=== PATIENT | male | born 1940 | race Caucasian/White ===

== ENCOUNTER → 2017-06-05 09:12 | Outpatient (CLI) | payer MEDICARE, OTHER, SELFPAY ==
[2017-06-05 10:51] LABS: AST(SGOT) 22 U/L (15-37); Alanine Aminotransfer ALT/SGPT 26 U/L (16-61); Albumin, Serum 3.5 g/dL (3.2-5.0); Alkaline Phosphatase 57 U/L (45-117); Bilirubin, Direct 0.15 mg/dL (0.00-0.30); Cholesterol 138 mg/dL (200); Globulin 3.3 g/dL (2.2-4.2); High Density Lipoprotein 45 mg/dL; Protein, Total 6.8 g/dL (6.4-8.2); Triglycerides 118 mg/dL; Very Low Density Lipoprotein 24 mg/dL (5-40)
== END ==
PROVIDERS: Family Provider Family Medicine; PCP Family Medicine; Visit Provider Internal Medicine Cardiovascular Disease
DX: E78.5 Hyperlipidemia, unspecified (principal); Z79.899 Other long term (current) drug therapy
CPT/HCPCS: 36415; 80061; 80076

== ENCOUNTER 2017-06-22 06:23 | Inpatient (IN) | payer MEDICARE, OTHER, SELFPAY ==
[2017-06-08 15:03] VITALS: BP 130/69; PULSE 57; RESP 16; TEMP 36.6; O2SAT 95; BMI 35.9
--- NOTE | 2017-06-08 15:12 | SDCEKG_ITS ---
Test Reason : Blood Pressure : / mmHG Vent. Rate : 052 BPM Atrial Rate : 052 BPM P-R Int : 160 ms QRS Dur : 098 ms QT Int : 428 ms P-R-T Axes : 057 -30 069 degrees QTc Int : 398 ms Sinus bradycardia Left axis deviation Abnormal ECG Confirmed by LUCIANA MATA, JOYCE ([id number]), image editor ELISHA TRAVIS ([id number] on 06/11/2017 12:55:37 PM Referred By: Adarsh Tijerina Confirmed By:JOYCE CHOWDHURY MD
[2017-06-08 15:40] LABS: Hematocrit 46.7 % (40-54); Mean Corp Hgb Conc 32.1 g/gl (32-36); Mean Corpuscular Hgb 29.3 pg (27.0-32.0); Mean Corpuscular Volume 91.2 fL (80-94); Mean Platelet Vol. 9.7 fl (6.2-12.0); Platelet Count 192 K/mm3 (150-450); RBC Distribution Width CV 16.7 % (11.6-14.6); Red Blood Count 5.12 M/mm3 (4.6-6.2); White Blood Count 7.9 K/mm3 (4.4-11.0)
[2017-06-08 15:41] LABS: Scan Indicated on CBC? Y/N NO
[2017-06-08 15:53] LABS: Partial Thromboplast Time 26.4 Seconds (24.1-36.2); Prothrombin Time (Protime)PT. 13.1 SECONDS (11.7-14.9)
[2017-06-08 16:22] LABS: AST(SGOT) 19 U/L (15-37); Alanine Aminotransfer ALT/SGPT 26 U/L (16-61); Albumin, Serum 3.4 g/dL (3.2-5.0); Alkaline Phosphatase 52 U/L (45-117); Anion Gap 7 (5-15); BUN 24 mg/dL (7-18); BUN/Creat Ratio 17.8 RATIO (10-20); Calcium,Total 9.5 mg/dL (8.5-10.1); Chloride 106 mmol/L (98-107); Creatinine, Serum 1.35 mg/dL (0.70-1.30); EST Glomerular Filtration Rate 55 mL/min (>60); Est Glom Filt Rate - Afr Amer 66 mL/min (>60); Estimated Creatinine Clearance 48.82 ml/min; Globulin 3.2 g/dL (2.2-4.2); Glucose 100 mg/dL (74-106); Potassium 3.8 mmol/L (3.5-5.1); Protein, Total 6.6 g/dL (6.4-8.2); Sodium Level 143 mmol/L (136-145)
[2017-06-22] VITALS (11 sets, daily range): BP systolic 109–136; BP diastolic 49–68; PULSE 52–66; RESP 16–18; TEMP 36.2–37.3; O2SAT 93–100; BMI 35.9
[2017-06-22] MEDS: Celecoxib 200 MG Capsule 400 MG PO (07:24)
[2017-06-22] MEDS: Acetaminophen 500 MG Tablet 1000 MG PO ×3 (07:25→21:58)
[2017-06-22] MEDS: oxyCODONE HCl Cr 10 MG Tablet PO (07:25)
[2017-06-22] MEDS: Cefazolin 2 GM in 0.9% Normal Saline 100 ML IV (08:24)
[2017-06-22] MEDS: Scopolamine 1mg/72hr Patch 1 PATCH TD (11:23)
[2017-06-22] MEDS: Lactated Ringers 1,000 ML 125 ML IV ×2 (11:24→18:46)
[2017-06-22] MEDS: Doxazosin 4 MG Tablet PO (12:33)
[2017-06-22] MEDS: Furosemide 40 MG Tablet PO (12:35)
[2017-06-22] MEDS: Senna/Docusate Sodium 1 Tablet 2 TABLET PO ×2 (12:35→21:58)
[2017-06-22] MEDS: Finasteride 5 MG Tablet PO (12:35)
[2017-06-22] MEDS: Ketorolac 15 MG/ML Vial IV (13:40)
--- NOTE | 2017-06-22 13:41 | OP.PCM_ITS ---
Report of Operation Date of Procedure: 06/22/17 Pre-Operative Diagnosis: Severe end-stage osteoarthritis right knee Post-Operative Diagnosis: Severe end-stage osteoarthritis right knee Surgery/Procedure Performed:: Total knee arthroplasty right knee Description of Surgical Findings:: Eburnation of bone, periarticular osteophytes consistent with tricompartmental osteoarthritis public information coordinator: Ailin Harden Type of Anesthesia:: Spinal Anesthesiologist: Vishnu Ortiz Special Medications: txa Specimen's removed: Bone and soft tissue Estimated Blood Loss (mL): 100 Fluids Replaced: See anesthesia report Description of Procedure: Implants: [employer] triathlon cruciate retaining size 5 femur 5 tibia 35 patella all cemented with Simplex 9 mm CS articulating surface Indications: Patient has severe end-stage osteoarthritis diagnosed via x-rays in the knee. They have failed all forms of conservative measures including activity modification, injections, anti-inflammatories, use of assistive device. The patient has pain that affects on a daily basis and prevents him from doing things that they enjoyed. They have elected to undergo the above procedure. The risks of the procedure were discussed at length and their questions were answered. Procedure description: The patient was greeted in the preoperative area. The right knee was then marked with a surgical marker. Patient was then taken to or [address]. They were administered a dose of antibiotics as well as tranexamic acid. Once adequate anesthesia was obtained and airway was secured to placed in supine position on the operating room table. A well-padded tourniquet was placed on the affected extremity. Leg was then prepped and draped in the usual sterile fashion from the knee down. Ioban was used on the skin. Surgical timeout was then performed and confirmed with all present. Six-inch Esmarch was used to examine the limb and tourniquet was then inflated to 250 mmHg. A longitudinal incision was then planned and carried out in the anterior aspect of the knee. The dissection was then carried the length of the incision the extensor mechanism was identified. Standard medial parapatellar arthrotomy was then performed revealing severe eburnation of bone and periarticular osteophytes. There is complete loss of cartilage especially in the medial compartment with varus alignment. Anterior fat pad was removed for visualization purposes and the anterior medial aspect of the tibia was skeletonized for exposure to the knee. The knee was then flexed the patella was inverted. Opening reamer was then used in the femur approximately 1 cm anterior to the attachment of the PCL. The intramedullary valgus wand was then placed in the femur set at 5? of valgus. The distal femoral cutting jig was then applied to the femur with anticipated resection of approximately 8 mm. This was then made with a oscillating saw. The sizing guide was then placed referencing off the posterior condyles and also reference off the epicondylar axis. This was measured and the appropriate size 4-in-1 cutting jig was then applied to the distal femur. Anterior posterior cuts were made followed by the anterior and posterior chamfer cuts. These bony pieces and fragments were removed and placed on the back table. Posterior retractor was then utilized and the tibia was subluxed anteriorly. Extramedullary tibial alignment jig was then applied to the tibia referencing off the medial one third of the tibial tubercle the anterior tibial spine the middle aspect of the tibiotalar joint. Also reference off patient's [place] slope. The tibial cutting jig was then pinned with anticipated resection of 2 mm off of the deficient medial tibial condyle. This cut was made with the oscillating saw. Once this was complete a laminar wharf builder was utilized in both medial lateral meniscus were removed and a posterior capsular osteophytes were also removed. Posterior capsule release was performed in the posterior capsule as well as the geniculate arteries are treated with the aqua Jose G. The tibia was incised and the appropriate sized tibial tray was then pinned. The femoral trial was then placed and the knee was trialed. Full flexion-extension were easily achieved. The knee seemed to balance quite nicely. Any remaining osteophytes were removed at this time. Once this was complete the patella was everted and the [place] patella reaming device was then utilized the patella was then placed in the appropriate jig and reamer was then used to remove approximately 9 mm of the undersurface of the patella. A soft tissue remaining was in the way was removed and patella trial was then placed listed maintain excellent tracking using the no thumbs technique. The tibial tray at this point was punched to accommodate the fins of the final implant. At this point cement was mixed on the back table. The trial components were removed and the knee was copiously irrigated. Did use a cocktail of injection for postoperative pain control. The final components were then cemented in the standard fashion and excess cement was removed with cement removal tools and patellar clamp is placed in the patella. As the cement had cured in full extension tourniquet was deflated and hemostasis was perfect with Bovie cautery as well as the aqua Manus. Needle is once again trialed with different size polyethylenes to ensure the full range of motion was achieved as well as excellent balancing ligamentously was achieved. At this point the knee was copiously irrigated. Final implant was then inserted locking mechanism was engaged and confirmed to be locked. The arthrotomy was then closed with #1 Vicryl aggravate type fashion interrupted. Subcutaneous tissue was closed with 0 Vicryl and surgical jasmina were placed in the skin. A occlusive silver impregnated dressing was then applied followed by well-padded sterile dressing secured with an Bacilio wrap. The patient was taken to the PACU in stable condition. No complications known at this time. Postoperatively we will maintain standard total knee postoperative protocol. - Complications none - Admit VTE Documentation VTE Present on Admission: Yes VTE Mechan Device Prophylaxis: SCD's, Thigh High RAUL Hose VTE Pharm Prophylaxis ordered?: Yes
[2017-06-22] MEDS: Ipratropium/Albuterol Sulfate 3 ML AMPUL.NEB INHALATION (14:01)
[2017-06-22] MEDS: Cefazolin 1 GM/50 ML BAG IV (16:09)
[2017-06-22] MEDS: Aspirin 325 MG Tablet PO (16:10)
--- NOTE | 2017-06-22 16:34 | PCM.CONS.B ---
Problem List (1) Osteoarthritis Status: Chronic (2) S/P total knee arthroplasty Status: Acute Qualifiers: Laterality: right Qualified Code(s): Z96.651 - Presence of right artificial knee joint Comment: 06/22/17 (3) Chronic renal failure, stage 3 (moderate) Status: Chronic (4) Allergic rhinitis Status: Chronic (5) Benign essential HTN Status: Chronic (6) CAD (coronary artery disease) Status: Chronic Qualifiers: Coronary Disease-Associated Artery/Lesion type: [place] artery [place] vs. transplanted heart: [place] heart Associated angina: without angina Qualified Code(s): I25.10 - Atherosclerotic heart disease of [place] coronary artery without angina pectoris (7) Esophageal reflux Status: Chronic (8) Gingivitis Status: Chronic (9) HLD (hyperlipidemia) Status: Chronic Qualifiers: Hyperlipidemia type: pure hypercholesterolemia Qualified Code(s): E78.00 - Pure hypercholesterolemia, unspecified; E78.0 - Pure hypercholesterolemia (10) History of percutaneous transluminal coronary angioplasty Status: Chronic Comment: PTCA & MARITZA of proximal & Mid LAD & Proximal & mid RCA in June 2000, PTCA & MARITZA of mid LAD November 2010 (11) Hypertension Status: Chronic Qualifiers: Hypertension type: essential hypertension Qualified Code(s): I10 - Essential (primary) hypertension (12) Hypothyroidism Status: Chronic (13) Prostate cancer Status: Chronic - Consult Date of Consult: 06/22/[address] Jimenez for medical management. He had a R TKA 06/22 and PMH is significant for CAD, hyperlipidemia, hypothyroidism, chronic renal failure stage III, obesity, osteoarthritis, hypertension, obstructive sleep apnea on CPAP, BPH and PTCA of the LAD and RCA with stents. Last cardiac catheterization was in 2013 and demonstrated patent pre-existing stent of his LAD and mid LAD, patent pre-existing stent of his RCA and an ejection fraction of 65%. He saw Dr. Tijerina in the office on 06/10/2017 in preparation for total knee replacement. Preoperative lab showed a BUN of 24 with a creatinine of 1.35. TSH was elevated at 8.9. Preoperative EKG showed normal sinus rhythm with left axis deviation but was otherwise unremarkable. - Reason for Consult Denies chest pain, shortness of breath, palpitations. He was eating supper and appeared in no acute distress at the time of my visit. States his pain is adequately controlled and he was able to ambulate to the nurses desk this afternoon. Also denies nausea, vomiting. Tells me that his levothyroid dose was recently increased to 0.15 mg daily from 0.137 mg daily due to the elevated TSH. He does take the medication on an empty stomach. Alert and oriented ?3, no apparent distress Lungs-good air exchange and clear to auscultation Heart-regular rate and rhythm without murmur, no gallop, no rub, normal S1, normal S2, no ectopy Carotids-brisk upstroke with good pulse volume and no carotid bruits No jugular vein distention Abdomen-obese, soft, nontender, nondistended, no guarding with palpation, normal bowel sounds heard Intact sensation to both feet No calf pain him a no peripheral edema him a peripheral pulses are intact and normal Mucous membranes are moist Affect is normal he is appropriate Impressions 1. S/P R TKA by Dr. Jimenez 2. CAD with hx of stents to the LAD and RCA 3. HTN 4. Osteoarthritis 5. Chronic renal failure stage III 6. Hypertension 7. BPH 8. Hyperlipidemia/GERD/gingivitis/hypothyroidism/history of prostate cancer-complicate care, management, prognosis and recovery. 9. Restless leg syndrome Plans on going home Thursday with outpatient physical therapy Will change the diet to a cardiac diet. Will continue to follow along with you while he is in the hospital He was instructed to notify the nurse immediately if he has chest pain or SOB. Would limit nonsteroidal use in light of chronic renal failure stage III Discontinue IV fluids. The patient is on Lasix, hydrochlorothiazide and Aldactone as an outpatient and he is taking his diet well so no need for IV hydration. Code Visit Inpatient E&M: 62926 Subs Hosp L2
--- NOTE | 2017-06-22 16:46 | CON.PCM_ITS ---
Problem List (1) Osteoarthritis Status: Chronic (2) S/P total knee arthroplasty Status: Acute Qualifiers: Laterality: right Qualified Code(s): Z96.651 - Presence of right artificial knee joint Comment: 06/22/17 (3) Chronic renal failure, stage 3 (moderate) Status: Chronic (4) Allergic rhinitis Status: Chronic (5) Benign essential HTN Status: Chronic (6) CAD (coronary artery disease) Status: Chronic Qualifiers: Coronary Disease-Associated Artery/Lesion type: [place] artery [place] vs. transplanted heart: [place] heart Associated angina: without angina Qualified Code(s): I25.10 - Atherosclerotic heart disease of [place] coronary artery without angina pectoris (7) Esophageal reflux Status: Chronic (8) Gingivitis Status: Chronic (9) HLD (hyperlipidemia) Status: Chronic Qualifiers: Hyperlipidemia type: pure hypercholesterolemia Qualified Code(s): E78.00 - Pure hypercholesterolemia, unspecified; E78.0 - Pure hypercholesterolemia (10) History of percutaneous transluminal coronary angioplasty Status: Chronic Comment: PTCA & MARITZA of proximal & Mid LAD & Proximal & mid RCA in June 2000, PTCA & MARITZA of mid LAD November 2010 (11) Hypertension Status: Chronic Qualifiers: Hypertension type: essential hypertension Qualified Code(s): I10 - Essential (primary) hypertension (12) Hypothyroidism Status: Chronic (13) Prostate cancer Status: Chronic - Consult Date of Consult: 06/22/[address] Jimenez for medical management. He had a R TKA 06/22 and PMH is significant for CAD, hyperlipidemia, hypothyroidism , chronic renal failure stage III, obesity, osteoarthritis, hypertension, obstructive sleep apnea on CPAP, BPH and PTCA of the LAD and RCA with stents. Last cardiac catheterization was in 2013 and demonstrated patent pre-existing stent of his LAD and mid LAD, patent pre-existing stent of his RCA and an ejection fraction of 65%. He saw Dr. Tijerina in the office on 06/10/2017 in preparation for total knee replacement. Preoperative lab showed a BUN of 24 with a creatinine of 1.35. TSH was elevated at 8.9. Preoperative EKG showed normal sinus rhythm with left axis deviation but was otherwise unremarkable. - Reason for Consult Denies chest pain, shortness of breath, palpitations. He was eating supper and appeared in no acute distress at the time of my visit. States his pain is adequately controlled and he was able to ambulate to the nurses desk this afternoon. Also denies nausea, vomiting. Tells me that his levothyroid dose was recently increased to 0.15 mg daily from 0.137 mg daily due to the elevated TSH. He does take the medication on an empty stomach. Alert and oriented ?3, no apparent distress Lungs-good air exchange and clear to auscultation Heart-regular rate and rhythm without murmur, no gallop, no rub, normal S1, normal S2, no ectopy Carotids-brisk upstroke with good pulse volume and no carotid bruits No jugular vein distention Abdomen-obese, soft, nontender, nondistended, no guarding with palpation, normal bowel sounds heard Intact sensation to both feet No calf pain him a no peripheral edema him a peripheral pulses are intact and normal Mucous membranes are moist Affect is normal he is appropriate Impressions 1. S/P R TKA by Dr. Jimenez 2. CAD with hx of stents to the LAD and RCA 3. HTN 4. Osteoarthritis 5. Chronic renal failure stage III 6. Hypertension 7. BPH 8. Hyperlipidemia/GERD/gingivitis/hypothyroidism/history of prostate cancer- complicate care, management, prognosis and recovery. 9. Restless leg syndrome Plans on going home Thursday with outpatient physical therapy Will change the diet to a cardiac diet. Will continue to follow along with you while he is in the hospital He was instructed to notify the nurse immediately if he has chest pain or SOB. Would limit nonsteroidal use in light of chronic renal failure stage III Discontinue IV fluids. The patient is on Lasix, hydrochlorothiazide and Aldactone as an outpatient and he is taking his diet well so no need for IV hydration. Code Visit Inpatient E&M: 42384 Subs Hosp L2
[2017-06-22] MEDS: oxyCODONE 5 MG Tablet PO (18:43)
[2017-06-22] MEDS: DULoxetine Hcl 30 MG Capsule PO (21:57)
[2017-06-22] MEDS: Pramipexole Di-HCl 0.5 MG Tablet PO (21:58)
[2017-06-22] MEDS: Atorvastatin Calcium 80 MG Tablet PO (21:58)
[2017-06-22] MEDS: Azelastine HCl NASAL.SRY 1 SPRAY NASAL (21:58)
[2017-06-23] VITALS (8 sets, daily range): BP systolic 115–138; BP diastolic 48–73; PULSE 45–80; RESP 16–20; TEMP 36.6–37; O2SAT 94–96
[2017-06-23] MEDS: Cefazolin 1 GM/50 ML BAG IV (00:39)
[2017-06-23] MEDS: Levothyroxine 150 MCG Tablet PO (05:13)
[2017-06-23] MEDS: Acetaminophen 500 MG Tablet 1000 MG PO ×3 (05:14→21:41)
[2017-06-23] MEDS: oxyCODONE 5 MG Tablet PO (05:14)
--- NOTE | 2017-06-23 07:07 | PCM.PN.ORT ---
Patient Problems: Active and Suspected Problems (Last Reviewed 06/10/17 @ 11:38 by Renzo Pond) S/P total knee arthroplasty (Acute) 06/22/17 Subjective: Dann is doing very well. He denies any pain in his knee whatsoever. He has been ambulatory yesterday as well as this morning and is currently sitting at bedside chair. He denies any chest pain or shortness of breath Objective: Neurovascularly intact. No calf pain. Dorsalis pedis pulses 2+ and he is able wiggle off his toes. Dressing is in place - Physical Exam Vital Signs Temp Pulse Resp BP Pulse Ox 97.8 F 52 L 16 116/57 L 96 06/23/17 02:15 06/23/17 02:15 06/23/17 02:15 06/23/17 02:15 06/23/17 02:15 Oxygen Delivery Method CPAP Weight: 250 lb 7.122 oz Body Mass Index (BMI) 35.9 Intake and Output for Last 24 Hours 06/21/17 06/22/17 06/23/17 23:59 23:59 23:59 Intake Total 4256 / 4256 240 / 240 Output Total 1000 / 1000 400 / 400 Balance 3256 / 3256 -160 / -160 Assessment/Plan Active and Suspected Problems (Last Reviewed 06/10/17 @ 11:38 by Renzo Pond) S/P total knee arthroplasty (Acute) 06/22/17 Postop day #1 right total knee arthroplasty Plan: Anticoagulate, pain control and mobilize with physical therapy. Anticipate discharge home tomorrow if the patient is doing well medically
[2017-06-23] MEDS: Budesonide Respules 0.5 MG/2 ML AMPUL.NEB. INHALATION ×2 (07:09→19:32)
[2017-06-23] MEDS: Ipratropium/Albuterol Sulfate 3 ML AMPUL.NEB INHALATION ×2 (07:09→19:32)
[2017-06-23] MEDS: Aspirin 325 MG Tablet PO ×2 (07:42→16:54)
[2017-06-23] MEDS: hydroCHLOROthiazide 25 MG Tablet PO (07:44)
[2017-06-23] MEDS: Furosemide 40 MG Tablet PO (07:44)
[2017-06-23] MEDS: Famotidine 20 MG Tablet PO (07:44)
[2017-06-23] MEDS: Senna/Docusate Sodium 1 Tablet 2 TABLET PO ×2 (07:44→21:40)
[2017-06-23] MEDS: Spironolactone 25 MG Tablet PO (07:45)
[2017-06-23] MEDS: Azelastine HCl NASAL.SRY 1 SPRAY NASAL ×2 (07:46→21:39)
--- NOTE | 2017-06-23 10:39 | CASEMGMT ---
SHAKIRA GREENFIELD Face to Face with patient for initial transition planning/care coordination assessment. RN GIN introduced self and role at [facility]. Patient sitting in chair, alert and oriented. Patient willing to participate in assessment and is able to answer all questions appropriately. Care providers, pharmacy, and demographics verified. See link attached. Patient wishes to discharge home with outpatient therapy setup at [facility] in [place]. Patient states that will be providing transportation. Patient states he has no further needs or concerns at this time. CM to follow for discharge planning needs that may arise. Disposition Plan: Patient to discharge home with outpatient therapy, family support, and follow-up plans in place.
--- NOTE | 2017-06-23 13:06 | PCA ---
pt in therapy
--- NOTE | 2017-06-23 20:43 | PCM.PROGNOTE ---
Patient Problems: Active and Suspected Problems (Last Reviewed 06/10/17 @ 11:38 by Renzo Pond) S/P total knee arthroplasty (Acute) 06/22/17 Subjective: He is doing very well. He has been ambulating and pain is adequately controlled. He is currently sitting in a chair and has 0/10 pain. Pain with ambulation is a 45. He denies chest pain and also denies palpitations, shortness of breath, nausea/vomiting. He is afebrile with stable vital signs. Pulse ox on room air is 95%. - Physical Exam General: Alert, Oriented x3, Cooperative, No apparent distress Neck: Supple, No JVD Lungs: Clear to auscultation Cardiovascular: Regular rate, Regular Rhythm, Normal S1, Normal S2, No murmurs, No Ectopic Activity, No rub noted, No Gallop Abdomen: Bowel Sounds Present, Soft, Non Tender, Non-Distended Extremities: No clubbing, No cyanosis, Peripheral Pulses Normal Skin: No rashes, No breakdown Neurological: Cranial nerves II-XII grossly intact, Neuro grossly intact Vital Signs Temp Pulse Resp BP Pulse Ox 97.9 F 53 L 18 115/53 L 95 06/23/17 14:10 06/23/17 14:10 06/23/17 14:10 06/23/17 14:10 06/23/17 14:10 Oxygen Delivery Method Room Air Weight: 250 lb 7.122 oz Body Mass Index (BMI) 35.9 Intake and Output for Last 24 Hours 06/21/17 06/22/17 06/23/17 23:59 23:59 23:59 Intake Total 4256 / 4256 240 / 240 Output Total 1000 / 1000 400 / 400 Balance 3256 / 3256 -160 / -160 Assessment/Plan Active and Suspected Problems (Last Reviewed 06/10/17 @ 11:38 by Renzo Pond) S/P total knee arthroplasty (Acute) 06/22/17 Impressions 1. S/P R TKA by Dr. Jimenez -postop day #1 2. CAD with hx of stents to the LAD and RCA 3. HTN 4. Osteoarthritis 5. Chronic renal failure stage III 6. Hypertension 7. BPH 8. Hyperlipidemia/GERD/gingivitis/hypothyroidism/history of prostate cancer-complicate care, management, prognosis and recovery. 9. Restless leg syndrome doing very well Will recheck a BMP and a CBC in the AM probable Dc tomorrow Code Visit Inpatient E&M: 90494 Subs Hosp L1
--- NOTE | 2017-06-23 20:47 | PN_ITS ---
Patient Problems: Active and Suspected Problems (Last Reviewed 06/10/17 @ 11:38 by Renzo Pond) S/P total knee arthroplasty (Acute) 06/22/17 Subjective: He is doing very well. He has been ambulating and pain is adequately controlled. He is currently sitting in a chair and has 0/10 pain. Pain with ambulation is a 45. He denies chest pain and also denies palpitations, shortness of breath, nausea/vomiting. He is afebrile with stable vital signs. Pulse ox on room air is 95%. - Physical Exam General: Alert, Oriented x3, Cooperative, No apparent distress Neck: Supple, No JVD Lungs: Clear to auscultation Cardiovascular: Regular rate, Regular Rhythm, Normal S1, Normal S2, No murmurs, No Ectopic Activity, No rub noted, No Gallop Abdomen: Bowel Sounds Present, Soft, Non Tender, Non-Distended Extremities: No clubbing, No cyanosis, Peripheral Pulses Normal Skin: No rashes, No breakdown Neurological: Cranial nerves II-XII grossly intact, Neuro grossly intact Vital Signs Temp Pulse Resp BP Pulse Ox 97.9 F 53 L 18 115/53 L 95 06/23/17 14:10 06/23/17 14:10 06/23/17 14:10 06/23/17 14:10 06/23/17 14:10 Oxygen Delivery Method Room Air Weight: 250 lb 7.122 oz Body Mass Index (BMI) 35.9 Intake and Output for Last 24 Hours 06/21/17 06/22/17 06/23/17 23:59 23:59 23:59 Intake Total 4256 / 4256 240 / 240 Output Total 1000 / 1000 400 / 400 Balance 3256 / 3256 -160 / -160 Assessment/Plan Active and Suspected Problems (Last Reviewed 06/10/17 @ 11:38 by Renzo Pond) S/P total knee arthroplasty (Acute) 06/22/17 Impressions 1. S/P R TKA by Dr. Jimenez -postop day #1 2. CAD with hx of stents to the LAD and RCA 3. HTN 4. Osteoarthritis 5. Chronic renal failure stage III 6. Hypertension 7. BPH 8. Hyperlipidemia/GERD/gingivitis/hypothyroidism/history of prostate cancer- complicate care, management, prognosis and recovery. 9. Restless leg syndrome doing very well Will recheck a BMP and a CBC in the AM probable Dc tomorrow Code Visit Inpatient E&M: 04862 Subs Hosp L1
[2017-06-23] MEDS: Doxazosin 4 MG Tablet PO (21:40)
[2017-06-23] MEDS: DULoxetine Hcl 30 MG Capsule PO (21:40)
[2017-06-23] MEDS: Atorvastatin Calcium 80 MG Tablet PO (21:40)
[2017-06-23] MEDS: LINACLOTIDE 145 MCG CAPSULE PO (21:40)
[2017-06-23] MEDS: Pramipexole Di-HCl 0.5 MG Tablet PO (21:40)
[2017-06-23] MEDS: Finasteride 5 MG Tablet PO (21:42)
[2017-06-23] MEDS: Zolpidem Tartrate 5 MG Tablet PO (21:50)
[2017-06-24] VITALS (7 sets, daily range): BP systolic 112–164; BP diastolic 60–83; PULSE 49–77; RESP 16–21; TEMP 36.7–36.9; O2SAT 94–96
[2017-06-24] MEDS: Levothyroxine 150 MCG Tablet PO (05:34)
[2017-06-24] MEDS: Acetaminophen 500 MG Tablet 1000 MG PO ×2 (05:35→13:44)
[2017-06-24 06:48] LABS: Hematocrit 41.8 % (40-54); Hemoglobin 13.5 g/dl (13.0-16.5); Mean Corp Hgb Conc 32.3 g/gl (32-36); Mean Corpuscular Hgb 29.6 pg (27.0-32.0); Mean Corpuscular Volume 91.7 fL (80-94); Mean Platelet Vol. 9.9 fl (6.2-12.0); Platelet Count 184 K/mm3 (150-450); RBC Distribution Width CV 16.2 % (11.6-14.6); RBC Distribution Width SD 52.5 fl (35.1-43.9); Red Blood Count 4.56 M/mm3 (4.6-6.2); White Blood Count 9.4 K/mm3 (4.4-11.0)
[2017-06-24 06:56] LABS: Scan Indicated on CBC? Y/N NO
[2017-06-24] MEDS: Ipratropium/Albuterol Sulfate 3 ML AMPUL.NEB INHALATION ×2 (07:10→13:04)
[2017-06-24] MEDS: Budesonide Respules 0.5 MG/2 ML AMPUL.NEB. INHALATION (07:10)
[2017-06-24 07:12] LABS: Anion Gap 7 (5-15); BUN 22 mg/dL (7-18); BUN/Creat Ratio 13.7 RATIO (10-20); Calcium,Total 9.1 mg/dL (8.5-10.1); Chloride 107 mmol/L (98-107); Creatinine, Serum 1.61 mg/dL (0.70-1.30); EST Glomerular Filtration Rate 45 mL/min (>60); Est Glom Filt Rate - Afr Amer 54 mL/min (>60); Estimated Creatinine Clearance 40.93 ml/min; Glucose 136 mg/dL (74-106); Potassium 3.9 mmol/L (3.5-5.1); Sodium Level 144 mmol/L (136-145)
[2017-06-24] MEDS: Famotidine 20 MG Tablet PO (07:34)
[2017-06-24] MEDS: Aspirin 325 MG Tablet PO (07:34)
[2017-06-24] MEDS: Senna/Docusate Sodium 1 Tablet 2 TABLET PO (07:35)
[2017-06-24] MEDS: Furosemide 40 MG Tablet PO (07:35)
[2017-06-24] MEDS: hydroCHLOROthiazide 25 MG Tablet PO (07:35)
[2017-06-24] MEDS: Spironolactone 25 MG Tablet PO (07:36)
--- NOTE | 2017-06-24 08:51 | PCM.DC.ORTHO ---
Discharge Diet: No Restrictions Discharge Activity: May Not Drive, May Shower - if occlusive dressing sealed Ice area for (Minutes): 20 Weight Bearing Status: Weight bearing as tolerated Keep extremity elevated above heart level: Right Leg Call your doctor if your incision/area has: Continuous Slow Oozing, Sudden Increased Bleeding, Increased Pain/ Swelling, Increased Redness, Foul Smelling Discharge Call your doctor if you observe: Fever of 101 or Higher, Coldness, Increased Pain, Numbness or Tingling, Change in Color Change Dressing in (Days):: 7 Remove Dressing in (days):: 7 Cleanse incision/area with: Soap & Water - after dressing removed if no drainage Allergies/Adverse Reactions: Allergies modafinil [From Provigil] Allergy (Verified 06/10/17 11:35) Other moxifloxacin HCl [From Avelox] Allergy (Verified 06/10/17 11:35) Upset Stomach Medications to take at Discharge Albuterol IH (ProAir) [Proair Hfa] 2 puff INHALATION Q4H PRN PRN 08/29/13 Doxazosin Mesylate [Cardura] 4 mg PO DAILY 08/29/13 Finasteride [Proscar] 5 mg PO DAILY 08/29/13 Levothyroxine [Synthroid] 150 mcg PO DAILY 08/29/13 Meclizine HCl [Antivert] 25 mg PO 4X/DAY PRN PRN 08/29/13 Multivitamins,Therapeutic [Multivitamin] 1 tab PO DAILY 08/29/13 Nitroglycerin [Nitrostat] 0.4 mg SUBLINGUAL Q5M PRN 08/29/13 Rosuvastatin Calcium [Crestor] 40 mg PO DAILY 08/29/13 Spironolact/Hydrochlorothiazid [Aldactazide 25-25 Tablet] 25 mg PO DAILY 08/29/13 Fluticasone/Salmeterol [Advair 500/50 Mcg Diskus] 1 puff INHALATION BID 01/16/16 Linacolotide [Linzess] 145 mcg PO DAILY 01/16/16 Pramipexole Di-HCl [Mirapex] 0.5 mg PO QHS 01/16/16 Tiotropium [place] [Spiriva 18 MCG] 1 puff INHALATION DAILY 01/16/16 furosemide 40 mg tablet 40 mg PO QDAY 05/06/17 famotidine 40 mg tablet 40 mg PO QDAY tab 05/21/17 Azelastine HCl [Astelin] 1 spray NASAL BID 06/08/17 Duloxetine HCl 30 mg PO DAILY 06/08/17 Ropinirole HCl [Requip] 0.5 mg PO QHS 06/08/17 Temazepam [Restoril] 7.5 mg PO QHS 06/08/17 Wheat Dextrin [Benefiber] 1 ea PO QHS 06/08/17 potassium chloride ER 20 mEq tablet,extended release(part/cryst) 40 meq PO QDAY tab 06/10/17 Acetaminophen [Tylenol] 1,000 mg PO Q8 tablet 06/24/17 Aspirin 325 mg PO BIDCM #60 tab 06/24/17 MorphINE [Ms Contin] 15 mg PO BID 7 Days #14 tablet 06/24/17 Ondansetron [Zofran] 4 mg IV Q8H PRN PRN #10 vial 06/24/17 Oxycodone [Oxyir] 5 - 10 mg PO Q4H PRN PRN 7 Days #56 tablet 06/24/17 Senna/Docusate Sodium [Senokot-S] 2 tablet PO BID tablet 06/24/17 The following prescriptions were given: Oxycodone [Oxyir] 5 - 10 mg PO Q4H PRN PRN 7 Days #56 tablet PRN Reason: Mod-Severe Pain (4-10/10) Ondansetron [Zofran] 4 mg IV Q8H PRN PRN #10 vial PRN Reason: NAUSEA Aspirin 325 mg PO BIDCM #60 tab MorphINE [Ms Contin] 15 mg PO BID 7 Days #14 tablet Please Follow Up With: Mike Jimenez DO When: 2 weeks
--- NOTE | 2017-06-24 08:59 | DCINST_ITS ---
Discharge Diet: No Restrictions Discharge Activity: May Not Drive, May Shower - if occlusive dressing sealed Ice area for (Minutes): 20 Weight Bearing Status: Weight bearing as tolerated Keep extremity elevated above heart level: Right Leg Call your doctor if your incision/area has: Continuous Slow Oozing, Sudden Increased Bleeding, Increased Pain/ Swelling, Increased Redness, Foul Smelling Discharge Call your doctor if you observe: Fever of 101 or Higher, Coldness, Increased Pain, Numbness or Tingling, Change in Color Change Dressing in (Days):: 7 Remove Dressing in (days):: 7 Cleanse incision/area with: Soap & Water - after dressing removed if no drainage Allergies/Adverse Reactions: Allergies modafinil [From Provigil] Allergy (Verified 06/10/17 11:35) Other moxifloxacin HCl [From Avelox] Allergy (Verified 06/10/17 11:35) Upset Stomach Medications to take at Discharge Albuterol IH (ProAir) [Proair Hfa] 2 puff INHALATION Q4H PRN PRN 08/29/13 Doxazosin Mesylate [Cardura] 4 mg PO DAILY 08/29/13 Finasteride [Proscar] 5 mg PO DAILY 08/29/13 Levothyroxine [Synthroid] 150 mcg PO DAILY 08/29/13 Meclizine HCl [Antivert] 25 mg PO 4X/DAY PRN PRN 08/29/13 Multivitamins,Therapeutic [Multivitamin] 1 tab PO DAILY 08/29/13 Nitroglycerin [Nitrostat] 0.4 mg SUBLINGUAL Q5M PRN 08/29/13 Rosuvastatin Calcium [Crestor] 40 mg PO DAILY 08/29/13 Spironolact/Hydrochlorothiazid [Aldactazide 25-25 Tablet] 25 mg PO DAILY Fluticasone/Salmeterol [Advair 500/50 Mcg Diskus] 1 puff INHALATION BID Linacolotide [Linzess] 145 mcg PO DAILY 01/16/16 Pramipexole Di-HCl [Mirapex] 0.5 mg PO QHS 01/16/16 Tiotropium [place] [Spiriva 18 MCG] 1 puff INHALATION DAILY 01/16/16 furosemide 40 mg tablet 40 mg PO QDAY 05/06/17 famotidine 40 mg tablet 40 mg PO QDAY tab 05/21/17 Azelastine HCl [Astelin] 1 spray NASAL BID 06/08/17 Duloxetine HCl 30 mg PO DAILY 06/08/17 Ropinirole HCl [Requip] 0.5 mg PO QHS 06/08/17 Temazepam [Restoril] 7.5 mg PO QHS 06/08/17 Wheat Dextrin [Benefiber] 1 ea PO QHS 06/08/17 potassium chloride ER 20 mEq tablet,extended release(part/cryst) 40 meq PO QDAY tab 06/10/17 Acetaminophen [Tylenol] 1,000 mg PO Q8 tablet 06/24/17 Aspirin 325 mg PO BIDCM #60 tab 06/24/17 MorphINE [Ms Contin] 15 mg PO BID 7 Days #14 tablet 06/24/17 Ondansetron [Zofran] 4 mg IV Q8H PRN PRN #10 vial 06/24/17 Oxycodone [Oxyir] 5 - 10 mg PO Q4H PRN PRN 7 Days #56 tablet 06/24/17 Senna/Docusate Sodium [Senokot-S] 2 tablet PO BID tablet 06/24/17 The following prescriptions were given: Oxycodone [Oxyir] 5 - 10 mg PO Q4H PRN PRN 7 Days #56 tablet PRN Reason: Mod-Severe Pain (4-10/10) Ondansetron [Zofran] 4 mg IV Q8H PRN PRN #10 vial PRN Reason: NAUSEA Aspirin 325 mg PO BIDCM #60 tab MorphINE [Ms Contin] 15 mg PO BID 7 Days #14 tablet Please Follow Up With: Mike Jimenez DO When: 2 weeks
== END 2017-06-24 13:50 | disposition home or self-care (01) | DRG 470 ==
LOC: MS3 06:24
PROVIDERS: Anesthesiology; Internal Medicine; Admitting Provider Orthopaedic Surgery; Family Provider Family Medicine; PCP Family Medicine; Visit Provider Orthopaedic Surgery
PROC: 0SRC0J9 Replacement of Right Knee Joint with Synthetic Substitute, Cemented, Open Approach (ICD-10-PCS; CPT 27447; principal; 2017-06-22 08:20)
DX: M17.11 Unilateral primary osteoarthritis, right knee (principal); N18.3 Chronic kidney disease, stage 3 (moderate); E03.9 Hypothyroidism, unspecified; E78.5 Hyperlipidemia, unspecified; G47.33 Obstructive sleep apnea (adult) (pediatric); Z95.5 Presence of coronary angioplasty implant and graft; I25.10 Atherosclerotic heart disease of native coronary artery without angina pectoris; N40.0 Benign prostatic hyperplasia without lower urinary tract symptoms; I12.9 Hypertensive chronic kidney disease with stage 1 through stage 4 chronic kidney disease, or unspecified chronic kidney disease; E66.9 Obesity, unspecified; G25.81 Restless legs syndrome; Z85.46 Personal history of malignant neoplasm of prostate; Z68.35 Body mass index [BMI] 35.0-35.9, adult; K21.9 Gastro-esophageal reflux disease without esophagitis; Z87.891 Personal history of nicotine dependence
CPT/HCPCS: 36415; 80048; 80076; 84443; 85027; 85610; 85730; 87081; 94640; 97110; 97116; 97162; 97165; 97530; 97535; J7120; J2405

== ENCOUNTER 2017-06-26 23:06 | Inpatient (IN) | payer MEDICARE, OTHER, SELFPAY ==
[2017-06-26 23:07] VITALS: BP 128/68; PULSE 72; RESP 16; TEMP 36.8; O2SAT 90; BMI 33.0
[2017-06-26 23:09] VITALS: O2SAT 93
--- NOTE | 2017-06-26 23:24 | EKG12_ITS ---
Test Reason : Blood Pressure : / mmHG Vent. Rate : 066 BPM Atrial Rate : 066 BPM P-R Int : 176 ms QRS Dur : 094 ms QT Int : 404 ms P-R-T Axes : 042 -44 078 degrees QTc Int : 423 ms Normal sinus rhythm Left axis deviation Abnormal ECG Confirmed by LUCIANA MATA, JOYCE ([id number]), senior editor ELISHA TRAVIS ([id number] on 06/30/2017 4:29:15 PM Referred By: ARCADIO Confirmed By:JOYCE CHOWDHURY MD
--- NOTE | 2017-06-26 23:27 | ED.VISSUMM ---
- ER Visit Summary Date of Service: 06/26/17 Chief Complaint: [] Weakness History of Present Illness: The patient is a 77 M's been feeling weak since his surgery. He had a right knee total replacement on June 22. He was discharged from the hospital 2 days ago. Had no postoperative complications. He was on morphine but has not been taken it today. He was on oxycodone as well and his last dose was at noon. He is using Tylenol. He could not stand on his own tonight after getting help to the bathroom. He slept most of the afternoon. He does not smoke cigarettes. He did go to therapy today and did okay per family. The patient stated he felt a little bit dizzy without vertigo. He thinks the narcotics were making him feel spacey so is cut back on them. Physical Examination: Vital signs reviewed afebrile, pulse ox 90 General: Well-nourished well-developed Head: Normocephalic atraumatic Eyes: Pupils equal round and reactive to light extraocular movements intact ENT: TMs clear no hemotympanum no trauma Neck: Nontender full range of motion Cardiovascular: Regular rate rhythm no murmurs normal S1-S2 Respiratory: No distress clear to auscultation bilaterally chest nontender Abdomen: Soft nontender nondistended normal bowel sounds no masses Back: Nontender no CVA tenderness Extremities: Right knee with mild swelling diffusely postoperative. Mild warmth and redness on the anterior portion of the knee. No calf pain. Negative Homans. Skin: see knee exam Neuro alert oriented cranial nerves II through XII intact normal sensation reflexes Test Results: [] Emergency Department Course and Treatment: [] EKG shows sinus at 66. T-wave inversion aVL and V2 unchanged from prior. CBC normal. Chemistries normal except sodium 134 potassium 2.8 chloride 94 creatinine 1.9. Urinalysis normal. Troponin negative. Blood cultures pending. Chest x-ray shows nothing acute. Atelectasis left lower lobe. Patient given IV fluid bolus as well as potassium replacement. I feel his weakness is likely secondary to post operative dehydration and electrolyte abnormalities. Initially his pulse ox is red at 90% on room air. I have a low suspicion for PE but it is possible. Pulse ox currently is 92% on room air. At this time I feel before a CTA would need to be done to rule out PE his creatinine has been normalized back to his baseline with IV fluid therapy. I will discuss this with the hospitalist. Have a low suspicion of this however. His right knee was discussed with the family. They stated that his knee has been a little bit inflamed since surgery. The redness and inflammation and warmth is not new. I have a low suspicion for infection given the fact that he has no fever and this is been there since surgery and his CBC is normal. I feel Dr. Jimenez should look at this should not place him on antibiotics currently. I discussed with the hospitalist who will be admitted Treatment Plan: [] Disposition: [] Impression: [] Weakness, dehydration, hypokalemia, acute on chronic renal insufficiency, postoperative right knee inflammation This note was generated with Flexenclosure dictation software. It may contain incorrect words, spelling, and punctuation that were not noted in review of the chart prior to signing ED Disposition - Plan for ED Patient: Chief Complaint: Weakness Referrals: Mateus Hernandez DO [Primary Care Provider] -
--- NOTE | 2017-06-26 23:30 | RAD_ITS ---
STUDY: X-RAY CHEST REASON FOR EXAM: Male, 77 years old. Weakness confusion TECHNIQUE: Single AP portable view of the chest. COMPARISON: August 29, 2013, May 18, 2013 FINDINGS: The lungs are underexpanded there is blunting of the left costophrenic angle and/or scarring similar to the prior study Normal size heart. Normal mediastinum and amy. Normal visualized pulmonary arteries. Normal visualized aortic arch and descending thoracic aorta. There are diffuse degenerative changes of the visualized thoracic spine. Normal visualized ribs, clavicles, and shoulders. There is no demonstrated abnormality of the visualized soft tissue structures of the upper abdomen. RAD/Chest 1 View (Portable) IMPRESSION: Chronic left lower lobe atelectasis and/or prominent cardiac fat pad. Stable chest. Electronically Signed: Debbie Verdin MD at 0:56 EST Tel , Service support ,
[2017-06-26 23:44] LABS: Absolute Lymphocyte Count 2.48 X10^3/ul (0.83-4.51); Absolute Neutrophil Count 5.2 X10^3/uL (2.0-7.7); Basophil# 0.04 X10^3/uL; Basophil% 0.4 % (0-1); Eosinophils% 2.2 % (0-5); Hematocrit 42.4 % (40-54); Hemoglobin 14.6 g/dl (13.0-16.5); Lymphocyte # 2.48 X10^3/ul (4.0); Lymphocyte % 27.9 % (19-41); Mean Corp Hgb Conc 34.4 g/gl (32-36); Mean Corpuscular Hgb 30.4 pg (27.0-32.0); Mean Corpuscular Volume 88.1 fL (80-94); Mean Platelet Vol. 9.8 fl (6.2-12.0); Monocyte# 0.92 X10^3/uL; Monocyte% 10.3 % (0-10); Neutrophil # 5.22 X10^3/uL (2.7-7.7); Neutrophil % 58.8 % (47-70); POSITIVE COUNT NO; POSITIVE DIFFERENTIAL NO; POSITIVE MORPHOLOGY NO; Platelet Count 218 K/mm3 (150-450); RBC Distribution Width CV 15.9 % (11.6-14.6); RBC Distribution Width SD 50.9 fl (35.1-43.9); Red Blood Count 4.81 M/mm3 (4.6-6.2); White Blood Count 8.9 K/mm3 (4.4-11.0)
[2017-06-26 23:57] LABS: Anion Gap 8 (5-15); BUN 29 mg/dL (7-18); Calcium,Total 9.4 mg/dL (8.5-10.1); Chloride 94 mmol/L (98-107); Creatinine, Serum 1.93 mg/dL (0.70-1.30); EST Glomerular Filtration Rate 36 mL/min (>60); Est Glom Filt Rate - Afr Amer 44 mL/min (>60); Estimated Creatinine Clearance 37.37 ml/min; Glucose 164 mg/dL (74-106); Potassium 2.8 mmol/L (3.5-5.1); Sodium Level 134 mmol/L (136-145)
[2017-06-27] VITALS (20 sets, daily range): BP systolic 117–131; BP diastolic 48–64; PULSE 56–75; RESP 14–18; TEMP 36.5–37.3; O2SAT 93–98; BMI 33.0
[2017-06-27 01:14] LABS: Bacteria 0 SEEN /hpf (None Seen); Mucous, Urine 0 SEEN /hpf (<or=2+); White Blood Cells 0 SEEN /hpf (0-5)
[2017-06-27 01:23] LABS: Color, Urine Yellow (Yellow); Glucose, Dipstick Normal (Normal); Ketone-Dipstick Negative (Negative); Leukocyte Esterase-Dipstick Negative /ul (Negative); Nitrite-Dipstick Negative (Negative); Occult Blood-Urine 10 /ul (Negative); Protein-Dipstick 30 mg/dl (Negative); Specific Gravity, Urine 1.015 (1.002-1.030); Urine Bilirubin Dipstick Negative (Negative); Urine Clarity Sl. Cloudy (Clear); Urine Urobilinogen Normal (Normal)
[2017-06-27 01:29] LABS: Red Blood Cells-Urine 0-5 SEEN /hpf (0-5); Squamous Epithelial Cells - UA 0-5 SEEN /hpf (0-5)
--- NOTE | 2017-06-27 03:54 | PCM.HP.STD ---
Problem List (1) DEBORAH (acute kidney injury) Status: Acute (2) Hyponatremia Status: Acute (3) Hypokalemia Status: Acute (4) S/P total knee arthroplasty Status: Acute Qualifiers: Comment: 06/22/17 (5) Allergic rhinitis Status: Chronic (6) Benign essential HTN Status: Chronic (7) CAD (coronary artery disease) Status: Chronic Qualifiers: (8) Chronic renal failure, stage 3 (moderate) Status: Chronic (9) Gingivitis Status: Chronic (10) HLD (hyperlipidemia) Status: Chronic Qualifiers: History of Present Illness Date of Admission: 06/27/17 Chief Complaint: DEBORAH The patient is a 77 year old male w/ h/o CAD, hyperlipidemia, hypothyroidism, chronic renal failure stage III, obesity, osteoarthritis, hypertension, obstructive sleep apnea on CPAP, BPH and PTCA of the LAD and RCA with stents was recently admitted for on 06/22/17 for R TKA. He is readmitted 2 days later for DEBORAH. He was discharged on Thursday and on , at home he has been taking oxycodone around the clock. He also took morphine, temazepam, and oxycodone He took a total of 6 oxycodone tabs on . He was sleeping for most part of the day. He did not drink or eat much. On Thursday he took two addition dose of oxycodone. He became lethargic and nothing made it better or worse. He had minimal participation with PT/OT. He was falling asleep so family took him into the ED for further workup. He also took ASA BID. Past Medical History Past Medical History (Chronic Problems): Chronic Problems (Last Updated 06/10/17 @ 13:32 by TARUN Díaz) Osteoarthritis (Chronic) Chronic renal failure, stage 3 (moderate) (Chronic) Hypertension (Chronic) History of percutaneous transluminal coronary angioplasty (Chronic) PTCA & MARITZA of proximal & Mid LAD & Proximal & mid RCA in June 2000, PTCA & MARITZA of mid LAD November 2010 CAD (coronary artery disease) (Chronic) Hypothyroidism (Chronic) HLD (hyperlipidemia) (Chronic) Gingivitis (Chronic) Esophageal reflux (Chronic) Benign essential HTN (Chronic) Prostate cancer (Chronic) Allergic rhinitis (Chronic) Allergies modafinil [From Provigil] Allergy (Verified 06/26/17 23:09) Other moxifloxacin HCl [From Avelox] Allergy (Verified 06/26/17 23:09) Upset Stomach Home Medications: Ambulatory Orders Medication Instructions Recorded Acetaminophen [Tylenol Extra 500 mg PO Q8H PRN 06/26/17 Strength] Aspirin 325 mg PO BID 06/26/17 Bisacodyl [Dulcolax] 10 mg PO QHS 06/26/17 Doxazosin Mesylate [Cardura] 4 mg PO QHS 06/26/17 Doxycycline Hyclate 20 mg PO DAILY 06/26/17 Duloxetine HCl 60 mg PO QHS 06/26/17 Famotidine [Pepcid] 40 mg PO BID 06/26/17 Fluticasone/Salmeterol [Advair 1 puff INHALATION BID 06/26/17 500/50 Mcg Diskus] Furosemide [Lasix] 40 mg PO DAILY 06/26/17 Levothyroxine [Synthroid] 150 mcg PO DAILY 06/26/17 Linacolotide [Linzess] 145 mcg PO QHS 06/26/17 Morphine Sulfate [Morphine Sulfate 15 mg PO BID PRN 06/26/17 ER] Ondansetron HCl [Zofran] 8 mg PO Q8H PRN 06/26/17 Oxycodone [Oxyir] 1 - 2 tab PO Q4H PRN PRN 06/26/17 Potassium Chloride PO DAILY 06/26/17 Ropinirole HCl [Requip] 1 - 2 tab PO QHS 06/26/17 Rosuvastatin Calcium [Crestor] 40 mg PO QHS 06/26/17 Spironolact/Hydrochlorothiazid 1 each PO DAILY 06/26/17 [Aldactazide 25-25 Tablet] Temazepam [Restoril] 30 mg PO QHS 06/26/17 Tiotropium [place] [Spiriva 18 MCG] 1 puff INHALATION DAILY 06/26/17 Surgical History: appendectomy Psychiatric History: No pertinent psych hx Lives: Spouse/ Significant Other Smoking Status: Former smoker Alcohol: None Drugs: None - *Family History Maternal History Items: No pertinent history Review of Systems Constitutional: Denies: Chills, Fever, Weight Change HEENT: Denies: Head Aches, Sinus Congestion, Sinus Drainage Cardiovascular: Denies: Chest Pain, Palpitations Respiratory: Denies: Cough, Shortness of breath at rest, Sputum production Gastrointestinal: Denies: Abdominal Pain, Nausea, Vomiting Genitourinary: Denies: Dysuria Musculoskeletal: Denies: Joint Pain, Joint Tenderness Skin: Denies: Rash, Wounds Neurological: Denies: Numbness, Tingling, Focal weakness Psychiatric: Denies: Anxiety, Depression, Homicidal Ideations, Suicidal Ideations Hematologic/ Lymphatic: Denies: Easy Bruising, Easy Bleeding VTE Information - Inpt Only VTE Present on Admission: No VTE Mechan Device Prophylaxis: SCD's VTE Pharm Prophylaxis ordered?: Yes Patient Problems: Active and Suspected Problems (Last Updated 06/10/17 @ 13:32 by TARUN Díaz) DEBORAH (acute kidney injury) (Acute) Hyponatremia (Acute) Hypokalemia (Acute) - Physical Exam General: Alert, Oriented x3, Cooperative HEENT: Atraumatic, PERRLA, EOMI, Normocephalic Neck: Supple, No JVD, Negative Carotid Bruits Lungs: Clear to auscultation, Normal air movement Cardiovascular: Regular rate, No murmurs Abdomen: Bowel Sounds Present, Soft, Non Tender Extremities: No edema, Capillary Refill Less than 3 Seconds, - - Right knee dressing d/c/i. Mild redness and warmth at the surgical site. Skin: No rashes, No breakdown Musculoskeletal: No Tenderness to Palpation of Joints or Extremities Neurological: Cranial nerves II-XII grossly intact Psych/Mental Status: Normal Affect, Appropriate Vital Signs Temp Pulse Resp BP Pulse Ox 98.2 F 64 16 131/64 H 93 06/26/17 23:07 06/27/17 02:04 06/27/17 03:32 06/27/17 02:04 06/27/17 02:04 Oxygen Delivery Method Room Air Weight: 113.398 kg Body Mass Index (BMI) 33.0 Assessment/Plan Active and Suspected Problems (Last Updated 06/10/17 @ 13:32 by TARUN Díaz) DEBORAH (acute kidney injury) (Acute) Hyponatremia (Acute) Hypokalemia (Acute) 77 year old male w/ h/o CAD, hyperlipidemia, hypothyroidism, chronic renal failure stage III, obesity, osteoarthritis, hypertension, obstructive sleep apnea on CPAP, BPH and PTCA of the LAD and RCA with stents was recently admitted for on 06/22/17 for R TKA. He is readmitted 2 days later for DEBORAH. 1) DEBORAH: Baseline Cr 1.3 Cr 1.9 Most likely secondary to azotemia with superimposed NSAID use. U/A bland Hydration. Serial surveillance labs. 2) Hypokalemia: Replaced. Repeat labs in AM. May need further replacement. 3) Hyponatremia: Hydration. 4) S/p right TKA: Will reconsult ortho given right leg warmth and redness, although mild. At this time, minimal suspicion of cellulitis. Will defer to ortho. 5) Prophylaxis: SCD / heparin.
[2017-06-27] MEDS: Acetaminophen 500 MG Tablet PO (04:25)
[2017-06-27] MEDS: Levothyroxine 150 MCG Tablet PO (06:35)
[2017-06-27 07:04] LABS: Absolute Neutrophil Count 4.4 X10^3/uL (2.0-7.7); Basophil# 0.02 X10^3/uL; Basophil% 0.3 % (0-1); Eosinophil# 0.27 X10^3/uL; Eosinophils% 3.6 % (0-5); Hematocrit 37.2 % (40-54); Hemoglobin 12.3 g/dl (13.0-16.5); Lymphocyte % 27.6 % (19-41); Mean Corp Hgb Conc 33.1 g/gl (32-36); Mean Corpuscular Hgb 29.6 pg (27.0-32.0); Mean Corpuscular Volume 89.4 fL (80-94); Mean Platelet Vol. 10.1 fl (6.2-12.0); Monocyte% 10.5 % (0-10); Neutrophil # 4.37 X10^3/uL (2.7-7.7); Neutrophil % 57.5 % (47-70); Platelet Count 179 K/mm3 (150-450); RBC Distribution Width CV 15.6 % (11.6-14.6); RBC Distribution Width SD 50.8 fl (35.1-43.9); Red Blood Count 4.16 M/mm3 (4.6-6.2); White Blood Count 7.6 K/mm3 (4.4-11.0)
[2017-06-27 07:08] LABS: POSITIVE COUNT NO; POSITIVE DIFFERENTIAL NO; POSITIVE MORPHOLOGY NO
[2017-06-27 07:24] LABS: Anion Gap 6 (5-15); BUN 23 mg/dL (7-18); Calcium,Total 8.4 mg/dL (8.5-10.1); Chloride 98 mmol/L (98-107); Creatinine, Serum 1.53 mg/dL (0.70-1.30); EST Glomerular Filtration Rate 47 mL/min (>60); Est Glom Filt Rate - Afr Amer 57 mL/min (>60); Estimated Creatinine Clearance 47.15 ml/min; Glucose 150 mg/dL (74-106); Potassium 2.9 mmol/L (3.5-5.1); Sodium Level 135 mmol/L (136-145)
[2017-06-27] MEDS: Budesonide Respules 0.5 MG/2 ML AMPUL.NEB. INHALATION ×2 (07:28→18:53)
[2017-06-27] MEDS: Ipratropium/Albuterol Sulfate 3 ML AMPUL.NEB INHALATION ×3 (07:28→18:53)
[2017-06-27 07:29] LABS: Erythrocyte Sedimentation Rate 62 mm/hr (0-20)
[2017-06-27] MEDS: Famotidine 20 MG Tablet 40 MG PO ×2 (07:52→20:12)
--- NOTE | 2017-06-27 07:57 | PCM.PN.HOSP ---
Patient Problems: Active and Suspected Problems (Last Updated 06/10/17 @ 13:32 by TARUN Díaz) DEBORAH (acute kidney injury) (Acute) Hyponatremia (Acute) Hypokalemia (Acute) Subjective: Patient is a 77-year-old gentleman recently discharged from the hospital on 06/22/2017 following admission for right total knee arthroplasty who presented with progressive generalized weakness. Patient has a baseline creatinine of 1.3 creatinine on admission was 1.9 this was attributed to azotemia from dehydration as well as superimposed NSAID use admitted to a regular nursing floor for subsequent management Objective: GENERAL: cooperative HEENT: Clear conjunctiva, NECK; supple, normal thyroid, CHEST: Diminished to auscultation bilaterally, HEART: Regular S1 S2, no audible murmurs ABDOMEN: soft, non-tender, normoactive bowel sounds, RECTAL: deferred EXTREMITIES: Incision involving the right knee clean dry and intact [employer]BER: Awake,no lateralizing signs. Vitals/I&O's: Vital Signs Temp Pulse Resp BP Pulse Ox 97.7 F L 60 18 117/48 L 98 06/27/17 07:46 06/27/17 07:46 06/27/17 07:46 06/27/17 07:46 06/27/17 07:46 Oxygen Delivery Method Room Air Weight: 113.398 kg Body Mass Index (BMI) 33.0 Intake and Output for Last 24 Hours 06/25/17 06/26/17 06/27/17 23:59 23:59 23:59 Intake Total 675 / 675 Output Total 1050 / 1050 Balance -375 / -375 Laboratory Results 06/27/17 06:26: WBC 7.6, RBC 4.16 L, Hgb 12.3 L, Hct 37.2 L, MCV 89.4, MCH 29.6, MCHC 33.1, RDW 15.6 H, RDW Differential 50.8 H, Plt Count 179, MPV 10.1, Immature Gran % (Auto) 0.500, Neut % (Auto) 57.5, Lymph % (Auto) 27.6, Rains % (Auto) 10.5 H, Eos % (Auto) 3.6, Baso % (Auto) 0.3, Absolute Neuts (auto) 4.4, Absolute Lymphs (auto) 2.10, Total Counted Not Reportable 06/27/17 06:26: Sodium 135 L, Potassium 2.9 L, Chloride 98, Carbon Dioxide 31.0, Anion Gap 6, BUN 23 H, Creatinine 1.53 H, Estim Creat Clear Calc 47.15, Est GFR (MDRD) Af Amer 57 L, Est GFR (MDRD) Non-Af 47 L, BUN/Creatinine Ratio 15.0, Glucose 150 H, Calcium 8.4 L 06/27/17 06:26: ESR 62 H 06/27/17 06:26: C-React Prot Ext Range 186.00 H Current Medications Acetaminophen (Tylenol) 500 mg PO Q8H PRN PRN Reason: PAIN Last Admin: 06/27/17 04:25 Dose: 500 mg Albuterol/Ipratropium (Duoneb) 3 ml INHALATION Q6HWA.RT [facility] Last Admin: 06/27/17 07:28 Dose: 3 ml Atorvastatin Calcium (Lipitor) 40 mg PO QHS AYLEEN Bisacodyl (Dulcolax) 10 mg PO QHS AYLEEN Budesonide (Pulmicort Aerosol) 0.5 mg INHALATION Q12H.RT [facility] Last Admin: 06/27/17 07:28 Dose: 0.5 mg Doxazosin Mesylate (Cardura) 4 mg PO QHS AYLEEN Duloxetine HCl (Cymbalta) 60 mg PO QHS [facility] Famotidine (Pepcid) 40 mg PO BID [facility] Last Admin: 06/27/17 07:52 Dose: 40 mg Heparin Sodium (Porcine) (Heparin Na) 5,000 unit SC Q8 [facility] Last Admin: 06/27/17 06:44 Dose: 5,000 units Sodium Chloride () 1,000 mls @ 125 mls/hr IV .Q8H [facility] Levothyroxine Sodium (Synthroid) 150 mcg PO DAILY@0600 [facility] Last Admin: 06/27/17 06:35 Dose: 150 mcg Magnesium Hydroxide (Milk Of Magnesia) 30 ml PO DAILY PRN PRN PRN Reason: Constipation Morphine Sulfate (Morphine) 2 mg IV Q4H PRN PRN PRN Reason: SEVERE PAIN (6-10/10) Non-Formulary Medication (Linacolotide) 145 mcg PO QHS [facility] Ondansetron HCl (Zofran) 8 mg PO Q8H PRN PRN Reason: NAUSEA Sodium Chloride () 5 - 30 ml IV UD PRN PRN Reason: SALINE FLUSH Assessment/Plan Active and Suspected Problems (Last Updated 06/10/17 @ 13:32 by TARUN Díaz) DEBORAH (acute kidney injury) (Acute) Hyponatremia (Acute) Hypokalemia (Acute) Patient is a 77-year-old gentleman recently discharged from the hospital on 06/22/2017 following admission for right total knee arthroplasty who presented with progressive generalized weakness. Patient has a baseline creatinine of 1.3 creatinine on admission was 1.9 this was attributed to azotemia from dehydration as well as superimposed NSAID use admitted to a regular nursing floor for subsequent management 1. Acute kidney injury secondary to dehydration with superimposed NSAID use patient is on the regular nursing floor with IV fluids with monitoring of electrolyte 2. Hypokalemia corrected per protocol 3. Hyponatremia secondary to hypovolemic hyponatremia due to patient being on diuretics, on IV fluids with monitoring of electrolyte 4. Recent right TKA on 06/20/2017 5. Dyslipidemia-patient is on statin therapy, continued at home dose 6. CAD with previous PTCA and stents involving LAD and RCA 7. Osteoarthritis 8. Chronic kidney disease stage III 9. Obesity with BMI of 33.0 10. Obstructive sleep apnea patient is on CPAP 11. Hypothyroidism-patient is on levothyroxine home dose continued 14. DVT prophylaxis; SC Heparin Code Visit Inpatient E&M: [id number] [facility] L3
--- NOTE | 2017-06-27 08:02 | PN_ITS ---
Patient Problems: Active and Suspected Problems (Last Updated 06/10/17 @ 13:32 by TARUN Díaz) DEBORAH (acute kidney injury) (Acute) Hyponatremia (Acute) Hypokalemia (Acute) Subjective: Patient is a 77-year-old gentleman recently discharged from the hospital on 06/22 following admission for right total knee arthroplasty who presented with progressive generalized weakness. 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 Vitals/I&O's: Vital Signs Temp Pulse Resp BP Pulse Ox 97.7 F L 60 18 117/48 L 98 06/27/17 07:46 06/27/17 07:46 06/27/17 07:46 06/27/17 07:46 06/27/17 07:46 Oxygen Delivery Method Room Air Weight: 113.398 kg Body Mass Index (BMI) 33.0 Intake and Output for Last 24 Hours 06/25/17 06/26/17 06/27/17 23:59 23:59 23:59 Intake Total 675 / 675 Output Total 1050 / 1050 Balance -375 / -375 Laboratory Results 06/27/17 06:26: WBC 7.6, RBC 4.16 L, Hgb 12.3 L, Hct 37.2 L, MCV 89.4, MCH 29.6 , MCHC 33.1, RDW 15.6 H, RDW Differential 50.8 H, Plt Count 179, MPV 10.1, Immature Gran % (Auto) 0.500, Neut % (Auto) 57.5, Lymph % (Auto) 27.6, [place] % ( Auto) 10.5 H, Eos % (Auto) 3.6, Baso % (Auto) 0.3, Absolute Neuts (auto) 4.4, Absolute Lymphs (auto) 2.10, Total Counted Not Reportable 06/27/17 06:26: Sodium 135 L, Potassium 2.9 L, Chloride 98, Carbon Dioxide 31.0 , Anion Gap 6, BUN 23 H, Creatinine 1.53 H, Estim Creat Clear Calc 47.15, Est GFR (MDRD) Af Amer 57 L, Est GFR (MDRD) Non-Af 47 L, BUN/Creatinine Ratio 15.0, Glucose 150 H, Calcium 8.4 L 06/27/17 06:26: ESR 62 H 06/27/17 06:26: C-React Prot Ext Range 186.00 H Current Medications Acetaminophen (Tylenol) 500 mg PO Q8H PRN PRN Reason: PAIN Last Admin: 06/27/17 04:25 Dose: 500 mg Albuterol/Ipratropium (Duoneb) 3 ml INHALATION Q6HWA.RT [facility] Last Admin: 06/27/17 07:28 Dose: 3 ml Atorvastatin Calcium (Lipitor) 40 mg PO QHS AYLEEN Bisacodyl (Dulcolax) 10 mg PO QHS [facility]YLE[facility] Budesonide (Pulmicort Aerosol) 0.5 mg INHALATION Q12H.RT [facility] Last Admin: 06/27/17 07:28 Dose: 0.5 mg Doxazosin Mesylate (Cardura) 4 mg PO QHS [facility] Duloxetine HCl (Cymbalta) 60 mg PO QHS [facility] Famotidine (Pepcid) 40 mg PO BID [facility] Last Admin: 06/27/17 07:52 Dose: 40 mg Heparin Sodium (Porcine) (Heparin Na) 5,000 unit SC Q8 [facility] Last Admin: 06/27/17 06:44 Dose: 5,000 units Sodium Chloride () 1,000 mls @ 125 mls/hr IV .Q8H [facility] Levothyroxine Sodium (Synthroid) 150 mcg PO DAILY@0600 [facility] Last Admin: 06/27/17 06:35 Dose: 150 mcg Magnesium Hydroxide (Milk Of Magnesia) 30 ml PO DAILY PRN PRN PRN Reason: Constipation Morphine Sulfate (Morphine) 2 mg IV Q4H PRN PRN PRN Reason: SEVERE PAIN (6-10/10) Non-Formulary Medication (Linacolotide) 145 mcg PO QHS [facility] Ondansetron HCl (Zofran) 8 mg PO Q8H PRN PRN Reason: NAUSEA Sodium Chloride () 5 - 30 ml IV UD PRN PRN Reason: SALINE FLUSH Assessment/Plan Active and Suspected Problems (Last Updated 06/10/17 @ 13:32 by TARUN Díaz) DEBORAH (acute kidney injury) (Acute) Hyponatremia (Acute) Hypokalemia (Acute) Patient is a 77-year-old gentleman recently discharged from the hospital on 06/22 following admission for right total knee arthroplasty who presented with progressive generalized weakness. Patient has a baseline creatinine of 1.3 creatinine on admission was 1.9 this was attributed to azotemia from dehydration as well as superimposed NSAID use admitted to a regular nursing floor for subsequent management 1. Acute kidney injury secondary to dehydration with superimposed NSAID use patient is on the regular nursing floor with IV fluids with monitoring of electrolyte 2. Hypokalemia corrected per protocol 3. Hyponatremia secondary to hypovolemic hyponatremia due to patient being on diuretics, on IV fluids with monitoring of electrolyte 4. Recent right TKA on 06/20/2017 5. Dyslipidemia-patient is on statin therapy, continued at home dose 6. CAD with previous PTCA and stents involving LAD and RCA 7. Osteoarthritis 8. Chronic kidney disease stage III 9. Obesity with BMI of 33.0 10. Obstructive sleep apnea patient is on CPAP 11. Hypothyroidism-patient is on levothyroxine home dose continued 14. DVT prophylaxis; SC Heparin Code Visit Inpatient E&M: [id number] [facility] L3
--- NOTE | 2017-06-27 08:33 | PCM.PN.ORT ---
Patient Problems: Active and Suspected Problems (Last Updated 06/10/17 @ 13:32 by TARUN Díaz) DEBORAH (acute kidney injury) (Acute) Hyponatremia (Acute) Hypokalemia (Acute) Subjective: 77-year-old male admitted last night 5 days status post right total knee replacement. Patient states that he went home and was having increased sensitivity to the pain medications felt very high. Associated with this he was still having knee pain. Having difficulty with range of motion been consistent since surgery. Some erythema of the knee was noticed in the emergency department. He was admitted for weakness overnight. Denies fevers. No fevers have been measured here at the hospital. Potassium was low and he received some IV potassium and states that this morning he feels significantly better after receiving the potassium. - Physical Exam General: Alert, Oriented x3, Cooperative Extremities: - - Right lower extremity: Incision clean dry and intact. Patient has some mild reactive erythema around the leg but also has ecchymosis proximally and distally. There is ecchymosis around the area of the tourniquet placement. Patient tolerated range of motion actively 15-40?. Motor is intact dorsiflexion, EHL and plantar flexion. Sensation is intact to light touch saphenous, yao,l superficial peroneal, deep peroneal and tibial distributions. Calves are soft and supple. Vital Signs Temp Pulse Resp BP Pulse Ox 97.7 F L 60 18 117/48 L 98 06/27/17 07:46 06/27/17 07:46 06/27/17 07:46 06/27/17 07:46 06/27/17 07:46 Oxygen Delivery Method Room Air Weight: 250 lb Body Mass Index (BMI) 33.0 Intake and Output for Last 24 Hours 06/25/17 06/26/17 06/27/17 23:59 23:59 23:59 Intake Total 675 / 675 Output Total 1050 / 1050 Balance -375 / -375 Laboratory Tests Past 24 Hrs 06/27/17 06/27/17 06/27/17 06:26 06:26 06:26 WBC 7.6 RBC 4.16 L Hgb 12.3 L Hct 37.2 L MCV 89.4 MCH 29.6 MCHC 33.1 RDW 15.6 H RDW Differential 50.8 H Plt Count 179 MPV 10.1 Immature Gran % (Auto) 0.500 Neut % (Auto) 57.5 Lymph % (Auto) 27.6 [place] % (Auto) 10.5 H Eos % (Auto) 3.6 Baso % (Auto) 0.3 Absolute Neuts (auto) 4.4 Absolute Lymphs (auto) 2.10 Total Counted Not Reportable ESR 62 H Sodium 135 L Potassium 2.9 L Chloride 98 Carbon Dioxide 31.0 Anion Gap 6 BUN 23 H Creatinine 1.53 H Estim Creat Clear Calc 47.15 Est GFR (MDRD) Af Amer 57 L Est GFR (MDRD) Non-Af 47 L BUN/Creatinine Ratio 15.0 Glucose 150 H Calcium 8.4 L C-React Prot Ext Range 06/27/17 06:26 WBC RBC Hgb Hct MCV MCH MCHC RDW RDW Differential Plt Count MPV Immature Gran % (Auto) Neut % (Auto) Lymph % (Auto) [place] % (Auto) Eos % (Auto) Baso % (Auto) Absolute Neuts (auto) Absolute Lymphs (auto) Total Counted ESR Sodium Potassium Chloride Carbon Dioxide Anion Gap BUN Creatinine Estim Creat Clear Calc Est GFR (MDRD) Af Amer Est GFR (MDRD) Non-Af BUN/Creatinine Ratio Glucose Calcium C-React Prot Ext Range 186.00 H Assessment/Plan Active and Suspected Problems (Last Updated 06/10/17 @ 13:32 by TARUN Díaz) DEBORAH (acute kidney injury) (Acute) Hyponatremia (Acute) Hypokalemia (Acute) Postop day 5 right total knee replacement. Patient's erythema is consistent with normal postoperative erythema reactive likely swelling is due to intra-articular hemarthrosis. ESR and CRP are noted at this time however based on clinical examination and my clinical suspicion do not recommend a aspiration of the knee. It is likely patient has hemarthrosis related to the surgery. My plan at this time is to monitor serial clinical examinations we will recheck him tomorrow. Seems to be significantly better with correction of his hypokalemia. Patient appears to be sensitive to medications he was discharged on presumably OxyIR. We will switch him to Tylenol and tramadol here in the hospital. Could also be a candidate for Toradol on this admission. On discharge recommend aspirin 325 twice daily for DVT prophylaxis currently on heparin as an inpatient. Continue with physical therapy and Occupational Therapy range of motion as tolerated weightbearing as tolerated. Follow-up in office as scheduled upon discharge. [facility] Office:
[2017-06-27] MEDS: 0.9% Normal Saline 1,000 ML 125 ML IV (09:49)
--- NOTE | 2017-06-27 10:12 | CASEMGMT ---
Social Work Note Face to face with pt to discuss discharge plan. Introduced self and role at [facility]. The pt reports to live with his in a one-story home with two steps for entry that have two handrails. DME consists of a walker and the pt denies any additional DME needs. He has outpatient therapy setup at [facility] and has made it to one appointment. His is able to transport. He came to the hospital for a report of confusion and states that he had low potassium. Intends on returning home and continuing with his outpatient therapy. PCP is Dr. Mateus Hernandez and he utilizes [facility]. Denies any additional needs at this time and is made aware that [facility] laboratory aide CM is available if needs arise. Plan: Outpatient therapy at [facility]. Diane Cardoza, DOLL WIG MAKER, IT SALES EXECUTIVE
[2017-06-27] MEDS: Acetaminophen 500 MG Tablet 1000 MG PO ×2 (14:00→20:10)
[2017-06-27] MEDS: Glucerna Shake 120 ML LIQUID PO (17:07)
[2017-06-27] MEDS: DULoxetine Hcl 60 MG Capsule PO (20:12)
[2017-06-27] MEDS: Atorvastatin Calcium 40 MG Tablet PO (20:12)
[2017-06-27] MEDS: Doxazosin 4 MG Tablet PO (20:13)
[2017-06-27] MEDS: Bisacodyl 5 MG Tablet 10 MG PO (20:14)
[2017-06-27 20:32] LABS: Anion Gap 9 (5-15); BUN 20 mg/dL (7-18); BUN/Creat Ratio 13.3 RATIO (10-20); Calcium,Total 8.4 mg/dL (8.5-10.1); Chloride 101 mmol/L (98-107); EST Glomerular Filtration Rate 49 mL/min (>60); Est Glom Filt Rate - Afr Amer 59 mL/min (>60); Estimated Creatinine Clearance 48.09 ml/min; Glucose 155 mg/dL (74-106); Potassium 3.5 mmol/L (3.5-5.1); Sodium Level 139 mmol/L (136-145)
[2017-06-28] VITALS (15 sets, daily range): BP systolic 113–125; BP diastolic 52–62; PULSE 59–76; RESP 16–18; TEMP 36.7–37.1; O2SAT 94–98
[2017-06-28] MEDS: Acetaminophen 500 MG Tablet 1000 MG PO ×3 (06:06→20:54)
[2017-06-28] MEDS: Levothyroxine 150 MCG Tablet PO (06:06)
[2017-06-28] MEDS: Ipratropium/Albuterol Sulfate 3 ML AMPUL.NEB INHALATION ×2 (07:10→13:05)
[2017-06-28] MEDS: Budesonide Respules 0.5 MG/2 ML AMPUL.NEB. INHALATION (07:10)
[2017-06-28 08:10] LABS: Hematocrit 37.9 % (40-54); Hemoglobin 12.4 g/dl (13.0-16.5); Mean Corp Hgb Conc 32.7 g/gl (32-36); Mean Corpuscular Hgb 29.7 pg (27.0-32.0); Mean Corpuscular Volume 90.9 fL (80-94); Platelet Count 211 K/mm3 (150-450); RBC Distribution Width CV 15.7 % (11.6-14.6); RBC Distribution Width SD 50.7 fl (35.1-43.9); Red Blood Count 4.17 M/mm3 (4.6-6.2); White Blood Count 6.6 K/mm3 (4.4-11.0)
[2017-06-28 08:13] LABS: Scan Indicated on CBC? Y/N NO
[2017-06-28 08:22] LABS: AST(SGOT) 27 U/L (15-37); Alanine Aminotransfer ALT/SGPT 25 U/L (16-61); Albumin, Serum 2.1 g/dL (3.2-5.0); Alkaline Phosphatase 49 U/L (45-117); Bilirubin, Direct 0.09 mg/dL (0.00-0.30); Globulin 3.5 g/dL (2.2-4.2); Magnesium 2.3 mg/dL (1.6-2.6); Protein, Total 5.6 g/dL (6.4-8.2)
[2017-06-28] MEDS: Famotidine 20 MG Tablet 40 MG PO ×2 (08:25→20:56)
--- NOTE | 2017-06-28 10:06 | PN_ITS ---
Patient Problems: Active and Suspected Problems (Last Updated 06/10/17 @ 13:32 by TARUN Díaz) DEBORAH (acute kidney injury) (Acute) Hyponatremia (Acute) Hypokalemia (Acute) Subjective: Patient seen complains of some discomfort in the right knee. 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 Vitals/I&O's: Vital Signs Temp Pulse Resp BP Pulse Ox 98.1 F 75 18 125/58 H 96 06/28/17 08:00 06/28/17 08:05 06/28/17 08:00 06/28/17 08:00 06/28/17 08:00 Oxygen Flow Rate 2 Oxygen Delivery Method Room Air Weight: 113.398 kg Body Mass Index (BMI) 33.0 Intake and Output for Last 24 Hours 06/26/17 06/27/17 06/28/17 23:59 23:59 23:59 Intake Total 2924 / 2924 2154 / 2154 Output Total 1850 / 1850 825 / 825 Balance 1074 / 1074 1329 / 1329 Laboratory Results 06/27/17 19:55: Sodium 139, Potassium 3.5, Chloride 101, Carbon Dioxide 29.0, Anion Gap 9, BUN 20 H, Creatinine 1.50 H, Estim Creat Clear Calc 48.09, Est GFR (MDRD) Af Amer 59 L, Est GFR (MDRD) Non-Af 49 L, BUN/Creatinine Ratio 13.3, Glucose 155 H, Calcium 8.4 L 06/28/17 07:38: Magnesium 2.3, Total Bilirubin 0.40, Direct Bilirubin 0.09, AST 27, ALT 25, Alkaline Phosphatase 49, Total Protein 5.6 L, Albumin 2.1 L, Globulin 3.5 06/28/17 07:38: WBC 6.6, RBC 4.17 L, Hgb 12.4 L, Hct 37.9 L, MCV 90.9, MCH 29.7 , MCHC 32.7, RDW 15.7 H, RDW Differential 50.7 H, Plt Count 211, MPV 10.0 Current Medications Acetaminophen (Tylenol) 1,000 mg PO Q8 [facility] Last Admin: 06/28/17 06:06 Dose: 1,000 mg Albuterol/Ipratropium (Duoneb) 3 ml INHALATION Q6HWA.RT [facility] Last Admin: 06/28/17 07:10 Dose: 3 ml Atorvastatin Calcium (Lipitor) 40 mg PO QHS [facility] Last Admin: 06/27/17 20:12 Dose: 40 mg Bisacodyl (Dulcolax) 10 mg PO QHS [facility] Last Admin: 06/27/17 20:14 Dose: 10 mg Budesonide (Pulmicort Aerosol) 0.5 mg INHALATION Q12H.RT [facility] Last Admin: 06/28/17 07:10 Dose: 0.5 mg Doxazosin Mesylate (Cardura) 4 mg PO QHS [facility] Last Admin: 06/27/17 20:13 Dose: 4 mg Duloxetine HCl (Cymbalta) 60 mg PO QHS [facility] Last Admin: 06/27/17 20:12 Dose: 60 mg Famotidine (Pepcid) 40 mg PO BID [facility] Last Admin: 06/28/17 08:25 Dose: 40 mg Heparin Sodium (Porcine) (Heparin Na) 5,000 unit SC Q8 [facility] Last Admin: 06/28/17 06:07 Dose: 5,000 units Potassium Chloride/Sodium Chloride () 1,000 mls @ 100 mls/hr IV .Q10H [facility] Stop: 06/29/17 03:59 Last Admin: 06/28/17 07:00 Dose: 100 mls/hr Levothyroxine Sodium (Synthroid) 150 mcg PO DAILY@0600 [facility] Last Admin: 06/28/17 06:06 Dose: 150 mcg Magnesium Hydroxide (Milk Of Magnesia) 30 ml PO DAILY PRN PRN PRN Reason: Constipation Morphine Sulfate (Morphine) 2 mg IV Q4H PRN PRN PRN Reason: SEVERE PAIN (6-10/10) Last Admin: 06/27/17 15:24 Dose: 2 mg Nutritional Formula (Lactose Free) (Glucerna Shake) 120 ml PO BIDCM [facility] Last Admin: 06/28/17 08:23 Dose: Not Given Ondansetron HCl (Zofran) 8 mg PO Q8H PRN PRN Reason: NAUSEA Sodium Chloride () 5 - 30 ml IV UD PRN PRN Reason: SALINE FLUSH Tramadol HCl (Ultram (G)) 50 - 100 mg PO Q6H PRN PRN PRN Reason: PAIN Last Admin: 06/28/17 06:59 Dose: 50 mg Assessment/Plan Active and Suspected Problems (Last Updated 06/10/17 @ 13:32 by TARUN Díaz) DEBORAH (acute kidney injury) (Acute) Hyponatremia (Acute) Hypokalemia (Acute) Patient is a 77-year-old gentleman recently discharged from the hospital on 06/22 following admission for right total knee arthroplasty who presented with progressive generalized weakness. Patient has a baseline creatinine of 1.3 creatinine on admission was 1.9 this was attributed to azotemia from dehydration as well as superimposed NSAID use admitted to a regular nursing floor for subsequent management 1. Acute kidney injury secondary to dehydration with superimposed NSAID use. Patient's was admitted to the regular nursing floor with IV fluids with monitoring of electrolyte kidney function continues to improve 2. Hypokalemia corrected per protocol 3. Hyponatremia secondary to hypovolemic hyponatremia due to patient being on diuretics, on IV fluids with monitoring of electrolyte 4. Recent right TKA on 06/20/2017 5. Dyslipidemia-patient is on statin therapy, continued at home dose 6. CAD with previous PTCA and stents involving LAD and RCA 7. Osteoarthritis 8. Chronic kidney disease stage III 9. Obesity with BMI of 33.0 10. Obstructive sleep apnea patient is on CPAP 11. Hypothyroidism-patient is on levothyroxine home dose continued 14. DVT prophylaxis; SC Heparin Code Visit Inpatient E&M: 07228 Subs Hosp L2
[2017-06-28 11:06] LABS: Anion Gap 8 (5-15); BUN 17 mg/dL (7-18); BUN/Creat Ratio 12.3 RATIO (10-20); Calcium,Total 8.5 mg/dL (8.5-10.1); Chloride 109 mmol/L (98-107); Creatinine, Serum 1.38 mg/dL (0.70-1.30); EST Glomerular Filtration Rate 53 mL/min (>60); Est Glom Filt Rate - Afr Amer 65 mL/min (>60); Estimated Creatinine Clearance 52.27 ml/min; Glucose 147 mg/dL (74-106); Potassium 3.6 mmol/L (3.5-5.1); Sodium Level 142 mmol/L (136-145)
--- NOTE | 2017-06-28 12:51 | PCM.PN.BLA ---
Progress Note Patient's pain is improved today. Potassium is slowly being corrected. BUN and creatinine have been improving. Overall patient has minimal complaints of his knee sitting in a chair with knee flexed at 80? today. Incision by enlarge is clean dry and intact there is one small area of serous spotting around 1 of the distal jasmina. No increased erythema from yesterday. Swelling is minimally improved. Patient should follow-up in the office at scheduled visit recommend follow-up with PA or physician at that time incision check, this was discussed with the patient. For discharge from orthopedic standpoint [facility] Office:
[2017-06-28] MEDS: Magnesium Hydroxide 30 ML UDC PO (13:49)
[2017-06-28] MEDS: Glucerna Shake 120 ML LIQUID PO (18:55)
[2017-06-28] MEDS: Linacolotide 145 MCG CAPSULE PO ×2 (19:00→20:56)
[2017-06-28] MEDS: Bisacodyl 5 MG Tablet 10 MG PO (20:55)
[2017-06-28] MEDS: DULoxetine Hcl 60 MG Capsule PO (20:56)
[2017-06-28] MEDS: Atorvastatin Calcium 40 MG Tablet PO (20:57)
[2017-06-28] MEDS: Doxazosin 4 MG Tablet PO (20:57)
[2017-06-28] MEDS: Pramipexole Di-HCl 0.25 MG Tablet PO (21:02)
[2017-06-29] VITALS (8 sets, daily range): BP systolic 110–135; BP diastolic 62–64; PULSE 61–67; RESP 16–18; TEMP 36.9–37.5; O2SAT 94–98
[2017-06-29] MEDS: 0.9% NaCl Peripheral Flush Adult/Peds IV (02:50)
[2017-06-29] MEDS: Acetaminophen 500 MG Tablet 1000 MG PO (06:17)
[2017-06-29] MEDS: Levothyroxine 150 MCG Tablet PO (06:17)
[2017-06-29 06:30] LABS: Anion Gap 7 (5-15); BUN 15 mg/dL (7-18); BUN/Creat Ratio 12.8 RATIO (10-20); Calcium,Total 8.4 mg/dL (8.5-10.1); Chloride 108 mmol/L (98-107); Creatinine, Serum 1.17 mg/dL (0.70-1.30); EST Glomerular Filtration Rate 65 mL/min (>60); Est Glom Filt Rate - Afr Amer 78 mL/min (>60); Estimated Creatinine Clearance 61.65 ml/min; Glucose 116 mg/dL (74-106); Potassium 3.9 mmol/L (3.5-5.1); Sodium Level 141 mmol/L (136-145)
[2017-06-29] MEDS: Budesonide Respules 0.5 MG/2 ML AMPUL.NEB. INHALATION (06:38)
[2017-06-29] MEDS: Ipratropium/Albuterol Sulfate 3 ML AMPUL.NEB INHALATION (06:39)
[2017-06-29] MEDS: Glucerna Shake 120 ML LIQUID PO (07:50)
--- NOTE | 2017-06-29 10:21 | PCM.PN.HOSP ---
Patient Problems: Active and Suspected Problems (Last Updated 06/10/17 @ 13:32 by TARUN Díaz) DEBORAH (acute kidney injury) (Acute) Hyponatremia (Acute) Hypokalemia (Acute) Subjective: Feels good. No complaints. Vitals/I&O's: Vital Signs Temp Pulse Resp BP Pulse Ox 37.3 C 67 16 135/64 H 94 06/29/17 07:37 06/29/17 07:37 06/29/17 07:37 06/29/17 07:37 06/29/17 07:37 Oxygen Flow Rate 2 Oxygen Delivery Method Room Air Weight: 113.398 kg Body Mass Index (BMI) 33.0 Intake and Output for Last 24 Hours 06/27/17 06/28/17 06/29/17 23:59 23:59 23:59 Intake Total 2924 / 2924 3793 / 3793 1241 / 1241 Output Total 1850 / 1850 825 / 825 100 / 100 Balance 1074 / 1074 2968 / 2968 1141 / 1141 General: Alert, Cooperative, No apparent distress HEENT: Atraumatic, Normocephalic Lungs: Clear to auscultation, Normal air movement, No rhonchi, No wheeze Cardiovascular: Regular rate, Regular Rhythm, Normal S1, Normal S2 Laboratory Results 06/28/17 07:38: Sodium 142, Potassium 3.6, Chloride 109 H, Carbon Dioxide 25.0, Anion Gap 8, BUN 17, Creatinine 1.38 H, Estim Creat Clear Calc 52.27, Est GFR (MDRD) Af Amer 65, Est GFR (MDRD) Non-Af 53 L, BUN/Creatinine Ratio 12.3, Glucose 147 H, Calcium 8.5 06/29/17 05:20: Sodium 141, Potassium 3.9, Chloride 108 H, Carbon Dioxide 26.0, Anion Gap 7, BUN 15, Creatinine 1.17, Estim Creat Clear Calc 61.65, Est GFR (MDRD) Af Amer 78, Est GFR (MDRD) Non-Af 65, BUN/Creatinine Ratio 12.8, Glucose 116 H, Calcium 8.4 L Current Medications Acetaminophen (Tylenol) 1,000 mg PO Q8 [facility] Last Admin: 06/29/17 06:17 Dose: 1,000 mg Albuterol/Ipratropium (Duoneb) 3 ml INHALATION Q6HWA.RT [facility] Last Admin: 06/29/17 06:39 Dose: 3 ml Atorvastatin Calcium (Lipitor) 40 mg PO QHS [facility] Last Admin: 06/28/17 20:57 Dose: 40 mg Bisacodyl (Dulcolax) 10 mg PO QHS [facility] Last Admin: 06/28/17 20:55 Dose: 10 mg Budesonide (Pulmicort Aerosol) 0.5 mg INHALATION Q12H.RT [facility] Last Admin: 06/29/17 06:38 Dose: 0.5 mg Doxazosin Mesylate (Cardura) 4 mg PO QHS [facility] Last Admin: 06/28/17 20:57 Dose: 4 mg Duloxetine HCl (Cymbalta) 60 mg PO QHS [facility] Last Admin: 06/28/17 20:56 Dose: 60 mg Famotidine (Pepcid) 40 mg PO BID [facility] Last Admin: 06/28/17 20:56 Dose: 40 mg Heparin Sodium (Porcine) (Heparin Na) 5,000 unit SC Q8 [facility] Last Admin: 06/29/17 06:18 Dose: 5,000 units Levothyroxine Sodium (Synthroid) 150 mcg PO DAILY@0600 [facility] Last Admin: 06/29/17 06:17 Dose: 150 mcg Linaclotide (Linzess) 145 mcg PO QHS [facility] Last Admin: 06/28/17 20:56 Dose: 145 mcg Magnesium Hydroxide (Milk Of Magnesia) 30 ml PO DAILY PRN PRN PRN Reason: Constipation Last Admin: 06/28/17 13:49 Dose: 30 ml Morphine Sulfate (Morphine) 2 mg IV Q4H PRN PRN PRN Reason: SEVERE PAIN (6-10/10) Last Admin: 06/28/17 19:57 Dose: 2 mg Nutritional Formula (Lactose Free) ([facility]) [facility] Last Admin: 06/29/17 07:50 Dose: 120 ml Ondansetron HCl (Zofran) 8 mg PO Q8H PRN PRN Reason: NAUSEA Pramipexole Dihydrochloride (Mirapex) 0.25 mg PO QHS [facility] Last Admin: 06/28/17 21:02 Dose: 0.25 mg Sodium Chloride () 5 - 30 ml IV UD PRN PRN Reason: SALINE FLUSH Last Admin: 06/29/17 02:50 Dose: 10 ml Tramadol HCl (Ultram (G)) 50 - 100 mg PO Q6H PRN PRN PRN Reason: PAIN Last Admin: 06/28/17 18:59 Dose: 100 mg Assessment/Plan Active and Suspected Problems (Last Updated 06/10/17 @ 13:32 by TARUN Díaz) DEBORAH (acute kidney injury) (Acute) Hyponatremia (Acute) Hypokalemia (Acute) 1. DEBORAH Resolved Likely due to prerenal plus minus acute tubular necrosis May been a component of NSAID toxicity given the aspirin 325 mg twice daily he was taken for DVT prophylaxis. Follow-up BMP in 1 week And Lasix, but hold off on spironolactone and hydrochlorothiazide for now. 2. Status post right knee total arthroplasty Performed on June 22. With utilize Xarelto in lieu of the orthopedic recommended aspirin for DVT prophylaxis given the acute kidney injury. Would treat through July 20 unless felt to be continued longer by orthopedics. She did physical therapy for rehab. Already been established. 3. Toxic encephalopathy Secondary to utilizing too much narcotics With oxycodone Patient on Ultram and will continue as needed. Patient advised to use only as needed. 4. Hypokalemia Resolved Likely related with the patient's diuretics which have been adjusted. 5. hyponatremia Minimal and resolved.
--- NOTE | 2017-06-29 10:30 | PN_ITS ---
Patient Problems: Active and Suspected Problems (Last Updated 06/10/17 @ 13:32 by TARUN Díaz) DEBORAH (acute kidney injury) (Acute) Hyponatremia (Acute) Hypokalemia (Acute) Subjective: Feels good. No complaints. Vitals/I&O's: Vital Signs Temp Pulse Resp BP Pulse Ox 37.3 C 67 16 135/64 H 94 06/29/17 07:37 06/29/17 07:37 06/29/17 07:37 06/29/17 07:37 06/29/17 07:37 Oxygen Flow Rate 2 Oxygen Delivery Method Room Air Weight: 113.398 kg Body Mass Index (BMI) 33.0 Intake and Output for Last 24 Hours 06/27/17 06/28/17 06/29/17 23:59 23:59 23:59 Intake Total 2924 / 2924 3793 / 3793 1241 / 1241 Output Total 1850 / 1850 825 / 825 100 / 100 Balance 1074 / 1074 2968 / 2968 1141 / 1141 General: Alert, Cooperative, No apparent distress HEENT: Atraumatic, Normocephalic Lungs: Clear to auscultation, Normal air movement, No rhonchi, No wheeze Cardiovascular: Regular rate, Regular Rhythm, Normal S1, Normal S2 Laboratory Results 06/28/17 07:38: Sodium 142, Potassium 3.6, Chloride 109 H, Carbon Dioxide 25.0, Anion Gap 8, BUN 17, Creatinine 1.38 H, Estim Creat Clear Calc 52.27, Est GFR ( MDRD) Af Amer 65, Est GFR (MDRD) Non-Af 53 L, BUN/Creatinine Ratio 12.3, Glucose 147 H, Calcium 8.5 06/29/17 05:20: Sodium 141, Potassium 3.9, Chloride 108 H, Carbon Dioxide 26.0, Anion Gap 7, BUN 15, Creatinine 1.17, Estim Creat Clear Calc 61.65, Est GFR ( MDRD) Af Amer 78, Est GFR (MDRD) Non-Af 65, BUN/Creatinine Ratio 12.8, Glucose 116 H, Calcium 8.4 L Current Medications Acetaminophen (Tylenol) 1,000 mg PO Q8 [facility] Last Admin: 06/29/17 06:17 Dose: 1,000 mg Albuterol/Ipratropium (Duoneb) 3 ml INHALATION Q6HWA.RT [facility] Last Admin: 06/29/17 06:39 Dose: 3 ml Atorvastatin Calcium (Lipitor) 40 mg PO QHS [facility] Last Admin: 06/28/17 20:57 Dose: 40 mg Bisacodyl (Dulcolax) 10 mg PO QHS [facility] Last Admin: 06/28/17 20:55 Dose: 10 mg Budesonide (Pulmicort Aerosol) 0.5 mg INHALATION Q12H.RT [facility] Last Admin: 06/29/17 06:38 Dose: 0.5 mg Doxazosin Mesylate (Cardura) 4 mg PO QHS [facility] Last Admin: 06/28/17 20:57 Dose: 4 mg Duloxetine HCl (Cymbalta) 60 mg PO QHS [facility] Last Admin: 06/28/17 20:56 Dose: 60 mg Famotidine (Pepcid) 40 mg PO BID [facility] Last Admin: 06/28/17 20:56 Dose: 40 mg Heparin Sodium (Porcine) (Heparin Na) 5,000 unit SC Q8 [facility] Last Admin: 06/29/17 06:18 Dose: 5,000 units Levothyroxine Sodium (Synthroid) 150 mcg PO DAILY@0600 [facility] Last Admin: 06/29/17 06:17 Dose: 150 mcg Linaclotide (Linzess) 145 mcg PO QHS [facility] Last Admin: 06/28/17 20:56 Dose: 145 mcg Magnesium Hydroxide (Milk Of Magnesia) 30 ml PO DAILY PRN PRN PRN Reason: Constipation Last Admin: 06/28/17 13:49 Dose: 30 ml Morphine Sulfate (Morphine) 2 mg IV Q4H PRN PRN PRN Reason: SEVERE PAIN (6-10/10) Last Admin: 06/28/17 19:57 Dose: 2 mg Nutritional Formula (Lactose Free) ([facility]) [facility] Last Admin: 06/29/17 07:50 Dose: 120 ml Ondansetron HCl (Zofran) 8 mg PO Q8H PRN PRN Reason: NAUSEA Pramipexole Dihydrochloride (Mirapex) 0.25 mg PO QHS [facility] Last Admin: 06/28/17 21:02 Dose: 0.25 mg Sodium Chloride () 5 - 30 ml IV UD PRN PRN Reason: SALINE FLUSH Last Admin: 06/29/17 02:50 Dose: 10 ml Tramadol HCl (Ultram (G)) 50 - 100 mg PO Q6H PRN PRN PRN Reason: PAIN Last Admin: 06/28/17 18:59 Dose: 100 mg Assessment/Plan Active and Suspected Problems (Last Updated 06/10/17 @ 13:32 by TARUN Díaz) DEBORAH (acute kidney injury) (Acute) Hyponatremia (Acute) Hypokalemia (Acute) 1. DEBORAH * Resolved * Likely due to prerenal plus minus acute tubular necrosis * May been a component of NSAID toxicity given the aspirin 325 mg twice daily he was taken for DVT prophylaxis. * Follow-up BMP in 1 week * And Lasix, but hold off on spironolactone and hydrochlorothiazide for now. 2. Status post right knee total arthroplasty * Performed on June 22. * With utilize Xarelto in lieu of the orthopedic recommended aspirin for DVT prophylaxis given the acute kidney injury. * Would treat through July 20 unless felt to be continued longer by orthopedics. * She did physical therapy for rehab. Already been established. 3. Toxic encephalopathy * Secondary to utilizing too much narcotics With oxycodone * Patient on Ultram and will continue as needed. Patient advised to use only as needed. 4. Hypokalemia * Resolved * Likely related with the patient's diuretics which have been adjusted. 5. hyponatremia * Minimal and resolved.
--- NOTE | 2017-06-29 10:38 | PCM.DC ---
- Discharge Diagnoses Current Active Problems: Current Active and Chronic Problems (Last Updated 06/10/17 @ 13:32 by TARUN Díaz) DEBORAH (acute kidney injury) (Acute) Hyponatremia (Acute) Hypokalemia (Acute) You will use the following diet at home:: Cardiac Your food should be the consistency of: Regular Your liquids should be the consistency of: Regular/Thin Call your doctor if you observe: Fever of 101 or Higher, Shortness of breath Allergies/Adverse Reactions: Allergies modafinil [From Provigil] Allergy (Verified 06/26/17 23:09) Other moxifloxacin HCl [From Avelox] Allergy (Verified 06/26/17 23:09) Upset Stomach Medications to take at Discharge Bisacodyl [Dulcolax] 10 mg PO QHS 06/26/17 Doxazosin Mesylate [Cardura] 4 mg PO QHS 06/26/17 Duloxetine HCl 60 mg PO QHS 06/26/17 Famotidine [Pepcid] 40 mg PO DAILY 06/26/17 Fluticasone/Salmeterol [Advair 500/50 Mcg Diskus] 1 puff INHALATION BID 06/26/17 Furosemide [Lasix] 40 mg PO DAILY 06/26/17 Levothyroxine [Synthroid] 150 mcg PO DAILY 06/26/17 Linacolotide [Linzess] 145 mcg PO QHS 06/26/17 Ondansetron HCl [Zofran] 8 mg PO Q8H PRN 06/26/17 Ropinirole HCl [Requip] 2 tab PO QHS 06/26/17 Rosuvastatin Calcium [Crestor] 40 mg PO QHS 06/26/17 Temazepam [Restoril] 30 mg PO QHS 06/26/17 Tiotropium Godfrey [Spiriva 18 MCG] 1 puff INHALATION DAILY 06/26/17 Acetaminophen [Tylenol] 1,000 mg PO Q8 PRN tablet 06/29/17 Rivaroxaban [Xarelto] 10 mg PO DAILY #21 tab 06/29/17 TraMADol [Ultram] 50 mg PO Q6H PRN PRN #18 tablet 06/29/17 The following prescriptions were given: TraMADol [Ultram] 50 mg PO Q6H PRN PRN #18 tablet PRN Reason: Pain Rivaroxaban [Xarelto] 10 mg PO DAILY #21 tab Primary Care Physician: Mateus Hernandez DO [Primary Care Provider] - Within 2 Weeks Please Follow Up With: [facility] When: next scheduled appointment or in 2 weeks Please Follow Up With: Physical Therapy When: this week Proposed Discharge Date: 06/29/17
[2017-06-29] MEDS: Famotidine 20 MG Tablet 40 MG PO (10:40)
--- NOTE | 2017-06-29 10:41 | DS.PCM_ITS ---
Discharge Date and Diagnosis - Problem List Patient Problems: Active and Suspected Problems (Last Updated 06/10/17 @ 13:32 by TARUN Díaz) DEBORAH (acute kidney injury) (Acute) Hyponatremia (Acute) Hypokalemia (Acute) Date of Admission: 06/27/17 Date of Discharge: 06/29/17 - Primary Discharge Diagnosis Active and Suspected Problems (Last Updated 06/10/17 @ 13:32 by TARUN Díaz) DEBORAH (acute kidney injury) (Acute) Hyponatremia (Acute) Hypokalemia (Acute) - Secondary Discharge Diagnosis Chronic Problems (Last Updated 06/10/17 @ 13:32 by TARUN Díaz) Osteoarthritis (Chronic) Chronic renal failure, stage 3 (moderate) (Chronic) Hypertension (Chronic) History of percutaneous transluminal coronary angioplasty (Chronic) PTCA & MARITZA of proximal & Mid LAD & Proximal & mid RCA in June 2000, PTCA & MARITZA of mid LAD November 2010 CAD (coronary artery disease) (Chronic) Hypothyroidism (Chronic) HLD (hyperlipidemia) (Chronic) Gingivitis (Chronic) Esophageal reflux (Chronic) Benign essential HTN (Chronic) Prostate cancer (Chronic) Allergic rhinitis (Chronic) Hospital Course and Treatment Imaging Results: Clinical Impression(s) from Imaging Studies Chest X-Ray 06/26/17 23:30 IMPRESSION: Chronic left lower lobe atelectasis and/or prominent cardiac fat pad. Stable chest. Electronically Signed: Debbie Verdin MD at 0:56 EST Tel , Service support , [facility] Operations: None Procedures: None Summary of Care Provided: The patient is a 77 year old M presents confused and with acute kidney injury. 1. DEBORAH * Resolved * Likely due to prerenal plus minus acute tubular necrosis * May been a component of NSAID toxicity given the aspirin 325 mg twice daily he was taken for DVT prophylaxis. * Follow-up BMP in 1 week * Resume Lasix, but hold off on spironolactone and hydrochlorothiazide for now. 2. Status post right knee total arthroplasty * Performed on June 22. * With utilize Xarelto in lieu of the orthopedic recommended aspirin for DVT prophylaxis given the acute kidney injury. * Would treat through July 20 unless felt to be continued longer by orthopedics. * She did physical therapy for rehab. Already been established. 3. Toxic encephalopathy * Secondary to utilizing too much narcotics With oxycodone * Patient on Ultram and will continue as needed. Patient advised to use only as needed. 4. Hypokalemia * Resolved * Likely related with the patient's diuretics which have been adjusted. 5. hyponatremia * Minimal and resolved. [] Discharge Diet: Low fat/ Low Cholesterol Discharge Activity: Return to Normal Activity Call your doctor if you observe: Fever of 101 or Higher, Shortness of breath Home Medications: Medications to take at Discharge Bisacodyl [Dulcolax] 10 mg PO QHS 06/26/17 Doxazosin Mesylate [Cardura] 4 mg PO QHS 06/26/17 Duloxetine HCl 60 mg PO QHS 06/26/17 Famotidine [Pepcid] 40 mg PO DAILY 06/26/17 Fluticasone/Salmeterol [Advair 500/50 Mcg Diskus] 1 puff INHALATION BID Furosemide [Lasix] 40 mg PO DAILY 06/26/17 Levothyroxine [Synthroid] 150 mcg PO DAILY 06/26/17 Linacolotide [Linzess] 145 mcg PO QHS 06/26/17 Ondansetron HCl [Zofran] 8 mg PO Q8H PRN 06/26/17 Ropinirole HCl [Requip] 2 tab PO QHS 06/26/17 Rosuvastatin Calcium [Crestor] 40 mg PO QHS 06/26/17 Temazepam [Restoril] 30 mg PO QHS 06/26/17 Tiotropium [place] [Spiriva 18 MCG] 1 puff INHALATION DAILY 06/26/17 Acetaminophen [Tylenol] 1,000 mg PO Q8 PRN tablet 06/29/17 Rivaroxaban [Xarelto] 10 mg PO DAILY #21 tab 06/29/17 TraMADol [Ultram] 50 mg PO Q6H PRN PRN #18 tablet 06/29/17 Following Prescrptions Were Given to Patient: TraMADol [Ultram] 50 mg PO Q6H PRN PRN #18 tablet PRN Reason: Pain Rivaroxaban [Xarelto] 10 mg PO DAILY #21 tab Primary Care Physician: Mateus Hernandez DO [Primary Care Provider] - Within 2 Weeks Please Follow Up With: [facility] When: next scheduled appointment or in 2 weeks Please Follow Up With: Physical Therapy When: this week Disposition: Home Minutes spent on discharge:: 32 Patient Condition:: Good Meaningful Use Info Meaningful Use Diagnoses (Choose all that apply): None applicable Code Visit Inpatient E&M: 16418 Disch Hosp
== END 2017-06-29 11:57 | disposition home or self-care (01) | DRG 682 ==
LOC: ED 06-27 00:05 → MS3 06-27 02:38
PROVIDERS: Internal Medicine; Specialist; Admitting Provider Internal Medicine; Emergency Provider Emergency Medicine; Family Provider Family Medicine; PCP Family Medicine
DX: N17.9 Acute kidney failure, unspecified (principal); G92 Toxic encephalopathy; E86.0 Dehydration; E87.1 Hypo-osmolality and hyponatremia; N14.1 Nephropathy induced by other drugs, medicaments and biological substances; T39.395A Adverse effect of other nonsteroidal anti-inflammatory drugs [NSAID], initial encounter; Y92.009 Unspecified place in unspecified non-institutional (private) residence as the place of occurrence of the external cause; E87.6 Hypokalemia; Z96.651 Presence of right artificial knee joint; I12.9 Hypertensive chronic kidney disease with stage 1 through stage 4 chronic kidney disease, or unspecified chronic kidney disease; N18.3 Chronic kidney disease, stage 3 (moderate); I25.10 Atherosclerotic heart disease of native coronary artery without angina pectoris; K21.9 Gastro-esophageal reflux disease without esophagitis; E03.9 Hypothyroidism, unspecified; Z85.46 Personal history of malignant neoplasm of prostate; K05.10 Chronic gingivitis, plaque induced; E78.5 Hyperlipidemia, unspecified; E66.9 Obesity, unspecified; Z68.33 Body mass index [BMI] 33.0-33.9, adult; M19.90 Unspecified osteoarthritis, unspecified site; G47.33 Obstructive sleep apnea (adult) (pediatric); N40.0 Benign prostatic hyperplasia without lower urinary tract symptoms; Z95.9 Presence of cardiac and vascular implant and graft, unspecified; Z79.82 Long term (current) use of aspirin; Z79.899 Other long term (current) drug therapy; Z87.891 Personal history of nicotine dependence; T40.2X5A Adverse effect of other opioids, initial encounter
CPT/HCPCS: 36415; 71045; 80048; 80076; 81001; 83735; 84484; 85025; 85027; 85652; 86140; 87040; 93005; 94640; 97110; 97116; 97162; 97166; 97530; 97802; 99285; J7030; J7040; A4216

== ENCOUNTER → 2017-07-03 15:12 | Outpatient (CLI) | payer MEDICARE, OTHER, SELFPAY ==
--- NOTE | 2017-07-03 15:14 | VDLE_ITS ---
Reason For Study: LEG PAIN AND SWELLING RIGHT LEFT GSV is normal. CFV is compressible, spontaneous, phasic, CFV is compressible, spontaneous, phasic, competent, and demonstrates normal competent and demonstrates normal augmentation. augmentation. FV is compressible, spontaneous, phasic, competent and demonstrates normal augmentation. POP V is compressible, spontaneous, phasic, competent and demonstrates normal augmentation. T/P Trunk is compressible. PTV is compressible. RT PerV is compressible. Procedure Exam performed in department. A preliminary report was called and/or faxed to Dr. Jimenez. Interpretation Summary Deep veins of the right lower extremity are patent and compressible segmentally. There is no evidence of right lower extremity deep vein thrombosis. Valvular competence appears intact within the proximal deep venous system on the right . The right greater saphenous vein appears patent and compressible segmentally. Ordering Physician: Mike Jimenez Referring Physician: Adarsh Tijerina Performed By: Kassy Diop RVT
== END ==
PROVIDERS: Family Provider Family Medicine; PCP Family Medicine; Visit Provider Orthopaedic Surgery
DX: M79.661 Pain in right lower leg (principal)
CPT/HCPCS: 93971

== ENCOUNTER → 2017-07-07 10:05 | Outpatient (CLI) | payer MEDICARE, OTHER, SELFPAY ==
[2017-07-07 11:37] LABS: Absolute Lymphocyte Count 2.29 X10^3/ul (0.83-4.51); Absolute Neutrophil Count 5.2 X10^3/uL (2.0-7.7); Basophil# 0.02 X10^3/uL; Basophil% 0.2 % (0-1); Eosinophil# 1.08 X10^3/uL; Hematocrit 38.9 % (40-54); Hemoglobin 12.2 g/dl (13.0-16.5); Lymphocyte # 2.29 X10^3/ul (4.0); Lymphocyte % 25.4 % (19-41); Mean Corp Hgb Conc 31.4 g/gl (32-36); Mean Corpuscular Hgb 28.5 pg (27.0-32.0); Mean Corpuscular Volume 90.9 fL (80-94); Mean Platelet Vol. 9.2 fl (6.2-12.0); Monocyte% 4.4 % (0-10); Neutrophil # 5.15 X10^3/uL (2.7-7.7); Neutrophil % 57.1 % (47-70); Platelet Count 362 K/mm3 (150-450); RBC Distribution Width SD 52.9 fl (35.1-43.9); Red Blood Count 4.28 M/mm3 (4.6-6.2)
[2017-07-07 11:38] LABS: Erythrocyte Sedimentation Rate 20 mm/hr (0-20)
[2017-07-07 11:39] LABS: POSITIVE COUNT NO; POSITIVE DIFFERENTIAL NO; POSITIVE MORPHOLOGY NO
[2017-07-07 11:58] LABS: Anion Gap 7 (5-15); BUN 21 mg/dL (7-18); BUN/Creat Ratio 16.8 RATIO (10-20); Calcium,Total 8.9 mg/dL (8.5-10.1); Chloride 102 mmol/L (98-107); Creatinine, Serum 1.25 mg/dL (0.70-1.30); EST Glomerular Filtration Rate 60 mL/min (>60); Est Glom Filt Rate - Afr Amer 72 mL/min (>60); Glucose 95 mg/dL (74-106); Potassium 3.4 mmol/L (3.5-5.1); Sodium Level 140 mmol/L (136-145)
== END ==
PROVIDERS: Family Provider Family Medicine; PCP Family Medicine; Visit Provider Orthopaedic Surgery
DX: N17.9 Acute kidney failure, unspecified (principal); Z96.651 Presence of right artificial knee joint
CPT/HCPCS: 36415; 80048; 85025; 85652; 86140

== ENCOUNTER → 2017-07-23 12:43 | Outpatient (CLI) | payer MEDICARE, OTHER, SELFPAY ==
--- NOTE | 2017-07-23 13:45 | MRI_ITS ---
STUDY: MRI BRAIN WITHOUT CONTRAST REASON FOR EXAM: Male, 77 years old. Memory loss and prostate cancer TECHNIQUE: Standardized multiplanar fat and water weighted pulse sequences were obtained. COMPARISON: 07/05/2010 FINDINGS: Normal size of the ventricles and extra-axial spaces for the patient's age. 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 Normal bilateral basal ganglia. Normal thalami. There is no extra-axial fluid accumulation. Incidental prominent perivascular space on the left. Normal flow voids within the major intracranial circulation suggesting patency by spin echo criteria. Normal sella turcica, pituitary gland, infundibular stalk, optic chiasm and hypothalamus. Normal tectal plate and pineal gland. Normal midbrain, tiffanie and medulla. Normal cerebellum. Normal basal cisterns. Normal bilateral temporal bones. Normal bilateral internal auditory canals. Right lens replacement. Normal visualized paranasal sinuses. Mild bilateral mastoid sinus disease. Normal visualized soft tissue structures. There are degenerative changes of the anterior atlantoaxial articulation. 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 No evidence of acute infarct or hemorrhage. Electronically Signed: Levi Khan MD at 14:47 EDT Tel , Service support ,
== END ==
PROVIDERS: Family Provider Family Medicine; PCP Family Medicine; Visit Provider Psychiatry & Neurology Neurology
DX: R41.3 Other amnesia (principal)
CPT/HCPCS: 70551

== ENCOUNTER → 2017-09-23 10:38 | Outpatient (CLI) | payer MEDICARE, OTHER, SELFPAY ==
[2017-09-23 11:36] LABS: Absolute Lymphocyte Count 3.29 X10^3/ul (0.83-4.51); Absolute Neutrophil Count 3.3 X10^3/uL (2.0-7.7); Basophil# 0.03 X10^3/uL; Basophil% 0.4 % (0-1); Eosinophils% 2.8 % (0-5); Hematocrit 43.3 % (40-54); Hemoglobin 13.8 g/dl (13.0-16.5); Lymphocyte # 3.29 X10^3/ul (4.0); Lymphocyte % 45.6 % (19-41); Mean Corp Hgb Conc 31.9 g/gl (32-36); Mean Platelet Vol. 9.8 fl (6.2-12.0); Monocyte# 0.37 X10^3/uL; Monocyte% 5.1 % (0-10); Neutrophil # 3.31 X10^3/uL (2.7-7.7); Neutrophil % 45.8 % (47-70); Platelet Count 242 K/mm3 (150-450); RBC Distribution Width CV 16.7 % (11.6-14.6); Red Blood Count 4.92 M/mm3 (4.6-6.2); White Blood Count 7.2 K/mm3 (4.4-11.0)
[2017-09-23 11:39] LABS: POSITIVE COUNT NO; POSITIVE DIFFERENTIAL NO; POSITIVE MORPHOLOGY NO
[2017-09-23 11:55] LABS: CRP 3.43 mg/L (0.0-3.0)
[2017-09-23 11:57] LABS: Erythrocyte Sedimentation Rate 16 mm/hr (0-20)
== END ==
PROVIDERS: Family Provider Family Medicine; PCP Family Medicine; Visit Provider Orthopaedic Surgery
DX: M25.561 Pain in right knee (principal)
CPT/HCPCS: 36415; 85025; 85652; 86140

== ENCOUNTER → 2017-12-03 09:07 | Outpatient (CLI) | payer MEDICARE, OTHER, SELFPAY ==
[2017-12-03 10:06] LABS: AST(SGOT) 17 U/L (15-37); Alanine Aminotransfer ALT/SGPT 23 U/L (16-61); Albumin, Serum 3.2 g/dL (3.2-5.0); Alkaline Phosphatase 43 U/L (45-117); Bilirubin, Direct 0.14 mg/dL (0.00-0.30); Cholesterol 110 mg/dL (200); Globulin 2.9 g/dL (2.2-4.2); High Density Lipoprotein 41 mg/dL; Protein, Total 6.1 g/dL (6.4-8.2); Triglycerides 82 mg/dL; Very Low Density Lipoprotein 16 mg/dL (5-40)
== END ==
PROVIDERS: Family Provider Family Medicine; PCP Family Medicine; Visit Provider Internal Medicine Cardiovascular Disease
DX: E78.5 Hyperlipidemia, unspecified (principal); Z79.899 Other long term (current) drug therapy
CPT/HCPCS: 36415; 80061; 80076

== ENCOUNTER → 2018-01-12 08:55 | Outpatient (CLI) | payer MEDICARE, OTHER, SELFPAY ==
--- NOTE | 2018-01-13 08:30 | PFTCOMP ---
COMPLETE PULMONARY FUNCTION TEST INTERPRETATION Brief HPI: Patient is a 77 year old male, currently under the care of myself, who presents to [facility] for complete pulmonary function tests secondary to diagnosis of reported COPD. Respiratory therapist reports good effort and reproducible results. Interpretation: Forced expiration spirometry shows no large airways obstructive ventilatory defect with an FEV1 of 83% predicted. There is no significant bronchodilator response by ATS criteria. Spirograms are of good quality and plateau normally. The respiratory flow volume loop shows a normal pattern. Lung volumes by body plethysmography show a normal total lung capacity at 7.03 L, 109% predicted. All other lung volumes are within normal limits. Diffusion capacity by carbon monoxide is normal at 123% predicted. The airway resistance is normal elevated. No previous pulmonary function tests were available for review. Impression: These pulmonary function tests are within normal limits and not consistent with reported COPD.
== END ==
PROVIDERS: Family Provider Family Medicine; PCP Family Medicine; Visit Provider Internal Medicine Critical Care Medicine
DX: J44.9 Chronic obstructive pulmonary disease, unspecified (principal)
CPT/HCPCS: 94060; 94726; 94729

== ENCOUNTER → 2018-04-06 15:21 | Outpatient (CLI) | payer MEDICARE, OTHER, SELFPAY ==
[2018-04-06 14:33] VITALS: BMI 31.6
[2018-04-06 16:47] LABS: ALB/GLOB Ratio 1.1 RATIO (0.9-2.4); AST(SGOT) 21 U/L (15-37); Alanine Aminotransfer ALT/SGPT 28 U/L (16-61); Albumin, Serum 3.5 g/dL (3.2-5.0); Alkaline Phosphatase 54 U/L (45-117); Anion Gap 9 (5-15); BUN 19 mg/dL (7-18); BUN/Creat Ratio 13.3 RATIO (10-20); Calcium,Total 9.4 mg/dL (8.5-10.1); Chloride 103 mmol/L (98-107); Creatinine, Serum 1.43 mg/dL (0.70-1.30); EST Glomerular Filtration Rate 51 mL/min (>60); Est Glom Filt Rate - Afr Amer 62 mL/min (>60); Globulin 3.3 g/dL (2.2-4.2); Glucose 88 mg/dL (74-106); Potassium 3.8 mmol/L (3.5-5.1); Protein, Total 6.8 g/dL (6.4-8.2); Sodium Level 143 mmol/L (136-145); T4 Free Direct 0.93 ng/dL (0.76-1.46); Thyroid Stim Hormone (TSH) 2.52 uIU/mL (0.358-3.74)
--- OUTSIDE RECORDS SUMMARY | 2018-05-23 22:52 | XMS RPT_ITS ---
:1940 Author Organization [place] Support Name Relationship Address Phone NADER ROMAN Unavailable [address] + [place] [address] GARCIA, SYD Unavailable [address] + [place] [address] R Unavailable Unavailable Unavailable ABEL NADER Unavailable [address] + [place] [address] GARCIA, SYD Unavailable [address] + [place] [address] R Unavailable Unavailable Unavailable GARCIA, SYD Unavailable [address] [facility] [address] + [place] [address] GARCIA, SYD Unavailable [address] [facility] [address] + [place] [address] ABEL NADER Unavailable [address] + [place] [address] GARCIA, SYD Unavailable [address] + [place] [address] R Unavailable Unavailable Unavailable ELDER, NADER Unavailable [address] + [place] [address] GARCIA, SYD Unavailable [address] + [place] [address] R Unavailable Unavailable Unavailable ELDER, NADER Unavailable [address] + [place] [address] GARCIA, SYD Unavailable [address] + [place] [address] R Unavailable Unavailable Unavailable GARCIA, SYD Unavailable [address] + [place] [address] GARCIA, SYD Unavailable [address] [facility] [address] + [place] [address] ELDER, NADER Unavailable Unavailable + [place] [address] GARCIA, SYD Unavailable [address] + [place] [address] R Unavailable Unavailable Unavailable ELDER, NADER Unavailable Unavailable + [place] [address] GARCIA, SYD Unavailable [address] + [place] [address] R Unavailable Unavailable Unavailable ELDER, NADER Unavailable 1 + [place] [address] GARCIA, SYD Unavailable [address] + [place] [address] R Unavailable Unavailable Unavailable ELDER, NADER Unavailable 1 + [place] [address] GARCIA, SYD Unavailable [address] + [place] [address] R Unavailable Unavailable Unavailable GARCIA, SYD Unavailable [address] [facility] [address] + [place] [address] GARCIA, SYD Unavailable [address] [facility] [address] + [place] [address] ELDER, NADER Unavailable 1 + [place] [address] GARCIA, SYD Unavailable [address] + [place] [address] R Unavailable Unavailable Unavailable GARCIA, SYD Unavailable [address] [facility] [address] + [place] [address] GARCIA, SYD Unavailable [address] [facility] [address] + [place] [address] GARCIA, SYD Unavailable [address] [facility] [address] + [place] [address] GARCIA, SYD Unavailable [address] [facility] [address] + [place] [address] ELDER, NADER Unavailable Unavailable + [place] [address] GARCIA, SYD Unavailable [address] + [place] [address] R Unavailable Unavailable Unavailable ELDER, NADER Unavailable Unavailable + [place] [address] GARCIA, SYD Unavailable [address] + [place] [address] R Unavailable Unavailable Unavailable GARCIA, SYD Unavailable [address] [facility] [address] + [place] [address] GARCIA, SYD Unavailable [address] [facility] [address] + [place] [address] ELDER, NADER Unavailable . + [place] [address] GARCIA, SYD Unavailable [address] + [place] [address] R Unavailable Unavailable Unavailable ELDER, NADER Unavailable . + [place], [place] GARCIA, SYD Unavailable [address] [facility] [address] + [place] [address] R Unavailable Unavailable Unavailable ELDER, NADER Unavailable . + [facility] [place] GARCIA, SYD Unavailable [address] [facility] [address] + [place] [address] R Unavailable Unavailable Unavailable ELDER, NADER Unavailable . + [facility] GARCIA, SYD Unavailable [address] [facility] [address] + [place] [address] R Unavailable Unavailable Unavailable ELDER, NADER Unavailable . + [place] [address] GARCIA, SYD Unavailable [address] + [place] [address] R Unavailable Unavailable Unavailable ELDER, NADER Unavailable . + [place], [place] GARCIA, SYD Unavailable [address] [facility] [address] + [place] [address] R Unavailable Unavailable Unavailable ELDER, NADER Unavailable . + [place] GARCIA, SYD Unavailable [address] [facility] [address] + [place] [address] R Unavailable Unavailable Unavailable GARCIA, SYD Unavailable [address] [facility] [address] + [place] [address] GARCIA, SYD Unavailable [address] [facility] [address] + [place] [address] ELDER, NADER Unavailable . + [facility] GARCIA, SYD Unavailable [address] [facility] [address] + [place] [address] R Unavailable Unavailable Unavailable ELDER, NADER Unavailable . + [facility] [place] GARCIA, SYD Unavailable [address] [facility] [address] + [place] [address] R Unavailable Unavailable Unavailable ELDER, NADER Unavailable . + [facility] GARCIA, SYD Unavailable [address] [facility] [address] + [place] [address] R Unavailable Unavailable Unavailable ELDER, NADER Unavailable . + [place] GARCIA, SYD Unavailable [address] [facility] [address] + [place] [address] R Unavailable Unavailable Unavailable ELDER, NADER Unavailable . + [place] GARCIA, SYD Unavailable [address] [facility] [address] + [place] [address] R Unavailable Unavailable Unavailable ELDER, NADER Unavailable . + [facility] FAVIOLA LARARICIA Unavailable [address] + [place] [address] R Unavailable Unavailable Unavailable ELDER, NADER Unavailable . + [facility], [place] FAVIOLA GARCIARICIA Unavailable [address] + [place] [address] R Unavailable Unavailable Unavailable Care Team Providers Name Role Phone Nohemy Munroe [employer] Attending Unavailable David, Mateus Referring Unavailable Nohemy uMnroe [employer]C Attending Unavailable Nohemy Munroe [employer]C Referring Unavailable [facility] Mateus Primary Care Unavailable Nohemy Munroe [employer]-C Attending Unavailable David, Mateus Referring Unavailable Nohemy Munroe [employer]-C Attending Unavailable Nohemy Munroe [employer]-C Referring Unavailable Marion, Mateus Primary Care Unavailable Adarsh Tijerina Attending Unavailable Adarsh Tijerina Referring Unavailable Marion, Mateus Primary Care Unavailable Tony, Mike Admitting Unavailable Tony, Mike Attending Unavailable Marion, Mateus Primary Care Unavailable Sementi, Arleen Consulting Unavailable Renzo Pond Attending Unavailable Gerri Rodriguez Attending Unavailable David, Mateus Referring Unavailable Marion, Mateus Primary Care Unavailable Tony, Mike Admitting Unavailable Sementi, Arleen Attending Unavailable Marion, Mateus Primary Care Unavailable Sementi, Arleen Consulting Unavailable Tony, Mike Consulting Unavailable Tony, Mike Admitting Unavailable Sementi, Arleen Attending Unavailable Marion, Mateus Primary Care Unavailable Sementi, Arleen Consulting Unavailable Tony, Mike Consulting Unavailable Marion, Mateus Primary Care Unavailable Juany, Chris Admitting Unavailable Alvino Brewsteren Consulting Unavailable Vishnu Chase Attending Unavailable Juany, Chris Admitting Unavailable David, Mateus Primary Care Unavailable Juany, Chris Consulting Unavailable Ross Baird Attending Unavailable Juany, Chris Admitting Unavailable Chan Hector Attending Unavailable Marion, Mateus Primary Care Unavailable Kurt Brewster Consulting Unavailable Chan Hector Consulting Unavailable Juany, Chris Admitting Unavailable Vishnu Chase Attending Unavailable Marion, Mateus Primary Care Unavailable Kurt Brewster Consulting Unavailable Vishnu Chase Consulting Unavailable Tony, Mike Attending Unavailable David, Mateus Primary Care Unavailable Tony, Mike Attending Unavailable David, Mateus Primary Care Unavailable Mckay Valdez Attending Unavailable Tony, Mike Referring Unavailable Marquez Preston Attending Unavailable Cristina, Marquez Referring Unavailable David, Mateus Primary Care Unavailable Manuel Triana Attending Unavailable Knjorge, Manuel Referring Unavailable David, Mateus Primary Care Unavailable Adarsh Tijerina Attending Unavailable Adarsh Tijerina Referring Unavailable Marion, Mateus Primary Care Unavailable Gerri Rodriguez Attending Unavailable Marion, Mateus Referring Unavailable Marion, Mateus Primary Care Unavailable Sherman Gil Attending Unavailable David, Mateus Referring Unavailable Jeffery, Sherman Attending Unavailable Jeffery, Sherman Referring Unavailable David, Mateus Primary Care Unavailable Jeffery, Sherman Attending Unavailable Jeffery, Sherman Referring Unavailable Jeffery, Sherman Attending Unavailable David, Mateus Referring Unavailable Maritza Vasquez Attending Unavailable TONY, MIKE Attending Unavailable TONY, MIKE Referring Unavailable DAVID DO, MATEUS D Primary Care Unavailable DAVID DO, MATEUS D Attending Unavailable DAVID DO, MATEUS D Primary Care Unavailable STUART GAMING Attending Unavailable DAVID DO, MATEUS D Primary Care Unavailable KYM COLLINS, DR. CANCHOLA Attending Unavailable DAVID DO, MATEUS D Primary Care Unavailable DAVID DO, MATEUS D Attending Unavailable DAVID DO, MATEUS D Primary Care Unavailable DAVID DO, MATEUS D Attending Unavailable DAVID DO, MATEUS D Primary Care Unavailable MARQUEZ PRESTON MD, JR. Attending Unavailable DAVID DO, MATEUS D Primary Care Unavailable NICHOLAS, GINNA NABI Admitting Unavailable NICHOLAS, GINNA NABI Attending Unavailable NICHOLAS, GINNA N Admitting Unavailable NICHOLAS, GINNA N Attending Unavailable David DO, Mateus Primary Care Unavailable PROBLEMS PROBLEMS DATE TYPE CONDITION / CODE ATTENDING STATUS SOURCE Unknown R53.82 - Chronic Nohemy Munroe Active [facility] 9 fatigue, unspecified / J [facility] R53.82(ICD-10) Hospital Repository Unknown R53.81 - Other malaise Nohemy Munroe Active [facility] / R53.81(ICD-10) [facility] Repository Unknown E07.9 - Disorder of Nohemy Munroe Active [facility] 8 thyroid, unspecified / J [facility] E07.9(ICD-10) Hospital Repository Unknown E03.9 - Nohemy Munroe Active [facility] 8 Hypothyroidism, J [facility] Community unspecified / Hospital E03.9(ICD-10) Repository Admitting Malignant neoplasm of DAVID ALVAREZ, Active [facility] 8 Diagnosis prostate / C61(ICD-10) MATEUS [facility] Repository Unknown J44.9 - Chronic Jeffery, Sherman Active [facility] 8 obstructive pulmonary Community disease, unspecified / Hospital J44.9(ICD-10) Repository Active Encounter for NICHOLASGINNA Active [place] 8 screening for [facility] Other malignant neoplasm of [place] colon / Z12.11(ICD-10) Repository Admitting Unknown / UNK(Unknown) GINNA CARREON N Active [facility] 8 diagnosis Health System Repository Unknown M25.561 - Pain in [place], Active [facility] 8 right knee / [facility] M25.561(ICD-10) Hospital Repository Unknown Z96.651 - Presence of Mike Jimenez Active [facility] 8 right artificial knee [facility] joint / Hospital Z96.651(ICD-10) Repository Unknown M17.11 - Unilateral Mike Jimenez Active [facility] 8 primary [facility] osteoarthritis, right Hospital knee / M17.11(ICD-10) Repository Unknown R94.31 - Abnormal José Miguel, Mckay Active [facility] 8 electrocardiogram [facility] [ECG] [EKG] / Hospital R94.31(ICD-10) Repository Unknown Z79.899 - Other long [place], Active [facility] 8 term (current) drug [facility] therapy / Hospital Z79.899(ICD-10) Repository Unknown E78.5 - [place], Active [facility] 8 Hyperlipidemia, Adarsh [facility] unspecified / Hospital E78.5(ICD-10) Repository PROCEDURES PROCEDURES No Procedure Records FoundRESULTS RESULTS ENDOCRINOLOGY VISIT Observed: 05/10/2018 Status: F Source: [facility] REPORT 8:21 AM [facility] REPOSITORY [facility] [address] [place] [address] OFFICE VISIT Date of Service: 05/06/18 MR#: [id number] Acct: [id number] Name: MARQUEZ GARCIA Rep #: [id number] : 1940 Provider: Nohemy Munroe NP Age/Sex: 78/M Location: [facility] Status: Signed HPI History of present illness MARQUEZ GARCIA, is a 78 M who presents to the office today for consult of hypothyroidism. Has been on synthyroid for a period of time but reports he continues to feel tired. His family physician recently increased his dose to synthroid 200mcg daily but patient states his sense of fatigue continues. Reports taking his medication daily but he does not take on an empty stomach and he is taking with his medication for GERD. Hx of prostate cancer, depression, IBS, vision problems, CAD, back problems. Takes several medications daily Severity, modifying factors, context, and associated signs and symptoms are as follows: Thyroid pain: No Energy: Reduced Sleep: Not awakened refreshed Temp: No intolerance GI: Normal bowel Weight: Flucuates Eyes: No change in vision Memory: Has issues with memory. Has been evaluated and negative for alzheimers, dementia Diaphoresis: Not significant Skin: Dry Hair : Unchanged Neuro: No numbness, tingling or tremors At time of visit: -Pt denies symptoms of hypertensive emergency (CP,SOB,CLARK, or blurred vision) and hypotension(dizziness or lightheadedness) -Pt denies symptoms of hypoglycemia ( sweaty, confusion, anxiety, tremor, hunger, palpitations) and hyperglycemia ( polydipsia, polyuria) -Pt denies potential medication adverse effect. Labs sent from PCP office. Exam Const General: comfortable, no acute distress Nutritional Appearance: well nourished Orientation: oriented x3 HENNH Head: normal to inspection Ears: hearing grossly normal bilaterally Mouth: oral mucosae normal, moist mucous membranes Teeth and gingiva: dentition normal Eyes General: appearance normal, both eyes and all related structures Eyelids: eyelids normal Conjunctivae: conjunctivae normal Sclera: sclerae normal Pupils: PERRL Neck Neck: normal visual inspection Neck mass: No Thyroid: thyroid normal Resp Effort AND Inspection: normal respiratory effort, able to speak in complete sentences, symmetric chest movement Auscultation: Bilateral: Clear to Auscultation Cardio Rate: regular rate Rhythm: regular rhythm Heart Sounds: S1 normal, S2 normal GI Inspection: normal to inspection Palpation: soft, no guarding Musc Musculoskeletal: No muscle weakness Skin General: no rashes or lesions noted Neuro General: oriented x3, moves all extremities Cognition: normal cognition Speech: speech normal Gait: normal gait Extrem General: normal to inspection, normal capillary refill, edema Psych Appearance: grossly normal Mental Status: mental status grossly normal Mood: congruent mood Affect: normal affect Speech and Movement: speech and movement normal Attitude: cooperative Thought Process: normal Thought Content: normal Judgment: judgment good Weight and fatigue symptoms: Denies snoring Cardiopulmonary symptoms: Denies chest pain at rest, dyspnea on exertion, lightheadedness or myalgias GI symptoms: Reports constipation and diarrhea; denies nausea/dyspepsia or vomiting Skin and extremity symptoms: Denies erectile dysfunction Other symptoms: Denies blurry vision or change in vision Intake Vital Signs05/06/18 Height 6 ft 1 in 05/06/18 Weight: 243 lb 4 oz 05/06/18 Body Mass Index (BMI) 32.1 05/06/18 Blood Pressure 151/71 H 05/06/18 Blood Pressure Location Lt popliteal 05/06/18 Blood Pressure Position Sitting Intake Visit 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: No Accompanied by: Self Allergies lorazepam [From Ativan] Allergy (Severe, Verified 05/06/18 13:00) Unknown acetaminophen [From Vicodin] Allergy (Verified 05/06/18 13:00) Unknown hydrocodone [From Vicodin] Allergy (Verified 05/06/18 13:00) Unknown lisinopril Allergy (Verified 05/06/18 13:00) Unknown modafinil [From Provigil] Allergy (Verified 05/06/18 13:00) Other moxifloxacin HCl [From Avelox] Allergy (Verified 05/06/18 13:00) Upset Stomach Medications Doxazosin Mesylate [Cardura] 4 mg PO QHS 06/26/17 [History Confirmed 05/06/18] Linacolotide [Linzess] 145 mcg PO QHS 06/26/17 [History Confirmed 05/06/18] Ropinirole HCl [Requip] 2 tab PO QHS 06/26/17 [History Confirmed 05/06/18] Temazepam [Restoril] 30 mg PO QHS 06/26/17 [History Confirmed 05/06/18] traMADol [Ultram] 50 mg PO Q6H PRN PRN #18 tab 06/29/17 [Rx Confirmed 05/06/18] aspirin 81 mg tablet,delayed release 81 mg PO QDAY 12/09/17 [History Confirmed 05/06/18] famotidine 40 mg tablet 40 mg PO DAILY 12/09/17 [History Confirmed 05/06/18] furosemide 40 mg tablet 40 mg PO DAILY #90 tab 12/09/17 [Rx Confirmed 05/06/18] rosuvastatin 40 mg tablet 40 mg PO QHS #90 tab 12/09/17 [Rx Confirmed 05/06/18] spironolactone 25 mg-hydrochlorothiazide 25 mg tablet 1 tab PO QDAY 12/09/17 [History Confirmed 05/06/18] potassium chloride ER 20 mEq tablet,extended release(part/cryst) 20 meq PO QDAY #90 tab 12/21/17 [Rx Confirmed 05/06/18] azelastine 137 mcg (0.1 %) nasal spray aerosol 2 spray INTRANASAL BID 12/22/17 [History Confirmed 05/06/18] emollient combination no.43 topical cream applic TOPICAL 12/22/17 [History Confirmed 05/06/18] finasteride 5 mg tablet 5 mg PO DAILY 12/22/17 [History Confirmed 05/06/18] meloxicam 15 mg tablet 15 mg PO DAILY 12/22/17 [History Confirmed 05/06/18] nitroglycerin 0.4 mg sublingual tablet 0.4 mg SUBLINGUAL Q5- 15M PRN 12/22/17 [History Confirmed 05/06/18] duloxetine 60 mg capsule,delayed release 60 mg PO DAILY 12/23/17 [History Confirmed 05/06/18] albuterol sulfate HFA 90 mcg/actuation aerosol inhaler 2 puff INHALATION Q4H PRN #18 g 12/24/17 [Rx Confirmed 05/06/18] levothyroxine 150 mcg tablet 200 mcg PO DAILY #90 tab 04/14/18 [Rx Confirmed 05/06/18] Nurse's Note: [facility] Medical History Back pain (Acute) Carpal tunnel syndrome (Chronic) Insomnia (Chronic) Osteoarthritis (Chronic) Chronic renal failure, stage 3 (moderate) (Chronic) DEBORAH (acute kidney injury) (Acute) Hyponatremia (Acute) Hypokalemia (Acute) Hypertension (Chronic) CAD (coronary artery disease) (Chronic) Hypothyroidism (Chronic) HLD (hyperlipidemia) (Chronic) Gingivitis (Chronic) Esophageal reflux (Chronic) Benign essential HTN (Chronic) Prostate cancer (Chronic) Allergic rhinitis (Chronic) Asthma (Acute) IBS (irritable bowel syndrome) (Acute) Parathyroid abnormality (Acute) Vision problem (Acute) Syncope (Resolved) Surgical History H/O total knee replacement (Resolved) History of rotator cuff surgery (Resolved) S/P total knee arthroplasty (Acute) History of percutaneous transluminal coronary angioplasty (Chronic) Family History Father , from aneurysm CAD (coronary artery disease) Mother Multiple sclerosis Brother CAD (coronary artery disease) Cancer Prostate cancer Daughter Diabetes Social History Smoking Status: Former smoker how long ago did patient quit smokin alcohol intake: never substance use type: does not use caffeine: Yes Type: coffee Number of servings: 2 what type of physical activity do you participate in: none seatbelt use: always do you feel safe at home: Yes ROS Const Constitutional: Positive for fatigue; no anorexia, body ache, chills, fever(s), frequent falls, decreased energy, malaise, night sweats, weakness, weight change, sleep problems, abnormal sleep pattern, change in appetite, other, headache(s), snoring or excessive sweating Eyes Eyes: No blurry vision, change in vision, double vision, discharge, dry eyes, bulging eyes, floaters, visual disturbances, eye pain, light sensitivity, spots in vision, tunnel vision or other ENT ENT: No abnormal hearing, ear pain, ear discharge, ear pressure, hearing loss, tinnitus, dizziness/vertigo, balance problems, nosebleed/epistaxis, nasal congestion, nasal obstruction, nose pain, sinus pressure, sinus pain, nasal discharge, post nasal drip, headache(s), facial pain, dental pain, dry mouth, bad breath, hoarseness, lip swelling, mouth lesions, mouth pain, sore throat, tongue swelling, throat swelling, other, difficulty swallowing or neck pain Resp Respiratory: No cough, change in phlegm color, chest congestion, excessive phlegm production, hemoptysis, pain on inspiration, shortness of breath, pain with cough, snoring, stridor, wheezing or other Cardio Cardiology: No chest pain at rest, chest pain with exertion, leg pain with exertion, excessive sweating, shortness of breath, dyspnea on exertion, generalized swelling, irregular heart rhythm, lightheadedness, orthopnea, radiating jaw, neck or arm pain, fast heart rate, slow heart rate, palpitations or other Gastro GI: Positive for constipation and diarrhea; no abdominal pain, belching, bloating, change in bowel habits, change in stool character, coffee ground emesis, cramping, heartburn, difficulty swallowing, feeling full early, excessive flatus, incontinent of stools, Vomiting blood/hematemesis, blood in stool, loose stools, Black,tarry stools, nausea/dyspepsia, pain with swallowing, vomiting or other Genitourinary Male: No difficulty urinating, burning urination, painful urination, urinary incontinence, urinary frequency, urinary urgency, urinary hesitancy, urinary retention, blood in urine, Frequent nighttime urination/ nocturia, post void dribbling, suprapubic fullness, side pain, sexual problems, genital lesions, genital itching, erectile dysfunction, penile discharge, difficulty with ejaculations, blood in semen, scrotal swelling, testicle lump, testicle pain or other Musc Musculoskeletal: No abnormal walking, joint pain, back pain, deformity, joint swelling, limited range of motion, loss of height, muscle cramps, muscle weakness, decreased muscle mass, body aches, neck pain, numbness, radiating pain into limb, stiffness, tingling or other Skin Skin: No acne, hair loss, change in hair, nail changes, boil, change in skin color, dry skin, redness, excessive hair growth, yellowing of the skin, lesions, itching, rash, skin pain, skin ulcer, sores, skin swelling, wounds or other Breast Breast: No other Neuro Neurology: No frequent falls, weakness, visual disturbances, abnormal hearing, headache(s), abnormal walking, numbness or tingling Psych Psychiatric: No abnormal sleep pattern, No change in appetite Endo Endocrine: Positive for fatigue; no other or excessive sweating Aller/Imm Allergy/Immunologic: No lip swelling, tongue swelling, throat swelling, wheezing or itchy eyes Assessment AND Plan Problems 1. Acquired hypothyroidism E03.9 Plan Patient has diagnosis of hypothyroid with normal TSH and free T 4 but continues to complain of fatigue. Does have a hx of prostate cancer as well as depression . Will further checks labs to determine if any cause can be found. Patient Instructions Sleep hygiene Eat healthy diet, exercise. Orders Orders: Plan Detail Additional Comments 1. Please schedule follow up in 3 months. 2. Lab work now 3. Discussed importance of regular exercise and recommend starting or continuing a regular exercise program for good health. Spent approximately 30 minutes with patient with over 50% of time spent in discussion and counseling regarding medication adjustment, symptoms and treatment of hypothyroidism , Coding Level of Care Code Off vis,est,level 3 Diagnoses Acquired hypothyroidism E03.9 Hypothyroidism type: acquired 05/10/18 08 <Electronically signed by Nohemy LYNCH> Date Nohemy LYNCH Cosigner Signature: Date (if applicable) CC: IRON+IRON BINDING Collected: 05/06/2018 Status: F Source: [facility] 2:07 PM [facility] REPOSITORY TYPE CODE TESTS RESULT OUT OF RANGE REFERENCE UNITS LAB L503.6075 250-450 ug/dL TIBC Normal 313 LAB L503.6150 65-175 ug/dL Low IRON 62 LAB L503.6250 15.0-55.0 % IRON Normal SATURATION 19.8 Performed By: #### L503.6030 #### [facility] [address] [place], [address] VITAMIN B12 Collected: 05/06/2018 Status: F Source: [facility] 2:07 PM [facility] REPOSITORY TYPE CODE TESTS RESULT OUT OF RANGE REFERENCE UNITS LAB L503.0105 211-911 pg/mL Normal Vitamin B12 536 Performed By: #### L503.0105 #### [facility] [address] [place], [address] TESTOSTERONE, TOTAL / Collected: 05/06/2018 Status: F Source: CHAD FREE 2:07 PM [facility] REPOSITORY Order Comment: Has Patient had X-rays with Contrast this admission? N TYPE CODE TESTS RESULT OUT OF RANGE REFERENCE UNITS LAB L3100.5320 264-916 ng/dL Normal 343 TESTOSTER,TO KRISTAN Result Comment: Adult male reference interval is based on a population of healthy nonobese males (BMI <30) between 19 and 39 years old. Valente et.al. JCEM 2017,102;6748-6366. PMID: [id number]. LAB L3100.5340 5.00-21.00 ng/dL TESTOSTER,FREE Normal 10.29 LAB L3100.5360 1.50-4.20 % TESTOSTER %FREE Normal 3.00 Result Comment: Performed at: [facility] [address] [id number] Chisel Worker: Zain Isidro PhD, Phone: [phone] Performed at: [facility] [id number] Chisel Worker: Karla Duarte MD, Phone: [phone] Performed By: #### L3100.5310 #### [facility] (refer to report for specific site) refer to report for address and phone number OFFICE VISIT REPORT Observed: 04/07/2018 Status: F Source: CHAD 8:25 AM [facility] REPOSITORY [facility] [place] [address] OFFICE VISIT Date of Service: 04/06/18 MR#: [id number] Acct: [id number] Patient: MARQUEZ GARCIA Rep #: [id number] : 1940 Provider: Nohemy Munroe NP Age/Sex: 78/M Location: [facility] [place] Status: Signed Intake Vital Signs04/06/18 Body Mass Index (BMI) 31.6 04/06/18 Height 6 ft 1 in Intake Visit Reasons: Thyroid dysfunction Chief Complaint: 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 Required: No Accompanied by: Self Is patient in pain?: No Allergies lorazepam [From Ativan] Allergy (Severe, Verified 04/06/18 13:08) Unknown acetaminophen [From Vicodin] Allergy (Verified 04/06/18 13:08) Unknown hydrocodone [From Vicodin] Allergy (Verified 04/06/18 13:08) Unknown lisinopril Allergy (Verified 04/06/18 13:08) Unknown modafinil [From Provigil] Allergy (Verified 04/06/18 13:08) Other moxifloxacin HCl [From Avelox] Allergy (Verified 04/06/18 13:08) Upset Stomach Medications Doxazosin Mesylate [Cardura] 4 mg PO QHS 06/26/17 [History Confirmed 04/06/18] Linacolotide [Linzess] 145 mcg PO QHS 06/26/17 [History Confirmed 04/06/18] Ropinirole HCl [Requip] 2 tab PO QHS 06/26/17 [History Confirmed 04/06/18] Temazepam [Restoril] 30 mg PO QHS 06/26/17 [History Confirmed 04/06/18] traMADol [Ultram] 50 mg PO Q6H PRN PRN #18 tab 06/29/17 [Rx Confirmed 04/06/18] aspirin 81 mg tablet,delayed release 81 mg PO QDAY 12/09/17 [History Confirmed 04/06/18] famotidine 40 mg tablet 40 mg PO DAILY 12/09/17 [History Confirmed 04/06/18] furosemide 40 mg tablet 40 mg PO DAILY #90 tab 12/09/17 [Rx Confirmed 04/06/18] levothyroxine 150 mcg tablet 200 mcg PO DAILY tab 12/09/17 [History Confirmed 04/06/18] rosuvastatin 40 mg tablet 40 mg PO QHS #90 tab 12/09/17 [Rx Confirmed 04/06/18] spironolactone 25 mg-hydrochlorothiazide 25 mg tablet 1 tab PO QDAY 12/09/17 [History Confirmed 04/06/18] potassium chloride ER 20 mEq tablet,extended release(part/cryst) 20 meq PO QDAY #90 tab 12/21/17 [Rx Confirmed 04/06/18] azelastine 137 mcg (0.1 %) nasal spray aerosol 2 spray INTRANASAL BID 12/22/17 [History Confirmed 04/06/18] emollient combination no.43 topical cream applic TOPICAL 12/22/17 [History Confirmed 04/06/18] finasteride 5 mg tablet 5 mg PO DAILY 12/22/17 [History Confirmed 04/06/18] meloxicam 15 mg tablet 15 mg PO DAILY 12/22/17 [History Confirmed 04/06/18] nitroglycerin 0.4 mg sublingual tablet 0.4 mg SUBLINGUAL Q5- 15M PRN 12/22/17 [History Confirmed 04/06/18] duloxetine 60 mg capsule,delayed release 60 mg PO DAILY 12/23/17 [History Confirmed 04/06/18] albuterol sulfate HFA 90 mcg/actuation aerosol inhaler 2 puff INHALATION Q4H PRN #18 g 12/24/17 [Rx Confirmed 04/06/18] PFSH Medical History Back pain (Acute) Carpal tunnel syndrome (Chronic) Insomnia (Chronic) Osteoarthritis (Chronic) Chronic renal failure, stage 3 (moderate) (Chronic) DEBORAH (acute kidney injury) (Acute) Hyponatremia (Acute) Hypokalemia (Acute) Hypertension (Chronic) CAD (coronary artery disease) (Chronic) Hypothyroidism (Chronic) HLD (hyperlipidemia) (Chronic) Gingivitis (Chronic) Esophageal reflux (Chronic) Benign essential HTN (Chronic) Prostate cancer (Chronic) Allergic rhinitis (Chronic) Asthma (Acute) IBS (irritable bowel syndrome) (Acute) Parathyroid abnormality (Acute) Vision problem (Acute) Syncope (Resolved) Surgical History H/O total knee replacement (Resolved) History of rotator cuff surgery (Resolved) S/P total knee arthroplasty (Acute) History of percutaneous transluminal coronary angioplasty (Chronic) Family History Father , from aneurysm CAD (coronary artery disease) Mother Multiple sclerosis Brother CAD (coronary artery disease) Cancer Prostate cancer Daughter Diabetes Social History Smoking Status: Former smoker how long ago did patient quit smokin alcohol intake: never substance use type: does not use caffeine: Yes Type: coffee Number of servings: 2 what type of physical activity do you participate in: none seatbelt use: always do you feel safe at home: Yes Questionnaire Depression Screen PHQ-2/9 PHQ-2 Over the last 2 weeks, how often have you been bothered by any of the following problems? 1. Little interest or pleasure in doing things: nearly every day 2. Feeling down, depressed, or hopeless: nearly every day Total score: 6 If score is 2 or greater, continue 3. Trouble falling or staying asleep, or sleeping too much: not at all 4. Feeling tired or having little energy: nearly every day 5. Poor appetite or overeating: not at all 6. Feeling bad about yourself - or that you are a failure or have let yourself and your family down: not at all 7. Trouble concentrating on things, such as reading the newspaper or watching television: not at all 8. Moving or speaking so slowly that other people could have noticed? - Or the opposite - being so fidgety or restless that you have been moving around a lot more than usual: not at all 9. Thoughts that you would be better off or of hurting yourself in some way: not at all Total score: 9 If you checked off any problems, how difficult have these problems made it for you to do your work, take care of things at home, or get along with other people?: very difficult Source: Developed by Drs. Alli Nixon, Rebecca Capone, Jose Dugan and colleagues, with an educational lonnie from [employer]. Scoring: Total Score Depression Severity Action 1-4 Minimal depression No action needed 5-9 Mild depression Repeat PHQ-9 at follow up 10-14 Moderate depression Make tx plan,consider counseling, fup, prescription HPI HPI Chief Complaint: Establish care Details: MARQUEZ GARCIA, is a 78 M who presents to the office today for consult of hypothyroidism. Has been on synthyroid for a period of time but reports he continues to feel tired. His family physician recently increased his dose to synthroid 200mcg daily but patient states his sense of fatuge continues. Reports taking his medication daily but he does not take on an empty stomach and he is taking with his medication for GERD. Hx of prostate cancer, depression, IBS, vision problems, CAD, back problems. Takes several medications daily Severity, modifying factors, context, and associated signs and symptoms are as follows: Thyroid pain: No Energy: Reduced Sleep: Not awakened refreshed Temp: No intolerance GI: Normal bowel Weight: Flucuates Eyes: No change in vision Memory: Has issues with memory. Has been evaluated and negative for alzheimers, dementia Diaphoresis: Not significant Skin: Dry Hair : Unchanged Neuro: No numbness, tingling or tremors At time of visit: -Pt denies symptoms of hypertensive emergency (CP,SOB,CLARK, or blurred vision) and hypotension(dizziness or lightheadedness) -Pt denies symptoms of hypoglycemia ( sweaty, confusion, anxiety, tremor, hunger, palpitations) and hyperglycemia ( polydipsia, polyuria) -Pt denies potential medication adverse effect. Labs sent from PCP office. ROS Const Constitutional: Positive for fatigue; no anorexia, body ache, chills, fever(s), frequent falls, decreased energy, malaise, night sweats, weakness, weight change, sleep problems, abnormal sleep pattern, change in appetite, other, headache(s), snoring or excessive sweating Eyes Eyes: Positive for change in vision and other (blind L eye); no blurry vision, double vision, discharge, dry eyes, bulging eyes, floaters, visual disturbances, eye pain, light sensitivity, spots in vision or tunnel vision ENT ENT: No abnormal hearing, ear pain, ear discharge, ear pressure, hearing loss, tinnitus, dizziness/vertigo, balance problems, nosebleed/epistaxis, nasal congestion, nasal obstruction, nose pain, sinus pressure, sinus pain, nasal discharge, post nasal drip, headache(s), facial pain, dental pain, dry mouth, bad breath, hoarseness, lip swelling, mouth lesions, mouth pain, sore throat, tongue swelling, throat swelling, other, difficulty swallowing or neck pain Resp Respiratory: No cough, change in phlegm color, chest congestion, excessive phlegm production, hemoptysis, pain on inspiration, shortness of breath, pain with cough, snoring, stridor, wheezing or other Cardio Cardiology: Positive for generalized swelling; no chest pain at rest, chest pain with exertion, leg pain with exertion, excessive sweating, shortness of breath, dyspnea on exertion, irregular heart rhythm, lightheadedness, orthopnea, radiating jaw, neck or arm pain, fast heart rate, slow heart rate, palpitations or other Gastro GI: No abdominal pain, belching, bloating, change in bowel habits, change in stool character, coffee ground emesis, constipation, cramping, diarrhea, heartburn, difficulty swallowing, feeling full early, excessive flatus, incontinent of stools, Vomiting blood/hematemesis, blood in stool, loose stools, Black,tarry stools, nausea/dyspepsia, pain with swallowing, vomiting or other Genitourinary Male: No difficulty urinating, burning urination, painful urination, urinary incontinence, urinary frequency, urinary urgency, urinary hesitancy, urinary retention, blood in urine, Frequent nighttime urination/ nocturia, post void dribbling, suprapubic fullness, side pain, sexual problems, genital lesions, genital itching, erectile dysfunction, penile discharge, difficulty with ejaculations, blood in semen, scrotal swelling, testicle lump, testicle pain or other Musc Musculoskeletal: No abnormal walking, joint pain, back pain, deformity, joint swelling, limited range of motion, loss of height, muscle cramps, muscle weakness, decreased muscle mass, body aches, neck pain, numbness, radiating pain into limb, stiffness, tingling or other Skin Skin: No acne, hair loss, change in hair, nail changes, boil, change in skin color, dry skin, redness, excessive hair growth, yellowing of the skin, lesions, itching, rash, skin pain, skin ulcer, sores, skin swelling, wounds or other Breast Breast: No other Neuro Neurology: No frequent falls, weakness, visual disturbances, abnormal hearing, headache(s), abnormal walking, numbness or tingling Psych Psychiatric: No abnormal sleep pattern, No change in appetite Endo Endocrine: Positive for fatigue; no other or excessive sweating Aller/Imm Allergy/Immunologic: No lip swelling, tongue swelling, throat swelling, wheezing or itchy eyes Exam Const General: comfortable, no acute distress Nutritional Appearance: well nourished Orientation: oriented x3 [facility] Head: normal to inspection Ears: hearing grossly normal bilaterally Mouth: oral mucosae normal, moist mucous membranes Teeth and gingiva: dentition normal Eyes General: appearance normal, both eyes and all related structures Eyelids: eyelids normal Conjunctivae: conjunctivae normal Sclera: sclerae normal Pupils: PERRL Neck Neck: normal visual inspection Neck mass: No Thyroid: thyroid normal Resp Effort AND Inspection: normal respiratory effort, able to speak in complete sentences, symmetric chest movement Auscultation: Bilateral: Clear to Auscultation Cardio Rate: regular rate Rhythm: regular rhythm Heart Sounds: S1 normal, S2 normal GI Inspection: normal to inspection Palpation: soft, no guarding Musc Musculoskeletal: No muscle weakness Skin General: no rashes or lesions noted Neuro General: oriented x3, moves all extremities Cognition: normal cognition Speech: speech normal Gait: normal gait Extrem General: normal to inspection, normal capillary refill, edema Psych Appearance: grossly normal Mental Status: mental status grossly normal Mood: congruent mood Affect: normal affect Speech and Movement: speech and movement normal Attitude: cooperative Thought Process: normal Thought Content: normal Judgment: judgment good Assessment AND Plan 1. Thyroid dysfunction E07.9 Orders Orders: 2. Acquired hypothyroidism E03.9 Plan Discussed need to take thyroid medications on an empty stomach and avoid other medications at same time. Reviewed othe causes of fatigue ie.. medications, anemia, celiac, B12 deficiency, iron issues. testosterone levels. Also patient does have hx of prostate cancer but reports this is negative at present time. Will recheck thyroid labs at this time and determine if thyroid labs normal then may need to check other labs. Discussed exercise and diet. Patient Instructions Labs today Take levo on empty stomach without other medications. Sleep hygiene Diet and exercise important. Orders Orders: Plan Detail Additional Comments Spent approximately 45 minutes with patient with over 50% of time spent in discussion and counseling regarding medication adjustment, symptoms and treatment of hypothyroidism. Coding Level of Care Code Off vis,new,level 4 Diagnoses Thyroid dysfunction E07.9 Acquired hypothyroidism E03.9 Hypothyroidism type: acquired 04/07/18 0825 <Electronically signed by Nohemy LYNCH> Date Nohemy LYNCH Cosigner Signature: Date (if applicable) CC: COMPREHENSIVE METABOLIC Collected: 04/06/2018 Status: F Source: CHAD IVAN 3:38 PM [facility] REPOSITORY TYPE CODE TESTS RESULT OUT OF RANGE REFERENCE UNITS LAB L501.0100 74-106 mg/dL Normal GLU 88 Result Comment: Please note revised GLUCOSE reference range effective 2017. LAB L501.1000 7-18 mg/dL High BUN 19 LAB L501.1100 0.70-1.30 mg/dL High CREAT,SERUM 1.43 Result Comment: The validity of the calculated GFR AND GFRAA in patients over 70 years has not been determined. Clinical correlation is essential. LAB L501.1110 >60 mL/min Low EST GFR 51 Result Comment: Non- GFR Calc LAB L501.1115 >60 mL/min Normal EST GFR - AA 62 Result Comment: GFR Calc LAB L501.1300 10-20 RATIO Normal BUN/CRE 13.3 LAB L501.1500 6.4-8.2 g/dL T Normal PROT 6.8 LAB L501.1800 3.2-5.0 g/dL Normal ALB 3.5 LAB L501.1950 2.2-4.2 g/dL Normal GLOB 3.3 LAB L501.2000 0.9-2.4 RATIO Normal A/G 1.1 LAB L501.2200 8.5-10.1 mg/dL CA Normal 9.4 LAB L501.4100 15-37 U/L Normal AST 21 LAB L501.4305 45-117 U/L Normal ALK P 54 LAB L501.4405 16-61 U/L Normal ALT 28 LAB L501.4600 0.20-1.00 mg/dL T Normal BILI 0.40 LAB L501.5300 136-145 mmol/L NA Normal 143 LAB L501.5600 3.5-5.1 mmol/L K Normal 3.8 LAB L501.5900 98-107 mmol/L CL Normal 103 LAB L501.6100 21.0-32.0 mmol/L Normal CO2 31.0 LAB L501.6200 5-15 Normal GAP 9 Performed By: #### L500.4050, L501.87351, L501.9520, L506.0400 #### [facility] [address] [place], [address] FREE T3 Collected: 04/06/2018 Status: F Source: CHAD 3:38 PM [facility] REPOSITORY TYPE CODE TESTS RESULT OUT OF RANGE REFERENCE UNITS LAB L501.57559 2.18-3.98 pg/mL Low FREE T3 2.0 Performed By: #### L500.4050, L501.30469, L501.9520, L506.0400 #### [facility] [address] [place], [address] THYROID STIM HORMONE Collected: 04/06/2018 Status: F Source: [place] (TSH) 3:38 PM [facility] REPOSITORY TYPE CODE TESTS RESULT OUT OF RANGE REFERENCE UNITS LAB L501.9520 0.358-3.74 uIU/mL Normal TSH 2.52 Performed By: #### L500.4050, L501.76560, L501.9520, L506.0400 #### [facility] [address] [place], [address] T4 FREE DIRECT Collected: 04/06/2018 Status: F Source: [place] 3:38 PM [facility] REPOSITORY TYPE CODE TESTS RESULT OUT OF RANGE REFERENCE UNITS LAB L506.0400 0.76-1.46 ng/dL Normal T4 FREE 0.93 DIRECT Performed By: #### L500.4050, L501.98035, L501.9520, L506.0400 #### [facility] [address] [place], [address] PULMONARY VISIT REPORT Observed: 03/31/2018 Status: F Source: [place] 3:46 PM [facility] REPOSITORY [facility] [address] [place], [place] [address] OFFICE VISIT Date of Service: 03/31/18 MR#: [id number] Acct: [id number] Name: MARQUEZ GARCIA Rep #: [id number] : 1940 Provider: Sherman Gil MD Age/Sex: 78/M Location: [facility] Status: Signed Assessment AND Plan Problems 1. Moderate persistent asthma without complication J45.40 2. Seasonal allergic rhinitis due to pollen J30.1 Plan Patient's pulmonary function tests are within normal limits indicating asthma alone as an etiology. Patient typically has severe allergies likely complicate its management. After review of the risks, benefits and alternatives, patient will be taken off of Spiriva therapy. Patient will call if he has issues over the summer as this is a difficult time for him. However, we will continue to move back therapy as tolerated. Patient is no longer on Xarelto therapy so this has been discontinued also. Discontinue Spiriva. Continue other medications. Medications Discontinued: rivaroxaban (Xarelto) Discontinued Reason: Pt no longer takin10 mg PO DAILY g HPI 3 M FU: Chief Complaint: Review of test results Details: Patient is a 78-year-old male, currently under the care of Dr. Hernandez, who presents for evaluation secondary to recent test results. Since last visit, patient denies any ER visits, hospitalizations or prednisone burst. Patient overall feels subjectively better compared to previous. Patient reportedly has been having issues with this fibroid and is to see NINOSKA Munroe in the near future. Patient reports that he has been compliant with his Advair, Spiriva and Pro Air therapy. Patient states he does not require Pro Air therapy frequently. Patient denies any complications with therapy including thrush, hoarseness or sore throat. Patient believes his exercise tolerance is slightly improved compared to previous. Patient does state that this is typically a good time a year as he typically can have severe problems with allergies in the spring and fall. Patient reports he has been compliant with CPAP therapy. Patient currently sees Dr. Daily for this condition. No download is available for review. Patient feels that this continues to be effective and wakes up feeling rested and does not take naps during the day. Testing personally reviewed with the patient Complete PFT (01/12/2018): PFT within normal limits (FVC 84%, FEV1 83%, TLC 109%, DLCO 123%) HPI Comments Details: Intake Vital Signs03/31/18 Height 6 ft 1 in 03/31/18 Weight: 108.862 kg Intake Visit Reasons: 3 M FU Accompanied by: Allergies lorazepam [From Ativan] Allergy (Severe, Verified 03/31/18 13:13) Unknown acetaminophen [From Vicodin] Allergy (Verified 03/31/18 13:13) Unknown hydrocodone [From Vicodin] Allergy (Verified 03/31/18 13:13) Unknown lisinopril Allergy (Verified 03/31/18 13:13) Unknown modafinil [From Provigil] Allergy (Verified 03/31/18 13:13) Other moxifloxacin HCl [From Avelox] Allergy (Verified 03/31/18 13:13) Upset Stomach Medications Doxazosin Mesylate [Cardura] 4 mg PO QHS 06/26/17 [History Confirmed 03/31/18] Fluticasone/Salmeterol [Advair 500/50 Mcg Diskus] 1 puff INHALATION BID 06/26/17 [History Confirmed 03/31/18] Linacolotide [Linzess] 145 mcg PO QHS 06/26/17 [History Confirmed 03/31/18] Ropinirole HCl [Requip] 2 tab PO QHS 06/26/17 [History Confirmed 03/31/18] Temazepam [Restoril] 30 mg PO QHS 06/26/17 [History Confirmed 03/31/18] traMADol [Ultram] 50 mg PO Q6H PRN PRN #18 tab 06/29/17 [Rx Confirmed 03/31/18] aspirin 81 mg tablet,delayed release 81 mg PO QDAY 12/09/17 [History Confirmed 03/31/18] famotidine 40 mg tablet 40 mg PO DAILY 12/09/17 [History Confirmed 03/31/18] furosemide 40 mg tablet 40 mg PO DAILY #90 tab 12/09/17 [Rx Confirmed 03/31/18] levothyroxine 150 mcg tablet 200 mcg PO DAILY tab 12/09/17 [History Confirmed 03/31/18] rosuvastatin 40 mg tablet 40 mg PO QHS #90 tab 12/09/17 [Rx Confirmed 03/31/18] spironolactone 25 mg-hydrochlorothiazide 25 mg tablet 1 tab PO QDAY 12/09/17 [History Confirmed 03/31/18] potassium chloride ER 20 mEq tablet,extended release(part/cryst) 20 meq PO QDAY #90 tab 12/21/17 [Rx Confirmed 03/31/18] azelastine 137 mcg (0.1 %) nasal spray aerosol 2 spray INTRANASAL BID 12/22/17 [History Confirmed 03/31/18] emollient combination no.43 topical cream applic TOPICAL 12/22/17 [History Confirmed 03/31/18] finasteride 5 mg tablet 5 mg PO DAILY 12/22/17 [History Confirmed 03/31/18] meloxicam 15 mg tablet 15 mg PO DAILY 12/22/17 [History Confirmed 03/31/18] nitroglycerin 0.4 mg sublingual tablet 0.4 mg SUBLINGUAL Q5- 15M PRN 12/22/17 [History Confirmed 03/31/18] oxycodone 5 mg tablet 5 mg PO Q6H PRN tab 12/22/17 [History Confirmed 03/31/18] sildenafil 50 mg tablet 50 mg PO DAILY PRN 12/22/17 [History Confirmed 03/31/18] duloxetine 60 mg capsule,delayed release 60 mg PO DAILY 12/23/17 [History Confirmed 03/31/18] albuterol sulfate HFA 90 mcg/actuation aerosol inhaler 2 puff INHALATION Q4H PRN #18 g 12/24/17 [Rx Confirmed 03/31/18] PFS Medical History Back pain (Acute) Carpal tunnel syndrome (Chronic) Insomnia (Chronic) Osteoarthritis (Chronic) Chronic renal failure, stage 3 (moderate) (Chronic) DEBORAH (acute kidney injury) (Acute) Hyponatremia (Acute) Hypokalemia (Acute) Hypertension (Chronic) CAD (coronary artery disease) (Chronic) Hypothyroidism (Chronic) HLD (hyperlipidemia) (Chronic) Gingivitis (Chronic) Esophageal reflux (Chronic) Benign essential HTN (Chronic) Prostate cancer (Chronic) Allergic rhinitis (Chronic) Syncope (Resolved) Surgical History H/O total knee replacement (Resolved) History of rotator cuff surgery (Resolved) S/P total knee arthroplasty (Acute) History of percutaneous transluminal coronary angioplasty (Chronic) Family History Father , from aneurysm CAD (coronary artery disease) Mother Multiple sclerosis Brother CAD (coronary artery disease) Cancer Prostate cancer Daughter Diabetes Social History Smoking Status: Former smoker how long ago did patient quit smokin alcohol intake: never substance use type: does not use caffeine: Yes Type: coffee Number of servings: 2 what type of physical activity do you participate in: none seatbelt use: always do you feel safe at home: Yes Review of Systems Const CONSTITUTIONAL: Negative anorexia, body ache, chills, daytime sleepiness, fever(s), night sweats, oral thrush, stops breathing during sleep, weight loss, sleeping in chair, fatigue, weight loss, weight gain, frequent colds, seasonal allergies, other, headache(s) or orthopnea EETM Ear Nose Throat Mouth: Positive hearing normal and nasal discharge; negative hard of hearing, hoarseness, dry mouth in morning, change in vision, itchy eyes, eye pain, swallowing Difficulty, ear pain, nose bleed, headache(s), mouth pain, nasal congestion, post nasal drip, sinus pain, sinus pressure, sore throat or other Cardio Cardiovascular: Negative chest pain, chest pain at rest, chest pain with activity, irregular heart rhythm, edema, shortness of breath when lying down, palpitations, murmur or other Resp Respiratory: Positive as per HPI and shortness of breath shortness of breath: Positive with activity; negative pain with cough, wheezing, chest congestion, cough, chest tightness, pain on inspiration, inhalers, increase use of rescue inhalers, snoring, apnea or other Gastro Gastrointestional: Negative bloody stools, change in appetite, difficulty swallowing, reflux, hematemesis, melena stool, loose stool, constipation or other Genitourinary: Negative blood in urine, nocturia, pain with urination or other Musc Musculoskeletal: Negative body pain, back pain, neck pain or other Skin/Breast Skin/Breast: Negative dry skin, itching, rash, unusual bruising, breast lump or other Neuro Neurological: Negative restless legs, confusion, weakness or other Psych Psychocological: Negative abnormal sleep pattern, anxiety, thoughts of hurting self/others, hopelessness or other Lymph Lymphatic: Negative easy bleeding, easy bruising, swollen lymph nodes or other Exam Const Constitutional: Positive conversant, cooperative, in no acute respiratory distress, healthy appearing, well developed, well nourished, good hygiene and obese; negative wearing supplemental oxygen or smells of smoke Head Head: Positive normocephalic and atraumatic; negative cyanosis of lips/distal nose, frontal sinus tenderness or maxillary sinus tenderness Eyes Eye: Positive clear conjunctiva; negative nystagmus, scleral abnormality or cataract present Ears Ear: Positive hearing normal and external ears normal; negative hard of hearing Nose Nose: Positive external nose normal, septum normal and no nasal discharge; negative epistaxis or nasal polyp Mouth Mouth: Positive oral mucosae normal, no lesions and crowded posterior oropharynx; negative post nasal drip, malodorous breath or oral thrush present Mallampati Score: III: Mallampati Score Neck Neck: Positive normal visual inspection, full ROM, trachea midline and male neck greater than 43 cm (17 in); negative lymphadenopathy or JVD Chest Wall Chest: Positive normal inspection of the chest and symmetric chest movement; negative crepitus or tenderness Resp lung sounds: Positive clear to auscultation, good air exchange, normal expiratory time and normal respiratory effort; negative wheezes, rhonchi, rales,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 chronic anticoagulation but denies any bleeding complications. Patient is unaware of the exact ejection fraction of his last echo. Patient does suffer from seasonal allergies and is currently on Astelin and receives weekly allergy shots. Patient feels this is grossly unchanged from his baseline. Patient has been diagnosed with obstructive sleep apnea. Patient is currently seeing Dr. Preston and reports that he uses a full facemask. Patient feels he is well controlled and has not had any significant change in current settings. Documentation reviewed 45 pages of documentation from patient's primary care physician were reviewed. Notable diagnoses include a history of prostate cancer, obstructive sleep apnea, restless legs and obesity. Patient reportedly has never been a smoker, but does have albuterol as needed prescribed, along with Spiriva and Singulair. Spirometry completed in September 2016 showed a mild obstructive ventilatory defect with an FEV1 of 72%. Previous sleep study completed in April 2015 show patient was titrated to CPAP of 18 cm of water. A complete pulmonary function test completed in 2014 showed a moderate obstructive ventilatory defect with no response to bronchodilators and preserved diffusion capacity. 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: [employer] Accompanied by: Allergies lorazepam [From Ativan] Allergy (Severe, Verified 12/22/17 14:27) Unknown acetaminophen [From Vicodin] Allergy (Verified 12/22/17 14:27) Unknown hydrocodone [From Vicodin] Allergy (Verified 12/22/17 14:27) Unknown lisinopril Allergy (Verified 12/22/17 14:27) Unknown modafinil [From Provigil] Allergy (Verified 12/09/17 13:05) Other moxifloxacin HCl [From Avelox] Allergy (Verified 12/09/17 13:05) Upset Stomach Medications Doxazosin Mesylate [Cardura] 4 mg PO QHS 06/26/17 [History Confirmed 12/23/17] Fluticasone/Salmeterol [Advair 500/50 Mcg Diskus] 1 puff INHALATION BID 06/26/17 [History Confirmed 12/23/17] Linacolotide [Linzess] 145 mcg PO QHS 06/26/17 [History Confirmed 12/23/17] Ropinirole HCl [Requip] 2 tab PO QHS 06/26/17 [History Confirmed 12/23/17] Temazepam [Restoril] 30 mg PO QHS 06/26/17 [History Confirmed 12/23/17] Tiotropium [place] [Spiriva 18 MCG] 1 puff INHALATION DAILY 06/26/17 [History Confirmed 12/23/17] traMADol [Ultram] 50 mg PO Q6H PRN PRN #18 tab 06/29/17 [Rx Confirmed 12/23/17] aspirin 81 mg tablet,delayed release 81 mg PO QDAY 12/09/17 [History Confirmed 12/23/17] famotidine 40 mg tablet 40 mg PO DAILY 12/09/17 [History Confirmed 12/23/17] furosemide 40 mg tablet 40 mg PO DAILY #90 tab 12/09/17 [Rx Confirmed 12/23/17] levothyroxine 150 mcg tablet 200 mcg PO DAILY tab 12/09/17 [History Confirmed 12/23/17] rosuvastatin 40 mg tablet 40 mg PO QHS #90 tab 12/09/17 [Rx Confirmed 12/23/17] spironolactone 25 mg-hydrochlorothiazide 25 mg tablet 1 tab PO QDAY 12/09/17 [History Confirmed 12/23/17] potassium chloride ER 20 mEq tablet,extended release(part/cryst) 20 meq PO QDAY #90 tab 12/21/17 [Rx Confirmed 12/23/17] albuterol sulfate HFA 90 mcg/actuation aerosol inhaler 2 puff INHALATION Q4H PRN g 12/22/17 [History Confirmed 12/23/17] azelastine 137 mcg (0.1 %) nasal spray aerosol 2 spray INTRANASAL BID 12/22/17 [History Confirmed 12/23/17] emollient combination no.43 topical cream applic TOPICAL 12/22/17 [History Confirmed 12/23/17] finasteride 5 mg tablet 5 mg PO DAILY 12/22/17 [History Confirmed 12/23/17] meloxicam 15 mg tablet 15 mg PO DAILY 12/22/17 [History Confirmed 12/23/17] nitroglycerin 0.4 mg sublingual tablet 0.4 mg SUBLINGUAL Q5- 15M PRN 12/22/17 [History Confirmed 12/23/17] oxycodone 5 mg tablet 5 mg PO Q6H PRN tab 12/22/17 [History Confirmed 12/23/17] rivaroxaban 10 mg tablet 10 mg PO DAILY 12/22/17 [History Confirmed 12/23/17] sildenafil 50 mg tablet 50 mg PO DAILY PRN 12/22/17 [History Confirmed 12/23/17] duloxetine 60 mg capsule,delayed release 60 mg PO DAILY 12/23/17 [History Confirmed 12/23/17] PFSH Medical History Back pain (Acute) Carpal tunnel syndrome (Chronic) Insomnia (Chronic) Osteoarthritis (Chronic) Chronic renal failure, stage 3 (moderate) (Chronic) DEBORAH (acute kidney injury) (Acute) Hyponatremia (Acute) Hypokalemia (Acute) Hypertension (Chronic) CAD (coronary artery disease) (Chronic) Hypothyroidism (Chronic) HLD (hyperlipidemia) (Chronic) Gingivitis (Chronic) Esophageal reflux (Chronic) Benign essential HTN (Chronic) Prostate cancer (Chronic) Allergic rhinitis (Chronic) Syncope (Resolved) Surgical History H/O total knee replacement (Resolved) History of rotator cuff surgery (Resolved) S/P total knee arthroplasty (Acute) History of percutaneous transluminal coronary angioplasty (Chronic) Family History Father , from aneurysm CAD (coronary artery disease) Mother Multiple sclerosis Brother CAD (coronary artery disease) Cancer Prostate cancer Daughter Diabetes Social History Smoking Status: Former smoker how long ago did patient quit smokin alcohol intake: never substance use type: does not use caffeine: Yes Type: coffee Number of servings: 2 what type of physical activity do you participate in: none seatbelt use: always do you feel safe at home: Yes Review of Systems Const CONSTITUTIONAL: Positive seasonal allergies; negative anorexia, body ache, chills, daytime sleepiness, fever(s), night sweats, oral thrush, stops breathing during sleep, weight loss, sleeping in chair, fatigue, weight loss, weight gain, frequent colds, other, headache(s) or orthopnea EETM Ear Nose Throat Mouth: Positive nasal discharge, hard of hearing and post nasal drip; negative hoarseness, dry mouth in morning, change in vision, itchy eyes, eye pain, swallowing Difficulty, ear pain, headache(s), mouth pain, nasal congestion, sinus pain, sinus pressure, sore throat, other, hearing normal or nose bleed Cardio Cardiovascular: Positive edema Location: lower extremity Right/Left: Left, Right and murmur (Grade 2 out of 6 systolic ejection murmur at the right sternal border); negative chest pain, chest pain at rest, chest pain with activity, irregular heart rhythm, shortness of breath when lying down, palpitations or other Resp Respiratory: Positive as per HPI, shortness of breath shortness of breath: Positive with activity and inhalers; negative pain with cough, wheezing, chest congestion, cough, chest tightness, pain on inspiration, increase use of rescue inhalers, snoring, apnea or other Gastro Gastrointestional: Negative bloody stools, change in appetite, difficulty swallowing, reflux, hematemesis, melena stool, loose stool, constipation or other Genitourinary: Negative blood in urine, nocturia, pain with urination or other Musc Musculoskeletal: Negative body pain, back pain, neck pain or other Skin/Breast Skin/Breast: Negative dry skin, itching, unusual bruising, breast lump, other or rash Neuro Neurological: Negative restless legs, confusion, weakness or other Psych Psychocological: Negative abnormal sleep pattern, anxiety, thoughts of hurting self/others, hopelessness or other Lymph Lymphatic: Negative easy bleeding, easy bruising, other or swollen lymph nodes Exam Const Constitutional: Positive conversant, cooperative, in no acute respiratory distress, healthy appearing, well developed, well nourished, good hygiene and obese; negative wearing supplemental oxygen, ill appearing or smells of smoke Head Head: Positive normocephalic and atraumatic; negative cyanosis of lips/distal nose, frontal sinus tenderness or maxillary sinus tenderness Eyes Eye: Positive clear conjunctiva; negative nystagmus, scleral abnormality or cataract present Ears Ear: Positive hard of hearing and external ears normal; negative hearing normal Nose Nose: Positive external nose normal, septum normal and clear nasal discharge; negative epistaxis or nasal polyp Mouth Mouth: Positive post nasal drip, oral mucosae normal, no lesions and crowded posterior oropharynx; negative malodorous breath Mallampati Score: III: Mallampati Score Neck Neck: Positive normal visual inspection, full ROM, trachea midline and male neck greater than 43 cm (17 in); negative lymphadenopathy or JVD Chest Wall Chest: Positive normal inspection of the chest and symmetric chest movement; negative crepitus or tenderness Resp lung sounds: Positive diminished and prolonged expiratory time; negative wheezes, rhonchi, rales, use of accessory muscles, wheeze present on forced exhalation or dullness to percussion Cardio Cardiac: Positive murmur (Grade 2 out of 6 systolic ejection murmur at the right sternal border), regular rate, S1 normal and S2 normal; negative regular rhythm, rub or gallop GI GI: Positive normal to inspection, normal bowel sounds and obese; negative distended, ascites or epigastric tenderness Genitourinary: Positive deferred Musc Musculoskeletal: Positive steady gait; negative using an assistive device for ambulation, kyphosis or scoliosis Skin Pulmonary Skin Exam: Positive intact and dermal atrophy; negative rash, lesion, ulcers or erythema Pulses Pulse: Yes radial pulses present Extremities Extremities: Yes capillary refill normal, No clubbing, No cyanosis, Yes edema (1+ lower extremity edema) Location: lower extremity Neuro Neurologic: Yes conversant, Yes no focal neuro deficits, Yes normal coordination, Yes normal concentration, Yes cooperative, Yes normal cognition, Yes understands questions Lymph Lymphatic: No lymphadenopathy Psych Appearance: Positive grossly normal Mental Status: Positive mental status grossly normal Mood: Positive congruent mood Affect: Positive normal affect Coding Level of Care Code Off vis,new,level 4 Diagnoses 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 Seasonal allergic rhinitis due to pollen J30.1 Allergic rhinitis trigger: pollen Allergic rhinitis seasonality: seasonal Chronic renal failure, stage 3 (moderate) N18.3 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; J44.9 12/23/17 1535 <Electronically signed by hSerman Gil MD> Date Sherman Gil MD Cosigner Signature: Date (if applicable) CC: Mateus Hernandez DO TSH Collected: 12/21/2017 Status: F Source: [facility] 3:47 PM [facility] REPOSITORY TYPE CODE TESTS RESULT OUT OF RANGE REFERENCE UNITS LAB TSH(LOINC) 0.36-3.74 mcIU/mL Low TSH 0.04 Performed By: #### TSH #### [place] [address] CNCO Observed: 12/21/2017 Status: COMPLETED Source: [place] 12:00 AM [facility] REPOSITORY Letter Text COLONOSCOPY-GOLYTELY NO SOLID FOOD THE DAY BEFORE THIS EXAM Appointment Date: 1:00 PM Facility: [address] [place] [address]- first Floor Arrive At: 11:30 AM Special Instructions: You must have a responsible adult to drive you home and assist you at home while you finish recovering from your sedation. Please bring only one person with you. 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 Arrive 1 1/2 hours before your procedure time. Purchase at the Pharmacy: Fill prescription for Golytely and 4 Dulcolax tablets. THE DAY BEFORE YOUR EXAM: 1. FOLLOW A CLEAR LIQUID DIET ALL DAY. 2. At 1:00PM, take 4 Dulcolax tablets. 3. At 5:00PM, start drinking solution. Drink a total of eight 8 oz glasses, one every 15-20 minutes. Please put the rest of the solution in the refrigerator for tomorrow morning. THE DAY OF YOUR EXAM 1. At 9:00 AM (four hours before your procedure) : drink one 8 oz glass every 15-20 minutes. Drink a total of four 8 oz glasses. Discard the remainder of the solution. 2. DO NOT DRINK ANYTHING ELSE AFTER THIS STEP IS COMPLETED. Nothing by mouth including clear liquids, food, gum and hard candy. 5 DAYS BEFORE EXAM STOP TAKING ASPIRIN OR ASPIRIN CONTAINING PRODUCTS, VITAMIN E AND IRON, BLOOD THINNERS SUCH COUMADIN, PLAVIX, AGGRENOX. DIABETICS ONLY Take only 1/2 of your daily dose of insulin or tablets the day before your exam. Do not take any more of your diabetic medications until the procedure is over and you have resumed eating again. Drink regular liquids, not diabetic and monitor your sugar throughout the day you are on clear liquids. If your sugar gets too low, drink some apple juice. It is very important that you drink all of the solution that we tell you to drink, if you do not complete the prep, your procedure may be cancelled. Any questions, please call our office at [phone] Ext [phone]. [place] Observed: 12/21/2017 Status: COMPLETED Source: [place] 12:00 AM [facility] REPOSITORY Letter Text COLONOSCOPY-GOLYTELY NO SOLID FOOD THE DAY BEFORE THIS EXAM Appointment Date: 12/30/17 at 1:30 PM Facility: [address] [facility]- First Floor Arrive At: 12:00 PM Special Instructions: You must have a responsible adult to drive you home and assist you at home while you finish recovering from your sedation. Please bring only one person with you. 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 Arrive 1 1/2 hours before your procedure time. Purchase at the Pharmacy: Fill prescription for Golytely and 4 Dulcolax tablets. THE DAY BEFORE YOUR EXAM: 1. FOLLOW A CLEAR LIQUID DIET ALL DAY. 2. At 1:00PM, take 4 Dulcolax tablets. 3. At 5:00PM, start drinking solution. Drink a total of eight 8 oz glasses, one every 15-20 minutes. Please put the rest of the solution in the refrigerator for tomorrow morning. THE DAY OF YOUR EXAM 1. At 9:30 AM (four hours before your procedure) : drink one 8 oz glass every 15-20 minutes. Drink a total of four 8 oz glasses. Discard the remainder of the solution. 2. DO NOT DRINK ANYTHING ELSE AFTER THIS STEP IS COMPLETED. Nothing by mouth including clear liquids, food, gum and hard candy. 5 DAYS BEFORE EXAM STOP TAKING ASPIRIN OR ASPIRIN CONTAINING PRODUCTS, VITAMIN E AND IRON, BLOOD THINNERS SUCH COUMADIN, PLAVIX, AGGRENOX. DIABETICS ONLY Take only 1/2 of your daily dose of insulin or tablets the day before your exam. Do not take any more of your diabetic medications until the procedure is over and you have resumed eating again. Drink regular liquids, not diabetic and monitor your sugar throughout the day you are on clear liquids. If your sugar gets too low, drink some apple juice. It is very important that you drink all of the solution that we tell you to drink, if you do not complete the prep, your procedure may be cancelled. Any questions, please call our office at [phone] Ext [phone]. CARDIOLOGY VISIT Observed: 12/09/2017 Status: F Source: [facility] 2:07 PM [facility] REPOSITORY [facility] [address] [place] [address] OFFICE VISIT Date of Service: 12/09/17 MR#: [id number] Acct: [id number] Name: MARQUEZ GARCIA Rep #: [id number] : 1940 Provider: Gerri Rodriguez Age/Sex: 77/M Location: [facility] Status: Signed HPI HPI Details: MARQUEZ GARCIA, is a 77 M who presents to the office today for a cardiovascular follow-up. He has a history of coronary artery disease with stenting to his LAD in 2011, hypertension, hyperlipidemia and near syncope. He underwent right shoulder surgery (01/11) and right knee surgery (06/14). He did not have any difficulty with with these. From a cardiac standpoint, patient is doing well. He does not have any chest discomfort/heaviness/tightness. His exercise tolerance is stable for his age. He does not have any worsening symptoms of shortness of breath. He denies any PND. He does not have any orthopnea. He does not have any symptoms of congestive heart failure. He does not have any palpitations that he is aware of. He does not have any lightheadedness or dizziness. He does not have any near-syncope or syncope. He does not have any lower extremity edema. He does not have any symptoms of claudication. 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 Is patient in pain?: No Allergies modafinil [From Provigil] Allergy (Verified 12/09/17 13:05) Other moxifloxacin HCl [From Avelox] Allergy (Verified 12/09/17 13:05) Upset Stomach Medications Doxazosin Mesylate [Cardura] 4 mg PO QHS 06/26/17 [History Confirmed 12/09/17] Duloxetine HCl 60 mg PO QHS 06/26/17 [History Confirmed 12/09/17] Fluticasone/Salmeterol [Advair 500/50 Mcg Diskus] 1 puff INHALATION BID 06/26/17 [History Confirmed 12/09/17] Linacolotide [Linzess] 145 mcg PO QHS 06/26/17 [History Confirmed 12/09/17] Ropinirole HCl [Requip] 2 tab PO QHS 06/26/17 [History Confirmed 12/09/17] Temazepam [Restoril] 30 mg PO QHS 06/26/17 [History Confirmed 12/09/17] Tiotropium [place] [Spiriva 18 MCG] 1 puff INHALATION DAILY 06/26/17 [History Confirmed 12/09/17] traMADol [Ultram] 50 mg PO Q6H PRN PRN #18 tab 06/29/17 [Rx Confirmed 12/09/17] aspirin 81 mg tablet,delayed release 81 mg PO QDAY 12/09/17 [History Confirmed 12/09/17] famotidine 40 mg tablet 40 mg PO DAILY 12/09/17 [History Confirmed 12/09/17] furosemide 40 mg tablet 40 mg PO DAILY #90 tab 12/09/17 [Rx Confirmed 12/09/17] levothyroxine 150 mcg tablet 200 mcg PO DAILY tab 12/09/17 [History Confirmed 12/09/17] potassium chloride ER 20 mEq tablet,extended release(part/cryst) 20 meq PO QDAY 12/09/17 [History Confirmed 12/09/17] rosuvastatin 40 mg tablet 40 mg PO QHS #90 tab 12/09/17 [Rx Confirmed 12/09/17] spironolactone 25 mg-hydrochlorothiazide 25 mg tablet 1 tab PO QDAY 12/09/17 [History Confirmed 12/09/17] PFSH Medical History Hypertension (Chronic) CAD (coronary artery disease) (Chronic) HLD (hyperlipidemia) (Chronic) Syncope (Resolved) Surgical History H/O total knee replacement (Resolved) History of rotator cuff surgery (Resolved) History of percutaneous transluminal coronary angioplasty (Chronic) Family History Father , from aneurysm CAD (coronary artery disease) Mother Multiple sclerosis Brother CAD (coronary artery disease) Cancer Prostate cancer Daughter Diabetes Social History Smoking Status: Former smoker how long ago did patient quit smokin alcohol intake: never substance use type: does not use caffeine: Yes Type: coffee Number of servings: 2 what type of physical activity do you participate in: none seatbelt use: always do you feel safe at home: Yes ROS Const Const: Negative for weakness, fatigue, fever(s) or headache(s) Eyes Eyes: Negative for blind spots, loss of peripheral vision or transient loss of vision ENT ENT: Negative for headache(s), dizziness, tinnitus or Nosebleed/epistaxis Cardio Chest Pain: No Palpitations: No Edema: None Muscle aches with walking: None Resp Respiratory: Negative for SOB with activity, SOB at rest, SOB orthopnea\SOB lying down or Cough GI GI: Negative nausea, vomiting, heartburn or vomiting blood/hematemesis : Negative for hematuria Musc Musc: Positive for muscle aches/ myalgia and joint pain Neuro Neuro: Negative for weakness, headache(s), dizziness, near syncope, syncope, lightheadedness or orthostatic symptoms Julian Hematologic/Lymphatic: Negative for easy bleeding Endo Endo: Negative for fatigue Cardiology Exam Const Appearance: cooperative, no acute distress and well developed Orientation: alert, awake and oriented x3 Head Head: normocephalic and atraumatic Mouth: moist mucous membranes Eyes General: appearance normal, both eyes and all related structures Conjunctivae: conjunctivae normal Pupils: PERRL EOM: EOM intact bilaterally Neck Neck: normal visual inspection, no lymphadenopathy and no JVD Carotids: Negative bruit Neck Mass: Negative Neck mass Chest Chest inspection: normal inspection of the chest and symmetric chest movement Auscultation: Bilateral: Clear to Auscultation Cardio Palpation: normal PMI Rate: regular rate Rhythm: regular rhythm Heart sounds: S1 normal and S2 normal; negative rub, gallop or murmur GI GI: normal to inspection, soft, no hepatosplenomegaly and bowel sounds present; negative tender Neuro General: alert, awake, oriented x3, CN's II-XI intact bilaterally and moves all extremities Extremities Pulses: Normal: Right Posterior Tibial Pulse, Left Posterior Tibial Pulse, Right Radial Pulse, Left Radial Pulse Lower Extremity Edema: None: Bilateral Psych Psychological: normal affect Supplemental Info Heart catheterization in 2014 demonstrated patent pre-existing stent of his LAD and mid LAD, patent pre-existing stent of his RCA with an ejection fraction of 65%. Assessment AND Plan 1. Atherosclerosis of [place] coronary artery of [place] heart without angina pectoris I25.10 Plan Stable, from a cardiac standpoint patient does not have any symptoms of angina. We recommend that they continue with current aggressive medical management and risk factor modification. 2. Essential hypertension I10 Plan Stable, from a cardiac standpoint patient does not have any symptoms of angina. We recommend that they continue with current aggressive medical management and risk factor modification. 3. Pure hypercholesterolemia E78.00; E78.0 Plan Recent lipid profile demonstrates total cholesterol 110, HDL 41, LDL 53. Will not make any adjustments. They are adequately controlled. Plan Detail Other Medications New: Discontinued: acetaminophen Discontinued Reason: Updating EMR/P1,000 mg (2 x 500 mg) PO Q8 PRN Pain t no longer on Additional Comments Thank you for allowing us to participate in the patients plan of care, if you have any questions please do not hesitate to call. This note was generated using a voice recognition system and there may be incorrect words, spelling or punctuation that were not noted when reviewing the office note prior to saving. Follow Up 1 Year ([facility]) Coding Level of Care Code Off vis,est,level 3 Diagnoses Atherosclerosis of [place] coronary artery of [place] heart without angina pectoris I25.10 Associated angina: without angina Coronary Disease-Associated Artery/Lesion type: [place] artery [place] vs. transplanted heart: [place] heart Essential hypertension I10 Hypertension type: essential hypertension Pure hypercholesterolemia E78.00; E78.0 Hyperlipidemia type: pure hypercholesterolemia Coding Level of Care Code Off vis,est,level 3 Diagnoses Atherosclerosis of [place] coronary artery of [place] heart without angina pectoris I25.10 Associated angina: without angina Coronary Disease-Associated Artery/Lesion type: [place] artery [place] vs. transplanted heart: [place] heart Essential hypertension I10 Hypertension type: essential hypertension Pure hypercholesterolemia E78.00; E78.0 Hyperlipidemia type: pure hypercholesterolemia 12/09/17 1407 <Electronically signed by Gerri MCNEIL> Date Gerri MCNEIL Cosigner Signature: Date (if applicable) CC: Mateus Hernandez DO [facility] Observed: 12/07/2017 Status: COMPLETED Source: [place] 12:00 AM [facility] REPOSITORY Letter Text COLONOSCOPY-GOLYTELY NO SOLID FOOD THE DAY BEFORE THIS EXAM Appointment Date: 12/30/17 at 9:00 AM Facility: [address] [place] [address]- First Floor Arrive At: 7:30 AM Special Instructions: You must have a responsible adult to drive you home and assist you at home while you finish recovering from your sedation. Please bring only one person with you. 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 Arrive 30-45 minutes before your procedure time. Purchase at the Pharmacy: Fill prescription for Golytely and 4 Dulcolax tablets. THE DAY BEFORE YOUR EXAM: 1. FOLLOW A CLEAR LIQUID DIET ALL DAY. 2. At 1:00PM, take 4 Dulcolax tablets. 3. At 5:00PM, start drinking solution. Drink a total of eight 8 oz glasses, one every 15-20 minutes. Please put the rest of the solution in the refrigerator for tomorrow morning. THE DAY OF YOUR EXAM 1. At 5:00AM (four hours before your procedure) : drink one 8 oz glass every 15-20 minutes. Drink a total of four 8 oz glasses. Discard the remainder of the solution. 2. DO NOT DRINK ANYTHING ELSE AFTER THIS STEP IS COMPLETED. Nothing by mouth including clear liquids, food, gum and hard candy. 5 DAYS BEFORE EXAM STOP TAKING ASPIRIN OR ASPIRIN CONTAINING PRODUCTS, VITAMIN E AND IRON, BLOOD THINNERS SUCH COUMADIN, PLAVIX, AGGRENOX. DIABETICS ONLY Take only 1/2 of your daily dose of insulin or tablets the day before your exam. Do not take any more of your diabetic medications until the procedure is over and you have resumed eating again. Drink regular liquids, not diabetic and monitor your sugar throughout the day you are on clear liquids. If your sugar gets too low, drink some apple juice. It is very important that you drink all of the solution that we tell you to drink, if you do not complete the prep, your procedure may be cancelled. Any questions, please call our office at [phone] Ext [phone], [phone] or [phone]. LIVER PROFILE Collected: 12/03/2017 Status: F Source: [place] 9:12 AM [facility] REPOSITORY TYPE CODE TESTS RESULT OUT OF RANGE REFERENCE UNITS LAB L501.1500 6.4-8.2 g/dL Low T PROT 6.1 LAB L501.1800 3.2-5.0 g/dL Normal ALB 3.2 LAB L501.1950 2.2-4.2 g/dL Normal GLOB 2.9 LAB L501.4100 15-37 U/L Normal AST 17 LAB L501.4305 45-117 U/L Low ALK P 43 LAB L501.4405 16-61 U/L Normal ALT 23 LAB L501.4600 0.20-1.00 mg/dL Normal T BILI 0.40 LAB L501.4700 0.00-0.30 mg/dL Normal D BILI 0.14 Performed By: #### L500.3400, L500.4100 #### [facility] [address] [place], [place], [address] LIPID PROFILE Collected: 12/03/2017 Status: F Source: [place] 9:12 AM [facility] REPOSITORY TYPE CODE TESTS RESULT OUT OF RANGE REFERENCE UNITS LAB L501.4900 200 mg/dL Normal CHOL 110 Result Comment: <200 mg/dL Desirable 200-240 mg/dL Borderline >240 mg/dL High Risk LAB L501.5000 mg/dL Normal TRIG 82 Result Comment: The drugs N-Acetylcysteine and Metamizole may falsely depress this assay. Serum Triglycerides Reference Interval Normal <150 mg/dL Borderline high 150 - 199 mg/dL High 200 - 499 mg/dL Very High > or = 500 mg/dL LAB L501.6400 mg/dL Normal HDL 41 Result Comment: The drugs N-Acetylcysteine and Metamizole may falsely depress this assay. Reference Range HDL <40 mg/dL Low HDL Cholesterol HDL >or= 60 mg/dL High HDL Cholesterol LAB L501.6500 0-130 mg/dL Normal LDL 53 LAB L501.6600 5-40 mg/dL Normal VLDL 16 Performed By: #### L500.3400, L500.4100 #### [facility] [address] [place], [place], [address] CNCO Observed: 11/11/2017 Status: COMPLETED Source: [place] 12:00 AM [facility] REPOSITORY Letter Text COLONOSCOPY-GOLYTELY NO SOLID FOOD THE DAY BEFORE THIS EXAM Appointment Date: 12/15/17 At 8:30 AM Facility: [facility] First Floor Arrive At: 7:30 AM Special Instructions: You must have a responsible adult to drive you home and assist you at home while you finish recovering from your sedation. Please bring only one person with you. 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 Arrive 30-45 minutes before your procedure time. Purchase at the Pharmacy: Fill prescription for Golytely and 4 Dulcolax tablets. THE DAY BEFORE YOUR EXAM: 1. FOLLOW A CLEAR LIQUID DIET ALL DAY. 2. At 1:00PM, take 4 Dulcolax tablets. 3. At 5:00PM, start drinking solution. Drink a total of eight 8 oz glasses, one every 15-20 minutes. Please put the rest of the solution in the refrigerator for tomorrow morning. THE DAY OF YOUR EXAM 1. At 4:30 AM (four hours before your procedure) : drink one 8 oz glass every 15-20 minutes. Drink a total of four 8 oz glasses. Discard the remainder of the solution. 2. DO NOT DRINK ANYTHING ELSE AFTER THIS STEP IS COMPLETED. Nothing by mouth including clear liquids, food, gum and hard candy. 5 DAYS BEFORE EXAM STOP TAKING ASPIRIN OR ASPIRIN CONTAINING PRODUCTS, VITAMIN E AND IRON, BLOOD THINNERS SUCH COUMADIN, PLAVIX, AGGRENOX. DIABETICS ONLY Take only 1/2 of your daily dose of insulin or tablets the day before your exam. Do not take any more of your diabetic medications until the procedure is over and you have resumed eating again. Drink regular liquids, not diabetic and monitor your sugar throughout the day you are on clear liquids. If your sugar gets too low, drink some apple juice. It is very important that you drink all of the solution that we tell you to drink, if you do not complete the prep, your procedure may be cancelled. Any questions, please call our office at [phone] Ext [phone], [phone] or 220. CBC W/DIFF, AUTOMATED Collected: 09/23/2017 Status: F Source: [place] 10:43 AM [facility] REPOSITORY TYPE CODE TESTS RESULT OUT OF RANGE REFERENCE UNITS LAB L100.1000 4.4-11.0 K/mm3 Normal WBC 7.2 LAB L100.1200 4.6-6.2 M/mm3 Normal RBC 4.92 LAB L100.1300 13.0-16.5 g/dl Normal HGB 13.8 LAB L100.1400 40-54 % Normal HCT 43.3 LAB L100.1500 80-94 fL Normal MCV 88.0 LAB L100.1600 27.0-32.0 pg Normal MCH 28.0 LAB L100.1700 32-36 g/gl Low MCHC 31.9 LAB L100.1810 11.6-14.6 % High RDW CV 16.7 LAB L100.1820 35.1-43.9 fl High RDW SD 54.0 LAB L100.1900 150-450 K/mm3 Normal PLT 242 LAB L100.2000 6.2-12.0 fl Normal MPV 9.8 LAB L100.2100 47-70 % Low NEUT% 45.8 LAB L100.2200 19-41 % High LY% 45.6 LAB L100.2300 0-10 % Normal MONO% 5.1 LAB L100.2400 0-5 % Normal EO% 2.8 LAB L100.2500 0-1 % Normal BASO% 0.4 LAB L100.2550 0.0-0.9 % Normal IM GRAN % 0.300 Result Comment: IG% - Immature Granulocytes (promyelocytes, myelocytes and metamyelocytes) > 1% indicates that a LEFT SHIFT is Present. LAB L100.2620 2.0-7.7 X10 3/uL Normal Absolute Neut 3.3 LAB L100.2720 0.83-4.51 X10 3/ul Normal Absolute Lymph 3.29 Performed By: #### L100.0100, L101.9900 #### [facility] [address] [place], [address] ERYTHROCYTE SED RATE Collected: 09/23/2017 Status: F Source: [place] 10:43 AM [facility] REPOSITORY TYPE CODE TESTS RESULT OUT OF RANGE REFERENCE UNITS LAB L102.0000 0-20 mm/hr Normal SED RATE 16 Performed By: #### L100.0100, L101.9900 #### [facility] [address] [place], [address] CRP Collected: 09/23/2017 Status: F Source: [place] 10:43 AM [facility] REPOSITORY TYPE CODE TESTS RESULT OUT OF RANGE REFERENCE UNITS LAB L501.6710 0.0-3.0 mg/L High 3.43 C-REACTIVE PROT Result Comment: C-Reactive Protein (CRP) provides useful information for the diagnosis, therapy and monitoring of inflammatory processes and associated diseases. For the evaluation of Relative Risk for Cardiovascular Disease, a High Sensitivity CRP (HSCRP) should be ordered. Performed By: #### L501.6710 #### [facility] [address] [place], [address] CNCO Observed: 09/09/2017 Status: COMPLETED Source: [place] 12:00 AM [facility] REPOSITORY Letter Text COLONOSCOPY-GOLYTELY NO SOLID FOOD THE DAY BEFORE THIS EXAM Appointment Date: 12/08/17 at 8:30 AM Facility: [facility] [address] [place] [id number] Arrive At: 7:30 AM Special Instructions: N/A You must have a responsible adult to drive you home and assist you at home while you finish recovering from your sedation. Please bring only one person with you. 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 Arrive 30-45 minutes before your procedure time. Purchase at the Pharmacy: Fill prescription for Golytely and 4 Dulcolax tablets. THE DAY BEFORE YOUR EXAM: 1. FOLLOW A CLEAR LIQUID DIET ALL DAY. 2. At 1:00PM, take 4 Dulcolax tablets. 3. At 5:00PM, start drinking solution. Drink a total of eight 8 oz glasses, one every 15-20 minutes. Please put the rest of the solution in the refrigerator for tomorrow morning. THE DAY OF YOUR EXAM 1. At 4:30 AM (four hours before your procedure) : drink one 8 oz glass every 15-20 minutes. Drink a total of four 8 oz glasses. Discard the remainder of the solution. 2. DO NOT DRINK ANYTHING ELSE AFTER THIS STEP IS COMPLETED. Nothing by mouth including clear liquids, food, gum and hard candy. 5 DAYS BEFORE EXAM STOP TAKING ASPIRIN OR ASPIRIN CONTAINING PRODUCTS, VITAMIN E AND IRON, BLOOD THINNERS SUCH COUMADIN, PLAVIX, AGGRENOX. DIABETICS ONLY Take only 1/2 of your daily dose of insulin or tablets the day before your exam. Do not take any more of your diabetic medications until the procedure is over and you have resumed eating again. Drink regular liquids, not diabetic and monitor your sugar throughout the day you are on clear liquids. If your sugar gets too low, drink some apple juice. It is very important that you drink all of the solution that we tell you to drink, if you do not complete the prep, your procedure may be cancelled. Any questions, please call our office at [phone] Ext [phone], [phone] or [phone]. HOSP Observed: 09/09/2017 Status: COMPLETED Source: [place] 12:00 AM [facility] REPOSITORY Patient:Marquez Garcia MRN: <[id number]> Height:5' 11(1.803 m) Weight:No patient weight recorded within the last 30 days. Outpatient Medications as of 12/30/17: aspirin, enteric coated (ASPIRIN, ENTERIC COATED) 81 mg EC tablet LINZESS 145 mcg cap linaclotide (LINZESS) 145 mcg cap DULoxetine (CYMBALTA) 60 mg capsule famotidine (PEPCID) 40 mg tablet SYNTHROID 137 mcg tablet potassium chloride 20 mEq TbER rOPINIRole (REQUIP) 0.5 mg tablet linaclotide (LINZESS) 145 mcg cap doxazosin (CARDURA) 4 mg tablet doxazosin (CARDURA) 4 mg tablet finasteride (PROSCAR) 5 mg tablet fluticasone-salmeterol (ADVAIR DISKUS) 500-50 mcg/dose dsdv WHEAT DEXTRIN/B6/FA/B12 (BENEFIBER PLUS HEART HEALTH ORAL) CALCIUM CITRATE/VITAMIN D3 (CALCIUM CITRATE + D ORAL) escitalopram oxalate (LEXAPRO) 20 mg tablet MULTIVIT-MINERALS/FERROUS FUM (MULTI VITAMIN ORAL) tiotropium (SPIRIVA WITH HANDIHALER) 18 mcg inhalation capsule LEVOTHYROXINE SODIUM (SYNTHROID ORAL) spironolactone-hctz 25/25 (ALDACTAZIDE) 25-25 mg ORAL per tablet traMADOL (ULTRAM) 50 mg ORAL tablet Meclizine HCl 25 mg ORAL Cap nitroglycerin sublingual (NITROSTAT) 0.4 mg SUBLINGUAL SL tablet Doxycycline Hyclate (PERIOSTAT) 20 mg ORAL tablet Ropinirole (REQUIP XL) 2 mg ORAL 24 hr tablet Admission/Clinic Administered Medications as of 12/30/17: lactated ringers infusion lactated ringers infusion Problem List: Elevated prostate specific antigen (PSA) [R97.20] Hypertrophy of prostate with urinary obstruction and other lower urinary tract symptoms (LUTS) [N40.1] Malignant neoplasm of prostate (HCC) [C61] 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] Allergies: Provigil [Modafinil] Date Verified: 12/30/17 Lab Values No results within the last 30 days for the following basenames: K,HCT No progress notes entered within the past 30 days RFP Collected: 08/11/2017 Status: F Source: [place] 8:33 AM [facility] REPOSITORY TYPE CODE TESTS RESULT OUT OF REFERENCE UNITS RANGE LAB 1547-9 83-110 mg/dL GLUCOSE High 126 LAB NA(LOINC) 136-146 mEq/L Sodium Level 143 LAB K(LOINC) 3.5-5.1 mEq/L Potassium Level 4.5 LAB CL(LOINC) 98-107 mEq/L Chloride 104 LAB CO2(LOINC) 23-31 mEq/L CO2 High 32 LAB EBAL(LOINC mEq/L ) Electrolyte Balance 7.0 LAB BUN(LOINC) 7.0-18.0 mg/dL BUN High 20.9 LAB CRE(LOINC) 0.6-1.2 mg/dL Creatinine High Lvl (s) 1.3 LAB BC(LOINC) 7-27 ratio BUN/Creatinine 16 Ratio LAB CA(LOINC) 8.4-10.2 mg/dL Calcium Lvl 10.2 LAB PHOS(LOINC 2.3-4.1 mg/dL ) Phosphorus 3.4 LAB ALB(LOINC) 3.4-4.8 G/dL Albumin Level 4.1 Performed By: #### RFP, GFR, TSH #### [place] [address] .GFR Collected: 08/11/2017 Status: F Source: [place] 8:33 AM [facility] REPOSITORY TYPE CODE TESTS RESULT OUT OF REFERENCE UNITS RANGE LAB GFRAA(LOINC ml/min/1.73 ) sqm GFR 66 [place] Result Comment: GFR Population mean for , Non- Americans Ages 20-29 = 116 mL/min/1.73 sq.m. Ages 30-39 = 107 mL/min/1.73 sq.m. Ages 40-49 = 99 mL/min/1.73 sq.m. Ages 50-59 = 93 mL/min/1.73 sq.m. Ages 60-69 = 85 mL/min/1.73 sq.m. Ages 70+ = 75 mL/min/1.73 sq.m. Chronic Kidney Disease: Less than 60 mL/min/1.73 square meters End Stage Renal Disease: Less than 15 mL/min/1.73 square meters LAB GFRNO(LOINC) ml/min/1.73sqm GFR Non- 54 Result Comment: GFR Population mean for , Non- Americans Ages 20-29 = 116 mL/min/1.73 sq.m. Ages 30-39 = 107 mL/min/1.73 sq.m. Ages 40-49 = 99 mL/min/1.73 sq.m. Ages 50-59 = 93 mL/min/1.73 sq.m. Ages 60-69 = 85 mL/min/1.73 sq.m. Ages 70+ = 75 mL/min/1.73 sq.m. Chronic Kidney Disease: Less than 60 mL/min/1.73 square meters End Stage Renal Disease: Less than 15 mL/min/1.73 square meters Performed By: #### RFP, GFR, TSH #### [address] [address] TSH Collected: 08/11/2017 Status: F Source: [place] [employer] 8:33 AM [facility] REPOSITORY TYPE CODE TESTS RESULT OUT OF RANGE REFERENCE UNITS LAB TSH(LOINC) 0.27-4.20 mcIU/mL High TSH 5.27 Result Comment: Above normal(expected)range Performed By: #### RFP, GFR, TSH #### [address] [address] BRAIN WITHOUT Observed: 07/23/2017 Status: F Source: [place] CONTRAST 1:10 PM [facility] REPOSITORY [facility] Imaging Services [address] [place] [address] Brain without Contrast MR#: [id number] Acct: [id number] Name: MARQUEZ GARCIA Rep #: [id number] : 1940 M 77 From: Levi Khan MD PCP: Mateus Hernandez DO Status: REG CLI Study: Brain without Contrast Date of Exam: 07/23/17 Exam# [id number] Ordering Dr: Marquez Preston MD STUDY: MRI BRAIN WITHOUT CONTRAST REASON FOR EXAM: Male, 77 years old. Memory loss and prostate cancer TECHNIQUE: Standardized multiplanar fat and water weighted pulse sequences were obtained. COMPARISON: 07/05/2010 FINDINGS: Normal size of the ventricles and extra-axial spaces for the patient's age. 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 Normal bilateral basal ganglia. Normal thalami. There is no extra-axial fluid accumulation. Incidental prominent perivascular space on the left. Normal flow voids within the major intracranial circulation suggesting patency by spin echo criteria. Normal sella turcica, pituitary gland, infundibular stalk, optic chiasm and hypothalamus. Normal tectal plate and pineal gland. Normal midbrain, tiffanie and medulla. Normal cerebellum. Normal basal cisterns. Normal bilateral temporal bones. Normal bilateral internal auditory canals. Right lens replacement. Normal visualized paranasal sinuses. Mild bilateral mastoid sinus disease. Normal visualized soft tissue structures. There are degenerative changes of the anterior atlantoaxial articulation. 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 No evidence of acute infarct or hemorrhage. Electronically Signed: Levi Khan MD at 14:47 EDT Tel , Service support , CC: Mateus Hernandez DO; Marquez Preston MD [employer] Zone Assembler: Signed ERYTHROCYTE SED RATE Collected: 07/07/2017 Status: F Source: [place] 10:24 AM [facility] REPOSITORY TYPE CODE TESTS RESULT OUT OF RANGE REFERENCE UNITS LAB L102.0000 0-20 mm/hr Normal SED RATE 20 Performed By: #### L101.9900, L100.0100 #### [facility] [address] [place], [address] CBC W/DIFF, AUTOMATED Collected: 07/07/2017 Status: F Source: [place] 10:24 AM [facility] REPOSITORY TYPE CODE TESTS RESULT OUT OF RANGE REFERENCE UNITS LAB L100.1000 4.4-11.0 K/mm3 Normal WBC 9.0 LAB L100.1200 4.6-6.2 M/mm3 Low RBC 4.28 LAB L100.1300 13.0-16.5 g/dl Low HGB 12.2 LAB L100.1400 40-54 % Low HCT 38.9 LAB L100.1500 80-94 fL Normal MCV 90.9 LAB L100.1600 27.0-32.0 pg Normal MCH 28.5 LAB L100.1700 32-36 g/gl Low MCHC 31.4 LAB L100.1810 11.6-14.6 % High RDW CV 16.0 LAB L100.1820 35.1-43.9 fl High RDW SD 52.9 LAB L100.1900 150-450 K/mm3 Normal PLT 362 LAB L100.2000 6.2-12.0 fl Normal MPV 9.2 LAB L100.2100 47-70 % Normal NEUT% 57.1 LAB L100.2200 19-41 % Normal LY% 25.4 LAB L100.2300 0-10 % Normal MONO% 4.4 LAB L100.2400 0-5 % High EO% 12.0 LAB L100.2500 0-1 % Normal BASO% 0.2 LAB L100.2550 0.0-0.9 % Normal IM GRAN % 0.900 Result Comment: IG% - Immature Granulocytes (promyelocytes, myelocytes and metamyelocytes) > 1% indicates that a LEFT SHIFT is Present. LAB L100.2620 2.0-7.7 X10 3/uL Normal Absolute Neut 5.2 LAB L100.2720 0.83-4.51 X10 3/ul Normal Absolute Lymph 2.29 Performed By: #### L101.9900, L100.0100 #### [facility] [address] [place], [place], [address] BASIC METABOLIC Collected: 07/07/2017 Status: F Source: [place] PROFILE (BMP) 10:23 AM [facility] REPOSITORY Order Comment: SED,CRP,CBCD FOR DR JIMENEZ Send Results To: Mateus Hernandez Reason for Laboratory Test DEBORAH follow up TYPE CODE TESTS RESULT OUT OF RANGE REFERENCE UNITS LAB L501.0100 74-106 mg/dL Normal GLU 95 Result Comment: Please note revised GLUCOSE reference range effective 2017. LAB L501.1000 7-18 mg/dL High BUN 21 LAB L501.1100 0.70-1.30 mg/dL Normal CREAT,SERUM 1.25 Result Comment: The validity of the calculated GFR AND GFRAA in patients over 70 years has not been determined. Clinical correlation is essential. LAB L501.1110 >60 mL/min Normal EST GFR 60 Result Comment: Non- GFR Calc LAB L501.1115 >60 mL/min Normal EST GFR - AA 72 Result Comment: GFR Calc LAB L501.1300 10-20 RATIO Normal BUN/CRE 16.8 LAB L501.2200 8.5-10.1 mg/dL CA Normal 8.9 LAB L501.5300 136-145 mmol/L NA Normal 140 LAB L501.5600 3.5-5.1 mmol/L Low K 3.4 LAB L501.5900 98-107 mmol/L CL Normal 102 LAB L501.6100 21.0-32.0 mmol/L Normal CO2 31.0 LAB L501.6200 5-15 Normal GAP 7 Performed By: #### L500.2500, L501.6710 #### [facility] [address] [place], [place], [address] CRP Collected: 07/07/2017 Status: F Source: [place] 10:23 AM [facility] REPOSITORY Order Comment: SED,CRP,CBCD FOR DR JIMENEZ Send Results To: Mateus Hernandez Reason for Laboratory Test DEBORAH follow up TYPE CODE TESTS RESULT OUT OF RANGE REFERENCE UNITS LAB L501.6710 0.0-3.0 mg/L High 50.70 C-REACTIVE PROT Result Comment: C-Reactive Protein (CRP) provides useful information for the diagnosis, therapy and monitoring of inflammatory processes and associated diseases. For the evaluation of Relative Risk for Cardiovascular Disease, a High Sensitivity CRP (HSCRP) should be ordered. Performed By: #### L500.2500, L501.6710 #### [facility] [address] [place], [place], [address] VENOUS DUPLEX LOWER Observed: 07/03/2017 Status: F Source: [place] EXTREMITY 5:31 PM [facility] REPOSITORY [facility] Cardiovascular Services [address] [place] [address] Venous Duplex US, Unilateral 07/03/17 1515 MR#: [id number] Acct: [id number] Name: MARQUEZ GARCIA Rep #: [id number] : 1940 77 From: Yvan Sewell MD Attending Dr: Mike Jimenez DO Status: REG CLI Ordering Dr: Mike Jimenez DO Date: 07/03/17 Location: [facility] Sex: M C Admitted: Reason For Study: LEG PAIN AND SWELLING RIGHT LEFT GSV is normal. CFV is compressible, spontaneous, phasic, CFV is compressible, spontaneous, phasic, competent, and demonstrates normal competent and demonstrates normal augmentation. augmentation. FV is compressible, spontaneous, phasic, competent and demonstrates normal augmentation. POP V is compressible, spontaneous, phasic, competent and demonstrates normal augmentation. T/P Trunk is compressible. PTV is compressible. RT PerV is compressible. Procedure Exam performed in department. A preliminary report was called and/or faxed to Dr. Jimenez. Interpretation Summary Deep veins of the right lower extremity are patent and compressible segmentally. There is no evidence of right lower extremity deep vein thrombosis. Valvular competence appears intact within the proximal deep venous system on the right . The right greater saphenous vein appears patent and compressible segmentally. Ordering Physician: Mike Jimenez Referring Physician: Adarsh Tijerina Performed By: Kassy Diop RVT 07/03/17 1731 Date Yvan Sewell MD CC: Mateus Hernandez DO; Mike Jimenez DO Date Dictated: 07/03/17 1515 Date Transcribed: 07/03/17 1731 [employer] Charge Zone Assembler: Signed 12 LEAD ELECTROCARDIOGRAM Observed: 06/30/2017 Status: F Source: [place] 4:29 PM [facility] REPOSITORY [facility] Cardiovascular Services [address] [place] [address] 12 Lead EKG 06/26/17 2323 MR#: [id number] Acct: [id number] Name: GARCIA,JAMES Glenn Rep #: [id number] : 1940 77 From: Mckay Valdez MD Attending Dr: Vishnu Chase DO Status: DIS IN Ordering Dr: Tam Raymond MD Date: 06/26/17 Location: [facility] [place] Sex: M C Admitted: 06/27/17 Test Reason : Blood Pressure : / mmHG Vent. Rate : 066 BPM Atrial Rate : 066 BPM P-R Int : 176 ms QRS Dur : 094 ms QT Int : 404 ms P-R-T Axes : 042 -44 078 degrees QTc Int : 423 ms Normal sinus rhythm Left axis deviation Abnormal ECG Confirmed by JOSÉ MIGUEL MATA, MCKAY ([id number]), editor sound ELISHA TRAVIS ([id number]) on 06/30/2017 4:29:15 PM Referred By: ARCADIO Confirmed By:MCKAY VALDEZ MD 06/30/17 1629 Date Mckay Valdez MD CC: Mateus Hernandez DO; Tam Raymond MD Signed DISCHARGE SUMMARY Observed: 06/29/2017 Status: F Source: [place] 10:41 AM [facility] REPOSITORY [facility] Medical Records Department [address] [place] [address] Discharge Summary 06/29/17 1039 MR#: [id number] Acct: [id number] Name: MARQUEZ GARCIA Rep #: [id number] : 1940 77 From: Vishnu Chase DO PCP: Mateus Hernandez DO Status: ADM IN Y Location: [facility]3 [id number] Discharge Date and Diagnosis - Problem List Patient Problems: Active and Suspected Problems (Last Updated 06/10/17 @ 13:32 by TARUN Díaz) DEBORAH (acute kidney injury) (Acute) Hyponatremia (Acute) Hypokalemia (Acute) Date of Admission: 06/27/17 Date of Discharge: 06/29/17 - Primary Discharge Diagnosis Active and Suspected Problems (Last Updated 06/10/17 @ 13:32 by TARUN Díaz) DEBORAH (acute kidney injury) (Acute) Hyponatremia (Acute) Hypokalemia (Acute) - Secondary Discharge Diagnosis Chronic Problems (Last Updated 06/10/17 @ 13:32 by TARUN Díaz) Osteoarthritis (Chronic) Chronic renal failure, stage 3 (moderate) (Chronic) Hypertension (Chronic) History of percutaneous transluminal coronary angioplasty (Chronic) PTCA AND MARITZA of proximal AND Mid LAD AND Proximal AND mid RCA in June 2000, PTCA AND MARITZA of mid LAD November 2010 CAD (coronary artery disease) (Chronic) Hypothyroidism (Chronic) HLD (hyperlipidemia) (Chronic) Gingivitis (Chronic) Esophageal reflux (Chronic) Benign essential HTN (Chronic) Prostate cancer (Chronic) Allergic rhinitis (Chronic) Hospital Course and Treatment Imaging Results: Clinical Impression(s) from Imaging Studies Chest X-Ray 06/26/17 23:30 IMPRESSION: Chronic left lower lobe atelectasis and/or prominent cardiac fat pad. Stable chest. Electronically Signed: Debbie Verdin MD at 0:56 EST Tel , Service support , Narcisa Operations: None Procedures: None Summary of Care Provided: The patient is a 77 year old M presents confused and with acute kidney injury. 1. DEBORAH * Resolved * Likely due to prerenal plus minus acute tubular necrosis * May been a component of NSAID toxicity given the aspirin 325 mg twice daily he was taken for DVT prophylaxis. * Follow-up BMP in 1 week * Resume Lasix, but hold off on spironolactone and hydrochlorothiazide for now. 2. Status post right knee total arthroplasty * Performed on June 22. * With utilize Xarelto in lieu of the orthopedic recommended aspirin for DVT prophylaxis given the acute kidney injury. * Would treat through July 20 unless felt to be continued longer by orthopedics. * She did physical therapy for rehab. Already been established. 3. Toxic encephalopathy * Secondary to utilizing too much narcotics With oxycodone * Patient on Ultram and will continue as needed. Patient advised to use only as needed. 4. Hypokalemia * Resolved * Likely related with the patient's diuretics which have been adjusted. 5. hyponatremia * Minimal and resolved. [] Discharge Diet: Low fat/ Low Cholesterol Discharge Activity: Return to Normal Activity Call your doctor if you observe: Fever of 101 or Higher, Shortness of breath Home Medications: Medications to take at Discharge Bisacodyl [Dulcolax] 10 mg PO QHS 06/26/17 Doxazosin Mesylate [Cardura] 4 mg PO QHS 06/26/17 Duloxetine HCl 60 mg PO QHS 06/26/17 Famotidine [Pepcid] 40 mg PO DAILY 06/26/17 Fluticasone/Salmeterol [Advair 500/50 Mcg Diskus] 1 puff INHALATION BID 06/26/17 Furosemide [Lasix] 40 mg PO DAILY 06/26/17 Levothyroxine [Synthroid] 150 mcg PO DAILY 06/26/17 Linacolotide [Linzess] 145 mcg PO QHS 06/26/17 Ondansetron HCl [Zofran] 8 mg PO Q8H PRN 06/26/17 Ropinirole HCl [Requip] 2 tab PO QHS 06/26/17 Rosuvastatin Calcium [Crestor] 40 mg PO QHS 06/26/17 Temazepam [Restoril] 30 mg PO QHS 06/26/17 Tiotropium [place] [Spiriva 18 MCG] 1 puff INHALATION DAILY 06/26/17 Acetaminophen [Tylenol] 1,000 mg PO Q8 PRN tablet 06/29/17 Rivaroxaban [Xarelto] 10 mg PO DAILY #21 tab 06/29/17 TraMADol [Ultram] 50 mg PO Q6H PRN PRN #18 tablet 06/29/17 Following Prescrptions Were Given to Patient: TraMADol [Ultram] 50 mg PO Q6H PRN PRN #18 tablet PRN Reason: Pain Rivaroxaban [Xarelto] 10 mg PO DAILY #21 tab Primary Care Physician: Mateus Hernandez DO [Primary Care Provider] - Within 2 Weeks Please Follow Up With: [facility] When: next scheduled appointment or in 2 weeks Please Follow Up With: Physical Therapy When: this week Disposition: Home Minutes spent on discharge:: 32 Patient Condition:: Good Meaningful Use Info Meaningful Use Diagnoses (Choose all that apply): None applicable Code Visit Inpatient E AND M: 71387 Disch Hosp 06/29/17 1041 <Electronically signed by Vishnu Chase DO> Date Vishnu Chase DO Cosigner Signature (if applicable): Date CC: Mateus Hernandez DO; Mike Jimenez DO; Vishnu Chase DO Signed DISCHARGE INSTRUCTION Observed: 06/29/2017 Status: F Source: [facility]AD 10:39 AM [facility] REPOSITORY [facility] Medical Records Department [address] [facility] [address] Instructions for Home/Discharge Instructions 06/29/17 1038 MR#: [id number] Acct: [id number] Name: MARQUEZ GARCIA Rep #: [id number] : 1940 77 From: Vishnu Chase DO PCP: Mateus Hernandez DO Status: ADM IN - Discharge Diagnoses Current Active Problems: Current Active and Chronic Problems (Last Updated 06/10/17 @ 13:32 by TARUN Díaz) DEBORAH (acute kidney injury) (Acute) Hyponatremia (Acute) Hypokalemia (Acute) You will use the following diet at home:: Cardiac Your food should be the consistency of: Regular Your liquids should be the consistency of: Regular/Thin Call your doctor if you observe: Fever of 101 or Higher, Shortness of breath Allergies/Adverse Reactions: Allergies modafinil [From Provigil] Allergy (Verified 06/26/17 23:09) Other moxifloxacin HCl [From Avelox] Allergy (Verified 06/26/17 23:09) Upset Stomach Medications to take at Discharge Bisacodyl [Dulcolax] 10 mg PO QHS 06/26/17 Doxazosin Mesylate [Cardura] 4 mg PO QHS 06/26/17 Duloxetine HCl 60 mg PO QHS 06/26/17 Famotidine [Pepcid] 40 mg PO DAILY 06/26/17 Fluticasone/Salmeterol [Advair 500/50 Mcg Diskus] 1 puff INHALATION BID 06/26/17 Furosemide [Lasix] 40 mg PO DAILY 06/26/17 Levothyroxine [Synthroid] 150 mcg PO DAILY 06/26/17 Linacolotide [Linzess] 145 mcg PO QHS 06/26/17 Ondansetron HCl [Zofran] 8 mg PO Q8H PRN 06/26/17 Ropinirole HCl [Requip] 2 tab PO QHS 06/26/17 Rosuvastatin Calcium [Crestor] 40 mg PO QHS 06/26/17 Temazepam [Restoril] 30 mg PO QHS 06/26/17 Tiotropium [place] [Spiriva 18 MCG] 1 puff INHALATION DAILY 06/26/17 Acetaminophen [Tylenol] 1,000 mg PO Q8 PRN tablet 06/29/17 Rivaroxaban [Xarelto] 10 mg PO DAILY #21 tab 06/29/17 TraMADol [Ultram] 50 mg PO Q6H PRN PRN #18 tablet 06/29/17 The following prescriptions were given: TraMADol [Ultram] 50 mg PO Q6H PRN PRN #18 tablet PRN Reason: Pain Rivaroxaban [Xarelto] 10 mg PO DAILY #21 tab Primary Care Physician: Mateus Hernandez DO [Primary Care Provider] - Within 2 Weeks Please Follow Up With: [facility] When: next scheduled appointment or in 2 weeks Please Follow Up With: Physical Therapy When: this week Proposed Discharge Date: 06/29/17 06/29/17 1039 <Electronically signed by Vishnu Chase DO> Date Vishnu Chase DO CC: Mateus Hernandez DO; Kurt Brewster MD BASIC METABOLIC Collected: 06/29/2017 Status: F Source: [facility] PROFILE (BMP) 5:20 AM [facility] REPOSITORY TYPE CODE TESTS RESULT OUT OF RANGE REFERENCE UNITS LAB L501.0100 74-106 mg/dL High GLU 116 Result Comment: Fasting Glucose result from 100 to 125 mg/dL suggests IMPAIRED HOMEOSTASIS per A.D.A. criteria. Please note revised GLUCOSE reference range effective 2017. LAB L501.1000 7-18 mg/dL Normal BUN 15 LAB L501.1100 0.70-1.30 mg/dL Normal CREAT,SERUM 1.17 Result Comment: The validity of the calculated GFR AND GFRAA in patients over 70 years has not been determined. Clinical correlation is essential. LAB L501.1110 >60 mL/min Normal EST GFR 65 Result Comment: Non- GFR Calc LAB L501.1115 >60 mL/min Normal EST GFR - AA 78 Result Comment: GFR Calc LAB L501.1255 ml/min Normal Estimated CRCL 61.65 LAB L501.1300 10-20 RATIO Normal BUN/CRE 12.8 LAB L501.2200 8.5-10 mg/dL Low .1 CA 8.4 LAB L501.5300 136-14 mmol/L Normal 5 NA 141 LAB L501.5600 3.5-5. mmol/L Normal 1 K 3.9 LAB L501.5900 98-107 mmol/L High CL 108 LAB L501.6100 21.0-3 mmol/L Normal 2.0 CO2 26.0 LAB L501.6200 5-15 Normal GAP 7 Performed By: #### L500.2500 #### [facility] [address] [place], [address] CBC-COMPLETE BLOOD CNT Collected: 06/28/2017 Status: F Source: CHAD NO DIFF 7:38 AM [facility] REPOSITORY TYPE CODE TESTS RESULT OUT OF RANGE REFERENCE UNITS LAB L100.1000 4.4-11.0 K/mm3 Normal WBC 6.6 LAB L100.1200 4.6-6.2 M/mm3 Low RBC 4.17 LAB L100.1300 13.0-16.5 g/dl Low HGB 12.4 LAB L100.1400 40-54 % Low HCT 37.9 LAB L100.1500 80-94 fL Normal MCV 90.9 LAB L100.1600 27.0-32.0 pg Normal MCH 29.7 LAB L100.1700 32-36 g/gl Normal MCHC 32.7 LAB L100.1810 11.6-14.6 % High RDW CV 15.7 LAB L100.1820 35.1-43.9 fl High RDW SD 50.7 LAB L100.1900 150-450 K/mm3 Normal PLT 211 LAB L100.2000 6.2-12.0 fl Normal MPV 10.0 Performed By: #### L100.0500 #### [facility] [address] [place], [place], [id number] LIVER PROFILE Collected: 06/28/2017 Status: F Source: [place] 7:38 AM [facility] REPOSITORY TYPE CODE TESTS RESULT OUT OF RANGE REFERENCE UNITS LAB L501.1500 6.4-8.2 g/dL Low T PROT 5.6 LAB L501.1800 3.2-5.0 g/dL Low ALB 2.1 LAB L501.1950 2.2-4.2 g/dL Normal GLOB 3.5 LAB L501.4100 15-37 U/L Normal AST 27 LAB L501.4305 45-117 U/L Normal ALK P 49 LAB L501.4405 16-61 U/L Normal ALT 25 Result Comment: Please note revised ALT reference range effective 2017. LAB L501.4600 0.20-1.00 mg/dL Normal T BILI 0.40 LAB L501.4700 0.00-0.30 mg/dL Normal D BILI 0.09 Performed By: #### L500.3400, L501.5200 #### [facility] [address] [facility] [place], [place], [address] MAGNESIUM Collected: 06/28/2017 Status: F Source: [place] 7:38 AM [facility] REPOSITORY TYPE CODE TESTS RESULT OUT OF RANGE REFERENCE UNITS LAB L501.5200 1.6-2.6 mg/dL Normal MG 2.3 Result Comment: Please note revised Magnesium reference range effective 2017. Performed By: #### L500.3400, L501.5200 #### [facility] [address] [place], [address] BASIC METABOLIC Collected: 06/28/2017 Status: F Source: [place] PROFILE (BMP) 7:38 AM [facility] REPOSITORY TYPE CODE TESTS RESULT OUT OF RANGE REFERENCE UNITS LAB L501.0100 74-106 mg/dL High GLU 147 Result Comment: Fasting Glucose result greater than or equal to 126 mg/dL suggests DIABETES MELLITUS per A.D.A. criteria. Please note revised GLUCOSE reference range effective 2017. LAB L501.1000 7-18 mg/dL Normal BUN 17 LAB L501.1100 0.70-1.30 mg/dL High CREAT,SERUM 1.38 Result Comment: The validity of the calculated GFR AND GFRAA in patients over 70 years has not been determined. Clinical correlation is essential. LAB L501.1110 >60 mL/min Low EST GFR 53 Result Comment: Non- GFR Calc LAB L501.1115 >60 mL/min Normal EST GFR - AA 65 Result Comment: GFR Calc LAB L501.1255 ml/min Normal Estimated CRCL 52.27 LAB L501.1300 10-20 RATIO Normal BUN/CRE 12.3 LAB L501.2200 8.5-10 mg/dL Normal .1 CA 8.5 LAB L501.5300 136-14 mmol/L Normal 5 NA 142 LAB L501.5600 3.5-5. mmol/L Normal 1 K 3.6 LAB L501.5900 98-107 mmol/L High CL 109 LAB L501.6100 21.0-3 mmol/L Normal 2.0 CO2 25.0 LAB L501.6200 5-15 Normal GAP 8 Performed By: #### L500.2500 #### [facility] [address] [place], [address] BASIC METABOLIC Collected: 06/27/2017 Status: F Source: [facility] PROFILE (BMP) 7:55 PM [facility] REPOSITORY Order Comment: DONE. MELINA CALLED AT 1845 AND ALVARADO SAID IT WAS STILL @ RUNNING APPROX. 45 MINS MORE OR SO. SHE WILL CALL. TYPE CODE TESTS RESULT OUT OF RANGE REFERENCE UNITS LAB L501.0100 74-106 mg/dL High GLU 155 Result Comment: Fasting Glucose result greater than or equal to 126 mg/dL suggests DIABETES MELLITUS per A.D.A. criteria. Please note revised GLUCOSE reference range effective 2017. LAB L501.1000 7-18 mg/dL High BUN 20 LAB L501.1100 0.70-1.30 mg/dL High CREAT,SERUM 1.50 Result Comment: The validity of the calculated GFR AND GFRAA in patients over 70 years has not been determined. Clinical correlation is essential. LAB L501.1110 >60 mL/min Low EST GFR 49 Result Comment: Non- GFR Calc LAB L501.1115 >60 mL/min Low EST GFR - AA 59 Result Comment: GFR Calc LAB L501.1255 ml/min Normal Estimated CRCL 48.09 LAB L501.1300 10-20 RATIO Normal BUN/CRE 13.3 LAB L501.2200 8.5-10 mg/dL Low .1 CA 8.4 LAB L501.5300 136-14 mmol/L Normal 5 NA 139 LAB L501.5600 3.5-5. mmol/L Normal 1 K 3.5 LAB L501.5900 98-107 mmol/L Normal CL 101 LAB L501.6100 21.0-3 mmol/L Normal 2.0 CO2 29.0 LAB L501.6200 5-15 Normal GAP 9 Performed By: #### L500.2500 #### [facility] [address] [facility] [place], [address] EMERGENCY DEPARTMENT Observed: 06/27/2017 Status: F Source: [place] SUMMARY 6:45 AM [facility] REPOSITORY [facility] Medical Records Department [address] [place] [address] Emergency Department Summary 06/26/17 2327 MR#: [id number] Acct: [id number] Name: MARQUEZ GARCIA Rep #: [id number] : 1940 77 From: Tam Raymond MD PCP: Mateus Hernandez DO Status: ADM IN - ER Visit Summary Date of Service: 06/26/17 Chief Complaint: [] Weakness History of Present Illness: The patient is a 77 M's been feeling weak since his surgery. He had a right knee total replacement on June 22. He was discharged from the hospital 2 days ago. Had no postoperative complications. He was on morphine but has not been taken it today. He was on oxycodone as well and his last dose was at noon. He is using Tylenol. He could not stand on his own tonight after getting help to the bathroom. He slept most of the afternoon. He does not smoke cigarettes. He did go to therapy today and did okay per family. The patient stated he felt a little bit dizzy without vertigo. He thinks the narcotics were making him feel spacey so is cut back on them. Physical Examination: Vital signs reviewed afebrile, pulse ox 90 General: Well-nourished well-developed Head: Normocephalic atraumatic Eyes: Pupils equal round and reactive to light extraocular movements intact ENT: TMs clear no hemotympanum no trauma Neck: Nontender full range of motion Cardiovascular: Regular rate rhythm no murmurs normal S1-S2 Respiratory: No distress clear to auscultation bilaterally chest nontender Abdomen: Soft nontender nondistended normal bowel sounds no masses Back: Nontender no CVA tenderness Extremities: Right knee with mild swelling diffusely postoperative. Mild warmth and redness on the anterior portion of the knee. No calf pain. Negative Homans. Skin: see knee exam Neuro alert oriented cranial nerves II through XII intact normal sensation reflexes Test Results: [] Emergency Department Course and Treatment: [] EKG shows sinus at 66. T-wave inversion aVL and V2 unchanged from prior. CBC normal. Chemistries normal except sodium 134 potassium 2.8 chloride 94 creatinine 1.9. Urinalysis normal. Troponin negative. Blood cultures pending. Chest x-ray shows nothing acute. Atelectasis left lower lobe. Patient given IV fluid bolus as well as potassium replacement. I feel his weakness is likely secondary to post operative dehydration and electrolyte abnormalities. Initially his pulse ox is red at 90% on room air. I have a low suspicion for PE but it is possible. Pulse ox currently is 92% on room air. At this time I feel before a CTA would need to be done to rule out PE his creatinine has been normalized back to his baseline with IV fluid therapy. I will discuss this with the hospitalist. Have a low suspicion of this however. His right knee was discussed with the family. They stated that his knee has been a little bit inflamed since surgery. The redness and inflammation and warmth is not new. I have a low suspicion for infection given the fact that he has no fever and this is been there since surgery and his CBC is normal. I feel Dr. Jimenez should look at this should not place him on antibiotics currently. I discussed with the hospitalist who will be admitted Treatment Plan: [] Disposition: [] Impression: [] Weakness, dehydration, hypokalemia, acute on chronic renal insufficiency, postoperative right knee inflammation This note was generated with [employer] software. It may contain incorrect words, spelling, and punctuation that were not noted in review of the chart prior to signing ED Disposition - Plan for ED Patient: Chief Complaint: Weakness Referrals: Mateus Hernandez, DO [Primary Care Provider] - What to do if you have Problems For any increased pain, shortness of breath, bleeding, nausea or vomiting, chest pain, or any unexpected problems, contact your Primary Care Provider. Call [facility] ([phone]) or report to the closest Emergency Room. Call 911 if necessary. 06/27/17 0645 <Electronically signed by Tam Raymond MD> Date Tam Raymond MD Cosigner Signature (If Indicated): Date CC: Mateus Hernandez DO CBC W/DIFF, AUTOMATED Collected: 06/27/2017 Status: F Source: [facility] 6:26 AM [facility] REPOSITORY TYPE CODE TESTS RESULT OUT OF RANGE REFERENCE UNITS LAB L100.1000 4.4-11.0 K/mm3 Normal WBC 7.6 LAB L100.1200 4.6-6.2 M/mm3 Low RBC 4.16 LAB L100.1300 13.0-16.5 g/dl Low HGB 12.3 LAB L100.1400 40-54 % Low HCT 37.2 LAB L100.1500 80-94 fL Normal MCV 89.4 LAB L100.1600 27.0-32.0 pg Normal MCH 29.6 LAB L100.1700 32-36 g/gl Normal MCHC 33.1 LAB L100.1810 11.6-14.6 % High RDW CV 15.6 LAB L100.1820 35.1-43.9 fl High RDW SD 50.8 LAB L100.1900 150-450 K/mm3 Normal PLT 179 LAB L100.2000 6.2-12.0 fl Normal MPV 10.1 LAB L100.2100 47-70 % Normal NEUT% 57.5 LAB L100.2200 19-41 % Normal LY% 27.6 LAB L100.2300 0-10 % High MONO% 10.5 LAB L100.2400 0-5 % Normal EO% 3.6 LAB L100.2500 0-1 % Normal BASO% 0.3 LAB L100.2550 0.0-0.9 % Normal IM GRAN % 0.500 Result Comment: IG% - Immature Granulocytes (promyelocytes, myelocytes and metamyelocytes) > 1% indicates that a LEFT SHIFT is Present. LAB L100.2620 2.0-7.7 X10 3/uL Normal Absolute Neut 4.4 LAB L100.2720 0.83-4.51 X10 3/ul Normal Absolute Lymph 2.10 Performed By: #### L100.0100 #### [facility] [address] [place], [place], [address] BASIC METABOLIC Collected: 06/27/2017 Status: F Source: [place] PROFILE ([facility]) 6:26 AM [facility] REPOSITORY TYPE CODE TESTS RESULT OUT OF RANGE REFERENCE UNITS LAB L501.0100 74-106 mg/dL High GLU 150 Result Comment: Fasting Glucose result greater than or equal to 126 mg/dL suggests DIABETES MELLITUS per A.D.A. criteria. Please note revised GLUCOSE reference range effective 2017. LAB L501.1000 7-18 mg/dL High BUN 23 LAB L501.1100 0.70-1.30 mg/dL High CREAT,SERUM 1.53 Result Comment: The validity of the calculated GFR AND GFRAA in patients over 70 years has not been determined. Clinical correlation is essential. LAB L501.1110 >60 mL/min Low EST GFR 47 Result Comment: Non- GFR Calc LAB L501.1115 >60 mL/min Low EST GFR - AA 57 Result Comment: GFR Calc LAB L501.1255 ml/min Normal Estimated CRCL 47.15 LAB L501.1300 10-20 RATIO Normal BUN/CRE 15.0 LAB L501.2200 8.5-10 mg/dL Low .1 CA 8.4 LAB L501.5300 136-14 mmol/L Low 5 NA 135 LAB L501.5600 3.5-5. mmol/L Low 1 K 2.9 LAB L501.5900 98-107 mmol/L Normal CL 98 LAB L501.6100 21.0-3 mmol/L Normal 2.0 CO2 31.0 LAB L501.6200 5-15 Normal GAP 6 Performed By: #### L500.2500 #### [facility] [address] [facility] [id number] ERYTHROCYTE SED RATE Collected: 06/27/2017 Status: F Source: [place] 6:26 AM [facility] REPOSITORY TYPE CODE TESTS RESULT OUT OF RANGE REFERENCE UNITS LAB L102.0000 0-20 mm/hr High SED RATE 62 Performed By: #### L101.9900 #### [facility] [address] CRP Collected: 06/27/2017 Status: F Source: [place] 6:26 AM [facility] REPOSITORY TYPE CODE TESTS RESULT OUT OF RANGE REFERENCE UNITS LAB L501.6710 0.0-3.0 mg/L High 186.00 C-REACTIVE PROT Result Comment: C-Reactive Protein (CRP) provides useful information for the diagnosis, therapy and monitoring of inflammatory processes and associated diseases. For the evaluation of Relative Risk for Cardiovascular Disease, a High Sensitivity CRP (HSCRP) should be ordered. Performed By: #### L501.6710 #### [facility] [id number] HISTORY AND PHYSICAL Observed: 06/27/2017 Status: F Source: [place] EXAM 4:05 AM [facility] Medical Records Department [address] [place] [id number] History and Physical 06/27/17 0354 MR#: [id number] Acct: [id number] Name: MARQUEZ GARCIA Rep #: [id number] : 1940 77 From: Chris Harrington MD PCP: Mateus Hernandez DO Status: ADM IN Y Location: [place] [address] Problem List (1) DEBORAH (acute kidney injury) Status: Acute (2) Hyponatremia Status: Acute (3) Hypokalemia Status: Acute (4) S/P total knee arthroplasty Status: Acute Qualifiers: Comment: 06/22/17 (5) Allergic rhinitis Status: Chronic (6) Benign essential HTN Status: Chronic (7) CAD (coronary artery disease) Status: Chronic Qualifiers: (8) Chronic renal failure, stage 3 (moderate) Status: Chronic (9) Gingivitis Status: Chronic (10) HLD (hyperlipidemia) Status: Chronic Qualifiers: History of Present Illness Date of Admission: 06/27/17 Chief Complaint: DEBORAH The patient is a 77 year old male w/ h/o CAD, hyperlipidemia, hypothyroidism, chronic renal failure stage III, obesity, osteoarthritis, hypertension, obstructive sleep apnea on CPAP, BPH and PTCA of the LAD and RCA with stents was recently admitted for on 06/22/17 for R TKA. He is readmitted 2 days later for DEBORAH. He was discharged on Thursday and on , at home he has been taking oxycodone around the clock. He also took morphine, temazepam, and oxycodone He took a total of 6 oxycodone tabs on . He was sleeping for most part of the day. He did not drink or eat much. On Thursday he took two addition dose of oxycodone. He became lethargic and nothing made it better or worse. He had minimal participation with PT/OT. He was falling asleep so family took him into the ED for further workup. He also took ASA BID. Past Medical History Past Medical History (Chronic Problems): Chronic Problems (Last Updated 06/10/17 @ 13:32 by TARUN Díaz) Osteoarthritis (Chronic) Chronic renal failure, stage 3 (moderate) (Chronic) Hypertension (Chronic) History of percutaneous transluminal coronary angioplasty (Chronic) PTCA AND MARITZA of proximal AND Mid LAD AND Proximal AND mid RCA in June 2000, PTCA AND MARITZA of mid LAD November 2010 CAD (coronary artery disease) (Chronic) Hypothyroidism (Chronic) HLD (hyperlipidemia) (Chronic) Gingivitis (Chronic) Esophageal reflux (Chronic) Benign essential HTN (Chronic) Prostate cancer (Chronic) Allergic rhinitis (Chronic) Allergies modafinil [From Provigil] Allergy (Verified 06/26/17 23:09) Other moxifloxacin HCl [From Avelox] Allergy (Verified 06/26/17 23:09) Upset Stomach Home Medications: Ambulatory Orders Medication Instructions Recorded Acetaminophen [Tylenol Extra 500 mg PO Q8H PRN 06/26/17 Strength] Aspirin 325 mg PO BID 06/26/17 Surgical History: appendectomy Psychiatric History: No pertinent psych hx Lives: Spouse/ Significant Other Smoking Status: Former smoker Alcohol: None Drugs: None - *Family History Maternal History Items: No pertinent history Review of Systems Constitutional: Denies: Chills, Fever, Weight Change HEENT: Denies: Head Aches, Sinus Congestion, Sinus Drainage Cardiovascular: Denies: Chest Pain, Palpitations Respiratory: Denies: Cough, Shortness of breath at rest, Sputum production Gastrointestinal: Denies: Abdominal Pain, Nausea, Vomiting Genitourinary: Denies: Dysuria Musculoskeletal: Denies: Joint Pain, Joint Tenderness Skin: Denies: Rash, Wounds Neurological: Denies: Numbness, Tingling, Focal weakness Psychiatric: Denies: Anxiety, Depression, Homicidal Ideations, Suicidal Ideations Hematologic/ Lymphatic: Denies: Easy Bruising, Easy Bleeding VTE Information - Inpt Only VTE Present on Admission: No VTE Mechan Device Prophylaxis: SCD's VTE Pharm Prophylaxis ordered?: Yes Patient Problems: Active and Suspected Problems (Last Updated 06/10/17 @ 13:32 by TARUN Díaz) DEBORAH (acute kidney injury) (Acute) Hyponatremia (Acute) Hypokalemia (Acute) - Physical Exam General: Alert, Oriented x3, Cooperative HEENT: Atraumatic, PERRLA, EOMI, Normocephalic Neck: Supple, No JVD, Negative Carotid Bruits Lungs: Clear to auscultation, Normal air movement Cardiovascular: Regular rate, No murmurs Abdomen: Bowel Sounds Present, Soft, Non Tender Extremities: No edema, Capillary Refill Less than 3 Seconds, - - Right knee dressing d/c/i. Mild redness and warmth at the surgical site. Skin: No rashes, No breakdown Musculoskeletal: No Tenderness to Palpation of Joints or Extremities Neurological: Cranial nerves II-XII grossly intact Psych/Mental Status: Normal Affect, Appropriate Vital Signs Temp Pulse Resp BP Pulse Ox 98.2 F 64 16 131/64 H 93 06/26/17 23:07 06/27/17 02:04 06/27/17 03:32 06/27/17 02:04 06/27/17 02:04 Oxygen Delivery Method Room Air Weight: 113.398 kg Body Mass Index (BMI) 33.0 Assessment/Plan Active and Suspected Problems (Last Updated 06/10/17 @ 13:32 by TARUN Díaz) DEBORAH (acute kidney injury) (Acute) Hyponatremia (Acute) Hypokalemia (Acute) 77 year old male w/ h/o CAD, hyperlipidemia, hypothyroidism, chronic renal failure stage III, obesity, osteoarthritis, hypertension, obstructive sleep apnea on CPAP, BPH and PTCA of the LAD and RCA with stents was recently admitted for on 06/22/17 for R TKA. He is readmitted 2 days later for DEBORAH. 1) DEBORAH: Baseline Cr 1.3 Cr 1.9 Most likely secondary to azotemia with superimposed NSAID use. U/A bland Hydration. Serial surveillance labs. 2) Hypokalemia: Replaced. Repeat labs in AM. May need further replacement. 3) Hyponatremia: Hydration. 4) S/p right TKA: Will reconsult ortho given right leg warmth and redness, although mild. At this time, minimal suspicion of cellulitis. Will defer to ortho. 5) Prophylaxis: SCD / heparin. 06/27/17 0405 <Electronically signed by Chris Harrington MD> Date Chris Harrington MD Cosigner Signature: Date (if applicable) CC: Mateus Hernandez DO; Chris Harrington MD Signed URINALYSIS, COMPLETE Collected: 06/27/2017 Status: F Source: CHAD 1:05 AM [facility] REPOSITORY Order Comment: Order Date: 06/27/17 How was Urine Obtained? TUBE FILLER TO SPECIFY TYPE CODE TESTS RESULT OUT OF RANGE REFERENCE UNITS LAB L400.3000 Yellow COLOR Normal Yellow LAB L400.3050 Clear Normal CLARITY Sl. Cloudy LAB L400.3200 Normal mg/dl Normal GLUCOSE, UR Normal LAB L400.3300 Negative mg/dL Normal BILIRUBIN URINE Negative LAB L400.3400 Negative mg/dl Normal KETONE UR Negative LAB L400.3465 1.002-1.030 Normal SP.GR. DIPSTX 1.015 LAB L400.3550 5.0 - 8.0 pH UR Normal 6.0 LAB L400.3600 Negative mg/dl High PROT 30 DIPSTX LAB L400.3700 Normal mg/dl Normal UROBILI Normal LAB L400.3750 Negative Normal NITRITE UR Negative LAB L400.3780 Negative /ul High 10 OCCULT BLOOD-UR LAB L400.3800 Negative /ul LEUK Normal ESTERASE Negative LAB L400.4050 0-5 /hpf WBC 0 Normal SEEN LAB L400.4100 0-5 /hpf Normal RBC-UA 0-5 SEEN LAB L400.4150 0-5 /hpf SQUAM Normal EPI 0-5 SEEN LAB L400.4300 None Seen /hpf 0 Normal BACTERIA SEEN LAB L400.4350 <or=2+ /hpf 0 Normal MUCUS, URINE SEEN Performed By: #### L400.0001 #### [facility] [place], [place], [address] Observed: 06/26/2017 Status: F Source: CHAD CULTURE, BLOOD (WB) 11:40 PM [facility] REPOSITORY BC No growth in 5 days. Performed By: #### M200.1000 #### [facility] [address] [place], [place], [address] CHEST 1 VIEW Observed: 06/26/2017 Status: F Source: CHAD (PORTABLE) 11:30 PM [facility] REPOSITORY [facility] Imaging Services [address] [place] [id number] Chest 1 View (Portable) MR#: [id number] Acct: [id number] Name: MARQUEZ GARCIA Rep #: [id number] : 1940 M 77 From: Debbie Verdin MD PCP: Mateus Hernandez DO Status: REG ER Study: Chest 1 View (Portable) Date of Exam: 06/26/17 Exam# [id number] Ordering Dr: Tam Raymond MD STUDY: X-RAY CHEST REASON FOR EXAM: Male, 77 years old. Weakness confusion TECHNIQUE: Single AP portable view of the chest. COMPARISON: August 29, 2013, May 18, 2013 FINDINGS: The lungs are underexpanded there is blunting of the left costophrenic angle and/or scarring similar to the prior study Normal size heart. Normal mediastinum and amy. Normal visualized pulmonary arteries. Normal visualized aortic arch and descending thoracic aorta. There are diffuse degenerative changes of the visualized thoracic spine. Normal visualized ribs, clavicles, and shoulders. There is no demonstrated abnormality of the visualized soft tissue structures of the upper abdomen. RAD/Chest 1 View (Portable) IMPRESSION: Chronic left lower lobe atelectasis and/or prominent cardiac fat pad. Stable chest. Electronically Signed: Debbie Verdin MD at 0:56 EST Tel , Service support , CC: Mateus Hernandez DO; Tam Raymond MD Propellant Charge Zone Assembler: Signed CBC W/DIFF, AUTOMATED Collected: 06/26/2017 Status: F Source: CHAD 11:20 PM [facility] REPOSITORY TYPE CODE TESTS RESULT OUT OF RANGE REFERENCE UNITS LAB L100.1000 4.4-11.0 K/mm3 Normal WBC 8.9 LAB L100.1200 4.6-6.2 M/mm3 Normal RBC 4.81 LAB L100.1300 13.0-16.5 g/dl Normal HGB 14.6 LAB L100.1400 40-54 % Normal HCT 42.4 LAB L100.1500 80-94 fL Normal MCV 88.1 LAB L100.1600 27.0-32.0 pg Normal MCH 30.4 LAB L100.1700 32-36 g/gl Normal MCHC 34.4 LAB L100.1810 11.6-14.6 % High RDW CV 15.9 LAB L100.1820 35.1-43.9 fl High RDW SD 50.9 LAB L100.1900 150-450 K/mm3 Normal PLT 218 LAB L100.2000 6.2-12.0 fl Normal MPV 9.8 LAB L100.2100 47-70 % Normal NEUT% 58.8 LAB L100.2200 19-41 % Normal LY% 27.9 LAB L100.2300 0-10 % High MONO% 10.3 LAB L100.2400 0-5 % Normal EO% 2.2 LAB L100.2500 0-1 % Normal BASO% 0.4 LAB L100.2550 0.0-0.9 % Normal IM GRAN % 0.400 Result Comment: IG% - Immature Granulocytes (promyelocytes, myelocytes and metamyelocytes) > 1% indicates that a LEFT SHIFT is Present. LAB L100.2620 2.0-7.7 X10 3/uL Normal Absolute Neut 5.2 LAB L100.2720 0.83-4.51 X10 3/ul Normal Absolute Lymph 2.48 Performed By: #### L100.0100 #### [facility] [address] [place] [address]. [place], [place], [address] BASIC METABOLIC Collected: 06/26/2017 Status: F Source: [place] PROFILE (BMP) 11:20 PM [facility] REPOSITORY Order Comment: 'TROP' Serial specimen #1, #2, #3, or #4: 1 TYPE CODE TESTS RESULT OUT OF RANGE REFERENCE UNITS LAB L501.0100 74-106 mg/dL High GLU 164 Result Comment: Fasting Glucose result greater than or equal to 126 mg/dL suggests DIABETES MELLITUS per A.D.A. criteria. Please note revised GLUCOSE reference range effective 2017. LAB L501.1000 7-18 mg/dL High BUN 29 LAB L501.1100 0.70-1.30 mg/dL High CREAT,SERUM 1.93 Result Comment: The validity of the calculated GFR AND GFRAA in patients over 70 years has not been determined. Clinical correlation is essential. LAB L501.1110 >60 mL/min Low EST GFR 36 Result Comment: Non- GFR Calc LAB L501.1115 >60 mL/min Low EST GFR - AA 44 Result Comment: GFR Calc LAB L501.1255 ml/min Normal Estimated CRCL 37.37 LAB L501.1300 10-20 RATIO Normal BUN/CRE 15.0 LAB L501.2200 8.5-10 mg/dL Normal .1 CA 9.4 LAB L501.5300 136-14 mmol/L Low 5 NA 134 LAB L501.5600 3.5-5. mmol/L Low 1 K 2.8 LAB L501.5900 98-107 mmol/L Low CL 94 LAB L501.6100 21.0-3 mmol/L Normal 2.0 CO2 32.0 LAB L501.6200 5-15 Normal GAP 8 Performed By: #### L500.2500, L501.4010 #### [facility] [address] [place], [address] TROPONIN-I Collected: 06/26/2017 Status: F Source: CHAD 11:20 PM [facility] REPOS[facility] Order Comment: 'TROP' Serial specimen #1, #2, #3, or #4: 1 TYPE CODE TESTS RESULT OUT OF RANGE REFERENCE UNITS LAB L501.4010 <0.06 ng/mL Normal < 0.02 TROPONIN-I Result Comment: TROPONIN-I EXPECTED VALUES <0.05 NEGATIVE 0.06 - 0.[address] > OR = 0.[address] Performed By: #### L500.2500, L501.4010 #### [facility] [address] [place], [address] Observed: 06/26/2017 Status: F Source: CHAD CULTURE, BLOOD (WB) 11:20 PM [facility] REPOSITORY BC No growth in 5 days. Performed By: #### M200.1000 #### [facility] [address] [place], [address] DISCHARGE INSTRUCTION Observed: 06/24/2017 Status: F Source: CHAD 8:59 AM [facility] REPOSITORY [facility] Medical Records Department [address] [place] [address] Instructions for Home/Discharge Instructions 06/24/17 0851 MR#: [id number] Acct: [id number] Name: MARQUEZ GARCIA Rep #: [id number] : 1940 77 From: Mike Jimenez DO PCP: Mateus Hernandez DO Status: ADM IN Discharge Diet: No Restrictions Discharge Activity: May Not Drive, May Shower - if occlusive dressing sealed Ice area for (Minutes): 20 Weight Bearing Status: Weight bearing as tolerated Keep extremity elevated above heart level: Right Leg Call your doctor if your incision/area has: Continuous Slow Oozing, Sudden Increased Bleeding, Increased Pain/ Swelling, Increased Redness, Foul Smelling Discharge Call your doctor if you observe: Fever of 101 or Higher, Coldness, Increased Pain, Numbness or Tingling, Change in Color Change Dressing in (Days):: 7 Remove Dressing in (days):: 7 Cleanse incision/area with: Soap AND Water - after dressing removed if no drainage Allergies/Adverse Reactions: Allergies modafinil [From Provigil] Allergy (Verified 06/10/17 11:35) Other moxifloxacin HCl [From Avelox] Allergy (Verified 06/10/17 11:35) Upset Stomach Medications to take at Discharge Albuterol IH (ProAir) [Proair Hfa] 2 puff INHALATION Q4H PRN PRN 08/29/13 Doxazosin Mesylate [Cardura] 4 mg PO DAILY 08/29/13 Finasteride [Proscar] 5 mg PO DAILY 08/29/13 Levothyroxine [Synthroid] 150 mcg PO DAILY 08/29/13 Meclizine HCl [Antivert] 25 mg PO 4X/DAY PRN PRN 08/29/13 Multivitamins,Therapeutic [Multivitamin] 1 tab PO DAILY 08/29/13 Nitroglycerin [Nitrostat] 0.4 mg SUBLINGUAL Q5M PRN 08/29/13 Rosuvastatin Calcium [Crestor] 40 mg PO DAILY 08/29/13 Spironolact/Hydrochlorothiazid [Aldactazide 25-25 Tablet] 25 mg PO DAILY 08/29/13 Fluticasone/Salmeterol [Advair 500/50 Mcg Diskus] 1 puff INHALATION BID 01/16/16 Linacolotide [Linzess] 145 mcg PO DAILY 01/16/16 Pramipexole Di-HCl [Mirapex] 0.5 mg PO QHS 01/16/16 Tiotropium [place] [Spiriva 18 MCG] 1 puff INHALATION DAILY 01/16/16 furosemide 40 mg tablet 40 mg PO QDAY 05/06/17 famotidine 40 mg tablet 40 mg PO QDAY tab 05/21/17 Azelastine HCl [Astelin] 1 spray NASAL BID 06/08/17 Duloxetine HCl 30 mg PO DAILY 06/08/17 Ropinirole HCl [Requip] 0.5 mg PO QHS 06/08/17 Temazepam [Restoril] 7.5 mg PO QHS 06/08/17 Wheat Dextrin [Benefiber] 1 ea PO QHS 06/08/17 potassium chloride ER 20 mEq tablet,extended release(part/cryst) 40 meq PO QDAY tab 06/10/17 Acetaminophen [Tylenol] 1,000 mg PO Q8 tablet 06/24/17 Aspirin 325 mg PO BIDCM #60 tab 06/24/17 MorphINE [Ms Contin] 15 mg PO BID 7 Days #14 tablet 06/24/17 Ondansetron [Zofran] 4 mg IV Q8H PRN PRN #10 vial 06/24/17 Oxycodone [Oxyir] 5 - 10 mg PO Q4H PRN PRN 7 Days #56 tablet 06/24/17 Senna/Docusate Sodium [Senokot-S] 2 tablet PO BID tablet 06/24/17 The following prescriptions were given: Oxycodone [Oxyir] 5 - 10 mg PO Q4H PRN PRN 7 Days #56 tablet PRN Reason: Mod-Severe Pain (4-10/10) Ondansetron [Zofran] 4 mg IV Q8H PRN PRN #10 vial PRN Reason: NAUSEA Aspirin 325 mg PO BIDCM #60 tab MorphINE [Ms Contin] 15 mg PO BID 7 Days #14 tablet Please Follow Up With: Mike Jimenez DO When: 2 weeks 06/24/17 0859 <Electronically signed by Mike Jimenez DO> Date Mike Jimenez DO CC: Arleen Arboleda; Mateus Hernandez DO CBC-COMPLETE BLOOD CNT Collected: 06/24/2017 Status: F Source: CHAD NO DIFF 6:28 AM [facility] REPOSITORY TYPE CODE TESTS RESULT OUT OF RANGE REFERENCE UNITS LAB L100.1000 4.4-11.0 K/mm3 Normal WBC 9.4 LAB L100.1200 4.6-6.2 M/mm3 Low RBC 4.56 LAB L100.1300 13.0-16.5 g/dl Normal HGB 13.5 LAB L100.1400 40-54 % Normal HCT 41.8 LAB L100.1500 80-94 fL Normal MCV 91.7 LAB L100.1600 27.0-32.0 pg Normal MCH 29.6 LAB L100.1700 32-36 g/gl Normal MCHC 32.3 LAB L100.1810 11.6-14.6 % High RDW CV 16.2 LAB L100.1820 35.1-43.9 fl High RDW SD 52.5 LAB L100.1900 150-450 K/mm3 Normal PLT 184 LAB L100.2000 6.2-12.0 fl Normal MPV 9.9 Performed By: #### L100.0500 #### [facility] [place], [address] BASIC METABOLIC Collected: 06/24/2017 Status: F Source: CHAD PROFILE (BMP) 6:28 AM [facility] REPOS[facility]ORY TYPE CODE TESTS RESULT OUT OF RANGE REFERENCE UNITS LAB L501.0100 74-106 mg/dL High GLU 136 Result Comment: Fasting Glucose result greater than or equal to 126 mg/dL suggests DIABETES MELLITUS per A.D.A. criteria. Please note revised GLUCOSE reference range effective 2017. LAB L501.1000 7-18 mg/dL High BUN 22 LAB L501.1100 0.70-1.30 mg/dL High CREAT,SERUM 1.61 Result Comment: The validity of the calculated GFR AND GFRAA in patients over 70 years has not been determined. Clinical correlation is essential. LAB L501.1110 >60 mL/min Low EST GFR 45 Result Comment: Non- GFR Calc LAB L501.1115 >60 mL/min Low EST GFR - AA 54 Result Comment: GFR Calc LAB L501.1255 ml/min Normal Estimated CRCL 40.93 LAB L501.1300 10-20 RATIO Normal BUN/CRE 13.7 LAB L501.2200 8.5-10 mg/dL Normal .1 CA 9.1 LAB L501.5300 136-14 mmol/L Normal 5 NA 144 LAB L501.5600 3.5-5. mmol/L Normal 1 K 3.9 LAB L501.5900 98-107 mmol/L Normal CL 107 LAB L501.6100 21.0-3 mmol/L Normal 2.0 CO2 30.0 LAB L501.6200 5-15 Normal GAP 7 Performed By: #### L500.2500 #### [facility] [address] [place], [address] CONSULTATION Observed: 06/22/2017 Status: F Source: [place] 8:54 PM [facility] REPOSITORY [facility] Medical Records Department [address] [place] [address] Consultation 06/22/17 1634 MR#: [id number] Acct: [id number] Name: MARQUEZ GARCIA Rep #: [id number] : 1940 77 From: Shekhar Arboleda DO PCP: Mateus Hernandez DO Status: ADM IN Location: [id number] Problem List (1) Osteoarthritis Status: Chronic (2) S/P total knee arthroplasty Status: Acute Qualifiers: Laterality: right Qualified Code(s): Z96.651 - Presence of right artificial knee joint Comment: 06/22/17 (3) Chronic renal failure, stage 3 (moderate) Status: Chronic (4) Allergic rhinitis Status: Chronic (5) Benign essential HTN Status: Chronic (6) CAD (coronary artery disease) Status: Chronic Qualifiers: Coronary Disease-Associated Artery/Lesion type: [place] artery [place] vs. transplanted heart: [place] heart Associated angina: without angina Qualified Code(s): I25.10 - Atherosclerotic heart disease of [place] coronary artery without angina pectoris (7) Esophageal reflux Status: Chronic (8) Gingivitis Status: Chronic (9) HLD (hyperlipidemia) Status: Chronic Qualifiers: Hyperlipidemia type: pure hypercholesterolemia Qualified Code(s): E78.00 - Pure hypercholesterolemia, unspecified; E78.0 - Pure hypercholesterolemia (10) History of percutaneous transluminal coronary angioplasty Status: Chronic Comment: PTCA AND MARITZA of proximal AND Mid LAD AND Proximal AND mid RCA in June 2000, PTCA AND MARITZA of mid LAD November 2010 (11) Hypertension Status: Chronic Qualifiers: Hypertension type: essential hypertension Qualified Code(s): I10 - Essential (primary) hypertension (12) Hypothyroidism Status: Chronic (13) Prostate cancer Status: Chronic - Consult Date of Consult: 06/22/[address] Jimenez for medical management. He had a R TKA 06/22 and PMH is significant for CAD, hyperlipidemia, hypothyroidism, chronic renal failure stage III, obesity, osteoarthritis, hypertension, obstructive sleep apnea on CPAP, BPH and PTCA of the LAD and RCA with stents. Last cardiac catheterization was in 2013 and demonstrated patent pre-existing stent of his LAD and mid LAD, patent pre- existing stent of his RCA and an ejection fraction of 65%. He saw Dr. Tijerina in the office on 06/10/2017 in preparation for total knee replacement. Preoperative lab showed a BUN of 24 with a creatinine of 1.35. TSH was elevated at 8.9. Preoperative EKG showed normal sinus rhythm with left axis deviation but was otherwise unremarkable. - Reason for Consult Denies chest pain, shortness of breath, palpitations. He was eating supper and appeared in no acute distress at the time of my visit. States his pain is adequately controlled and he was able to ambulate to the nurses desk this afternoon. Also denies nausea, vomiting. Tells me that his levothyroid dose was recently increased to 0.15 mg daily from 0.137 mg daily due to the elevated TSH. He does take the medication on an empty stomach. Alert and oriented 3, no apparent distress Lungs-good air exchange and clear to auscultation Heart-regular rate and rhythm without murmur, no gallop, no rub, normal S1, normal S2, no ectopy Carotids-brisk upstroke with good pulse volume and no carotid bruits No jugular vein distention Abdomen-obese, soft, nontender, nondistended, no guarding with palpation, normal bowel sounds heard Intact sensation to both feet No calf pain him a no peripheral edema him a peripheral pulses are intact and normal Mucous membranes are moist Affect is normal he is appropriate Impressions 1. S/P R TKA by Dr. Jimenez 2. CAD with hx of stents to the LAD and RCA 3. HTN 4. Osteoarthritis 5. Chronic renal failure stage III 6. Hypertension 7. BPH 8. Hyperlipidemia/GERD/gingivitis/hypothyroidism/history of prostate cancer-complicate care, management, prognosis and recovery. 9. Restless leg syndrome Plans on going home Thursday with outpatient physical therapy Will change the diet to a cardiac diet. Will continue to follow along with you while he is in the hospital He was instructed to notify the nurse immediately if he has chest pain or SOB. Would limit nonsteroidal use in light of chronic renal failure stage III Discontinue IV fluids. The patient is on Lasix, hydrochlorothiazide and Aldactone as an outpatient and he is taking his diet well so no need for IV hydration. Code Visit Inpatient E AND M: 12581 Subs Hosp L2 06/22/172053 <Electronically signed by Shekhar Arboleda DO> Date Shekhar Arboleda DO Cosigner Signature (if applicable): Date CC: Arleen Arboleda; Mateus Hernandez DO Signed OPERATIVE REPORT Observed: 06/22/2017 Status: F Source: [place] 1:41 PM [facility] RE[facility]ORY [facility] Medical Records Department [address] [place] [address] Operative Report 06/22/17 1338 MR#: [id number] Acct: [id number] Name: MARQUEZ GARCIA Rep #: [id number] : 1940 77 From: Mike Jimenez DO PCP: Mateus Hernandez DO Status: [facility]M IN [id number] Operation Date of Procedure: 06/22/17 Pre-Operative Diagnosis: Severe end-stage osteoarthritis right knee Post-Operative Diagnosis: Severe end-stage osteoarthritis right knee Surgery/Procedure Performed:: Total knee arthroplasty right knee Description of Surgical Findings:: Eburnation of bone, periarticular osteophytes consistent with tricompartmental osteoarthritis psychologist counseling: Ailin Harden Type of Anesthesia:: Spinal Anesthesiologist: Vishnu Ortiz Special Medications: txa Specimen's removed: Bone and soft tissue Estimated Blood Loss (mL): 100 Fluids Replaced: See anesthesia report Description of Procedure: Implants: Buzzoek triathlon cruciate retaining size 5 femur 5 tibia 35 patella all cemented with Simplex 9 mm CS articulating surface Indications: Patient has severe end-stage osteoarthritis diagnosed via x-rays in the knee. They have failed all forms of conservative measures including activity modification, injections, anti-inflammatories, use of assistive device. The patient has pain that affects on a daily basis and prevents him from doing things that they enjoyed. They have elected to undergo the above procedure. The risks of the procedure were discussed at length and their questions were answered. Procedure description: The patient was greeted in the preoperative area. The right knee was then marked with a surgical marker. Patient was then taken to or [address]. They were administered a dose of antibiotics as well as tranexamic acid. Once adequate anesthesia was obtained and airway was secured to placed in supine position on the operating room table. A well-padded tourniquet was placed on the affected extremity. Leg was then prepped and draped in the usual sterile fashion from the knee down. Ioban was used on the skin. Surgical timeout was then performed and confirmed with all present. Six-inch Esmarch was used to examine the limb and tourniquet was then inflated to 250 mmHg. A longitudinal incision was then planned and carried out in the anterior aspect of the knee. The dissection was then carried the length of the incision the extensor mechanism was identified. Standard medial parapatellar arthrotomy was then performed revealing severe eburnation of bone and periarticular osteophytes. There is complete loss of cartilage especially in the medial compartment with varus alignment. Anterior fat pad was removed for visualization purposes and the anterior medial aspect of the tibia was skeletonized for exposure to the knee. The knee was then flexed the patella was inverted. Opening reamer was then used in the femur approximately 1 cm anterior to the attachment of the PCL. The intramedullary valgus wand was then placed in the femur set at 5 of valgus. The distal femoral cutting jig was then applied to the femur with anticipated resection of approximately 8 mm. This was then made with a oscillating saw. The sizing guide was then placed referencing off the posterior condyles and also reference off the epicondylar axis. This was measured and the appropriate size 4-in-1 cutting jig was then applied to the distal femur. Anterior posterior cuts were made followed by the anterior and posterior chamfer cuts. These bony pieces and fragments were removed and placed on the back table. Posterior retractor was then utilized and the tibia was subluxed anteriorly. Extramedullary tibial alignment jig was then applied to the tibia referencing off the medial one third of the tibial tubercle the anterior tibial spine the middle aspect of the tibiotalar joint. Also reference off patient's [place] slope. The tibial cutting jig was then pinned with anticipated resection of 2 mm off of the deficient medial tibial condyle. This cut was made with the oscillating saw. Once this was complete a laminar hot patcher was utilized in both medial lateral meniscus were removed and a posterior capsular osteophytes were also removed. Posterior capsule release was performed in the posterior capsule as well as the geniculate arteries are treated with the aqua Jose G. The tibia was incised and the appropriate sized tibial tray was then pinned. The femoral trial was then placed and the knee was trialed. Full flexion-extension were easily achieved. The knee seemed to balance quite nicely. Any remaining osteophytes were removed at this time. Once this was complete the patella was everted and the Sangita patella reaming device was then utilized the patella was then placed in the appropriate jig and reamer was then used to remove approximately 9 mm of the undersurface of the patella. A soft tissue remaining was in the way was removed and patella trial was then placed listed maintain excellent tracking using the no thumbs technique. The tibial tray at this point was punched to accommodate the fins of the final implant. At this point cement was mixed on the back table. The trial components were removed and the knee was copiously irrigated. Did use a cocktail of injection for postoperative pain control. The final components were then cemented in the standard fashion and excess cement was removed with cement removal tools and patellar clamp is placed in the patella. As the cement had cured in full extension tourniquet was deflated and hemostasis was perfect with Bovie cautery as well as the aqua Manus. Needle is once again trialed with different size polyethylenes to ensure the full range of motion was achieved as well as excellent balancing ligamentously was achieved. At this point the knee was copiously irrigated. Final implant was then inserted locking mechanism was engaged and confirmed to be locked. The arthrotomy was then closed with #1 Vicryl aggravate type fashion interrupted. Subcutaneous tissue was closed with 0 Vicryl and surgical jasmina were placed in the skin. A occlusive silver impregnated dressing was then applied followed by well-padded sterile dressing secured with an Bacilio wrap. The patient was taken to the PACU in stable condition. No complications known at this time. Postoperatively we will maintain standard total knee postoperative protocol. - Complications none - Admit VTE Documentation VTE Present on Admission: Yes VTE Mechan Device Prophylaxis: SCD's, Thigh High RAUL Hose VTE Pharm Prophylaxis ordered?: Yes 06/22/17 1341 <Electronically signed by Mike Jimenez DO> Date Mike Jimenez DO CC: Arleen Arboleda; Mateus Hernandez DO; Mike Jimenez DO Signed 12 LEAD ELECTROCARDIOGRAM Observed: 06/11/2017 Status: F Source: [place] 12:55 PM [facility] REPOSITORY [facility] Cardiovascular Services [address] [place] [address] EKG - [facility] [place] 06/08/17 1515 MR#: [id number] Acct: [id number] Name: MARQUEZ GARCIA Rep #: [id number] : 1940 77 From: Mckay Valdez MD Attending Dr: Mike Jimenez DO Status: PRE IN Ordering Dr: Mike Jimenez DO Date: 06/08/17 Location: [facility] [place] Sex: M C Admitted: Test Reason : Blood Pressure : / mmHG Vent. Rate : 052 BPM Atrial Rate : 052 BPM P-R Int : 160 ms QRS Dur : 098 ms QT Int : 428 ms P-R-T Axes : 057 -30 069 degrees QTc Int : 398 ms Sinus bradycardia Left axis deviation Abnormal ECG Confirmed by MCKAY VALDEZ MD ([id number]), editor sound ELISHA TRAVIS ([id number]) on 06/11/2017 12:55:37 PM Referred By: Adarsh Tijerina Confirmed By:MCKAY VALDEZ MD 06/11/17 1255 Date Mckay Valdez MD CC: Mateus Hernandez DO Date Dictated: 06/08/171514 Date Transcribed: 06/08/171514 Propellant Charge Zone Assembler: Signed CARDIOLOGY VISIT Observed: 06/10/2017 Status: F Source: [place] REPORT 5:51 PM [facility] REPOSITORY [facility] [address] [place] [address] OFFICE VISIT Date of Service: 06/10/17 MR#: [id number] Acct: [id number] Name: MARQUEZ GARCIA Rep #: [id number] : 1940 Provider: Gerri Rodriguez Age/Sex: 77/M Location: [facility] Status: Signed HPI HPI Details: MARQUEZ GARCIA, is a 77 M who presents to the office today for a cardiovascular follow-up. He has a history of coronary artery disease with stenting to his LAD in 2011, hypertension, hyperlipidemia and near syncope. Heart catheterization in 2013 demonstrated patent pre-existing stent of his LAD and mid LAD, patent pre-existing stent of his RCA with an ejection fraction of 65%. He is scheduled to have his right Knee replaced on 06/22. From a cardiac standpoint, patient is doing well. He does not have any chest discomfort/heaviness/tightness. His exercise tolerance is stable for his age. He does not have any worsening symptoms of shortness of breath. He denies any PND. He does not have any orthopnea. He does not have any symptoms of congestive heart failure. He does not have any palpitations that he is aware of. He does not have any lightheadedness or dizziness. He does not have any near-syncope or syncope. He does not have any lower extremity edema. He does not have any symptoms of claudication. Intake Vital Signs06/10/17 Height 5 ft 11 in 06/10/17 Weight: 248 lb 06/10/17 Body Mass Index (BMI) 34.5 06/10/17 Blood Pressure 146/88 06/10/17 Blood Pressure Location Lt brachial Intake Visit Reasons: F/U Logging Superintendent Required: No Accompanied by: Is patient in pain?: Yes (sharp right knee discomfort) Pain scale (1-10): 8 Allergies modafinil [From Provigil] Allergy (Verified 06/10/17 11:35) Other moxifloxacin HCl [From Avelox] Allergy (Verified 06/10/17 11:35) Upset Stomach Medications Albuterol IH (ProAir) [Proair Hfa] 2 puff INHALATION Q4H PRN PRN 08/29/13 [History Confirmed 06/10/17] Aspirin 81 mg PO DAILY@0800 08/29/13 [History Confirmed 06/10/17] Doxazosin Mesylate [Cardura] 4 mg PO DAILY 08/29/13 [History Confirmed 06/10/17] Finasteride [Proscar] 5 mg PO DAILY 08/29/13 [History Confirmed 06/10/17] Levothyroxine [Synthroid] 137 mcg PO DAILY 08/29/13 [History Confirmed 06/10/17] Meclizine HCl [Antivert] 25 mg PO 4X/DAY PRN PRN 08/29/13 [History Confirmed 06/10/17] Multivitamins,Therapeutic [Multivitamin] 1 tab PO DAILY 08/29/13 [History Confirmed 06/10/17] Nitroglycerin [Nitrostat] 0.4 mg SUBLINGUAL Q5M PRN 08/29/13 [History Confirmed 06/10/17] Rosuvastatin Calcium [Crestor] 40 mg PO DAILY 08/29/13 [History Confirmed 06/10/17] Spironolact/Hydrochlorothiazid [Aldactazide 25-25 Tablet] 25 mg PO DAILY 08/29/13 [History Confirmed 06/10/17] TraMADol [Ultram (G)] 25 - 50 mg PO Q4H PRN PRN 08/29/13 [History Confirmed 06/10/17] Fluticasone/Salmeterol [Advair 500/50 Mcg Diskus] 1 puff INHALATION BID 01/16/16 [History Confirmed 06/10/17] Linacolotide [Linzess] 145 mcg PO DAILY 01/16/16 [History Confirmed 06/10/17] Pramipexole Di-HCl [Mirapex] 0.5 mg PO QHS 01/16/16 [History Confirmed 06/10/17] Tiotropium [place] [Spiriva 18 MCG] 1 puff INHALATION DAILY 01/16/16 [History Confirmed 06/10/17] furosemide 40 mg tablet 40 mg PO QDAY 05/06/17 [History Confirmed 06/10/17] famotidine 40 mg tablet 40 mg PO QDAY tab 05/21/17 [History Confirmed 06/10/17] Azelastine HCl [Astelin] 1 spray NASAL BID 06/08/17 [History Confirmed 06/10/17] Duloxetine HCl 30 mg PO DAILY 06/08/17 [History Confirmed 06/10/17] Ropinirole HCl [Requip] 0.5 mg PO QHS 06/08/17 [History Confirmed 06/10/17] Temazepam [Restoril] 7.5 mg PO QHS 06/08/17 [History Confirmed 06/10/17] Wheat Dextrin [Benefiber] 1 ea PO QHS 06/08/17 [History Confirmed 06/10/17] potassium chloride ER 20 mEq tablet,extended release(part/cryst) 40 meq PO QDAY tab 06/10/17 [History Confirmed 06/10/17] Ejection fraction %: 65 to 70 PFSH Medical History Hypertension (Chronic) Syncope and collapse (Chronic) CAD (coronary artery disease) (Chronic) Syncope (Chronic) HLD (hyperlipidemia) (Chronic) Surgical History History of percutaneous transluminal coronary angioplasty (Chronic) Family History Father , from aneurysm CAD (coronary artery disease) Mother Multiple sclerosis Brother CAD (coronary artery disease) Cancer Prostate cancer Daughter Diabetes Social History Smoking Status: Former smoker how long ago did patient quit smokin alcohol intake: never substance use type: does not use caffeine: Yes Type: coffee Number of servings: 2 what type of physical activity do you participate in: none seatbelt use: always do you feel safe at home: Yes ROS Const Const: Negative for weakness, fatigue, fever(s) or headache(s) Eyes Eyes: Negative for blind spots, loss of peripheral vision or transient loss of vision ENT ENT: Negative for headache(s), Negative for dizziness, Negative for tinnitus, Negative for Nosebleed/epistaxis Cardio Chest Pain: No Palpitations: Positive for No Edema: None Muscle aches with walking: None Resp Respiratory: Negative for SOB with activity, SOB at rest or SOB orthopnea\SOB lying down GI GI: Negative nausea, vomiting, heartburn or vomiting blood/hematemesis : Negative for hematuria Musc Musc: Positive for joint pain; negative for muscle aches/ myalgia Neuro Neuro: Negative for weakness, Negative for headache(s), Negative for dizziness, Negative for near syncope, Negative for syncope, Negative for lightheadedness Julian Hematologic/Lymphatic: Negative for easy bleeding Endo Endo: Negative for fatigue Cardiology Exam Const Appearance: cooperative, no acute distress and well developed Orientation: alert, awake and oriented x3 Head Head: normocephalic and atraumatic Mouth: moist mucous membranes Eyes General: appearance normal, both eyes and all related structures Conjunctivae: conjunctivae normal Pupils: PERRL EOM: EOM intact bilaterally Neck Neck: normal visual inspection, no lymphadenopathy and no JVD Carotids: Negative bruit Neck Mass: Negative Neck mass Chest Chest inspection: normal inspection of the chest and symmetric chest movement Auscultation: Bilateral: Clear to Auscultation Cardio Palpation: normal PMI Rate: regular rate Rhythm: regular rhythm Heart sounds: S1 normal and S2 normal; negative rub, gallop or murmur GI GI: normal to inspection, soft, no hepatosplenomegaly and bowel sounds present; negative tender Neuro General: alert, awake, oriented x3, CN's II-XI intact bilaterally and moves all extremities Extremities Pulses: Normal: Right Posterior Tibial Pulse, Left Posterior Tibial Pulse, Right Radial Pulse, Left Radial Pulse Lower Extremity Edema: None: Bilateral Psych Psychological: normal affect Assessment AND Plan 1. Atherosclerosis of [place] coronary artery of [place] heart without angina pectoris I25.10 Andra - TARUN Díaz Stable, from a cardiac standpoint patient does not have any symptoms of angina. We recommend that they continue with current aggressive medical management and risk factor modification. 2. Essential hypertension I10 Plan TARUN Acosta Blood pressure slightly elevated today however he states at home it is normotensive. He does monitor it closely. He will let us know if it remains elevated. 3. Pure hypercholesterolemia E78.00; E78.0 Plan - TARUN Díaz Recent lipid profile demonstrates total cholesterol 138, HDL 45, LDL 69. He will continue with current aggressive medical management. Plan Detail Additional Comments - TARUN Díaz The above patient was discussed with Dr. Tijerina, he agrees with plan of care. Thank you for allowing us to participate in patient's plan of care, if you have any questions please do not hesitate to call. This note was generated using a voice recognition system and there may be incorrect words, spelling or punctuation errors that were not noted when reviewing the office note prior to saving. Follow Up 6 Months (MMM/PFM) Coding Level of Care Code Off vis,new,level 3 Diagnoses Atherosclerosis of [place] coronary artery of [place] heart without angina pectoris I25.10 Coronary Disease-Associated Artery/Lesion type: [place] artery [place] vs. transplanted heart: [place] heart Associated angina: without angina Essential hypertension I10 Hypertension type: essential hypertension Pure hypercholesterolemia E78.00; E78.0 Hyperlipidemia type: pure hypercholesterolemia Coding Level of Care Code Off vis,new,level 3 Diagnoses Atherosclerosis of [place] coronary artery of [place] heart without angina pectoris I25.10 Coronary Disease-Associated Artery/Lesion type: [place] artery [place] vs. transplanted heart: [place] heart Associated angina: without angina Essential hypertension I10 Hypertension type: essential hypertension Pure hypercholesterolemia E78.00; E78.0 Hyperlipidemia type: pure hypercholesterolemia 06/10/17 1352 <Electronically signed by Gerri MCNEIL> Date Gerri MCNEIL 06/10/17 1751<Electronically signed by Adarsh Tijerina MD> Cosigner Signature: Date (if applicable) Adarsh Tijerina MD CC: Mateus Hernandez DO CBC-COMPLETE BLOOD CNT Collected: 06/08/2017 Status: F Source: [facility] NO DIFF [facility] TYPE CODE TESTS RESULT OUT OF RANGE REFERENCE UNITS LAB L100.1000 4.4-11.0 K/mm3 Normal WBC 7.9 LAB L100.1200 4.6-6.2 M/mm3 Normal RBC 5.12 LAB L100.1300 13.0-16.5 g/dl Normal HGB 15.0 LAB L100.1400 40-54 % Normal HCT 46.7 LAB L100.1500 80-94 fL Normal MCV 91.2 LAB L100.1600 27.0-32.0 pg Normal MCH 29.3 LAB L100.1700 32-36 g/gl Normal MCHC 32.1 LAB L100.1810 11.6-14.6 % High RDW CV 16.7 LAB L100.1820 35.1-43.9 fl High RDW SD 56.0 LAB L100.1900 150-450 K/mm3 Normal PLT 192 LAB L100.2000 6.2-12.0 fl Normal MPV 9.7 Performed By: #### L100.0500 #### [facility] [address] [place], [address] PROTHROMBIN TIME W/INR Collected: 06/08/2017 Status: F Source: [place] 3:15 PM [facility] REPOSITORY TYPE CODE TESTS RESULT OUT OF RANGE REFERENCE UNITS LAB L300.4150 11.7-14.9 SECONDS Normal PROTIME 13.1 LAB L300.4200 Normal INR 1.0 Performed By: #### L300.3900, L300.4310 #### [facility] [address] [place], [address] PARTIAL THROMBOPLAST Collected: 06/08/2017 Status: F Source: [facility] TIME 3:15 PM [facility] REPOSITORY TYPE CODE TESTS RESULT OUT OF RANGE REFERENCE UNITS LAB L300.4310 24.1-36.2 Seconds Normal PTT 26.4 Performed By: #### L300.3900, L300.4310 #### [facility] [address] [place], [address] BASIC METABOLIC Collected: 06/08/2017 Status: F Source: [facility] PROFILE (BMP) 3:15 PM [facility] REPOSITORY TYPE CODE TESTS RESULT OUT OF RANGE REFERENCE UNITS LAB L501.0100 74-106 mg/dL Normal GLU 100 Result Comment: Fasting Glucose result from 100 to 125 mg/dL suggests IMPAIRED HOMEOSTASIS per A.D.A. criteria. Please note revised GLUCOSE reference range effective 2017. LAB L501.1000 7-18 mg/dL High BUN 24 LAB L501.1100 0.70-1.30 mg/dL High CREAT,SERUM 1.35 Result Comment: The validity of the calculated GFR AND GFRAA in patients over 70 years has not been determined. Clinical correlation is essential. LAB L501.1110 >60 mL/min Low EST GFR 55 Result Comment: Non- GFR Calc LAB L501.1115 >60 mL/min Normal EST GFR - AA 66 Result Comment: GFR Calc LAB L501.1255 ml/min Normal Estimated CRCL 48.82 LAB L501.1300 10-20 RATIO Normal BUN/CRE 17.8 LAB L501.2200 8.5-10 mg/dL Normal .1 CA 9.5 LAB L501.5300 136-14 mmol/L Normal 5 NA 143 LAB L501.5600 3.5-5. mmol/L Normal 1 K 3.8 LAB L501.5900 98-107 mmol/L Normal CL 106 LAB L501.6100 21.0-3 mmol/L Normal 2.0 CO2 30.0 LAB L501.6200 5-15 Normal GAP 7 Performed By: #### L500.2500, L500.3400, L501.9520 #### [facility] [address] [place], [place], [address] LIVER PROFILE Collected: 06/08/2017 Status: F Source: [place] 3:15 PM [facility] REPOSITORY TYPE CODE TESTS RESULT OUT OF RANGE REFERENCE UNITS LAB L501.1500 6.4-8.2 g/dL Normal T PROT 6.6 LAB L501.1800 3.2-5.0 g/dL Normal ALB 3.4 LAB L501.1950 2.2-4.2 g/dL Normal GLOB 3.2 LAB L501.4100 15-37 U/L Normal AST 19 LAB L501.4305 45-117 U/L Normal ALK P 52 LAB L501.4405 16-61 U/L Normal ALT 26 Result Comment: Please note revised ALT reference range effective 2017. LAB L501.4600 0.20-1.00 mg/dL Normal T BILI 0.30 LAB L501.4700 0.00-0.30 mg/dL Normal D BILI 0.10 Performed By: #### L500.2500, L500.3400, L501.9520 #### [facility] [address] [place], [address] THYROID STIM HORMONE Collected: 06/08/2017 Status: F Source: [facility] (TSH) 3:15 PM [facility] REPOSITORY TYPE CODE TESTS RESULT OUT OF RANGE REFERENCE UNITS LAB L501.9520 0.358-3.74 uIU/mL High TSH 8.90 Performed By: #### L500.2500, L500.3400, L501.9520 #### [facility] [address] [facility] [place], [address] Observed: 06/08/2017 Status: F Source: [place] MRSA/SAID SCREEN 3:15 PM [facility] REPOSITORY MRSA/SAID SCRN S. AUREUS S. aureus Negative MRSA MRSA Negative Performed By: #### M100.651 #### [facility] [address] [place], [address] LIVER PROFILE Collected: 06/05/2017 Status: F Source: [place] 9:20 AM [facility] REPOSITORY Order Comment: Order Date: 12/05/16 Order Info: [id number] - *Hepatic Function Panel Order Info: [id number] - *Lipid Profile CC PCP Comments: 12 hours fasting, may have water. TYPE CODE TESTS RESULT OUT OF RANGE REFERENCE UNITS LAB L501.1500 6.4-8.2 g/dL Normal T PROT 6.8 LAB L501.1800 3.2-5.0 g/dL Normal ALB 3.5 LAB L501.1950 2.2-4.2 g/dL Normal GLOB 3.3 LAB L501.4100 15-37 U/L Normal AST 22 LAB L501.4305 45-117 U/L Normal ALK P 57 LAB L501.4405 16-61 U/L Normal ALT 26 Result Comment: Please note revised ALT reference range effective 2017. LAB L501.4600 0.20-1.00 mg/dL Normal T BILI 0.50 LAB L501.4700 0.00-0.30 mg/dL Normal D BILI 0.15 Performed By: #### L500.3400 #### [facility] [address] [place], [address] LIPID PROFILE Collected: 06/05/2017 Status: F Source: [place] 9:20 AM [facility] REPOSITORY Order Comment: Order Date: 12/05/16 Order Info: [id number] - *Hepatic Function Panel Order Info: [id number] - *Lipid Profile CC PCP Comments: 12 hours fasting, may have water. TYPE CODE TESTS RESULT OUT OF RANGE REFERENCE UNITS LAB L501.4900 200 mg/dL Normal CHOL 138 Result Comment: <200 mg/dL Desirable 200-240 mg/dL Borderline >240 mg/dL High Risk LAB L501.5000 mg/dL Normal TRIG 118 Result Comment: The drugs N-Acetylcysteine and Metamizole may falsely depress this assay. Serum Triglycerides Reference Interval Normal <150 mg/dL Borderline high 150 - 199 mg/dL High 200 - 499 mg/dL Very High > or = 500 mg/dL LAB L501.6400 mg/dL Normal HDL 45 Result Comment: The drugs N-Acetylcysteine and Metamizole may falsely depress this assay. Reference Range HDL <40 mg/dL Low HDL Cholesterol HDL >or= 60 mg/dL High HDL Cholesterol LAB L501.6500 0-130 mg/dL Normal LDL 69 LAB L501.6600 5-40 mg/dL Normal VLDL 24 Performed By: #### L500.4100 #### [facility] [address] [place], [address] ALLERGIES ALLERGIES DATE TYPE / CODE NAME / CODE REACTION SEVERITY SOURCE 05/06/2018 Drug moxifloxacin Upset Stomach Unknown [facility] Allergy/416 HCl/[id number](RXNO Community 045224([facility] ED [facility]) Repository 05/06/2018 Drug lisinopril/[id number] Unknown Unknown [facility] Allergy/416 58(RXNORM) Community 122038([facility] ED [facility]) Repository 05/06/2018 Drug lorazepam/[id number] Unknown SV [facility] Allergy/416 0(RXNORM) Community 807481([facility] ED [facility]) Repository 05/06/2018 Drug hydrocodone/[id number] Unknown Unknown [facility] Allergy/416 554(RXNORM) Community 689380([facility] ED CT) Repository 05/06/2018 Drug acetaminophen/F0060 Unknown Unknown [facility] Allergy/416 00066(RXNORM) [facility] 644115([facility] ED CT) Repository 05/06/2018 Drug modafinil/[id number] Other Unknown [facility] Allergy/416 5(RXNORM) [facility] 340265([facility] ED CT) Repository 03/11/2007 DRUG MODAFINIL OTHER: SEE C [facility] INGREDI/419 Other [place] 662952([facility] ED CT) NG/[id number] MODAFINIL [facility] 6([facility]) Repository ENCOUNTERS ENCOUNTERS ADMIT/DISCHARGE ACCOUNT NUMBER ADMITTING ENCOUNTER LOCATION SOURCE CLASS 05/06/2018 [id number] Ambulatory [facility] ding:LAB Repository 05/06/2018/05/06/19 [id number] Ambulatory BMSBuilding: Chad 19 BMS.[facility] Repository 04/30/2018/04/30/19 [id number] Ambulatory BBuilding:RANDY Aldana [address] [place] [address] Repository 04/06/2018 [id number] Ambulatory [facility] ding:LAB Repository 04/06/2018/04/06/20 [id number] Ambulatory BMSBuilding: Chad 18 BMS.[facility] Repository 03/31/2018/03/31/20 [id number] Ambulatory BMSBuilding: Chad 18 [facility] Repository 03/01/2018 [id number] Ambulatory BBuilding:DR Aldana [facility] Repository 01/13/2018 [id number] Ambulatory BMSBuilding: [facility] Repository 01/12/2018 [id number] Ambulatory [facility] ding:PSN Repository 12/30/2017 [id number] NICHOLAS, GINNA Ambulatory [facility] Other [place] Repository 12/30/2017/12/31/19 [id number] NICHOLAS, GINNA Inpatient [address] MEDICAL Repository CENTERBuildi ng:ENDORoom: POOLBed: 03 12/23/2017/12/24/19 [id number] Ambulatory BMSBuilding: Chad 18 BMS.[facility] Repository 12/22/2017 [id number] Ambulatory [facility] Repository 12/21/2017/12/22/19 [id number] Ambulatory [address] ding:OLAB [facility] Repository 12/09/2017/12/10/19 [id number] Ambulatory BMSBuilding: [place] 18 BMS.[facility] Repository 12/05/2017/12/06/19 [id number] Emergency BBuilding:ER [address] Repository 12/04/2017/12/05/19 [id number] Emergency BBuilding:ER [address] Repository 12/03/2017 [id number] Ambulatory [facility] ding:LAB Repository 09/23/2017 [id number] Ambulatory [facility] ding:LAB Repository 08/11/2017/08/12/19 [id number] Ambulatory [address] ding:[facility] Repository 07/23/2017 [id number] Ambulatory [facility] ding:MRI Repository 07/07/2017 [id number] Ambulatory [facility] ding:LAB Repository 07/03/2017 [id number] Ambulatory [facility] ding:[facility] Repository 06/27/2017/06/30/19 [id number] Chris Harrington Inpatient [address] ding:BJ3Qkea Repository : AV325Nmq: 1 06/27/2017 [id number] Chris Harrington Ambulatory BMSBuilding: Chad BMS.[facility] Repository 06/27/2017 [id number] Chris Harrington Ambulatory BMSBuilding: [facility] [facility]MS.[facility] Repository 06/27/2017 [id number] Chris Harrington Ambulatory BMSBuilding: Chad BMS.[facility] Repository 06/26/2017/08/19/19 [id number] Ambulatory BBuilding:PH Gómez 18 On license of [facility] Repository 06/22/2017/06/24/19 [id number] Tony, Inpatient Chad Chad 18 Mike Encounter [facility] ding:VW1Alkq Repository : BZ051Mpa: 1 06/22/2017 [id number] Tony, Ambulatory BMSBuilding: [place] Mike BMS.[facility] Repository 06/22/2017 [id number] Tony, Ambulatory BMSBuilding: [place] Mike BMS.[facility] Repository 06/10/2017/06/10/19 [id number] Ambulatory BMSBuilding: [place] 18 BMS.[facility] Repository 06/10/2017 [id number] Ambulatory BMSBuilding: [place] [facility] Repository 06/08/2017 [id number] Ambulatory BMSBuilding: Chad [facility] Repository 06/05/2017 [id number] Ambulatory Chad [facility] ding:LAB Repository PAYERS PAYERS ENCOUNTER GUARANTOR PAYER SUBSCRIBER SOURCE 05/06/2018 MARQUEZ Elizabeth Primary MARQUEZ Bonilla [id number] Insurance:MEDICARE FITZGERALDDOB: [facility] PART A [facility] [id number] Number: Repository [place] [address]Vzp: [id number] Date:2018-05-06 () 05/06/2018 Secondary MARQUEZ Bonilla [facility]: [facility] [id number] Hospital Number: Repository [id number] Date:0170-24-60[address] [address]PR: 05/06/2018 Tertiary NOT GIVENUNK [place] Insurance:SELF PAY [facility] Number: Effective Repository Date:2018-05-06 05/06/2018 MARQUEZ Elizabeth Primary MARQUEZ Bonilla [id number] Insurance:MEDICARE FITZGERALDDOB: [facility] TOM PART A BPolicy [id number] [facility], Number: Repository [place] [id number]: [id number] Date:2018-04-06 () 05/06/2018 Secondary MARQUEZ Elizabeth Chad Insurance:S FITZGERALDDOB: [facility] [id number] Hospital Number: Repository [id number] Date:9266-29-89[address], [place] [address]BV: 05/06/2018 Tertiary NOT GIVENUNK [place] Insurance:SELF PAY [facility] Number: Effective Repository Date:2018-05-06 04/30/2018 MARQUEZ Primary [facility] FITZGERALDDOB: Insurance:MEDICARE FITZGERALDDOB: [facility] PART B [employer] [id number] Repository [facility] TOM Number: 0 [facility], [id number] [place], [place] Date:2018-04-30 - [place] [address]Vcr: [id number] [email or web address]: Name:[facility] ()Tel: (000) [facility] [phone] () ()Tel: ([phone]) [address] [address]Bgtvqsikw, [phone] () [place] [address]OB: 04/30/2018 Secondary [facility] Insurance: FOR FITZGERALDDOB[facility] [id number] Repository Number: 0 MADHU SANTOS [id number] [facility], Date:2018-04-30 - [place] [address]Qxj: 2100-12-31plan Name:[facility] Box ()Tel: (000 7890Madiagustin [place] 000-0000 (WP) [address]WQ: 04/06/2018 MARQUEZ Elizabeth Primary MARQUEZ Bonilla [id number] Insurance:MEDICARE FITZGERALDDOB: [place] PART A [facility] [id number], Number: Repository [place] [id number]: [id number] Date:2018-04-06 () 04/06/2018 Secondary MARQUEZ C Chad Insurance:WPS FITZGERALDDOB: [facility] [id number] Hospital Number: Repository [id number] Date:8635-66-51DS [address], [place] [address]DX: 04/06/2018 Tertiary NOT GIVENUNK Brielle Insurance:SELF PAY [facility] Number: Effective Repository Date:2018-04-06 04/06/2018 MARQUEZ Elizabeth Primary MARQUEZ Elizabeth Chad [id number] Insurance:MEDICARE FITZGERALDDOB: Community [facility] PART A [facility] [id number] [facility], Number: Repository [place] [id number]: [id number] Date:2018-03-01 () 04/06/2018 Secondary MARQUEZ Elizabeth Brielle Insurance:WPS FITZGERALDDOB: [facility] [id number] Hospital Number: Repository [id number] Date:8788-20-47KR [address], [place] [address]JI: 04/06/2018 Tertiary NOT GIVENUNK Chad Insurance:SELF PAY [facility] Number: Effective Repository Date:2018-04-06 03/31/2018 MARQUEZ Elizabeth Primary MARQUEZ Bonilla [id number] Insurance:MEDICARE FITZGERALDDOB: Community [facility] PART A [facility] [id number] [facility]aritan Medical [facility], Number: Repository [place] [id number]: [id number] Date:2017-12-23 () 03/31/2018 Secondary MARQUEZ C Chad Insurance:WPS FITZGERALDDOB: [facility] [id number] [facility] Number: Repository [id number] Date:7879-73-33HJ [address], [place] [address]TG: 03/31/2018 Tertiary NOT GIVENUNK Brielle Insurance:SELF PAY [facility] Number: Effective Repository Date:2018-03-24 03/01/2018 MARQUEZ Elizabeth Primary MARQUEZ [facility] FITZGERALDDOB: Insurance:MEDICARE FITZGERALDDOB: [facility] [id number] [facility] Number: [id number] Repository VISTA [id number] 0 [facility], Date:2018-03-01 - [place] 1793-85-34Ikcb [place] [address]Lbd: 99413~[id number]@G Name:[facility] MAIL.COMTel: Administrators LLCPO ()Tel: (000) [address]Ikygmfbtz, 000-0000 (WP) ()Tel: [phone]: [phone] 03/01/2018 Secondary [facility] Insurance:CHRISTIANACARE FOR BUSHNELLDOB: [facility] [place] [place] Number: [id number] Repository [id number] 0 [facility] TOM Date:2018-03-01 - [facility] 8935-11-83Cihi [place] [address]Oxe: Name:[facility] [address]viridiana [place] ()Tel: [phone]: [phone] 01/13/2018 MARQUEZ Elizabeth Primary MARQUEZ Bonilla [id number] Insurance:MEDICARE FITZGERALDDOB: [facility] PART A olic [id number] Samaritan Medical Center, Number: Repository [place] [id number]: [id number] Date:2017-12-23 () 01/13/2018 Secondary MARQUEZ Elizabeth Brielle Insurance:WPS FITZGERALDDOB: [facility] [id number] Hospital Number: Repository [id number] Date:5214-87-85ID [address], [place] [address]KU: 01/13/2018 Tertiary NOT GIVENUNK Brielle Insurance:SELF PAY [facility] Hospital Number: Effective Repository Date:2018-01-13 01/12/2018 MARQUEZ Elizabeth Primary MARQUEZ Elizabeth Chad [id number] Insurance:MEDICARE FITZGERALDDOB: [place] PART A [facility] [id number] Samaritan Medical Center, Number: Repository [place] [id number]: [id number] Date:2017-12-23 () 01/12/2018 Secondary MARQUEZ Elizabeth Chad Insurance:S FITZGERALDDOB: [facility] [id number] Hospital Number: Repository [id number] Date:2763-07-61ON [address], [place] [address]JC: 01/12/2018 Tertiary NOT GIVENUNK Chad Insurance:SELF PAY [facility] Number: Effective Repository Date:2017-12-23 12/30/2017 MARQUEZ Elizabeth Primary MARQUEZ Elizabeth [facility] FITZGERALDDOB: Insurance:MEDICARE A FITZGERALDDOB: [facility] [id number] AND [facility] Number: [id number] Repository [place] [id number] [facility], Date: [place] [address]Dzz: () 12/30/2017 Secondary MARQUEZ Elizabeth [facility] Insurance: FOR FITZGERALDDOB: [facility] Number: [id number] Repository [id number] Date: 12/23/2017 MARQUEZ Elizabeth Primary MARQUEZ Elizabeth Chad [id number] Insurance:MEDICARE FITZGERALDDOB: [place] PART A [facility] [id number] Samaritan Medical Center, Number: Repository [place] [address]Lpe: [id number] Date:2017-10-29 () 12/23/2017 Secondary MARQUEZ Elizabeth Brielle Insurance:S FITZGERALDDOB: [facility] [id number] Hospital Number: Repository [id number] Date:7093-20-19LC [address], [place] [address]VO: 12/23/2017 Tertiary NOT GIVENUNK Brielle Insurance:SELF PAY [facility] Hospital Number: Effective Repository Date:2017-12-23 12/22/2017 MARQUEZ Elizabeth Primary MARQUEZ Elizabeth Chad [id number] Insurance:MEDICARE FITZGERALDDOB: [facility] PART A [facility] [id number] Samaritan Medical Center, Number: Repository [place] [id number]: [id number] Date:2017-12-22 () 12/22/2017 Secondary MARQUEZ C Brielle Insurance:[facility] FITZGERALDDOB: [facility] 1942GAD Hospital Number: Repository [id number] Date:8809-56-18MW [address], [place] [address]VZ: 12/22/2017 Tertiary NOT GIVENUNK Brielle Insurance:SELF PAY [facility] Number: Effective Repository Date:2017-12-22 12/21/2017 MARQUEZ Elizabeth Primary MARQUEZ Elizabeth [facility] FITZGERALDDOB: Insurance:MEDICARE FITZGERALDDOB: [facility] [id number] PART olic Number: [id number] Repository VISTA [id number] 0 [facility], Date:2017-12-21 - [place] 8851-90-35Kydl [place] [address]Hbj: 08051~7UCE4738@G Name:[facility] MAIL.COMTel: Kulwinder ROCHE ()Tel: (000) [address] [address]Eqlczbpmw, 000-0000 () ()Tel: [phone] YF [phone]: [phone] 12/21/2017 Secondary MARQUEZ Glenn [facility] Insurance:CHRISTIANACARE FOR FITZSENECADOB: [facility] [place] Number: [id number] Repository [id number] 0 VISTA Date:2017-12-21 - [facility], 1564-67-04Ddtn [place] [address]Arm: Name:[facility] Diana [address] [place] [address] ()Tel: [phone]: [phone] 12/09/2017 MARQUEZ Glenn Primary MARQUEZ Elizabeth [facility] [id number] Insurance:MEDICARE FITZGERALDDOB: [facility] PART A [facility] [id number] Samaritan Medical Center, Number: Repository [place] [id number]: [id number] Date:2017-06-10 () 12/09/2017 Secondary MARQUEZ Elizabeth Brielle Insurance:[facility] FITZGERLAKE TAYLOR TRANSITIONAL CARE HOSPITALDOB: [facility] [id number] Hospital Number: Repository [id number] Date:2367-60-22[address] [address]YC: 12/09/2017 Tertiary NOT GIVENUNK Brielle Insurance:SELF PAY [facility] Number: Effective Repository Date:2017-12-09 12/05/2017 MARQUEZ Primary [facility] ComplexZ[facility]DDOB: Insurance:MEDICARE FITZGERALDDOB: [facility] [id number] PART [facility] Number: [id number] Repository VISTA [id number] 0 [facility], Date:2017-12-05 [place], [place] 6413-52-78Efap [place] [address]Vmr: 65223~[id number]@G Name:[facility] MAIL.COMTel: Administrators LLCPO (HP)Tel: (000) [address] [address]Mmfyjsuyl, 000-0000 (WP) (HP)Tel: (282) [place] [address]PX: [phone] 12/05/2017 [facility] Insurance: FOR FITZGERALDDOB: [facility] LIFEPolicy Number: [id number] Repository [id number] 0 [facility] EATCHERELLE Date:2017-12-05 - [facility], 4887-26-07Ltbq [place] [address]Efi: Name:[facility] [address]otts ()Tel: [phone]: [phone] 12/04/2017 [facility]ZSENECADOB: Insurance:MEDICARE FITBARIX CLINICS OF PENNSYLVANIAB: [facility] PART BPolicy Number: [id number] Repository VISTA [id number] 0 [facility], Date:2017-12-04 - [place] 0857-11-78Hdjb [place] [address]Szx: 44[address]~2YQU0723@G Name:[facility] IDABELCalin MAIL.COMTel: Administrators LamahuiPO (HP)Tel: (000) [address] [address]Excosdpho, 000-0000 (WP) ()Tel: 999 [place] [address]OG: [phone] 12/04/2017 [facility] Insurance: FOR FITZGERALDDOB: [facility] LIFEPolicy Number: [id number] Repository [id number] 0 [facility] [place] Date:2017-12-04 - [facility], 8471-73-40Inbe [place] [address]Fkf: Name:[facility] [address] ()Tel: [phone]: [phone] 12/03/2017 MARQUEZ Elizabeth Primary MARQUEZ Elizabeth Chad [id number] Insurance:MEDICARE FITZGERALDDOB: Community [place] PART A [facility] [id number] Samaritan Medical Center, Number: [place]ository [place] [id number]: [id number] Date:2017-12-03 () 12/03/2017 Secondary MARQUEZ Elizabeth Chad Insurance:[facility] FITZGERALDDOB: [facility] [id number] Hospital Number: Repository [id number] Date:5604-89-65IM [facility] [place], [place] [address]DF: 12/03/2017 Tertiary NOT GIVENUNK Brielle Insurance:SELF PAY [facility] Number: Effective Repository Date:2017-12-03 09/23/2017 MARQUEZ Elizabeth Primary MARQUEZ Elizabeth Chad [id number] Insurance:MEDICARE FITZGERALDDOB: [facility] [id number] Samaritan Medical Center, Number: Repository [place] [id number]: [id number] Date:2017-09-23 () 09/23/2017 Secondary MARQUEZ Elizabeth Chad Insurance:[facility] FITZGERALDDOB: [facility] [id number] Hospital Number: Repository [id number] Date:3125-14-47WY [facility] [place]24[place], [place] [address]VB: 09/23/2017 Tertiary NOT GIVENUNK Brielle Insurance:SELF PAY [facility] Number: Effective Repository Date:2017-09-23 08/11/2017 MARQUEZ Elizabeth Primary MARQUEZ Elizabeth [facility] FITZGERALDDOB: Insurance:MEDICARE FITZGERALDDOB: [facility] [id number] [facility] Number: [id number] Repository [facility] ESTEFANY [id number] 0 [facility], Date:2017-08-11 - [place] 4174-34-51Wcvw [place] [address]Nth: 00297~4SFH8155@G Name:[facility] MAIL.COMTel: Kulwinder ROCHE ()Tel: (000) [address] [address]Ugszkxaup, 000-0000 () ()Tel: [phone] [phone] [phone]: [phone] 08/11/2017 Secondary MARQUEZ Elizabeth [facility] Insurance:CHRISTIANACARE FOR FITZGERALDDOB: [facility] [place] Number: [id number] Repository [id number] [address] [place] [address] Date:2017-08-11 - [facility], 0595-08-20Acwk [place] [address]Vnl: Name:[facility] Diana 90Mwyandot memorial hospitalagustin [place] ()Tel: [phone]) [phone]: () [phone] 07/23/2017 MARQUEZ Elizabeth Primary MARQUEZ Elizabeth Brielle [id number] Insurance:MEDICARE FITZGERALDDOB: [place] PART A [facility] [id number] Samaritan Medical Center, Number: [place]ository [place] [address]Did: [id number] Date:2017-07-09 () 07/23/2017 Secondary MARQUEZ C Chad Insurance:[facility] FITZGERALDDOB: [facility] [id number] Hospital Number: Repository [id number] Date:9526-74-11[address] [address]JX: 07/23/2017 Tertiary NOT GIVENUNK Brielle Insurance:SELF PAY [facility] Number: Effective Repository Date:2017-07-09 07/07/2017 MARQUEZ C Primary MARQUEZ Bonilla [id number] Insurance:MEDICARE FITZGERALDDOB: [facility] [place] PART A [facility] [id number] [facility]aritan Medical [facility], Number: [place]ository [place] [id number]: [id number] Date:2017-07-07 () 07/07/2017 Secondary MARQUEZ Elizabeth Chad Insurance:WPS FITZGERALDDOB: [facility] [id number] Hospital Number: Repository [id number] Date:0972-14-46VD [address], [place] [address]VX: 07/07/2017 Tertiary NOT GIVENUNK Chad Insurance:SELF PAY [facility] Hospital Number: Effective Repository Date:2017-07-07 07/03/2017 MARQUEZ Elizabeth Primary MARQUEZ Elizabeth Brielle [id number] Insurance:MEDICARE FITZGERALDDOB: Community [facility] [place] PART A [facility] [id number] Samaritan Medical Center, Number: Repository [place] [id number]: [id number] Date:2017-07-03 (HP) 07/03/2017 Secondary MARQUEZ C Chda Insurance:WPS FITZGERALDDOB: [facility] FOR [facility] [id number] Hospital Number: Repository [id number] Date:7019-51-74AW [address], [place] [address]HE: 07/03/2017 Tertiary NOT GIVENUNK Chad Insurance:SELF PAY [facility] Hospital Number: Effective Repository Date:2017-07-03 06/27/2017 MARQUEZ Elizabeth Primary MARQUEZ Bonilla [id number] Insurance:MEDICARE FITZGERALDDOB: Community [facility] [place] PART A [facility] [id number] [facility]aritan Medical Center, Number: [place]ository [place] [id number]: [id number] Date:2017-06-26 (HP) 06/27/2017 Secondary MARQUEZ C Chad Insurance:WPS FITZGERALDDOB: [facility] [id number] Hospital Number: Repository [id number] Date:4936-61-45WS [address], [place] [address]BE: 06/27/2017 Tertiary NOT GIVENUNK Chad Insurance:SELF PAY [facility] Hospital Number: Effective Repository Date:2017-06-26 06/27/2017 MARQUEZ Elizabeth Primary MARQUEZ Bonilla [id number] Insurance:MEDICARE FITZGERALDDOB: [place] PART A [facility] [id number] [facility] Medical [facility], Number: Repository [place] [id number]: [id number] Date:2017-06-26 () 06/27/2017 Secondary MARQUEZ C Chad Insurance:WPS FITZGERALDDOB: [facility] [id number] Hospital Number: Repository [id number] Date:8581-98-53EF [address], [place] [address]EV: 06/27/2017 Tertiary NOT GIVENUNK Brielle Insurance:SELF PAY [facility] Number: Effective Repository Date:2017-06-27 06/27/2017 MARQUEZ Elizabeth Primary MARQUEZ Elizabeth Brielle [id number] Insurance:MEDICARE FITZGERALDDOB: Community [place]IST[place] PART A [facility] [id number] [facility]aritan Medical Center, Number: Repository [place] [id number]: [id number] Date:2017-06-26 () 06/27/2017 Secondary MARQUEZ Elizabeth Chad Insurance:WPS FITZGERALDDOB: [facility] [id number] [place] [address] Number: Repository [id number] Date:9408-17-61DW [address], [place] [address]YU: 06/27/2017 Tertiary NOT GIVENUNK Chad Insurance:SELF PAY [facility] Number: Effective Repository Date:2017-06-27 06/27/2017 MARQUEZ Elizabeth Primary MARQUEZ Elizabeth Brielle [id number] Insurance:MEDICARE FITZGERALDDOB: [facility] [id number] [facility]aritan Medical Center, Number: Repository [place] [id number]: [id number] Date:2017-06-26 () 06/27/2017 Secondary MARQUEZ C Chad Insurance:WPS FITZGERALDDOB: [facility] [id number] [facility] Number: Repository [id number] Date:3535-41-08[address] [address]XI: 06/27/2017 Tertiary NOT GIVENMANASA Bonilla Insurance:SELF PAY [facility] Hospital Number: Effective Repository Date:2017-06-27 06/26/2017 MARQUEZ Elizabeth Primary MARQUEZ [facility] FITZGERALDDOB: Insurance:MEDICARE FITZGERALDDOB: [facility] [id number] PART olicy Number: [id number] Repository VISTA [id number] 0 [facility], Date:2017-06-05 - [place] 7466-08-90Rsjf [place] [address]Tgg: 383[address]~9WZU2644@G Name:[facility] MAIL.COMTel: [facility] ()Tel: (000) [address], [phone] (WP) ()Tel: [phone] [phone]: [phone] 06/26/2017 Secondary MARQUEZ Glenn [facility] Insurance:CHRISTIANACARE FOR [facility]: [facility] [place] Number: [id number] Repository [id number] 0 [facility] ESTEFANY Date:2017-06-05 [facility] 3785-15-99Cljz [place] [address]Ppx: Name:[facility] [address] [place], [place] [address]ag[place]in[place], [place] ()Tel: [phone]) [phone]: [phone]) [phone] 06/22/2017 MARQUEZ Elizabeth Primary MARQUEZ Bonilla [id number] Insurance:MEDICARE FITZGERALDDOB: [facility] EATCHERELLE PART A olic [id number] [facility], Number: Repository [place] [id number]: [id number] Date:2017-06-04 (HP) 06/22/2017 Secondary MARQUEZ Elizabeth Brielle Insurance:WPS FITZGERALDDOB: [facility] FOR [facility] [id number] Hospital Number: Repository [id number] Date:7267-57-47FK [address], [place] [address]HV: 06/22/2017 Tertiary NOT GIVENUNK Brielle Insurance:SELF PAY [facility] Hospital Number: Effective Repository Date:2017-06-04 06/22/2017 MARQUEZ Elizabeth Primary MARQUEZ Elizabeth Brielle [id number] Insurance:MEDICARE FITZGERALDDOB: Community [place] PART A [facility] [id number] Samaritan Medical Center, Number: Repository [place] [id number]: [id number] Date:2017-06-04 () 06/22/2017 Secondary MARQUEZ C Chad Insurance:WPS FITZGERALDDOB: [facility] [id number] Hospital Number: Repository [id number] Date:4187-34-66RP [address], [place] [address]FF: 06/22/2017 Tertiary NOT GIVENUNK Chad Insurance:SELF PAY [facility] Hospital Number: Effective Repository Date:2017-06-22 06/22/2017 MARQUEZ Elizabeth Primary MARQUEZ Bonilla [id number] Insurance:MEDICARE FITZGERALDDOB: Community [place] PART A [facility] [id number] Samaritan Medical Center, Number: Repository [place] [id number]: [id number] Date:2017-06-04 () 06/22/2017 Secondary MARQUEZ C Brielle Insurance:WPS FITZGERALDDOB: [facility] [id number] Hospital Number: Repository [id number] Date:6000-38-51OH [address], [place] [address]PC: 06/22/2017 Tertiary NOT GIVENUNK Brielle Insurance:SELF PAY [facility] Hospital Number: Effective Repository Date:2017-06-22 06/10/2017 MARQUEZ Elizabeth Primary MARQUEZ Bonilla [id number] Insurance:MEDICARE FITZGERALDDOB: Community [place] PART A [facility] [id number] [facility]aritan Medical Center, Number: [place]ository [place] [address]Pfp: [id number] [phone] Date:2017-04-01 () 06/10/2017 Secondary MARQUEZ C Chad Insurance:WPS FITZGERALDDOB: [facility] [id number] Hospital Number: Repository [id number] Date:5669-25-18[address], [place] [address]LX: 06/10/2017 Tertiary NOT GIVENUNK Brielle Insurance:SELF PAY [facility] Number: Effective Repository Date:2017-04-01 06/10/2017 Marquez Elizabeth Primary Marquez Elizabeth Chad [id number] Insurance:MEDICARE FitzgeraldDOB: [facility] [place] PART A [facility] [id number] of [facility], Number: Repository [place] [id number]: [id number] [phone] Date:2017-06-10 () 06/10/2017 Secondary Marquez Elizabeth Brielle Insurance:WPS FitzgeraldDOB: [facility] [id number] Hospital Number: Repository [id number] Date:8880-28-65LS [address], [place] [address]TA: 06/10/2017 Tertiary NOT GIVENUNK Brielle Insurance:SELF PAY [facility] Number: Effective Repository Date:2017-06-10 06/08/2017 MARQUEZ Elizabeth Primary MARQUEZ Elizabeth Chad [id number] Insurance:MEDICARE FITZGERALDDOB: [facility] PART A [facility] [id number] Samaritan Medical Center, Number: Repository [place] [id number]: [id number] Date:2017-06-05 () 06/08/2017 Secondary MARQUEZ C Chad Insurance:WPS FITZGERALDDOB: [facility] [id number] Hospital Number: Repository [id number] Date:8836-95-17TE [address], [place] [address]HM: 06/08/2017 Tertiary NOT GIVENUNK Chad Insurance:SELF PAY [facility] Number: Effective Repository Date:2017-06-08 06/05/2017 Marquez Elizabeth Primary Marquez Elizabeth Brielle [id number] Insurance:MEDICARE FitzgeraldDOB: [facility] PART A [facility] [id number] of Miami Hospital, Number: Repository [place] [id number]: [id number] [phone] Date:2017-06-05 () 06/05/2017 Secondary Marquez Morrisoster Insurance:[facility] FitjoanajewelDOB: [facility] [id number] Hospital Number: Repository [id number] Date:4069-17-64EB [address], [place] [address]EO: 06/05/2017 Tertiary NOT GIVENUNK Chad Insurance:SELF PAY [facility] Number: Effective Repository Date:2017-06-05
== END ==
PROVIDERS: Family Provider Family Medicine; PCP Family Medicine; Referring Provider Nurse Practitioner; Visit Provider Nurse Practitioner
DX: E03.9 Hypothyroidism, unspecified (principal)
CPT/HCPCS: 36415; 80053; 84439; 84443; 84481

== ENCOUNTER → 2018-05-06 13:39 | Outpatient (CLI) | payer MEDICARE, OTHER, SELFPAY ==
[2018-05-06 13:01] VITALS: BMI 32.1
[2018-05-06 15:24] LABS: Iron 62 ug/dL (65-175); Iron Binding Capacity,Total 313 ug/dL (250-450); PERCENT IRON SATURATION 19.8 % (15.0-55.0)
[2018-05-06 15:53] LABS: Vitamin B12 536 pg/mL (211-911)
[2018-05-09 20:06] LABS: Testosterone, Free 10.29 ng/dL (5.00-21.00)
[2018-05-10 09:41] LABS: Testosterone, Total 343 ng/dL (264-916)
== END ==
PROVIDERS: Family Provider Family Medicine; PCP Family Medicine; Referring Provider Nurse Practitioner; Visit Provider Nurse Practitioner
DX: R53.82 Chronic fatigue, unspecified (principal); R53.81 Other malaise
CPT/HCPCS: 36415; 82607; 83540; 83550; 84402; 84403

== ENCOUNTER → 2018-06-01 14:38 | Outpatient (CLI) | payer MEDICARE, OTHER, SELFPAY ==
[2018-05-06 13:01] VITALS: BMI 32.1
[2018-06-01 15:24] LABS: Absolute Lymphocyte Count 2.95 X10^3/ul (0.83-4.51); Absolute Neutrophil Count 2.8 X10^3/uL (2.0-7.7); Basophil# 0.04 X10^3/uL; Basophil% 0.6 % (0-1); Eosinophil# 0.27 X10^3/uL; Eosinophils% 4.2 % (0-5); Hematocrit 44.3 % (40-54); Hemoglobin 14.3 g/dl (13.0-16.5); Lymphocyte # 2.95 X10^3/ul (4.0); Lymphocyte % 45.4 % (19-41); Mean Corp Hgb Conc 32.3 g/gl (32-36); Mean Corpuscular Hgb 29.3 pg (27.0-32.0); Mean Corpuscular Volume 90.8 fL (80-94); Mean Platelet Vol. 10.2 fl (6.2-12.0); Monocyte# 0.44 X10^3/uL; Monocyte% 6.8 % (0-10); Neutrophil # 2.78 X10^3/uL (2.7-7.7); Neutrophil % 42.7 % (47-70); Platelet Count 176 K/mm3 (150-450); RBC Distribution Width SD 48.8 fl (35.1-43.9); Red Blood Count 4.88 M/mm3 (4.6-6.2); White Blood Count 6.5 K/mm3 (4.4-11.0)
[2018-06-01 16:12] LABS: POSITIVE COUNT NO; POSITIVE DIFFERENTIAL NO; POSITIVE MORPHOLOGY NO
[2018-06-01 16:13] LABS: CRP < 2.90 mg/L (0.0-3.0); Rheumatoid Factor < 10.0 IU/mL (<15); Uric Acid 4.3 mg/dL (3.5-7.2)
[2018-06-01 16:57] LABS: Erythrocyte Sedimentation Rate 19 mm/hr (0-20)
[2018-06-03 13:10] LABS: ANTINUCLEAR ANTIBODIES DIRECT Negative (Negative)
== END ==
PROVIDERS: Family Provider Family Medicine; PCP Family Medicine; Referring Provider Orthopaedic Surgery; Visit Provider Orthopaedic Surgery
DX: M17.11 Unilateral primary osteoarthritis, right knee (principal)
CPT/HCPCS: 36415; 84550; 85025; 85652; 86038; 86140; 86431

== ENCOUNTER → 2018-07-21 08:55 | Outpatient (CLI) | payer MEDICARE, OTHER, SELFPAY ==
[2018-05-06 13:01] VITALS: BMI 32.1
[2018-07-21 11:48] LABS: AST(SGOT) 26 U/L (15-37); Alanine Aminotransfer ALT/SGPT 23 U/L (16-61); Albumin, Serum 3.3 g/dL (3.2-5.0); Alkaline Phosphatase 52 U/L (45-117); Bilirubin, Direct 0.08 mg/dL (0.00-0.30); Cholesterol 150 mg/dL (200); Globulin 3.1 g/dL (2.2-4.2); High Density Lipoprotein 40 mg/dL; Protein, Total 6.4 g/dL (6.4-8.2); Triglycerides 185 mg/dL; Very Low Density Lipoprotein 37 mg/dL (5-40)
== END ==
PROVIDERS: Family Provider Family Medicine; PCP Family Medicine; Referring Provider Internal Medicine Cardiovascular Disease; Visit Provider Internal Medicine Cardiovascular Disease
DX: E78.5 Hyperlipidemia, unspecified (principal)
CPT/HCPCS: 36415; 80061; 80076

== ENCOUNTER → 2018-10-26 | Outpatient (CLI) | payer MEDICARE, OTHER, SELFPAY ==
[2018-10-06 08:58] VITALS: BMI 34.2
[2018-10-13 13:25] VITALS: BMI 34.2
--- NOTE | 2018-10-26 11:21 | STRESSREP ---
Stress Test Report Date: 10-26-18 Procedure: Pharmacologic stress nuclear imaging study Indications: Dizziness; fatigue; CAD; PCI Consent: Per the patient Procedure: The patient underwent pharmacologic (Regadenoson) evaluation with a peak heart rate of 65 beats per minute (45 %predicted maximal heart rate) and a peak blood pressure of 118/60 mmHg. The baseline ECG demonstrated sinus bradycardia. The peak pharmacologic ECG demonstrated no obvious ECG changes. There were no cardiac dysrhythmias pretest, during pharmacologic infusion, or recovery. There was no complaint of chest discomfort during pharmacologic infusion or recovery. The examination was discontinued secondary to completion of protocol. Impression: 1. Pharmacologic (Regadenoson) evaluation 2. Peak pharmacologic ECG with with no obvious ECG changes. 3. There were no cardiac dysrhythmias pretest, during pharmacologic infusion, or recovery. 4. Nuclear images pending Myocardial perfusion imaging study: Technique: The patient was injected with 14.8 millicuries of technetium 99m Cardiolite and subsequently rest SPECT Cardiolite nuclear imaging was obtained in the horizontal long, vertical long, and short axis views. The patient underwent pharmacologic (Regadenoson) evaluation with a peak heart rate of 65 beats per minute (45 % percent predicted maximal heart rate) and a peak blood pressure of 118/60 mmHg. The patient was injected with 44.7 millicuries of technetium 99m Cardiolite and subsequently stress SPECT Cardiolite nuclear imaging was obtained in the horizontal long, vertical long, and short axis views. A gated Cardiolite study at peak stress was obtained. Interpretation: Rest and stress SPECT Cardiolite nuclear imaging status post realignment, normalization, and attenuation correction demonstrate relative uniform tracer uptake and myocardial perfusion appearing within normal limits. There is end systolic thickening and brightening. The gated Cardiolite study demonstrates myocardial thickening and inward wall motion. The reported LVEF is 72 %. Impression: 1. Rest and stress SPECT Cardiolite nuclear imaging demonstrate relative uniform tracer uptake and myocardial perfusion appearing within normal limits. 2. The gated Cardiolite study reports an LVEF of 72 %. This note was generated with [employer] software. It may contain incorrect words, spelling, and punctuation that were not noted in checking the note before signing.
== END | disposition home or self-care (01) ==
LOC: NM 05:55
PROVIDERS: Family Provider Family Medicine; PCP Family Medicine; Referring Provider Physician Assistant Medical; Visit Provider Physician Assistant Medical
DX: I25.10 Atherosclerotic heart disease of native coronary artery without angina pectoris (principal); R42 Dizziness and giddiness; E78.00 Pure hypercholesterolemia, unspecified; I10 Essential (primary) hypertension; R53.83 Other fatigue
CPT/HCPCS: 78452; 93017; A9500; A4216; J2785

== ENCOUNTER → 2019-01-19 | Outpatient (CLI) | payer MEDICARE, OTHER, SELFPAY ==
[2019-01-18 15:10] VITALS: BMI 34.2
[2019-01-19 09:44] LABS: Absolute Lymphocyte Count 2.77 X10^3/uL (0.83-4.51); Absolute Neutrophil Count 3.4 X10^3/uL (2.0-7.7); Basophil# 0.03 X10^3/uL; Basophil% 0.4 % (0-1); Eosinophil# 0.25 X10^3/uL; Eosinophils% 3.6 % (0-5); Hematocrit 47.3 % (40-54); Hemoglobin 15.3 g/dL (13.0-16.5); Lymphocyte # 2.77 X10^3/ul (4.0); Lymphocyte % 40.1 % (19-41); Mean Corp Hgb Conc 32.3 g/dL (32-36); Mean Corpuscular Hgb 28.9 pg (27.0-32.0); Mean Corpuscular Volume 89.2 fL (80-94); Monocyte# 0.47 X10^3/uL; Monocyte% 6.8 % (0-10); NRBC Flagged by Analyzer 0 % (0-5); Neutrophil # 3.35 X10^3/uL (2.7-7.7); Neutrophil % 48.7 % (47-70); Platelet Count 215 K/mm3 (150-450); RBC Distribution Width CV 14.5 % (11.6-14.6); RBC Distribution Width SD 46.7 fl (35.1-43.9); White Blood Count 6.9 K/mm3 (4.4-11.0)
[2019-01-19 10:03] LABS: AST(SGOT) 15 U/L (15-37); Alanine Aminotransfer ALT/SGPT 25 U/L (16-61); Albumin, Serum 3.4 g/dL (3.2-5.0); Alkaline Phosphatase 64 U/L (45-117); Bilirubin, Direct 0.15 mg/dL (0.00-0.30); Cholesterol 119 mg/dL (200); Globulin 3.3 g/dL (2.2-4.2); High Density Lipoprotein 41 mg/dL; Protein, Total 6.7 g/dL (6.4-8.2); Triglycerides 161 mg/dL; Very Low Density Lipoprotein 32 mg/dL (5-40)
[2019-01-22 14:07] LABS: Alternaria alternata <0.10 kU/L (Class 0); Bermuda Grass 9.59 kU/L (Class IV); Cat Hair/Dander, Standard 1.81 kU/L (Class III); D farinae Mite 0.36 kU/L (Class I); D pteronyssinus 0.18 kU/L (Class 0/I); Dog Epithelia 0.54 kU/L (Class I); Elm, American White 0.87 kU/L (Class II); Oak, White 1.07 kU/L (Class II); Plantain, English 0.98 kU/L (Class II); Ragweed, Short/Common 4.59 kU/L (Class IV)
[2019-01-23 11:24] LABS: Mouse Urine <0.10 kU/L (Class 0)
[2019-01-23 11:30] LABS: Immunoglobulin E 287 IU/mL (6-495)
== END | disposition home or self-care (01) ==
LOC: LAB 08:39
PROVIDERS: Internal Medicine Cardiovascular Disease; Family Provider Family Medicine; PCP Family Medicine; Referring Provider Nurse Practitioner Acute Care; Visit Provider Nurse Practitioner Acute Care
DX: J45.909 Unspecified asthma, uncomplicated (principal); E78.5 Hyperlipidemia, unspecified; E78.00 Pure hypercholesterolemia, unspecified
CPT/HCPCS: 36415; 80061; 80076; 82785; 85025; 86003

== ENCOUNTER → 2019-04-22 13:34 | Outpatient (CLI) | payer MEDICARE, OTHER, SELFPAY ==
[2019-04-11 12:41] VITALS: BMI 33.7
[2019-04-22 16:55] LABS: T4 Free Direct 1.43 ng/dL (0.76-1.46)
== END ==
PROVIDERS: Family Provider Student in an Organized Health Care Education/Training Program; PCP Student in an Organized Health Care Education/Training Program; Referring Provider Nurse Practitioner; Visit Provider Nurse Practitioner
DX: E03.9 Hypothyroidism, unspecified (principal)
CPT/HCPCS: 36415; 84439

== ENCOUNTER → 2019-05-13 13:08 | Outpatient (CLI) | payer MEDICARE, OTHER, SELFPAY ==
[2019-04-11 12:41] VITALS: BMI 33.7
--- NOTE | 2019-05-13 13:45 | MRI_ITS ---
STUDY: MRI BRAIN WITH AND WITHOUT CONTRAST REASON FOR EXAM: Male, 79 years old. Abnormal cortisol levels. TECHNIQUE: Standardized multiplanar fat and water weighted pulse sequences were obtained. 20 mL of DOTAREM was administered intravenously for the contrast portion of the examination. Multiplanar thin sections of the pituitary gland were also performed. COMPARISON: MR brain without contrast 07/23/2017. FINDINGS: No restricted diffusion to suspect acute or subacute ischemic infarct. Cystic atrophy with encephalomalacia in both frontal poles. They are presumably from remote head injury. Normal ventricles and cisterns. Multiple small T2 FLAIR hyperintensity foci in the white matter of both cerebral hemispheres are chronic white matter ischemic changes. No midline shift and no mass effects. Thin sections of the pituitary gland show no suspicious enhancing or nonenhancing mass lesions. Normal bilateral basal ganglia. Normal thalami. There is no extra-axial fluid accumulation. Normal flow voids within the major intracranial circulation suggesting patency by spin echo criteria. Normal venous enhancement. There is no enhancing intra-axial or extra-axial abnormality. Normal sella turcica, pituitary gland, infundibular stalk, optic chiasm and hypothalamus. Normal tectal plate and pineal gland. Normal midbrain, tiffanie and medulla. Normal cerebellum. Normal basal cisterns. Normal bilateral temporal bones. Normal bilateral internal auditory canals. No demonstrated orbital abnormality, within the constraints of a routine brain study. Normal visualized paranasal sinuses. Normal calvarium and skull base. Normal visualized soft tissue structures. Normal visualized upper cervical spine. MRI/Brain W/WO Contrast IMPRESSION: 1. 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 2. Multiple chronic white matter ischemic changes in both cerebral hemispheres. 3. Normal MRI of the pituitary with and without intravenous contrast. 4. No significant interval change when compared to 07/23/2017. Electronically Signed: Darin Gabriel MD at 9:56 EST , Service support ,
[2019-05-13 14:36] LABS: CREATININE FINGERSTICK 1.3 mg/dL (0.70-1.30)
== END ==
PROVIDERS: Family Provider Student in an Organized Health Care Education/Training Program; PCP Student in an Organized Health Care Education/Training Program; Referring Provider Student in an Organized Health Care Education/Training Program; Visit Provider Student in an Organized Health Care Education/Training Program
DX: E23.7 Disorder of pituitary gland, unspecified (principal); R79.89 Other specified abnormal findings of blood chemistry
CPT/HCPCS: 70553; A9575

== ENCOUNTER → 2019-05-18 13:23 | Outpatient (CLI) | payer MEDICARE, OTHER, SELFPAY ==
[2019-04-11 12:41] VITALS: BMI 33.7
--- NOTE | 2019-05-18 13:36 | EKG12_ITS ---
Test Reason : PRE-OP Blood Pressure : / mmHG Vent. Rate : 061 BPM Atrial Rate : 061 BPM P-R Int : 180 ms QRS Dur : 094 ms QT Int : 400 ms P-R-T Axes : 079 -42 077 degrees QTc Int : 402 ms Normal sinus rhythm Left Anterior Hemiblock Left axis deviation Abnormal ECG Confirmed by ABNER APONTE ([id number]), telegraph editor KEKE SHORE ([id number]) on 05/19/2019 8:21:04 AM Referred By: Gio Rowan Confirmed By:ABNER APONTE
[2019-05-18 15:18] LABS: Hematocrit 46.6 % (40-54); Hemoglobin 14.7 g/dL (13.0-16.5); Mean Corp Hgb Conc 31.5 g/dL (32-36); Mean Corpuscular Hgb 28.7 pg (27.0-32.0); Mean Corpuscular Volume 90.8 fL (80-94); Mean Platelet Vol. 9.8 fl (6.2-12.0); Platelet Count 188 K/mm3 (150-450); RBC Distribution Width CV 14.6 % (11.6-14.6); RBC Distribution Width SD 49.1 fl (35.1-43.9); Red Blood Count 5.13 M/mm3 (4.6-6.2); White Blood Count 6.7 K/mm3 (4.4-11.0)
[2019-05-18 15:57] LABS: Anion Gap 2 (5-15); BUN 23 mg/dL (7-18); BUN/Creat Ratio 13.9 RATIO (10-20); Chloride 108 mmol/L (98-107); Creatinine, Serum 1.66 mg/dL (0.70-1.30); EST Glomerular Filtration Rate 43 mL/min (>60); Est Glom Filt Rate - Afr Amer 52 mL/min (>60); Glucose 146 mg/dL (74-106); Potassium 3.8 mmol/L (3.5-5.1); Sodium Level 140 mmol/L (136-145)
== END ==
PROVIDERS: PCP Student in an Organized Health Care Education/Training Program; Referring Provider Physician Assistant Surgical; Visit Provider Physician Assistant Surgical
DX: Z01.818 Encounter for other preprocedural examination (principal); Z01.810 Encounter for preprocedural cardiovascular examination
CPT/HCPCS: 36415; 80048; 85027; 93005

== ENCOUNTER → 2019-06-29 12:27 | Outpatient (CLI) | payer MEDICARE, OTHER, SELFPAY ==
[2019-06-29 11:10] VITALS: BMI 33.7
[2019-06-29 13:55] LABS: T4 Free Direct 1.15 ng/dL (0.76-1.46); Thyroid Stim Hormone (TSH) 0.08 uIU/mL (0.358-3.74)
== END ==
PROVIDERS: PCP Student in an Organized Health Care Education/Training Program; Referring Provider Internal Medicine Endocrinology, Diabetes & Metabolism; Visit Provider Internal Medicine Endocrinology, Diabetes & Metabolism
DX: E78.00 Pure hypercholesterolemia, unspecified (principal); E03.9 Hypothyroidism, unspecified
CPT/HCPCS: 36415; 84439; 84443

== ENCOUNTER → 2019-07-05 | Outpatient (CLI) | payer MEDICARE, OTHER, SELFPAY ==
[2019-06-29 11:10] VITALS: BMI 33.7
[2019-07-05 10:44] LABS: AST(SGOT) 17 U/L (15-37); Alanine Aminotransfer ALT/SGPT 24 U/L (16-61); Albumin, Serum 3.2 g/dL (3.2-5.0); Alkaline Phosphatase 49 U/L (45-117); Bilirubin, Direct 0.09 mg/dL (0.00-0.30); Cholesterol 138 mg/dL (200); Globulin 3.1 g/dL (2.2-4.2); Hemoglobin A1c 7.1 % (4.2-6.3); High Density Lipoprotein 46 mg/dL; Protein, Total 6.3 g/dL (6.4-8.2); Triglycerides 168 mg/dL; Very Low Density Lipoprotein 34 mg/dL (5-40)
== END | disposition home or self-care (01) ==
PROVIDERS: Internal Medicine Cardiovascular Disease; PCP Student in an Organized Health Care Education/Training Program; Referring Provider Nurse Practitioner; Visit Provider Nurse Practitioner
DX: E78.00 Pure hypercholesterolemia, unspecified (principal); E16.2 Hypoglycemia, unspecified; E03.9 Hypothyroidism, unspecified
CPT/HCPCS: 36415; 80061; 80076; 83036

== ENCOUNTER 2019-09-23 14:30 | Outpatient (RCR) | payer MEDICARE, OTHER, SELFPAY ==
[2019-04-11 12:41] VITALS: BMI 33.7
[2019-06-29 11:10] VITALS: BMI 33.7
--- NOTE | 2019-07-05 13:28 | HP.OTEVAL ---
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 Date of Evaluation: 07/04/19 Occupational Therapist: OVIDIO Fuentes/Stan, CHT - Subjective Subjective: . 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 pt states he struggled with left thumb pain for about a year and then opted for sx. attempted using brace before sx but still hand pain- Sx was Jun.03 4 weeks 2 days ago. pt states he has stitches removed 2019. Pt states he has pain and dry skin from having cast removed. pt arrived with soft thumb spica brace but did not support CMC. Pt demo limited use of left hand with ADls and IADLs and decrease knowledge of recovery. - ADLs Dressing: Button shirt, Pants, Socks, Shoes Fasteners: Tie shoes Eating: Use silverware - Pain left hand 4 Pain Intensity Range: 1, 6 - ROM Wrist: right 65/65 left 40/35 CMC: right 20 left 0 MP: right 45 left 30 IP: right 65 left 10 ROM Comments: pt demo with limited left wrist and thumb ROM due to newly healing structures - Strength Hub Inventory Specialist: right 80# left NT Lateral Pinch: right 16# left NT Tripod Pinch: right 18# left NT - Sensation Sensation Comments: numbness around the incison area - Quick DASH-Disab of Arm,Shoulder& Hand Quick DASH Score: 68.1800 - Hand/Wrist Evaluation Total Score of Pain & Functional Sections: 80 - Goals Goal:100% adherence to protocol: Yes Comment: cmc arthroplasty protocol Goal:Daily scar massage when approriate: Yes Goal:ROM equal to unaffected hand: Yes Goal:Hub Inventory Specialist/Pinch strength at least 75% of unaffected hand: Yes Goal:No pain with affected hand use: Yes Goal:Full use of affected hand in daily activities including: Yes Goal:Improvement in sensation documented by [place]-Delvis: Yes Goal:Decrease scar hypersensitivity: Yes - Rehabilitation General Assessment: pt is currently 4 weeks s/p a left CMC arthroplasty- pt demo with limited ROM and strength of left hand due to healing structures- pt unable to perform ADLs and IADLS at PLOF due to precautions. Pt would benefit from skilled OT services 1-2x week for 6 weeks to return pt to PLOF. Today therapist naz. custom orthosis and ed. pt on skin care and orthosis skin precautions- pt and demo understanding- therapist ed. pt on AROM of shoulder/elbow/forearm along with short arch motion 50% and tendon glide to increase circulation and ROM. pt demo understanding- therapist instructed pt in IP and MP AROM along with supported CMC ROM ec. pt given information on scar mtg and edema control pt demo understanding and agree to POC. Rehabilitation Potential: Excellent - Anticipated Interventions Anticipated Interventions: A/AAROM/PROM, Strengthening, Edema Control, Scar Care, Triggerpoint Release, Desensitization, Sensory Retraining, Modalities, Orthoses, Joint Protection/Energy Conservation, Ergonomic Education, Caregiver Training - Visit Plan Frequency: 1-2x /Week Duration: 6 Weeks TEXT: Thank you for the opportunity to evaluate your patient. For Medicare and Medicare HMO plans, please review the plan of care and approve it. It will need to be FAXED BACK to us at [phone] for Medicare purposes. Please let me know if there are questions or concerns regarding this plan of care. Physician Signature: Date:
--- NOTE | 2019-09-30 08:07 | HP.OTDCSUM ---
It has been my pleasure to treat MARQUEZ SEO under orders from Dr. 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 Please see the following information for a summary of their discharge status. % Improvement: 98 Objective/Function: left white washer strength 57# a increase from 45#-. pt demo ROM of left thumb and wrist WNL Patient Goals: Regain Mobility, Use Hand/Wrist/Arm Normally Again Goal:100% adherence to protocol: Yes Goal:Daily scar massage when approriate: Yes Goal:ROM equal to unaffected hand: Yes Goal:Metal Organ Pipe Maker/Pinch strength at least 75% of unaffected hand: Yes Goal:No pain with affected hand use: Yes Goal:Full use of affected hand in daily activities including: Yes Goal:Improvement in sensation documented by [place]-Delvis: Yes Goal:Decrease scar hypersensitivity: Yes Plan: last visit Discharge Comments: pt has has met all goals in OT and reports he is IND with ADLs and IADLS at this time. states some pain with increase activity but thaddeus. Pt to cont with HEP and joint protection aneudy. pt demo understanding If there are questions or concerns regarding this patient's occupational therapy, please fell free to call me at [phone]. Thank you for the referral of this patient. Sincerely, Gerri Sparks, OTR/L, CHT
== END 2019-09-23 19:00 | disposition home or self-care (01) ==
LOC: OT 14:30
PROVIDERS: PCP Student in an Organized Health Care Education/Training Program; Referring Provider Specialist; Visit Provider Specialist
DX: M18.12 Unilateral primary osteoarthritis of first carpometacarpal joint, left hand (principal)
CPT/HCPCS: 97035; 97110; 97140; 97166; 97530; 97760; 97763

== ENCOUNTER → 2019-10-07 | Outpatient (CLI) | payer MEDICARE, OTHER, SELFPAY ==
[2019-09-23 08:58] VITALS: BMI 34.4
== END | disposition home or self-care (01) ==
LOC: SL 22:02
PROVIDERS: PCP Student in an Organized Health Care Education/Training Program; Referring Provider Nurse Practitioner Acute Care; Visit Provider Nurse Practitioner Acute Care
DX: G47.33 Obstructive sleep apnea (adult) (pediatric) (principal); J44.9 Chronic obstructive pulmonary disease, unspecified
CPT/HCPCS: 95811

== ENCOUNTER → 2020-01-11 | Outpatient (CLI) | payer MEDICARE, OTHER, SELFPAY ==
[2020-01-03 14:24] VITALS: BMI 34.2
[2020-01-11 10:12] LABS: Hemoglobin A1c 6.4 % (3.8-5.6)
[2020-01-11 10:37] LABS: T4 Free Direct 1.52 ng/dL (0.76-1.46); Thyroid Stim Hormone (TSH) 0.06 uIU/mL (0.358-3.74)
[2020-01-11 14:22] LABS: AST(SGOT) 15 U/L (15-37); Alanine Aminotransfer ALT/SGPT 27 U/L (16-61); Albumin, Serum 3.5 g/dL (3.2-5.0); Alkaline Phosphatase 51 U/L (45-117); Cholesterol 144 mg/dL (200); Globulin 3.3 g/dL (2.2-4.2); High Density Lipoprotein 52 mg/dL; Protein, Total 6.8 g/dL (6.4-8.2); Triglycerides 116 mg/dL; Very Low Density Lipoprotein 23 mg/dL (5-40)
== END | disposition home or self-care (01) ==
PROVIDERS: Internal Medicine Endocrinology, Diabetes & Metabolism; PCP Student in an Organized Health Care Education/Training Program; Referring Provider Internal Medicine Cardiovascular Disease; Visit Provider Internal Medicine Cardiovascular Disease
DX: E03.9 Hypothyroidism, unspecified (principal); E11.9 Type 2 diabetes mellitus without complications; E78.00 Pure hypercholesterolemia, unspecified; I25.10 Atherosclerotic heart disease of native coronary artery without angina pectoris
CPT/HCPCS: 36415; 80061; 80076; 83036; 84439; 84443

== ENCOUNTER 2020-02-17 20:01 | Emergency (ER) | payer MEDICARE, OTHER, SELFPAY ==
[2020-01-18 13:08] VITALS: BMI 32.6
[2020-02-17 20:03] VITALS: BP 139/72; PULSE 61; RESP 15; TEMP 36.3; O2SAT 97; BMI 32.3
--- NOTE | 2020-02-17 20:08 | EKG12_ITS ---
Test Reason : DIZZY Blood Pressure : / mmHG Vent. Rate : 054 BPM Atrial Rate : 054 BPM P-R Int : 184 ms QRS Dur : 084 ms QT Int : 392 ms P-R-T Axes : 071 -41 070 degrees QTc Int : 371 ms Sinus bradycardia Left axis deviation Poor R wave progression Abnormal ECG Confirmed by DARLENE MATA, CHLOE ([id number]), editorial project manager TALIA SPRINGER ([id number]) on 02/20/2020 11:33:22 AM Referred By: Confirmed By:CHLOE COLON MD
--- NOTE | 2020-02-17 20:31 | RAD_ITS ---
STUDY: X-RAY CHEST REASON FOR EXAM: Male, 79 years old. Dizziness. Weakness in legs. TECHNIQUE: PA and lateral views of the chest. COMPARISON: 06/26/2017. FINDINGS: The improved inspiratory effort. There is chronic interstitial changes in lung bases without acute infiltrate or mass. There is no demonstrated pleural abnormality. Normal size heart. Normal mediastinum and amy. Normal visualized pulmonary arteries. There is minimal atherosclerotic calcification of the aortic arch with tortuosity. No visualized osseous changes. Normal visualized ribs, clavicles, and shoulders. There is no demonstrated abnormality of the visualized soft tissue structures of the upper abdomen. RAD/Chest PA and Lateral IMPRESSION: No acute cardiopulmonary disease. Electronically Signed: Gerardo Mike DO at 20:43 EDT Tel [phone], Service support ,
[2020-02-17 20:48] LABS: Absolute Lymphocyte Count 2.63 X10^3/uL (0.83-4.51); Absolute Neutrophil Count 3.9 X10^3/uL (2.0-7.7); Basophil# 0.04 X10^3/uL; Basophil% 0.5 % (0-1); Eosinophil# 0.18 X10^3/uL; Eosinophils% 2.4 % (0-5); Hematocrit 42.2 % (40-54); Hemoglobin 13.2 g/dL (13.0-16.5); Lymphocyte # 2.63 X10^3/ul (4.0); Lymphocyte % 35.8 % (19-41); Mean Corp Hgb Conc 31.3 g/dL (32-36); Mean Corpuscular Hgb 28.9 pg (27.0-32.0); Mean Corpuscular Volume 92.5 fL (80-94); Mean Platelet Vol. 9.6 fl (6.2-12.0); Monocyte# 0.57 X10^3/uL; Monocyte% 7.8 % (0-10); NRBC Flagged by Analyzer 0 % (0-5); Neutrophil % 53.1 % (47-70); Platelet Count 170 K/mm3 (150-450); RBC Distribution Width CV 15.7 % (11.6-14.6); RBC Distribution Width SD 53.4 fl (35.1-43.9); Red Blood Count 4.56 M/mm3 (4.6-6.2); White Blood Count 7.4 K/mm3 (4.4-11.0)
[2020-02-17 20:54] LABS: Anion Gap 3 (5-15); BUN 26 mg/dL (7-18); BUN/Creat Ratio 18.8 RATIO (10-20); Calcium,Total 9.2 mg/dL (8.5-10.1); Chloride 113 mmol/L (98-107); Creatinine, Serum 1.38 mg/dL (0.70-1.30); EST Glomerular Filtration Rate 53 mL/min (>60); Est Glom Filt Rate - Afr Amer 64 mL/min (>60); Estimated Creatinine Clearance 47.74 ml/min; Glucose 105 mg/dL (74-106); Potassium 4.1 mmol/L (3.5-5.1); Sodium Level 143 mmol/L (136-145)
--- NOTE | 2020-02-17 22:23 | ED.DCSUM_ITS ---
History of Present Illness Chief Complaint: Dizziness Informant: Patient, Significant Other Onset: Weeks - 2-3 Context: Gradual Onset Timing: Intermittent, Lasts - min's Quality: lightheadedness, sometimes near-syncope Current Severity: gone at this time Maximum Severity: Severe Worsened by: standing or sitting up Relieved by: lying down Associated Symptoms: no assoc'd sx w/ episodes Narrative: Patient has been having these episodes of lightheadedness for several weeks. They are always triggered by changes in position or posterior, such as sitting up from a supine position or standing from a sitting position. He states that when he has climbed a ladder, he has noticed that his legs feel little weak, however when he climbs stairs and at other times he does not feel this. 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 Denies any headaches, vision molina ges, chest pain, shortness of breath, or palpitations. He has a history of heart disease and some stents. This has been going on for weeks. He called his doctor today, to discuss the symptoms and was referred to the emergency department. At this time sitting comfortably in the emergency department that he has no symptoms. 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 (12) Osteoarthritis Status: Chronic (13) Prostate cancer Status: Chronic (14) Pure hypercholesterolemia Status: Chronic Past Medical History - Allergies and Home Meds Allergies/Adverse Reactions: Allergies lorazepam [From Ativan] Allergy (Severe, Verified 01/18/20 13:09) Unknown acetaminophen [From Vicodin] Allergy (Verified 01/18/20 13:09) Unknown hydrocodone [From Vicodin] Allergy (Verified 01/18/20 13:09) Unknown lisinopril Allergy (Verified 01/18/20 13:09) Unknown modafinil [From Provigil] Allergy (Verified 01/18/20 13:09) Other moxifloxacin HCl [From Avelox] Allergy (Verified 01/18/20 13:09) Upset Stomach Primary Care Physician: Manuel Estrada DO [Primary Care Provider] - Surgical History: angioplasty - Cardiac stent, appendectomy Lives: Spouse/ Significant Other Smoking Status: Former smoker - Family History Maternal Family History: Family History (Last Reviewed 01/18/20 @ 13:29 by Gerri Rodriguez PA, PA) Father CAD (coronary artery disease) Mother Multiple sclerosis Brother CAD (coronary artery disease) Cancer Daughter Diabetes Family History: Reports: No pertinent history Review of Systems General: Denies: Chills, Fever, Sweats Eyes: Denies: Visual changes - bilaterally, Diplopia ENT: Reports: - - No loss of taste or smell. Denies: Bilateral ear pain, Rhinorrhea, Sore throat Cardiovascular: Denies: Chest pain, Palpitations Respiratory: Denies: Dyspnea, Cough, Dyspnea on exertion Gastrointestinal: Denies: Abdominal pain, Nausea, Vomiting, Diarrhea, Melena, Hematochezia Genitourinary: Denies: Dysuria, Hematuria, Frequency Musculoskeletal: Denies: Myalgias, Neck pain, Back pain, Extremity Pain Skin: Denies: Rash, Wounds Neurological: Reports: - - Lightheadedness. See HPI.. Denies: Headache, Weakness, Numbness Endocrine: Denies: Polyuria, Polydipsia Physical Exam Vital Signs/Narrative: Vital Signs Temp Pulse Resp BP Pulse Ox 02/17/20 20:03 97.3 F L 61 15 139/72 H 97 Inital Vital Signs reviewed: Yes General: Well nourished, Well developed, No Acute Distress Head: Normocephalic, Atraumatic Eyes: Perrl, EOMI ENT: Moist mucous membranes, No rhinorrhea Neck: Supple, Nontender, No JVD Cardiovascular: Regular rate, Regular rhythm, No murmurs, Bradycardia Respiratory: No distress, CTA bilaterally, Chest nontender Abdomen: Soft, Nontender, Nondistended, Normal bowel sounds Back: Nontender, Normal Inspection Extremities: Nontender, No edema. Negative for: Calf Tenderness Skin: Normal color, No rash, No Trauma Neurological: Alert, Oriented x3, Cranial nerves II-XII grossly intact, Normal Strength, Normal Sensation Psychological: Normal affect, Normal Mood Diagnostic/Tx/Re-eval Impressions Chest X-Ray 02/17/20 20:31 IMPRESSION: No acute cardiopulmonary disease. Electronically Signed: Gerardo Mike DO at 20:43 EDT Tel [phone], Service support , 02/17/20 20:31 CXR [Chest PA and Lateral] [RAD] Stat Laboratory Results 02/17/20 02/17/20 20:27 20:27 WBC 7.4 RBC 4.56 L Hgb 13.2 Hct 42.2 MCV 92.5 MCH 28.9 MCHC 31.3 L RDW Std Deviation 53.4 H RDW Coeff of Joshua 15.7 H Plt Count 170 MPV 9.6 Immature Gran % (Auto) 0.400 Neut % (Auto) 53.1 Lymph % (Auto) 35.8 [place] % (Auto) 7.8 Eos % (Auto) 2.4 Baso % (Auto) 0.5 Absolute Neuts (auto) 3.9 Absolute Lymphs (auto) 2.63 Nucleated RBC % 0 Sodium 143 Potassium 4.1 Chloride 113 H Carbon Dioxide 27.0 Anion Gap 3 L BUN 26 H Creatinine 1.38 H Estim Creat Clear Calc 47.74 Est GFR (MDRD) Af Amer 64 Est GFR (MDRD) Non-Af 53 L BUN/Creatinine Ratio 18.8 Glucose 105 Calcium 9.2 - Rhythm Strip Rhythm Strip: Sinus bradycardia Rate: 50 Ectopy: None - EKG Initial EKG Interpretation: Sinus Bradycardia, LAFB Prior: Unchanged - Medical Decision Making Orthostatics were done and are negative, patient is not anemic, the rest of the work-up is unremarkable. His EKG is unchanged compared with his old one several years ago, shows a sinus rhythm with bradycardia, left axis, and no acute injury pattern. My concern is that he is having symptomatic bradycardia. However, in reviewing his medication list, which has not changed since his visit with cardiology here several weeks ago, he does not appear to be on any beta- blockers or other AV ry blockers. There is no heart block present at this time or obvious indication for a pacemaker. He is managing his symptoms well, and encouraged to continue doing so by changing positions and postures slowly, and following up with cardiology. I do not think admitting to the hospital is necessary at this time since the symptoms have been going on for weeks and he has not passed out or had any other ischemic symptoms, we discussed reasons to return and discussed staying hydrated. An outpatient Holter or event monitor may be necessary, and he can follow-up for that. ED Disposition - Plan for ED Patient: Disposition: Home or Assisted Living Diagnosis: Lightheadedness, Bradycardia Instructions: ED Near-Fainting Uncertain Cause, ED Bradycardia Referrals: Manuel Estrada DO [Primary Care Provider] - Adarsh Tijerina MD [STAFF PHYSICIAN] - As soon as possible
[2020-02-17 22:52] VITALS: BP 129/67; BP 141/77; BP 150/84; PULSE 48; PULSE 54; PULSE 56; RESP 16
== END 2020-02-18 00:22 | disposition home or self-care (01) ==
PROVIDERS: Emergency Provider Emergency Medicine; PCP Student in an Organized Health Care Education/Training Program
DX: R42 Dizziness and giddiness (principal); R00.1 Bradycardia, unspecified; I25.10 Atherosclerotic heart disease of native coronary artery without angina pectoris; J44.9 Chronic obstructive pulmonary disease, unspecified; I12.9 Hypertensive chronic kidney disease with stage 1 through stage 4 chronic kidney disease, or unspecified chronic kidney disease; E11.22 Type 2 diabetes mellitus with diabetic chronic kidney disease; N18.30 Chronic kidney disease, stage 3 unspecified; M19.90 Unspecified osteoarthritis, unspecified site; Z85.46 Personal history of malignant neoplasm of prostate; Z95.5 Presence of coronary angioplasty implant and graft; Z87.891 Personal history of nicotine dependence
CPT/HCPCS: 71046; 80048; 85025; 93005; 99283; A4216

== ENCOUNTER → 2020-02-22 | Outpatient (CLI) | payer MEDICARE, OTHER, SELFPAY ==
[2020-02-17 20:03] VITALS: BMI 32.3
== END | disposition home or self-care (01) ==
LOC: PSN 09:54
PROVIDERS: PCP Student in an Organized Health Care Education/Training Program; Referring Provider Internal Medicine Cardiovascular Disease; Visit Provider Internal Medicine Cardiovascular Disease
DX: R00.1 Bradycardia, unspecified (principal); R42 Dizziness and giddiness
CPT/HCPCS: 93225; 93226

== ENCOUNTER → 2020-05-08 11:13 | Outpatient (CLI) | payer MEDICARE, OTHER, SELFPAY ==
[2020-05-08 10:33] VITALS: BMI 35.5
== END ==
PROVIDERS: PCP Student in an Organized Health Care Education/Training Program; Referring Provider Physician Assistant Surgical; Visit Provider Physician Assistant Surgical
DX: Z11.52 Encounter for screening for COVID-19 (principal)
CPT/HCPCS: 87635; C9803; U0005; U0003

== ENCOUNTER → 2020-08-13 11:58 | Outpatient (CLI) | payer MEDICARE, OTHER, SELFPAY ==
[2020-08-03 10:44] VITALS: BMI 36.5
--- NOTE | 2020-08-13 12:15 | RAD_ITS ---
STUDY: X-RAY - LEFT KNEE REASON FOR EXAM: Male, 80 years old. KNEE PAIN HX OF REPLACEMENT TECHNIQUE: 4 view(s) of the knee. COMPARISON: None. FINDINGS: Normal visualized distal femur. Normal visualized proximal tibia and fibula. Normal proximal tibiofibular articulation. There are atherosclerotic vascular calcifications. No acute fracture or dislocation. There is mild degenerative arthrosis of the medial femorotibial compartment. Normal lateral femorotibial compartment. Normal patellofemoral articulation. There is a soft tissue prominence in the suprapatellar region suggesting a small volume joint effusion. The soft tissue structures are unremarkable. RAD/Knee 4 or More Views IMPRESSION: Mild medial compartment arthrosis. No acute fracture or dislocation. Small joint effusion. Electronically Signed: Katina Dewey MD at 11:28 EDT Tel , Service support ,
--- NOTE | 2020-08-13 12:15 | RAD_ITS ---
STUDY: X-RAY - RIGHT KNEE REASON FOR EXAM: Male, 80 years old. KNEE PAIN TECHNIQUE: 4 view(s) of the knee. COMPARISON: None. FINDINGS: There has been right total knee replacement. There is anatomic alignment. There are vascular calcifications. The soft tissue structures are unremarkable. RAD/Knee 4 or More Views IMPRESSION: Right total knee replacement with anatomic alignment. Electronically Signed: Katina Dewey MD at 10:32 EDT Tel , Service support ,
[2020-08-13 13:17] LABS: Anion Gap 3 (5-15); BUN 18 mg/dL (7-18); BUN/Creat Ratio 13.8 RATIO (10-20); Calcium,Total 9.8 mg/dL (8.5-10.1); Chloride 106 mmol/L (98-107); EST Glomerular Filtration Rate 57 mL/min (>60); Est Glom Filt Rate - Afr Amer 69 mL/min (>60); Glucose 147 mg/dL (74-106); Potassium 3.9 mmol/L (3.5-5.1); Sodium Level 139 mmol/L (136-145)
== END ==
PROVIDERS: PCP Student in an Organized Health Care Education/Training Program; Referring Provider Physician Assistant Medical; Visit Provider Physician Assistant Medical
DX: M25.561 Pain in right knee (principal); M25.562 Pain in left knee; R60.9 Edema, unspecified; Z96.651 Presence of right artificial knee joint
CPT/HCPCS: 36415; 73564; 80048

== ENCOUNTER 2020-08-20 11:00 | Outpatient (RCR) | payer MEDICARE, OTHER, SELFPAY ==
[2020-05-08 10:33] VITALS: BMI 35.5
--- NOTE | 2020-06-21 15:39 | HP.OTEVAL_ITS ---
Patient's Visit Information MARQUEZ SEO is a 80 year old M, referred to Occupational Therapy by Marito Rowan PA-C, with a diagnosis of right unilateral primary osteoarthrisis 1st carpometacarpal. Date of Evaluation: 06/18/20 Occupational Therapist: Gerri Sparks, OVIDIO/Stan, CHT - Subjective This 80 year old male was seen for OT eval with dx of right CMC OA and after failed conservative methods failed. pt had sx on 2020. pt is s/p 4 weeks from right cmc arthroplasty and in need of custom othrosis for protection and support. Pt states he is currently limited with ADLs and IADLs at this time. - ADLs Dressing: Button shirt, Pants, Socks, Shoes Fasteners: Buttons, Zippers - Pain right hand 4 Pain Intensity Range: 3, 6 - ROM Wrist: right 35/20 left 60/60 CMC: right 10 left 10 MP: right 30 left 60 IP: right 25 left 35 - Strength Rf Test Engineer: right NT left 80# Lateral Pinch: right NT left 16# Tripod Pinch: right NT left 18# - Sensation Sensation Comments: denies - Quick DASH-Disab of Arm,Shoulder& Hand Quick DASH Score: 63.6350 - Goals Goal:100% adherence to protocol: Yes Comment: CMC arthroplasty Goal:Daily scar massage when approriate: Yes Goal:ROM equal to unaffected hand: Yes Goal:Rf Test Engineer/Pinch strength at least 75% of unaffected hand: Yes Goal:No pain with affected hand use: Yes Goal:Decrease scar hypersensitivity: Yes - Rehabilitation General Assessment: pt is 4 weeks s/p from right cmc arthroplasty. pt demo with limited wrist and thumb ROM and newly healing structures that limits pts functional use of right hand with ADLs and IADLS. pt would benefit from skilled OT services 1x week for 8 weeks to return pt to IND. level with ADls and IADLs. Today OT fabricated custom othosis to provide support and protection while pt continues to heal. Pt demo IND. doffing/donning of orthosis. pt demo understanding of protocol, use and precautions of orthosis and agree to POC. Rehabilitation Potential: Good - Anticipated Interventions A/AAROM/PROM, Strengthening, Triggerpoint Release, Desensitization, Modalities, Orthoses, Joint Protection/Energy Conservation, Ergonomic Education, Fine Motor Coord/Angel - Visit Plan Frequency: 1x/Week Duration: 2 Months TEXT: Thank you for the opportunity to evaluate your patient. For Medicare and Medicare HMO plans, please review the plan of care and approve it. It will need to be FAXED BACK to us at [phone] for Medicare purposes. Please let me know if there are questions or concerns regarding this plan of care. Physician Signature: Date:
--- NOTE | 2020-08-20 11:37 | HP.OT.NRP ---
MARQUEZ Elizabeth GABBI was seen in my office for initial evaluation on 06/18/20. The following Plan of Care was established for this patient: Initial Frequency: 1x/Week Initial Duration: 2 Months Plan: d/c Anticipated Interventions: A/AAROM/PROM, Strengthening, Triggerpoint Release, Desensitization, Modalities, Orthoses, Joint Protection/Energy Conservation, Ergonomic Education, Fine Motor Coord/Angel This patient was last seen in our office . Pertinent comments regarding their Occupational therapy will appear below: At this point I will be discontinuing this patient from occupational therapy. I would be happy to see this patient again in the future if found appropriate by the physician. Thank you! Gerri Sparks, OTR/L, CHT
== END 2020-08-20 19:00 | disposition home or self-care (01) ==
LOC: OT 11:00
PROVIDERS: PCP Student in an Organized Health Care Education/Training Program; Referring Provider Physician Assistant Surgical; Visit Provider Physician Assistant Surgical
DX: M18.11 Unilateral primary osteoarthritis of first carpometacarpal joint, right hand (principal)
CPT/HCPCS: 97110; 97166; 97530; 97760

== ENCOUNTER → 2020-08-21 10:41 | Outpatient (CLI) | payer MEDICARE, OTHER, SELFPAY ==
[2020-08-03 10:44] VITALS: BMI 36.5
[2020-08-21 13:21] LABS: T4 Free Direct 0.93 ng/dL (0.76-1.46); Thyroid Stim Hormone (TSH) 2.46 uIU/mL (0.358-3.74)
== END ==
PROVIDERS: PCP Student in an Organized Health Care Education/Training Program; Referring Provider Internal Medicine Endocrinology, Diabetes & Metabolism; Visit Provider Internal Medicine Endocrinology, Diabetes & Metabolism
DX: E03.9 Hypothyroidism, unspecified (principal)
CPT/HCPCS: 36415; 84439; 84443

== ENCOUNTER → 2020-09-18 15:46 | Outpatient (CLI) | payer MEDICARE, OTHER, SELFPAY ==
[2020-08-25 17:09] VITALS: BMI 36.5
--- NOTE | 2020-09-18 16:10 | RAD_ITS ---
STUDY: X-RAY - RIGHT HAND REASON FOR EXAM: Male, 80 years old. PAIN INJURY RIGH INDEX FINGER TECHNIQUE: 4 view(s) of the hand. COMPARISON: None. FINDINGS: Normal radiocarpal articulation. Normal distal radioulnar joint. Normal visualized carpal bones. Normal carpal articulations Normal carpometacarpal articulation of the thumb. Normal second through fifth carpometacarpal joints. Normal metacarpi. Normal metacarpophalangeal joint of the thumb. Normal interphalangeal joint of the thumb. Normal proximal and distal phalanges of the thumb. Normal metacarpophalangeal joints of the second through fifth fingers. Normal proximal interphalangeal joints of the second through fifth fingers. Degenerative changes of the DIP joint of the second digit. There also appears to be cortical avulsion of the spur arising off the dorsal surface of the base of the distal phalanx with mild separation of fracture fragments. Possible associated injury to the extensor tendon which may be further assessed with MRI if indicated Diffuse soft tissue swelling distal index finger RAD/Hand Min 3 Views IMPRESSION: Cortical avulsion of spur arising off the dorsal surface of the base of the distal phalanx of the index finger Electronically Signed: Lamin Rider MD at 20:09 EDT , Service support ,
[2020-09-18 17:17] LABS: Erythrocyte Sedimentation Rate 4 mm/hr (0-20)
[2020-09-18 17:50] LABS: CRP < 2.90 mg/L (0.0-3.0); Rheumatoid Factor < 10.0 IU/mL (<15)
[2020-09-20 17:36] LABS: ANTINUCLEAR ANTIBODIES DIRECT Negative (Negative)
== END ==
PROVIDERS: PCP Student in an Organized Health Care Education/Training Program; Referring Provider Student in an Organized Health Care Education/Training Program; Visit Provider Student in an Organized Health Care Education/Training Program
DX: M25.50 Pain in unspecified joint (principal); S69.91XA Unspecified injury of right wrist, hand and finger(s), initial encounter
CPT/HCPCS: 36415; 73130; 85652; 86038; 86140; 86431

== ENCOUNTER 2020-12-05 11:30 | Outpatient (RCR) | payer MEDICARE, OTHER, SELFPAY ==
[2020-10-25 13:20] VITALS: BMI 36.4
--- NOTE | 2020-12-25 14:26 | HP.OTDCSUM_ITS ---
It has been my pleasure to treat MARQUEZ SEO under orders from TARUN Marley, for the diagnosis of Mallet finger of the R PF for a total of 4 visit(s). Please see the following information for a summary of their discharge status. % Improvement: 90 Objective/Function: RIF PIP: 95*. DIP: -5/35*. Juvenile Officer: 80# (was 20# at eval). Edema has decreased to equate L hand. Patient Goals: Regain Mobility, Regain Strength, Decrease Pain, Decrease Swelling/Stiffness, Improve Fine Motor Skills, Use Hand/Wrist/Arm Normally Again, Increase ROM, Be More Independent in ADLS Goal:: pt will demo a increase in right cover creaser strength by 15# or greater to increase pts ind. with ADLs and IADls by d/c/. pt will demo a increase in tripod and lateral pinch 4# or greater to increase pts ind. with ADls and IADls by d/c Goal:: Pt will demonstrate an increase in finger flexion of at least 55* at the PIP and DIP joints to be more independent while performing personal care tasks by d/c. Goal:: pt will self report pain during ADL and IADL activities no greater than a 1/10 by d/c. Goal:: pt will demonstrate a decrease in edema of the R PIP and DIP jts of his PF equal to his L hand to increase ROM by d/c. Pt will demonstrate a clear understanding of edema management techniques to do at home to decrease swelling. Plan: Pt would like discharged Discharge Comments: This patient has been seen for 3 visits to address a broken DIP joint of his R IF and to prevent a mallet finger forming. He has met 5/6 goals (he wasn't 12 weeks to begin pinching) and is ready for d/c. If there are questions or concerns regarding this patient's occupational therapy, please fell free to call me at [phone]. Thank you for the referral of this patient. Sincerely, Gerri Sparks, OTR/L, CHT
== END 2020-12-05 19:00 | disposition home or self-care (01) ==
LOC: OT 11:30
PROVIDERS: PCP Student in an Organized Health Care Education/Training Program; Referring Provider Physician Assistant Surgical; Visit Provider Physician Assistant Surgical
DX: M20.011 Mallet finger of right finger(s) (principal)
CPT/HCPCS: 97166; 97530

== ENCOUNTER → 2021-01-10 09:31 | Outpatient (CLI) | payer MEDICARE, OTHER, SELFPAY ==
[2021-01-10 11:40] LABS: AST(SGOT) 16 U/L (15-37); Alanine Aminotransfer ALT/SGPT 27 U/L (16-61); Albumin, Serum 3.2 g/dL (3.2-5.0); Alkaline Phosphatase 63 U/L (45-117); Cholesterol 143 mg/dL (200); Globulin 3.4 g/dL (2.2-4.2); High Density Lipoprotein 39 mg/dL; Protein, Total 6.6 g/dL (6.4-8.2); Triglycerides 151 mg/dL; Very Low Density Lipoprotein 30 mg/dL (5-40)
== END ==
PROVIDERS: PCP Student in an Organized Health Care Education/Training Program; Referring Provider Internal Medicine Cardiovascular Disease; Visit Provider Internal Medicine Cardiovascular Disease
DX: E78.00 Pure hypercholesterolemia, unspecified (principal)
CPT/HCPCS: 36415; 80061; 80076

== ENCOUNTER → 2021-03-06 13:43 | Outpatient (CLI) | payer MEDICARE, OTHER, SELFPAY ==
[2021-03-06 14:45] LABS: PSA,Total- Diagnostic < 0.01 ng/mL (0.0-4.0)
== END ==
PROVIDERS: PCP Student in an Organized Health Care Education/Training Program; Referring Provider Student in an Organized Health Care Education/Training Program; Visit Provider Student in an Organized Health Care Education/Training Program
DX: C61 Malignant neoplasm of prostate (principal)
CPT/HCPCS: 36415; 84153

== ENCOUNTER → 2021-03-12 12:16 | Outpatient (CLI) | payer MEDICARE, OTHER, SELFPAY ==
--- NOTE | 2021-03-12 12:24 | MRI_ITS ---
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 This report was created using [employer] report [employer] technology. CONTRAST: IV 23mL Dotarem COMPARISON: ctap 11.9.12 FINDINGS: VERTEBRAE: L5-S1. There is bilateral facet arthropathy. Laminectomy changes. No spinal stenosis. Right paracentral disc herniation measuring 3.5 mm. Narrowing of the right lateral recess. Right neural foraminal stenosis. Compression of the exiting right L5 nerve root. There is endplate spondylosis of the vertebral body. Loss of intervertebral disc height L4-5. There is bilateral facet arthropathy. No spinal stenosis. Broad-based disc bulge. Narrowing of the lateral recess. There is endplate spondylosis of the vertebral body. Loss of intervertebral disc height. Right neural foraminal stenosis. Compression of the exiting nerve root. Laminectomy changes at L5. No area of abnormal enhancement at the laminectomy site. L3-4. There is bilateral facet arthropathy. No spinal stenosis. There is endplate spondylosis of the vertebral body. Loss of intervertebral disc height. There is bilateral ligamentum flavum thickening. Broad-based disc bulge. L2-3. There is bilateral facet arthropathy. No spinal stenosis. There is endplate spondylosis of the vertebral body. Loss of intervertebral disc height. There is bilateral ligamentum flavum thickening. Broad-based disc bulge. Normal alignment. No spondylolisthesis. There is preservation of the normal lumbar lordosis. SPINAL CORD: Conus medullaris that level of L1. SOFT TISSUES: Unremarkable. DISCS/SPINAL CANAL/NEURAL FORAMINA: L1-L2: Unremarkable. Normal disc height and morphology. Normal spinal canal, lateral recesses and neuroforamina. L2-L3: Unremarkable. Normal disc height and morphology. Normal spinal canal, lateral recesses and neuroforamina. L3-L4: Unremarkable. Normal disc height and morphology. Normal spinal canal, lateral recesses and neuroforamina. L4-L5: Unremarkable. Normal disc height and morphology. Normal spinal canal, lateral recesses and neuroforamina. L5-S1: Unremarkable. Normal disc height and morphology. Normal spinal canal, lateral recesses and neuroforamina. MRI/Spine Lumbar W/WO Contrast IMPRESSION: 1. L5-S1. There is bilateral facet arthropathy. Laminectomy changes. No spinal stenosis. Right paracentral disc herniation measuring 3.5 mm. Narrowing of the right lateral recess. Right neural foraminal stenosis. Compression of the exiting right L5 nerve root. There is endplate spondylosis of the vertebral body. Loss of intervertebral disc height 2. L4-5. There is bilateral facet arthropathy. No spinal stenosis. Broad-based disc bulge. Narrowing of the lateral recess. There is endplate spondylosis of the vertebral body. Loss of intervertebral disc height. Right neural foraminal stenosis. Compression of the exiting nerve root. Electronically Signed: Torito Chen MD at 16:12 EST , Service support ,
[2021-03-12 12:51] LABS: CREATININE FINGERSTICK 1.2 mg/dL (0.70-1.30); EGFR FINGERSTICK > 60.0000 mL/min (>60)
== END ==
PROVIDERS: PCP Student in an Organized Health Care Education/Training Program; Visit Provider Nurse Practitioner Family
DX: M96.1 Postlaminectomy syndrome, not elsewhere classified (principal); M51.17 Intervertebral disc disorders with radiculopathy, lumbosacral region; M48.07 Spinal stenosis, lumbosacral region; M47.27 Other spondylosis with radiculopathy, lumbosacral region
CPT/HCPCS: 72158; A9575

== ENCOUNTER → 2021-04-09 10:33 | Outpatient (CLI) | payer MEDICARE, OTHER, SELFPAY ==
[2021-04-09 11:35] LABS: AST(SGOT) 12 U/L (15-37); Alanine Aminotransfer ALT/SGPT 23 U/L (16-61); Albumin, Serum 3.7 g/dL (3.2-5.0); Alkaline Phosphatase 62 U/L (45-117); Bilirubin, Direct 0.13 mg/dL (0.00-0.30); Globulin 3.2 g/dL (2.2-4.2); Protein, Total 6.9 g/dL (6.4-8.2)
[2021-04-09 11:49] LABS: ALB/GLOB Ratio 1.1 RATIO (0.9-2.4); AST(SGOT) 11 U/L (15-37); Alanine Aminotransfer ALT/SGPT 23 U/L (16-61); Albumin, Serum 3.6 g/dL (3.2-5.0); Alkaline Phosphatase 63 U/L (45-117); Anion Gap 8 (5-15); BUN 23 mg/dL (7-18); BUN/Creat Ratio 14.8 RATIO (10-20); Chloride 105 mmol/L (98-107); Creatinine, Serum 1.55 mg/dL (0.70-1.30); EST Glomerular Filtration Rate 46 mL/min (>60); Est Glom Filt Rate - Afr Amer 56 mL/min (>60); Globulin 3.3 g/dL (2.2-4.2); Glucose 145 mg/dL (74-106); Protein, Total 6.9 g/dL (6.4-8.2); Sodium Level 140 mmol/L (136-145); T4 Free Direct 1.16 ng/dL (0.76-1.46)
[2021-04-10 10:23] LABS: Cholesterol 111 mg/dL (200); High Density Lipoprotein 39 mg/dL; Triglycerides 122 mg/dL; Very Low Density Lipoprotein 24 mg/dL (5-40)
== END ==
PROVIDERS: Internal Medicine Endocrinology, Diabetes & Metabolism; PCP Student in an Organized Health Care Education/Training Program; Referring Provider Internal Medicine Cardiovascular Disease; Visit Provider Internal Medicine Cardiovascular Disease
DX: E11.22 Type 2 diabetes mellitus with diabetic chronic kidney disease (principal); N18.30 Chronic kidney disease, stage 3 unspecified; E03.9 Hypothyroidism, unspecified; E78.00 Pure hypercholesterolemia, unspecified
CPT/HCPCS: 36415; 80053; 80061; 80076; 84439; 84443

== ENCOUNTER 2021-04-24 10:04 | Inpatient (IN) | payer MEDICARE, OTHER, SELFPAY ==
[2021-04-24] VITALS (11 sets, daily range): BP systolic 101–137; BP diastolic 48–104; PULSE 46–72; RESP 15–27; TEMP 36.1–37.2; O2SAT 91–97; BMI 34.2; BMI 34.6
--- NOTE | 2021-04-24 10:25 | RAD_ITS ---
INDICATION: cough EXAMINATION/TECHNIQUE: X-RAY - XR Chest 1 View COMPARISON: 02/17/2020. FINDINGS: Prominence of the bronchovascular interstitial lung markings visualized in the left lower lung field and in the left retrocardiac region, blunting of the left costophrenic angle and the left hemidiaphragm, findings suggestive of a left lower lobe infiltrate or small left pleural effusion. Subtle areas of patchy airspace opacification visualized in the right mid lung field. The right costophrenic angle is visualized and is unremarkable. No evidence of pneumothorax or parenchymal lung mass. Peribronchial cuffing bilateral hilar prominence is seen. The cardiac mediastinal silhouette is unremarkable. The bones are unremarkable for the patient''s age. RAD/Chest 1 View (Portable) IMPRESSION: Bronchovascular prominence visualized most prominent in the left retrocardiac region this subtle patchy airspace opacification seen, differential diagnosis would include left lower lobe infiltrate, aspiration pneumonia, bronchitis cannot rule out Covid 19 disease, recommend clinical correlation. Electronically Signed: Hong Azar MD at 11:38 EST Tel , Service support ,
--- NOTE | 2021-04-24 10:25 | EKG12_ITS ---
Test Reason : SOB Blood Pressure : / mmHG Vent. Rate : 068 BPM Atrial Rate : 068 BPM P-R Int : 178 ms QRS Dur : 090 ms QT Int : 378 ms P-R-T Axes : 076 -45 074 degrees QTc Int : 401 ms Normal sinus rhythm Left anterior fascicular block Abnormal ECG Confirmed by LUCIANA MATA, JOYCE ([id number]), editor book WOO IQBAL ([id number]) on 04/30/2021 10:15:03 AM Referred By: PL Confirmed By:JOYCE CHOWDHURY MD
--- NOTE | 2021-04-24 10:27 | EDS_ITS ---
HPI History of Present Illness Chief Complaint: General Illness Informant: patient and spouse/S.O. Narrative Narrative: Patient presents with generalized weakness and dyspnea. It is very hard to get from the patient and his when his symptoms first started. He states he has been having a bit of a cough for about 2 or 3 months. However, they think it worsened this Thursday. He has had fevers, decreased appetite, some myalgias. He has dyspnea. His biggest issue is just profound generalized weakness. He normally walks without any help. He has been walking with a walker. He could not get up this morning to walk. He just felt too weak. He is not having chest pain. He is not having sputum production. This patient was seen Thursday morning at [facility] after he fell in the bathroom. He felt weak at the time. He was found to have pneumonia than Covid pneumonia and admitted overnight. He was discharged yesterday. He was not sent home on any medications. They do not know if he got any monoclonal or other therapies in the hospital. He is not on home oxygen normally or now. Nothing is really making his symptoms better. They are just slowly getting worse. Patient has no recent travel, surgery, immobilization. However, he does have a history of a DVT in the right leg years ago. [facility] Medical History DEBORAH (acute kidney injury) Allergic rhinitis Asthma Atherosclerotic heart disease of campo coronary artery without angina pectoris Back pain Carpal tunnel syndrome Chronic renal failure, stage 3 (moderate) Diabetes Diabetes type 2, controlled Esophageal reflux Essential hypertension Gingivitis Hypokalemia Hyponatremia Hypothyroidism IBS (irritable bowel syndrome) Insomnia Obesity Obesity Osteoarthritis Parathyroid abnormality Presence of stent in coronary artery (~12/05/10) Prostate cancer Pure hypercholesterolemia Syncope Vision problem Home Medications aspirin 81 mg tablet,delayed release 81 mg PO QDAY 12/09/17 [History Last Taken Unknown] meclizine 25 mg tablet 25 mg PO DAILY PRN 01/24/19 [History Last Taken Unknown] wheat dextrin 5 gram/7.4 gram oral powder 5 g PO BID g 01/24/19 [History Last Taken Unknown] fluticasone propionate 50 mcg/actuation nasal spray,suspension 2 spray INTRANASAL DAILY #3 unit 07/19/19 [Rx Last Taken Unknown] multivitamin 1 tab PO DAILY 07/26/19 [History Last Taken Unknown] ropinirole 5 mg tablet 5 mg PO QHS #30 tab 04/13/20 [Rx Last Taken Unknown] albuterol sulfate 90 mcg/actuation aerosol inhaler 2 puff INHALATION Q4H PRN #18 g 06/04/20 [Rx Last Taken Unknown] omeprazole 40 mg capsule,delayed release 40 mg PO DAILY #90 cap 10/10/20 [Rx Last Taken Unknown] linaclotide 290 mcg capsule 290 mcg PO DAILY 10/25/20 [History Last Taken Unknown] venlafaxine 75 mg capsule,extended release 24 hr 75 mg PO DAILY 10/25/20 [History Last Taken Unknown] rosuvastatin 40 mg tablet 40 mg PO QHS #90 tab 12/03/20 [Rx Last Taken Unknown] losartan 25 mg tablet 25 mg PO DAILY #90 tablet 12/19/20 [Rx Last Taken Unknown] levothyroxine 137 mcg tablet 137 mcg PO DAILY #90 tab 12/24/20 [Rx Last Taken Unknown] amantadine HCl 100 mg tablet 200 mg PO DAILY tab 04/10/21 [History Last Taken Unknown] calcium carbonate 600 mg-vitamin D3 12.5 mcg (500 unit) capsule 1 cap PO DAILY 04/10/21 [History Last Taken Unknown] furosemide 20 mg tablet 20 mg PO DAILY #90 tab 04/10/21 [Rx Last Taken Unknown] metformin 500 mg tablet 1,000 mg PO DAILY tab 04/10/21 [History Last Taken Unknown] nitroglycerin 0.4 mg sublingual tablet 0.4 mg SUBLINGUAL Q5-15M PRN #25 tab 04/10/21 [Rx Last Taken Unknown] oxycodone-acetaminophen 5 mg-325 mg tablet 1 tab PO TID PRN tab 04/10/21 [History Last Taken Unknown] Allergy/AdvReac Type Severity Reaction Status Date / Time lorazepam [From Ativan] Allergy Severe Unknown Verified 04/24/21 10:41 lisinopril Allergy Unknown Verified 04/24/21 10:41 modafinil [From Provigil] Allergy Other Verified 04/24/21 10:41 moxifloxacin HCl Allergy Upset Verified 04/24/21 10:41 [From Avelox] Stomach Family History Father , from aneurysm CAD (coronary artery disease) Mother Multiple sclerosis Brother CAD (coronary artery disease) Cancer Prostate cancer Daughter Diabetes Surgical History H/O total knee replacement History of rotator cuff surgery History of thumb surgery S/P total knee arthroplasty Social History Smoking Status: Former smoker how long ago did patient quit smokin alcohol intake: current details: social substance use type: does not use caffeine: Yes Type: coffee Number of servings: 2 what type of physical activity do you participate in: walking seatbelt use: always do you feel safe at home: Yes ROS ROS ED Constitutional Constitutional ED: Reports chills, fever(s) and subjective Eyes Eyes: Denies blurry vision or change in vision ENT ENT ED: Reports rhinorrhea; Denies sore throat Cardiovascular Cardiovascular: Denies chest pain or palpitations Respiratory/Chest Respiratory/Chest: Reports cough, dyspnea, dyspnea on exertion and sputum Gastrointestinal Gastrointestinal: Denies diarrhea, nausea or vomiting Genitourinary Genitourinary ED: Denies dysuria Musculoskeletal Musculoskeletal: Reports myalgias Integumentary Denies rash Neurologic Neurologic: Denies headache(s) Psychiatric Psychiatric: Denies anxiety or depression Endocrine Endocrinology: Denies polydipsia or polyuria Allergic/Immunologic Allergic/Immunologic ED: Denies mouth swelling or urticaria EXAM Physical Exam Const Vital Signs: 04/24/21 10:05 04/24/21 10:33 04/24/21 10:39 Temperature 97.4 F L 97.4 F L Temperature Source Temporal Temporal Pulse Rate 72 72 Respiratory Rate 18 20 H Respiratory Effort Normal Non-Labored Respiratory Pattern Normal Blood Pressure 114/49 L 137/104 H Blood Pressure Mean 70 115 Pulse Ox 92 97 Oxygen Delivery Method Room Air Room Air 04/24/21 10:49 04/24/21 11:43 04/24/21 12:19 Temperature 99.0 F 98.3 F Temperature Source Temporal Temporal Pulse Rate 72 71 67 Respiratory Rate 15 26 H 18 Respiratory Effort Respiratory Pattern Blood Pressure 121/55 H 101/69 Blood Pressure Mean 77 79 Pulse Ox 91 91 Oxygen Delivery Method Room Air Room Air Patient looks very weak. He needed help getting from the wheelchair up in the bed. He had to lay down because he just felt weak and tired. He looks worn out but not toxic. He is awake and alert. Positive well nourished, well developed and obese General Appearance ED: well developed; Negative for cyanotic or diaphoretic Nutritional Appearance: obese HEENT Reports dry mucous membranes Negative for trauma Mouth ED: Yes dry mucous membranes Mouth: dry mucous membranes Eyes EOMs intact bilaterally Neck supple General: Negative for tenderness Chest Wall Chest Narrative: Patient has pectus excavatum which is not new. Resp Resp Narrative: Patient does have some increased respiratory effort. I do not hear rales. I hear there is no pain with a deep breath. More diffuse moderate rhonchi. I do not really hearing significant wheezing despite his history of asthma. Auscultation: rhonchi Cardio regular rate and regular rhythm GI normal to inspection, nondistended, normoactive bowel sounds and non-tender Palpation: soft Back/Spine no CVA tenderness Extremity Extremity Narrative: Patient has a few contusions mostly on his right upper extremity from the fall several days ago. No deformities. Neuro oriented x3 Sensorium / Orientation: alert Psych mental status grossly normal Skin no rashes or lesions noted Skin Narrative: Contusions as above. MDM MDM MDM Narrative Medical decision making narrative: Patient's white count is a bit low. D-dimer is negative. Electrolytes show elevation in creatinine of 1.83. When he was in the hospital at the other facility couple days ago he was 1.4 so he does have some worsening of kidney function. Lactate beta natruretic peptide showed no marked abnormalities. Troponin is negative. X-ray is consistent with some Covid. We tried to walk the patient. He was able to get up on the edge of the bed but he required fair amount of help from a person to do this. His is very small and is limited in helping him. He was able to take a few steps very small at bedside. He cannot walk any great distance. He did not desaturate but he is quite weak. This patient is already fallen once at home. I think this is not a good candidate to go home. I think he will do worse. Also, I cannot find any record that he received any specific therapy for Covid. As he does not drop sats a bit, we will initiate Decadron. I discussed case with the hospitalist. Lab Data Attestation: I reviewed the patient's lab results. Labs: Laboratory Results - last 24 hr 04/24/21 04/24/21 04/24/21 10:35 10:35 10:35 WBC 4.0 L RBC 4.79 Hgb 14.0 Hct 42.5 MCV 88.7 MCH 29.2 MCHC 32.9 RDW Std Deviation 53.3 H RDW Coeff of Joshua 16.3 H Plt Count 135 L MPV 9.7 Immature Gran % (Auto) 0.200 Neut % (Auto) 58.5 Lymph % (Auto) 33.9 [place] % (Auto) 7.4 Eos % (Auto) 0.0 Baso % (Auto) 0.0 Absolute Neuts (auto) 2.4 Absolute Lymphs (auto) 1.37 Nucleated RBC % 0 D-Dimer Quant (PE/DVT) 0.33 Sodium 136 Potassium 3.7 Chloride 105 Carbon Dioxide 23.0 Anion Gap 8 BUN 29 H Creatinine 1.83 H Estim Creat Clear Calc 34.86 Est GFR (MDRD) Af Amer 46 L Est GFR (MDRD) Non-Af 38 L BUN/Creatinine Ratio 15.8 Glucose 109 H Lactic Acid Calcium 8.4 L Total Bilirubin 0.40 AST 46 H ALT 33 Alkaline Phosphatase 51 Troponin I High Sens 23 B-Natriuretic Peptide Total Protein 6.4 Albumin 2.9 L Globulin 3.5 Albumin/Globulin Ratio 0.8 L 04/24/21 04/24/21 10:35 10:35 WBC RBC Hgb Hct MCV MCH MCHC RDW Std Deviation RDW Coeff of Joshua Plt Count MPV Immature Gran % (Auto) Neut % (Auto) Lymph % (Auto) [place] % (Auto) Eos % (Auto) Baso % (Auto) Absolute Neuts (auto) Absolute Lymphs (auto) Nucleated RBC % D-Dimer Quant (PE/DVT) Sodium Potassium Chloride Carbon Dioxide Anion Gap BUN Creatinine Estim Creat Clear Calc Est GFR (MDRD) Af Amer Est GFR (MDRD) Non-Af BUN/Creatinine Ratio Glucose Lactic Acid 1.4 Calcium Total Bilirubin AST ALT Alkaline Phosphatase Troponin I High Sens B-Natriuretic Peptide 76.2 Total Protein Albumin Globulin Albumin/Globulin Ratio Radiography Diagnostic Testing: Clinical Impression(s) from Imaging Studies Chest X-Ray 04/24/21 10:25 IMPRESSION: Bronchovascular prominence visualized most prominent in the left retrocardiac region this subtle patchy airspace opacification seen, differential diagnosis would include left lower lobe infiltrate, aspiration pneumonia, bronchitis cannot rule out Covid 19 disease, recommend clinical correlation. Electronically Signed: Hong Azar MD at 11:38 EST Tel , Service support , EKG Initial EKG: Comments: EKG done for weakness and dyspnea read by me shows normal sinus rhythm with a rate of 68. No ectopy. No acute ST elevation or depression. AR interval, QRS duration and QTc normal. Discharge Plan Triage Chief Complaint: General Illness ED Provider: Syed Noyola Dx/Rx/DC Orders Clinical Impression: Pneumonia due to 2019 novel coronavirus, Hypoxia, Generalized weakness, Inability to ambulate due to multiple joints Prescriptions: No Action aspirin 81 mg tablet,delayed release (DR/EC) 81 mg PO QDAY RF: 0 Benefiber Healthy Shape 5 gram/7.4 gram powder 5 g PO BID RF: 0 meclizine 25 mg tablet 25 mg PO DAILY PRN (Reason: Dizziness) RF: 0 multivitamin Tablet 1 tab PO DAILY RF: 0 fluticasone propionate 50 mcg/actuation spray,suspension 2 spray INTRANASAL DAILY Qty: 3 RF: 3 venlafaxine [Effexor XR] 75 mg capsule,extended release 24hr 75 mg PO DAILY RF: 0 linaclotide 290 mcg capsule 290 mcg PO DAILY RF: 0 omeprazole 40 mg capsule,delayed release(DR/EC) 40 mg PO DAILY Qty: 90 RF: 3 amantadine HCl 100 mg tablet 200 mg PO DAILY RF: 0 calcium carbonate-vitamin D3 [Calcium 600 with Vitamin D3] 600 mg(1,500mg) - 500 unit capsule 1 cap PO DAILY RF: 0 metformin 500 mg tablet 1,000 mg PO DAILY RF: 0 oxycodone-acetaminophen 5-325 mg tablet 1 tab PO TID PRN (Reason: Pain) RF: 0 nitroglycerin [Nitrostat] 0.4 mg tablet, sublingual 0.4 mg SUBLINGUAL Q5-15M PRN (Reason: chest pain) Qty: 25 RF: 3 furosemide 20 mg tablet 20 mg PO DAILY Qty: 90 RF: 3 ropinirole 5 mg tablet 5 mg PO QHS Qty: 30 RF: 0 albuterol sulfate [ProAir HFA] 90 mcg/actuation HFA aerosol inhaler 2 puff INHALATION Q4H PRN (Reason: shortness of breath or wheezing) Qty: 18 RF: 6 rosuvastatin 40 mg tablet 40 mg PO QHS Qty: 90 RF: 3 losartan 25 mg tablet 25 mg PO DAILY Qty: 90 RF: 3 levothyroxine 137 mcg tablet 137 mcg PO DAILY Qty: 90 RF: 3 Primary Care Provider: Manuel Estrada Referrals: Manuel Estrada DO [Primary Care Provider] - Disposition Disposition: Acute Care Hospital [facility]
[2021-04-24] MEDS: Ipratropium/Albuterol Sulfate 3 ML AMPUL.NEB INHALATION (10:49)
[2021-04-24 10:53] LABS: Absolute Lymphocyte Count 1.37 X10^3/uL (0.83-4.51); Absolute Neutrophil Count 2.4 X10^3/uL (2.0-7.7); Hematocrit 42.5 % (40-54); Lymphocyte # 1.37 X10^3/ul (0.83-4.51); Lymphocyte % 33.9 % (19-41); Mean Corp Hgb Conc 32.9 g/dL (32-36); Mean Corpuscular Hgb 29.2 pg (27.0-32.0); Mean Corpuscular Volume 88.7 fL (80-94); Mean Platelet Vol. 9.7 fl (6.2-12.0); Monocyte% 7.4 % (0-10); NRBC Flagged by Analyzer 0 % (0-5); Neutrophil # 2.36 X10^3/uL (2.7-7.7); Neutrophil % 58.5 % (47-70); Platelet Count 135 K/mm3 (150-450); RBC Distribution Width CV 16.3 % (11.6-14.6); RBC Distribution Width SD 53.3 fl (35.1-43.9); Red Blood Count 4.79 M/mm3 (4.6-6.2)
[2021-04-24 11:03] LABS: D-Dimer Quantitative (DVT/PE) 0.33 FEU/ug/m (0.27-0.49)
[2021-04-24 11:10] LABS: ALB/GLOB Ratio 0.8 RATIO (0.9-2.4); AST(SGOT) 46 U/L (15-37); Alanine Aminotransfer ALT/SGPT 33 U/L (16-61); Albumin, Serum 2.9 g/dL (3.2-5.0); Alkaline Phosphatase 51 U/L (45-117); Anion Gap 8 (5-15); BUN 29 mg/dL (7-18); BUN/Creat Ratio 15.8 RATIO (10-20); Calcium,Total 8.4 mg/dL (8.5-10.1); Chloride 105 mmol/L (98-107); Creatinine, Serum 1.83 mg/dL (0.70-1.30); EST Glomerular Filtration Rate 38 mL/min (>60); Est Glom Filt Rate - Afr Amer 46 mL/min (>60); Estimated Creatinine Clearance 34.86 ml/min; Globulin 3.5 g/dL (2.2-4.2); Glucose 109 mg/dL (74-106); Potassium 3.7 mmol/L (3.5-5.1); Protein, Total 6.4 g/dL (6.4-8.2); Sodium Level 136 mmol/L (136-145); Troponin-I HS 23 pg/mL (3.0-78.0)
--- NOTE | 2021-04-24 11:14 | NURSING ---
FAXED RELEASE OF INFO TO [facility]. FOLLOWED UP WITH A PHONE CALL TO
[2021-04-24 11:15] LABS: BNP,B-Type NATRIURETIC PEPTIDE 76.2 pg/mL (0-100); Lactic Acid 1.4 mmol/L (0.4-1.9)
--- NOTE | 2021-04-24 13:07 | HP.PCM.HOS_ITS ---
HPI - General General Date of Admission: 04/24/21 Date of Service: 04/24/21 Chief Complaint: COVID +, recent OSH D/C, worsening HPI Narrative The patient is a 81 y/o M w/ PMHx: Remote Hx RLE DVT, Anxiety and Depression, Severe RLS, Hx Prostate CA, IBS, Hypothyroidism, HTN, HLD, GERD, Diabetes mellitus type II, CKD stage III unclear subtype, Asthma, Allergic rhinitis, CAD s/p PCI who presents to the [facility] ED on 04/24/21 with history of COVID + status diagnosis at evaluation at [facility] 2 days prior with admission overnight and discharge on day of presentation with history of progressive worsening fatigue, malaise, weakness and dyspnea with significantly worsened status Thursday with onset of fevers, decreased oral intake, myalgias, dyspnea, weakness requiring a walker which is not normal. He also notes mild frontal headaches and loose stools. He notes that he fell prior to his ED presentation to [place]. He was admitted overnigth for COVID PNA and discharged 04/23/21. Patient did have CT head at their facility given recent fall and this demonstrated no acute findings. Patient was vaccinated 07/19/2020, 08/09/2020 with a Pfizer 2 dose series and recently had his booster 04/16/2021. Work-up in the ED included T 99, heart rate 71, BP 121/55, respiratory rate 26, 91% on room air, CBC with WC 4, hemoglobin 14, platelet 135 without marked shift, D-dimer 0.33, CMP with BUN/creatinine 29/1.83, glucose 109, lactic acid 1.4, total bilirubin 0.4, AST/LT 46/33, alk phos 51, BNP 76.2, troponin high-sensitivity 23, chest x-ray with bronchovascular prominence most prominent left retrocardiac region with a subtle patchy airspace opacification possibly a left lower lobe infiltrate, aspiration pneumonia, bronchitis and potentially COVID-19, follow-up Covid rapid antigen positive. In the ED as discussed with ED physician patient administered IV Decadron 6 mg x 1. [facility] Medical History (Updated 04/24/21 @ 13:[address] Ruba Espinoza MD) DEBORAH (acute kidney injury) Allergic rhinitis Asthma Atherosclerotic heart disease of [place] coronary artery without angina pectoris Back pain Carpal tunnel syndrome Chronic renal failure, stage 3 (moderate) Diabetes Diabetes type 2, controlled Esophageal reflux Essential hypertension Gingivitis Hypokalemia Hyponatremia Hypothyroidism IBS (irritable bowel syndrome) Insomnia Obesity Obesity Osteoarthritis Parathyroid abnormality Presence of stent in coronary artery (~12/05/10) Prostate cancer Pure hypercholesterolemia Syncope Vision problem Home Medications aspirin 81 mg tablet,delayed release 81 mg PO QDAY 12/09/17 [History Last Taken Unknown] meclizine 25 mg tablet 25 mg PO DAILY PRN 01/24/19 [History Last Taken Unknown] wheat dextrin 5 gram/7.4 gram oral powder 5 g PO BID g 01/24/19 [History Last Taken Unknown] fluticasone propionate 50 mcg/actuation nasal spray,suspension 2 spray INTRANASAL DAILY #3 unit 07/19/19 [Rx Last Taken Unknown] multivitamin 1 tab PO DAILY 07/26/19 [History Last Taken Unknown] ropinirole 5 mg tablet 5 mg PO QHS #30 tab 04/13/20 [Rx Last Taken Unknown] albuterol sulfate 90 mcg/actuation aerosol inhaler 2 puff INHALATION Q4H PRN #18 g 06/04/20 [Rx Last Taken Unknown] omeprazole 40 mg capsule,delayed release 40 mg PO DAILY #90 cap 10/10/20 [Rx Last Taken Unknown] linaclotide 290 mcg capsule 290 mcg PO DAILY 10/25/20 [History Last Taken Unknown] venlafaxine 75 mg capsule,extended release 24 hr 75 mg PO DAILY 10/25/20 [History Last Taken Unknown] rosuvastatin 40 mg tablet 40 mg PO QHS #90 tab 12/03/20 [Rx Last Taken Unknown] losartan 25 mg tablet 25 mg PO DAILY #90 tablet 12/19/20 [Rx Last Taken Unknown] levothyroxine 137 mcg tablet 137 mcg PO DAILY #90 tab 12/24/20 [Rx Last Taken Unknown] amantadine HCl 100 mg tablet 200 mg PO DAILY tab 04/10/21 [History Last Taken Unknown] calcium carbonate 600 mg-vitamin D3 12.5 mcg (500 unit) capsule 1 cap PO DAILY 04/10/21 [History Last Taken Unknown] furosemide 20 mg tablet 20 mg PO DAILY #90 tab 04/10/21 [Rx Last Taken Unknown] metformin 500 mg tablet 1,000 mg PO DAILY tab 04/10/21 [History Last Taken Unknown] nitroglycerin 0.4 mg sublingual tablet 0.4 mg SUBLINGUAL Q5-15M PRN #25 tab 04/10/21 [Rx Last Taken Unknown] oxycodone-acetaminophen 5 mg-325 mg tablet 1 tab PO TID PRN tab 04/10/21 [History Last Taken Unknown] Allergy/AdvReac Type Severity Reaction Status Date / Time lorazepam [From Ativan] Allergy Severe Unknown Verified 04/24/21 10:41 lisinopril Allergy Unknown Verified 04/24/21 10:41 modafinil [From Provigil] Allergy Other Verified 04/24/21 10:41 moxifloxacin HCl Allergy Upset Verified 04/24/21 10:41 [From Avelox] Stomach Family History Father , from aneurysm CAD (coronary artery disease) Mother Multiple sclerosis Brother CAD (coronary artery disease) Cancer Prostate cancer Daughter Diabetes Surgical History (Updated 04/24/21 @ 13:[address] Ruba Espinoza MD) H/O angioplasty H/O total knee replacement History of rotator cuff surgery History of thumb surgery S/P total knee arthroplasty Social History (Updated 04/24/21 @ 13:[address] Ruba Espinoza MD) household members: spouse Smoking Status: Former smoker how long ago did patient quit smoking: Quit 1972, smoked 1 ppd since teen until quiting. alcohol intake: current details: social substance use type: does not use caffeine: Yes Type: coffee Number of servings: 2 what type of physical activity do you participate in: walking seatbelt use: always do you feel safe at home: Yes ROS ROS Narrative Admission Review of Systems: CONSTITUTIONAL: No weight loss, + fever, chills, weakness or fatigue. HEENT: + Headache. Eyes: No visual loss, blurred vision, double vision or yellow sclerae. Ears, Nose, Throat: No hearing loss, sneezing. SKIN: No rash or itching, lesions, wounds. CARDIOVASCULAR: No chest pain, chest pressure or chest discomfort, palpitations, edema, orthopnea, syncopal events. RESPIRATORY: + shortness of breath, cough, No marked sputum, wheezing, hemoptysis. GASTROINTESTINAL: + anorexia, diarrhea, No nausea, vomiting, abdominal pain, melena, BRBPR. GENITOURINARY: No dysuria, frequency, urgency or retention. NEUROLOGICAL: + headache, No dizziness, syncope, paralysis, ataxia, numbness or tingling in the extremities, focal weakness, change in bowel or bladder control, seizure. MUSCULOSKELETAL: + muscle, back pain, joint pain or stiffness. HEMATOLOGIC: No anemia, bleeding or bruising. LYMPHATICS: No enlarged nodes. No history of splenectomy. PSYCHIATRIC: + history of depression or anxiety. ENDOCRINOLOGIC: No reports of sweating, cold or heat intolerance. No polyuria or polydipsia. ALLERGIES: + history of asthma, hives, eczema or rhinitis. Vital Signs Vital Signs Vital Signs: 04/24/21 10:05 04/24/21 10:33 04/24/21 10:39 Temperature 97.4 F L 97.4 F L Temperature Source Temporal Temporal Pulse Rate 72 72 Respiratory Rate 18 20 H Respiratory Effort Normal Non-Labored Respiratory Pattern Normal Blood Pressure 114/49 L 137/104 H Blood Pressure Mean 70 115 Pulse Ox 92 97 Oxygen Delivery Method Room Air Room Air 04/24/21 10:49 04/24/21 11:43 04/24/21 12:19 Temperature 99.0 F 98.3 F Temperature Source Temporal Temporal Pulse Rate 72 71 67 Respiratory Rate 15 26 H 18 Respiratory Effort Respiratory Pattern Blood Pressure 121/55 H 101/69 Blood Pressure Mean 77 79 Pulse Ox 91 91 Oxygen Delivery Method Room Air Room Air Weight Weight: 245 lb Body Mass Index (BMI) 34.2 Physical Exam Narrative Physical Examination: General: Awake, alert, oriented x 3 and cooperative, seated upright in the ED bed, fatigued and ill-appearing, no respiratory distress. Skin: Normal color, normal turgor, no icterus, no cyanosis. HEENT: AT/NC, EOMI, PERRLA, moderately dry MM, no carotid bruits or JVD noted. Lungs: Diffusely diminished, greater bases, mild crackles BL bases, no evidence of respiratory distress, no rales, ronchi or wheezing. Heart: Regular rate and regular rhythm; no gallop, rub audible. Abdomen: Soft, obese, no obvious TTP, no marked distention, distant hyperactive bowel sounds, no obvious evidence of HSM. Extremities: No cyanosis, no clubbing, mild BL ankle chronic edema, non-pitting. Neurological: Patient awake, alert, oriented as noted, cognitive function intact; pupils equally reactive to light and accommodation, cranial nerves II- XII grossly normal, moving all 4 extremities, no focal deficits, strength severely globally decreased secondary to acute presentation. Psychiatric: Affect appears fatigued, ill-appearing, no acute evidence of depressive or anxiety feelings. Results Lab / Micro Data Result Diagrams: 04/24/21 10:35 04/24/21 10:35 Labs: Laboratory Results - last 24 hr 04/24/21 10:35: WBC 4.0 L, RBC 4.79, Hgb 14.0, Hct 42.5, MCV 88.7, MCH 29.2, MCHC 32.9, RDW Std Deviation 53.3 H, RDW Coeff of Joshua 16.3 H, Plt Count 135 L, MPV 9.7, Immature Gran % (Auto) 0.200, Neut % (Auto) 58.5, Lymph % (Auto) 33.9, [place] % (Auto) 7.4, Eos % (Auto) 0.0, Baso % (Auto) 0.0, Absolute Neuts (auto) 2.4, Absolute Lymphs (auto) 1.37, Nucleated RBC % 0 04/24/21 10:35: D-Dimer Quant (PE/DVT) 0.33 04/24/21 10:35: Sodium 136, Potassium 3.7, Chloride 105, Carbon Dioxide 23.0, Anion Gap 8, BUN 29 H, Creatinine 1.83 H, Estim Creat Clear Calc 34.86, Est GFR (MDRD) Af Amer 46 L, Est GFR (MDRD) Non-Af 38 L, BUN/Creatinine Ratio 15.8, Glu cose 109 H, Calcium 8.4 L, Total Bilirubin 0.40, AST 46 H, ALT 33, Alkaline Phosphatase 51, Troponin I High Sens 23, Total Protein 6.4, Albumin 2.9 L, Globulin 3.5, Albumin/Globulin Ratio 0.8 L 04/24/21 10:35: Lactic Acid 1.4 04/24/21 10:35: B-Natriuretic Peptide 76.2 Micro: Microbiology 04/24/21 10:52 Nasal Secretion SARS-CoV-2 Antigen (Rapid) - Final SARS-CoV-2 (COVID 19) Radiology Impression Chest X-Ray 04/24/21 10:25 IMPRESSION: Bronchovascular prominence visualized most prominent in the left retrocardiac region this subtle patchy airspace opacification seen, differential diagnosis would include left lower lobe infiltrate, aspiration pneumonia, bronchitis cannot rule out Covid 19 disease, recommend clinical correlation. Electronically Signed: Hong Azar MD at 11:38 EST Tel , Service support , Assessment & Plan Assessment/Plan (1) Pneumonia due to 2019 novel coronavirus: (2) Hypoxia: (3) FTT (failure to thrive) in adult: PLAN: The patient is a 81 y/o M w/ PMHx: Remote Hx RLE DVT, Anxiety and Depression, Severe RLS, Hx Prostate CA, IBS, Hypothyroidism, HTN, HLD, GERD, Diabetes mellitus type II, CKD stage III unclear subtype, Asthma, Allergic rhinitis, CAD s/p PCI who presents to the [facility] ED on 04/24/21 with history of COVID + status diagnosis at evaluation at [facility] 2 days prior with admission overnight and discharge on day of presentation with history of progressive worsening fatigue, malaise, weakness and dyspnea with significantly worsened status Thursday with onset of fevers, decreased oral intake, myalgias, dyspnea, weakness. #1. Acute Hypoxia secondary to Acute Bilateral Pneumonia secondary to Acute Viral Syndrome, COVID-19: Will admit to the [facility], maintain on COVID precautions, will maintain on oxygen with wean as tolerated to room air, PRN albuterol, HOB, IS parameters w/ pending sputum cultures, respiratory viral panel and urine antigens, D-dimer normal per ED, BNP normal per ED, will obtain procalcitonin, CRP, CPK, Ferritin, LDH, continue supportive care including q 2 hour turning including prone given no prone bed availability and judicious hydration, closely monitor for worsening status for ARDS and multiorgan failure, will continue IV decadron x 10 doses, given presentation will also initiate IV remdesivir as CrCl > 30 but will need to closely monitor. If respiratory status worsens and patient requires airvo or BIPAP transition will initiate barcitinib regimen additionally with ID involvement. #2. Acute Renal Insufficiency on Chronic Kidney Disease Stage III, unclear subtype: Admission BUN/Cr 29/1.83, baseline renal function primarily 1.3-1.5, repeat CMP in AM. #3. Chronic asthma with allergic rhinitis: We will continue patient home fluticasone regimen as well as as needed albuterol. #4. CAD: Status post PCI, will continue patient aspirin, statin, losartan, not on beta-bryn therapy with history of bradycardia. As noted if any worsening renal insufficiency or DEBORAH will need to hold losartan. #5. Hypertension: Continue home regimen including losartan, Lasix with next dose to be the day prior with close renal function monitoring and judicious hydration, would plan to hold if any worsening of the renal function given mild insufficiency on chronic kidney disease as noted, PRN hydralazine. #7. Hyperlipidemia: Continue home statin regimen. #8. Anxiety and depression: We will continue patient home venlafaxine regimen #9. GERD: We will continue patient on PPI. #10. Hypothyroidism: Continue home synthroid regimen. #11. IBS: Will temporarily hold patient Linzess as patient has been having significant diarrhea with Covid, resume once appropriate. #12. Severe RLS: We will continue patient home Requip and amantadine regimen. #13. DVT prophylaxis: SCDs, Lovenox. #14. CODE status: Patient HCPOA is his and living will is currently in place. Discussed CODE status at length including difference between FULL code, DNR-CCA and DNR-CC status. Following discussions about the differences in these status, requested Full Code status. Advanced Care Planning Face to Face Time: 16 minutes. Charges/Coding Visit Charges OBSV E&M: 49082 Initial observation care L3 Procedures Hospitalists Procedures: 75331 Advncd Care Plan 30 Min
--- NOTE | 2021-04-24 13:27 | NURSING ---
MED SURG OBS TERRY MORALEZ, WEAKNESS
--- NOTE | 2021-04-24 13:27 | NURSING ---
DR STEWART IN ROOM
[2021-04-24] MEDS: dexAMETHasone 4 MG/ML Vial 6 MG IV (13:42)
[2021-04-24 14:07] LABS: Ferritin 226 ng/mL (26-388); LDH 274 U/L (87-241); Magnesium 1.9 mg/dL (1.6-2.6)
[2021-04-24 14:13] LABS: Procalcitonin 0.27 ng/mL (0.00-0.09)
[2021-04-24] MEDS: 0.9% Normal Saline 1,000 ML 100 ML IV (15:54)
[2021-04-24 17:25] LABS: Bedside Glucose 116 mg/dL (70-110)
[2021-04-24] MEDS: Pramipexole Di-HCl 1 MG Tablet PO (23:13)
[2021-04-24] MEDS: Atorvastatin Calcium 80 MG Tablet PO (23:13)
[2021-04-24] MEDS: Enoxaparin 30 MG/0.3 ML Syringe SC (23:13)
[2021-04-24] MEDS: Insulin Lispro 100 UNIT/ML INSULN.PEN SC (23:18)
[2021-04-24 23:56] LABS: Bedside Glucose 187 mg/dL (70-110)
[2021-04-25] VITALS (8 sets, daily range): BP systolic 100–122; BP diastolic 56–69; PULSE 43–55; RESP 16–18; TEMP 36.4–36.9; O2SAT 93–98
[2021-04-25] MEDS: Acetaminophen 325 MG Tablet 650 MG PO (03:27)
[2021-04-25] MEDS: oxyCODONE 5 MG Tablet PO (03:27)
[2021-04-25] MEDS: Levothyroxine 137 MCG Tablet PO (06:33)
[2021-04-25 06:55] LABS: Bedside Glucose 118 mg/dL (70-110)
[2021-04-25 07:02] LABS: Absolute Lymphocyte Count 1.32 X10^3/uL (0.83-4.51); Absolute Neutrophil Count 2.1 X10^3/uL (2.0-7.7); Hematocrit 40.4 % (40-54); Hemoglobin 13.3 g/dL (13.0-16.5); Lymphocyte # 1.32 X10^3/ul (0.83-4.51); Lymphocyte % 35.4 % (19-41); Mean Corp Hgb Conc 32.9 g/dL (32-36); Mean Corpuscular Volume 88.2 fL (80-94); Mean Platelet Vol. 9.8 fl (6.2-12.0); Monocyte# 0.29 X10^3/uL; Monocyte% 7.8 % (0-10); NRBC Flagged by Analyzer 0 % (0-5); Neutrophil # 2.11 X10^3/uL (2.7-7.7); Neutrophil % 56.5 % (47-70); Platelet Count 120 K/mm3 (150-450); RBC Distribution Width CV 16.3 % (11.6-14.6); Red Blood Count 4.58 M/mm3 (4.6-6.2); White Blood Count 3.7 K/mm3 (4.4-11.0)
[2021-04-25 07:49] LABS: ALB/GLOB Ratio 0.7 RATIO (0.9-2.4); AST(SGOT) 52 U/L (15-37); Alanine Aminotransfer ALT/SGPT 37 U/L (16-61); Albumin, Serum 2.4 g/dL (3.2-5.0); Alkaline Phosphatase 43 U/L (45-117); Anion Gap 8 (5-15); BUN 27 mg/dL (7-18); BUN/Creat Ratio 21.4 RATIO (10-20); Calcium,Total 8.1 mg/dL (8.5-10.1); Chloride 108 mmol/L (98-107); Creatinine, Serum 1.26 mg/dL (0.70-1.30); EST Glomerular Filtration Rate 59 mL/min (>60); Est Glom Filt Rate - Afr Amer 71 mL/min (>60); Estimated Creatinine Clearance 50.63 ml/min; Globulin 3.6 g/dL (2.2-4.2); Glucose 137 mg/dL (74-106); Potassium 3.7 mmol/L (3.5-5.1); Sodium Level 139 mmol/L (136-145)
--- NOTE | 2021-04-25 09:43 | PN.HOSP_ITS ---
Subjective Subjective Patient has intermittent cough for about 2 to 3 months. Symptoms more pronounced since last Thursday with fever decreased appetite myalgia and dyspnea. Patient also had fall continently walking on walker. Was admitted with in [facility] on Thursday out of fall in the bathroom. Patient was discharged next day, not on medication at home oxygen as per ER documentation. History of right leg DVT about 20 years ago. Objective Data Objective Data Vital Signs: Vital Signs Temp Pulse Resp BP Pulse Ox 97.5 F L 48 L 16 122/69 H 98 04/25/21 03:19 04/25/21 07:00 04/25/21 03:19 04/25/21 03:19 04/25/21 03:19 Oxygen Flow Rate (L/min) 2 Oxygen Delivery Method Nasal Cannula Weight: 248 lb 0.321 oz Body Mass Index (BMI) 34.6 Intake & Output: Intake and Output for Last 24 Hours 04/23/21 04/24/21 04/25/21 23:59 23:59 23:59 Intake Total 255 / 255 976.67 / 976.67 Output Total 500 / 500 800 / 800 Balance -245 / -245 176.67 / 176.67 Lab / Micro Data Result Diagrams: 04/25/21 06:00 04/25/21 06:00 Labs: Laboratory Results - last 24 hr 04/24/21 10:35: WBC 4.0 L, RBC 4.79, Hgb 14.0, Hct 42.5, MCV 88.7, MCH 29.2, MCHC 32.9, RDW Std Deviation 53.3 H, RDW Coeff of Joshua 16.3 H, Plt Count 135 L, MPV 9.7, Immature Gran % (Auto) 0.200, Neut % (Auto) 58.5, Lymph % (Auto) 33.9, Sampson % (Auto) 7.4, Eos % (Auto) 0.0, Baso % (Auto) 0.0, Absolute Neuts (auto) 2.4, Absolute Lymphs (auto) 1.37, Nucleated RBC % 0 04/24/21 10:35: D-Dimer Quant (PE/DVT) 0.33 04/24/21 10:35: Sodium 136, Potassium 3.7, Chloride 105, Carbon Dioxide 23.0, Anion Gap 8, BUN 29 H, Creatinine 1.83 H, Estim Creat Clear Calc 34.86, Est GFR (MDRD) Af Amer 46 L, Est GFR (MDRD) Non-Af 38 L, BUN/Creatinine Ratio 15.8, Glucose 109 H, Calcium 8.4 L, Total Bilirubin 0.40, AST 46 H, ALT 33, Alkaline Phosphatase 51, Troponin I High Sens 23, Total Protein 6.4, Albumin 2.9 L, Globulin 3.5, Albumin/Globulin Ratio 0.8 L 04/24/21 10:35: Lactic Acid 1.4 04/24/21 10:35: B-Natriuretic Peptide 76.2 04/24/21 10:35: Magnesium 1.9, Ferritin 226, Lactate Dehydrogenase 274 H, C- React Prot Ext Range 72.40 H 04/24/21 10:35: Procalcitonin 0.27 H 04/24/21 16:33: POC Glucose 116 H 04/24/21 23:09: POC Glucose 187 H 04/25/21 06:00: WBC 3.7 L, RBC 4.58 L, Hgb 13.3, Hct 40.4, MCV 88.2, MCH 29.0, MCHC 32.9, RDW Std Deviation 53.0 H, RDW Coeff of Joshua 16.3 H, Plt Count 120 L, MPV 9.8, Immature Gran % (Auto) 0.300, Neut % (Auto) 56.5, Lymph % (Auto) 35.4, Sampson % (Auto) 7.8, Eos % (Auto) 0.0, Baso % (Auto) 0.0, Absolute Neuts (auto) 2.1, Absolute Lymphs (auto) 1.32, Nucleated RBC % 0 04/25/21 06:00: Sodium 139, Potassium 3.7, Chloride 108 H, Carbon Dioxide 23.0, Anion Gap 8, BUN 27 H, Creatinine 1.26, Estim Creat Clear Calc 50.63, Est GFR (MDRD) Af Amer 71, Est GFR (MDRD) Non-Af 59 L, BUN/Creatinine Ratio 21.4 H, Glucose 137 H, Calcium 8.1 L, Total Bilirubin 0.40, AST 52 H, ALT 37, Alkaline Phosphatase 43 L, Total Protein 6.0 L, Albumin 2.4 L, Globulin 3.6, Albumin/Globulin Ratio 0.7 L 04/25/21 06:35: POC Glucose 118 H Micro: Microbiology 04/25/21 03:27 Urine, Clean Catch Streptococcus pneumoniae Antigen (M - Final 04/25/21 03:27 Urine, Clean Catch Legionella Antigen - Final 04/24/21 10:52 Nasal Secretion SARS-CoV-2 Antigen (Rapid) - Final SARS-CoV-2 (COVID 19) Radiography Diagnostic Testing: Radiology Impression Chest X-Ray 04/24/21 10:25 IMPRESSION: Bronchovascular prominence visualized most prominent in the left retrocardiac region this subtle patchy airspace opacification seen, differential diagnosis would include left lower lobe infiltrate, aspiration pneumonia, bronchitis cannot rule out Covid 19 disease, recommend clinical correlation. Electronically Signed: Hong Azar MD at 11:38 EST Tel , Service support , Physical Exam Narrative Patient said he fell in the bathroom therefore went to [facility] and probably had short time pass out as he hit his forehead on the cabinet General: Alert, Oriented x3, Cooperative HEENT: Atraumatic, PERRLA, EOMI, Normocephalic Oral: No Gingival or Mucosal Lesions/ Ulcerations Neck: Supple, No JVD, Negative Carotid Bruits Lungs: Air entry diminished in bilateral lung bases. Initially on 2 L currently on room air. No crepitation/rhonchi Cardiovascular: Regular rate, Regular Rhythm, Normal S1, Normal S2, No murmurs Abdomen: Bowel Sounds Present, Soft, Non Tender, Non-Distended : No renal angle tenderness. No suprapubic tenderness. Extremities: No edema, Capillary Refill Less than 3 Seconds Skin: No rashes, No breakdown Musculoskeletal: No Tenderness to Palpation of Joints or Extremities Neurological: Cranial nerves II-XII grossly intact, DTR 2+/4 and Symmetrical, Neuro grossly intact Psych/Mental Status: Normal Affect, Appropriate. Assessment & Plan Assessment/Plan (1) Pneumonia due to 2019 novel coronavirus: (2) Hypoxia: (3) FTT (failure to thrive) in adult: PLAN: The patient is a 81 y/o male with multiple comorbidities who was admitted on 04/24/21 with history of COVID + infection with worsening of symptoms particularly with weakness dyspnea for past 5 days prior to admission He had recent fall and possible syncope and was admitted in [facility]. #1. Acute bilateral COVID-19 pneumonia with mild hypoxia: On IV Decadron and remdesivir. If patient needs airflow, BiPAP or high oxygen requirement, will need ID consult for baricitinib. #2. Acute renal insufficiency on baseline chronic Kidney Disease Stage IIIa: Admission BUN/Cr 29/1.83, baseline renal function primarily 1.3-1.5. Repeat creatinine 1.26 today. #3. Chronic asthma with allergic rhinitis: continue patient home fluticasone regimen as well as as needed albuterol. #4. CAD: Status post PCI, ontinue patient aspirin, statin, losartan, not on beta-bryn therapy with history of bradycardia. #5. Hypertension: Continue home regimen including losartan. Blood pressure is on lower side #7. Hyperlipidemia: Continue home statin regimen. #8. Anxiety and depression: We will continue patient home venlafaxine regimen #9. GERD: We will continue patient on PPI. #10. Hypothyroidism: Continue home synthroid regimen. #11. IBS: Will temporarily hold patient Linzess as patient has been having significant diarrhea with Covid, resume once appropriate. #12. Severe RLS: We will continue patient home Requip and amantadine regimen. #13. DVT prophylaxis: SCDs, Lovenox 30 subcu twice daily. Discontinue if platelet count drops less than 50,000 or hemoglobin less than 8 g% #14. CODE status: Full code Charges/Coding Visit Charges Inpatient E&M: 71143 Subs Hosp L2
[2021-04-25] MEDS: Venlafaxine XR 75 MG Capsule PO (10:06)
[2021-04-25] MEDS: Aspirin E.C. 81 MG Tablet PO (10:06)
[2021-04-25] MEDS: Fluticasone 0.05% 1 SPRAY NASAL.SRY 2 SPRAY NASAL (10:06)
[2021-04-25] MEDS: Losartan Potassium 25 MG Tablet PO (10:08)
[2021-04-25] MEDS: Furosemide 20 MG Tablet PO (10:09)
[2021-04-25] MEDS: Multivitamins,Therapeutic Tablet 1 TABLET PO (10:09)
[2021-04-25] MEDS: Enoxaparin 30 MG/0.3 ML Syringe SC ×2 (10:09→20:48)
[2021-04-25] MEDS: Pantoprazole Sodium 40 MG Tablet PO (10:10)
[2021-04-25] MEDS: Amantadine 100 MG Capsule 200 MG PO (10:10)
[2021-04-25] MEDS: Calcium Carb/Vitamin D 1 TABLET Tablet PO (10:10)
[2021-04-25 11:10] LABS: Bedside Glucose 141 mg/dL (70-110)
[2021-04-25] MEDS: dexAMETHasone 10 MG/ML Vial 6 MG IV (11:43)
[2021-04-25] MEDS: 0.9% Saline Lock 10 ML Syringe IV (11:45)
--- NOTE | 2021-04-25 11:55 | CASEMGMT ---
SHAKIRA GREENFIELD Assessment: Face to Face with pt for initial transition planning/care coordination assessment. SHAKIRA GREENFIELD introduced self and role at [facility], pt voices understanding and consents to assessment. Pt is A/O x4 and answers all questions appropriately at this time. Pt sitting up in chair on RA in no distress. Care providers, pharmacy, and demographics verified/updated. Admitting Dx: COVID PNA, hypoxia, FTT adult PCP:Natalie Specialists:Lilliana, cardio; Kenny, psychiatrist; Shira ortho for back; Eamon, learning disabilities specialist; , endo; Scottie, neuro; Knapjulee, ortho Preferred [facility]acy: [facility] [place] Insurance: [employer] for Life Prescription Benefit: yes LW/HPOA: Pt states he has a LW/DPOA and his DPOA is his Chelle Garcia. He is aware this is not on file at [facility] and he may bring in to be scanned into the chart. LNOK: Chelle Garcia, ; Elmira Durand, dtr Living Arrangements: Pt lives with in a 1 1/2 story house with 2 steps to enter with a rail. Pt reports he was I in ADL's and denies concerns at home. Transportation: Pt drives self and denies concerns with transportation. DME/HHC/SNF: Pt has a CPAP at home and walker but does not use. Pt also is using his 's BGM as he was recently dx with DM. He will need a BGM at tn. Green sheet on chart for this. Pt currently checks his blood sugar 1-2x/wk. Pt denies previous hx of HHC or SNF stays. Pt was first tested at [facility]. He was admitted overnight on Thursday after a fall at home. He was dc'd the next day on no O2. Pt states his is also positive for COVID. They do have family who can provide them with groceries and supplies. Discussed local DME companies, pt chose [employer] should he need home O2. Pt states no concerns with going home at time of dc. Currently he does feel he needs therapy in the home. PT is now recommending therapy as outpt potentially at dc, but pt cannot while in quarantine. SHAKIRA GREENFIELD to follow for therapy needs. Pt states no further concerns/needs. CM to follow. Advised pt to ask CM if any further question/concerns/needs arise, voices understanding. Pt Goal: Home Plan: Home, follow for therapy
--- NOTE | 2021-04-25 12:01 | NURSING ---
pt reports that it is normal for his hr to be as low as in the 40s. parameters changed on the monitor in room to 45, pt had commented that the alarm was driving him a little crazy
[2021-04-25] MEDS: guaiFENesin 10 ML UDC (200MG/10ML) 20 ML PO (14:20)
[2021-04-25] MEDS: Insulin Lispro 100 UNIT/ML INSULN.PEN SC ×2 (17:07→20:49)
[2021-04-25 17:20] LABS: Bedside Glucose 163 mg/dL (70-110)
--- NOTE | 2021-04-25 18:05 | NURSING ---
PT WAS REQUESTING ALLERGY EYE DROPS. THIS NURSE CALLED AND FOUND OUT OUR PHARMACY DOES NOT CARRY ANY. ASKED PT IF HE WANTED TO USE ANY NATURAL TEARS BUT HE DECLINED.
[2021-04-25] MEDS: Pramipexole Di-HCl 1 MG Tablet PO (20:48)
[2021-04-25] MEDS: Atorvastatin Calcium 80 MG Tablet PO (20:49)
[2021-04-25 21:31] LABS: Bedside Glucose 177 mg/dL (70-110)
--- NOTE | 2021-04-25 23:33 | PCS.PANDOC ---
PANDEMIC DOCUMENTATION INITIATED: Date: 12/10/2020 Time: 190
[2021-04-26] VITALS (7 sets, daily range): BP systolic 113–135; BP diastolic 59–66; PULSE 44–54; RESP 18; TEMP 36.4–36.6; O2SAT 89–94
[2021-04-26] MEDS: Levothyroxine 137 MCG Tablet PO (03:22)
[2021-04-26 04:51] LABS: Bedside Glucose 129 mg/dL (70-110)
[2021-04-26 06:33] LABS: Absolute Lymphocyte Count 1.53 X10^3/uL (0.83-4.51); Absolute Neutrophil Count 2.6 X10^3/uL (2.0-7.7); Basophil# 0.01 X10^3/uL; Basophil% 0.2 % (0-1); Hemoglobin 13.7 g/dL (13.0-16.5); Lymphocyte # 1.53 X10^3/ul (0.83-4.51); Lymphocyte % 33.6 % (19-41); Mean Corp Hgb Conc 32.6 g/dL (32-36); Mean Corpuscular Hgb 28.7 pg (27.0-32.0); Mean Corpuscular Volume 87.9 fL (80-94); Mean Platelet Vol. 10.1 fl (6.2-12.0); Monocyte# 0.35 X10^3/uL; Monocyte% 7.7 % (0-10); NRBC Flagged by Analyzer 0 % (0-5); Neutrophil # 2.64 X10^3/uL (2.7-7.7); Neutrophil % 58.1 % (47-70); Platelet Count 152 K/mm3 (150-450); RBC Distribution Width SD 52.3 fl (35.1-43.9); Red Blood Count 4.78 M/mm3 (4.6-6.2); White Blood Count 4.6 K/mm3 (4.4-11.0)
[2021-04-26 07:07] LABS: ALB/GLOB Ratio 0.7 RATIO (0.9-2.4); AST(SGOT) 49 U/L (15-37); Alanine Aminotransfer ALT/SGPT 38 U/L (16-61); Albumin, Serum 2.5 g/dL (3.2-5.0); Alkaline Phosphatase 46 U/L (45-117); Anion Gap 5 (5-15); BUN 30 mg/dL (7-18); Calcium,Total 8.9 mg/dL (8.5-10.1); Chloride 108 mmol/L (98-107); Creatinine, Serum 1.25 mg/dL (0.70-1.30); EST Glomerular Filtration Rate 59 mL/min (>60); Est Glom Filt Rate - Afr Amer 72 mL/min (>60); Estimated Creatinine Clearance 51.04 ml/min; Globulin 3.7 g/dL (2.2-4.2); Glucose 138 mg/dL (74-106); Protein, Total 6.2 g/dL (6.4-8.2); Sodium Level 139 mmol/L (136-145)
--- NOTE | 2021-04-26 09:43 | PCM.PN.HOSP ---
Objective Data Objective Data Vital Signs: Vital Signs Temp Pulse Resp BP Pulse Ox 97.5 F L 54 L 18 135/66 H 94 04/26/21 03:15 04/26/21 03:15 04/26/21 03:15 04/26/21 03:15 04/26/21 03:15 Oxygen Flow Rate (L/min) 4 Oxygen Delivery Method Bi-pap Weight: 246 lb 7.629 oz Body Mass Index (BMI) 34.6 Intake & Output: Intake and Output for Last 24 Hours 04/24/21 04/25/21 04/26/21 23:59 23:59 23:59 Intake Total 255 / 255 1410.42 / 1410.42 Output Total 500 / 500 800 / 800 Balance -245 / -245 610.42 / 610.42 Lab / Micro Data Result Diagrams: 04/26/21 05:25 04/26/21 05:25 Labs: Laboratory Results - last 24 hr 04/25/21 10:43: POC Glucose 141 H 04/25/21 17:05: POC Glucose 163 H 04/25/21 20:47: POC Glucose 177 H 04/26/21 03:37: POC Glucose 129 H 04/26/21 05:25: WBC 4.6, RBC 4.78, Hgb 13.7, Hct 42.0, MCV 87.9, MCH 28.7, MCHC 32.6, RDW Std Deviation 52.3 H, RDW Coeff of Joshua 16.0 H, Plt Count 152, MPV 10.1, Immature Gran % (Auto) 0.400, Neut % (Auto) 58.1, Lymph % (Auto) 33.6, [place] % (Auto) 7.7, Eos % (Auto) 0.0, Baso % (Auto) 0.2, Absolute Neuts (auto) 2.6, Absolute Lymphs (auto) 1.53, Nucleated RBC % 0 04/26/21 05:25: Sodium 139, Potassium 4.0, Chloride 108 H, Carbon Dioxide 26.0, Anion Gap 5, BUN 30 H, Creatinine 1.25, Estim Creat Clear Calc 51.04, Est GFR (MDRD) Af Amer 72, Est GFR (MDRD) Non-Af 59 L, BUN/Creatinine Ratio 24.0 H, Glucose 138 H, Calcium 8.9, Total Bilirubin 0.50, AST 49 H, ALT 38, Alkaline Phosphatase 46, Total Protein 6.2 L, Albumin 2.5 L, Globulin 3.7, Albumin/Globulin Ratio 0.7 L Micro: Microbiology 04/24/21 10:50 Blood Culture (Wb) - Right Hand Blood Culture - Preliminary No growth in 48 hours. 04/24/21 10:35 Blood Culture (Wb) - Anticubital Left Blood Culture - Preliminary No growth in 48 hours. 04/25/21 03:27 Urine, Clean Catch Streptococcus pneumoniae Antigen (M - Final 04/25/21 03:27 Urine, Clean Catch Legionella Antigen - Final 04/24/21 10:52 Nasal Secretion SARS-CoV-2 Antigen (Rapid) - Final SARS-CoV-2 (COVID 19) Physical Exam Narrative Patient said he fell in the bathroom therefore went to [facility] and probably had short time pass out as he hit his forehead on the cabinet General: Alert, Oriented x3, Cooperative HEENT: Atraumatic, PERRLA, EOMI, Normocephalic Oral: No Gingival or Mucosal Lesions/ Ulcerations Neck: Supple, No JVD, Negative Carotid Bruits Lungs: Air entry diminished in bilateral lung bases. Initially on 2 L currently on room air. No crepitation/rhonchi Cardiovascular: Regular rate, Regular Rhythm, Normal S1, Normal S2, No murmurs Abdomen: Bowel Sounds Present, Soft, Non Tender, Non-Distended : No renal angle tenderness. No suprapubic tenderness. Extremities: No edema, Capillary Refill Less than 3 Seconds Skin: No rashes, No breakdown Musculoskeletal: No Tenderness to Palpation of Joints or Extremities Neurological: Cranial nerves II-XII grossly intact, DTR 2+/4 and Symmetrical, Neuro grossly intact Psych/Mental Status: Normal Affect, Appropriate. Assessment & Plan Assessment/Plan (1) Pneumonia due to 2019 novel coronavirus: (2) Hypoxia: (3) FTT (failure to thrive) in adult: PLAN: The patient is a 81 y/o male with multiple comorbidities who was admitted on 04/24/21 with history of COVID + infection with worsening of symptoms particularly with weakness dyspnea for past 5 days prior to admission He had recent fall and possible syncope and was admitted in [facility]. #1. Acute bilateral COVID-19 pneumonia with mild hypoxia: On IV Decadron and remdesivir. If patient needs airflow, BiPAP or high oxygen requirement, will need ID consult for baricitinib. #2. Acute renal insufficiency on baseline chronic Kidney Disease Stage IIIa: Admission BUN/Cr 29/1.83, baseline renal function primarily 1.3-1.5. Repeat creatinine 1.26 today. #3. Chronic asthma with allergic rhinitis: continue patient home fluticasone regimen as well as as needed albuterol. #4. CAD: Status post PCI, ontinue patient aspirin, statin, losartan, not on beta-bryn therapy with history of bradycardia. #5. Hypertension: Continue home regimen including losartan. Blood pressure is on lower side #7. Hyperlipidemia: Continue home statin regimen. #8. Anxiety and depression: We will continue patient home venlafaxine regimen #9. GERD: We will continue patient on PPI. #10. Hypothyroidism: Continue home synthroid regimen. #11. IBS: Will temporarily hold patient Linzess as patient has been having significant diarrhea with Covid, resume once appropriate. #12. Severe RLS: We will continue patient home Requip and amantadine regimen. #13. DVT prophylaxis: SCDs, Lovenox 30 subcu twice daily. Discontinue if platelet count drops less than 50,000 or hemoglobin less than 8 g% #14. CODE status: Full code
[2021-04-26] MEDS: 0.9% Saline Lock 10 ML Syringe IV ×3 (09:55→13:16)
[2021-04-26] MEDS: Ondansetron 4 MG/2 ML Vial IV (09:55)
[2021-04-26] MEDS: Calcium Carb/Vitamin D 1 TABLET Tablet PO (10:05)
[2021-04-26] MEDS: Enoxaparin 30 MG/0.3 ML Syringe SC (10:05)
[2021-04-26] MEDS: Aspirin E.C. 81 MG Tablet PO (10:05)
[2021-04-26] MEDS: dexAMETHasone 10 MG/ML Vial 6 MG IV (10:05)
[2021-04-26] MEDS: Furosemide 20 MG Tablet PO (10:05)
[2021-04-26] MEDS: Pantoprazole Sodium 40 MG Tablet PO (10:05)
[2021-04-26] MEDS: Amantadine 100 MG Capsule 200 MG PO (10:05)
[2021-04-26] MEDS: Multivitamins,Therapeutic Tablet 1 TABLET PO (10:05)
[2021-04-26] MEDS: Fluticasone 0.05% 1 SPRAY NASAL.SRY 2 SPRAY NASAL (10:06)
--- NOTE | 2021-04-26 10:32 | DCINST_ITS ---
Discharge Instructions Diet Discharge Diet: Low fat / Low cholesterol, 1800 Calorie Control Diet and 2000 mg Sodium Diet Activity Discharge Activity: Return to Normal Activity and May Not Drive Dressing / Incision Call your doctor if you observe: Fever of 101 or Higher, Coldness, Increased Pain, Numbness or Tingling, Change in Color, Inability to urinate, Inability to have a bowel movement, Shortness of breath, Dizziness, Fainting spells, Swelling in the ankles, Chest pain, Prolonged hiccupping, Increased palpitations (irregular heartbeat), Calf discomfort and Uncontrolled pain Follow Up Care Test Results: Test results from this visit will be discussed in further detail at your follow-up appointment, if applicable. Discharge Plan Admission Admit Date/Time: 04/25/21 13:38 Primary Reason for Your Visit: Attending Provider: Jakob Lewis Primary Care Provider: Manuel Estrada Discharge Orders/Prescriptions Prescriptions: New Eliquis 2.5 mg tablet 2.5 mg PO BID Qty: 30 RF: 0 dexamethasone 6 mg tablet 6 mg PO DAILY Qty: 8 RF: 0 pseudoephedrine-guaifenesin [Mucinex D] 60-600 mg tablet extended release 12 hr 1 tab PO BID Qty: 14 RF: 0 Continued aspirin 81 mg tablet,delayed release (DR/EC) 81 mg PO DAILY RF: 0 Benefiber Healthy Shape 5 gram/7.4 gram powder 5 g PO BID RF: 0 meclizine 25 mg tablet 25 mg PO DAILY PRN (Reason: Dizziness) RF: 0 multivitamin Tablet 1 tab PO DAILY RF: 0 fluticasone propionate 50 mcg/actuation spray,suspension 2 spray INTRANASAL DAILY Qty: 3 RF: 3 venlafaxine [Effexor XR] 75 mg capsule,extended release 24hr 75 mg PO DAILY RF: 0 omeprazole 40 mg capsule,delayed release(DR/EC) 40 mg PO DAILY Qty: 90 RF: 3 amantadine HCl 100 mg tablet 200 mg PO DAILY RF: 0 calcium carbonate-vitamin D3 [Calcium 600 with Vitamin D3] 600 mg(1,500mg) - 500 unit capsule 1 cap PO DAILY RF: 0 oxycodone-acetaminophen 5-325 mg tablet 1 tab PO TID PRN (Reason: Pain) RF: 0 nitroglycerin [Nitrostat] 0.4 mg tablet, sublingual 0.4 mg SUBLINGUAL Q5-15M PRN (Reason: chest pain) Qty: 25 RF: 3 ropinirole 2 mg tablet 2 mg PO QHS RF: 0 doxazosin 4 mg tablet 4 mg PO DAILY RF: 0 montelukast 10 mg tablet 10 mg PO DAILY RF: 0 Advair HFA 230-21 mcg/actuation HFA aerosol inhaler 2 inh INHALATION BID RF: 0 Linzess 145 mcg capsule 145 mcg PO DAILY RF: 0 losartan 25 mg tablet 25 mg PO DAILY Qty: 90 RF: 3 albuterol sulfate [ProAir HFA] 90 mcg/actuation HFA aerosol inhaler 2 puff INHALATION Q4H PRN (Reason: shortness of breath or wheezing) Qty: 18 RF: 6 rosuvastatin 40 mg tablet 40 mg PO QHS Qty: 90 RF: 3 levothyroxine 137 mcg tablet 137 mcg PO DAILY Qty: 90 RF: 3 Changed furosemide 40 mg tablet 20 mg PO DAILY Qty: 0 RF: 0 metformin 500 mg tablet 500 mg PO DAILY Qty: 0 RF: 0 Referrals / Follow Up: Manuel Estrada DO [Primary Care Provider] - Within 1 Week Disposition Disposition (needs filled in before D/C Order can be placed): Home, Self Care
[2021-04-26 11:31] LABS: Bedside Glucose 132 mg/dL (70-110)
--- NOTE | 2021-04-26 11:42 | PCM.DC.SUM ---
Providers Date of Admission: 04/25/21 Primary Care Physician: Dr. Manuel Estrada, DO Reason For Visit: COVID PNA, HYPOXIA, FTT ADULT Diagnosis Discharge Diagnosis (1) Pneumonia due to 2019 novel coronavirus: Status: Acute Code(s): U07.1 - COVID-19; J12.82 - Pneumonia due to coronavirus disease 2019 (2) Hypoxia: Status: Acute Code(s): R09.02 - Hypoxemia (3) FTT (failure to thrive) in adult: Status: Acute Code(s): R62.7 - Adult failure to thrive Medications at Discharge Home Medications aspirin 81 mg tablet,delayed release 81 mg PO DAILY 12/09/17 meclizine 25 mg tablet 25 mg PO DAILY PRN 01/24/19 wheat dextrin 5 gram/7.4 gram oral powder 5 g PO BID g 01/24/19 fluticasone propionate 50 mcg/actuation nasal spray,suspension 2 spray INTRANASAL DAILY #3 unit 07/19/19 multivitamin 1 tab PO DAILY 07/26/19 albuterol sulfate 90 mcg/actuation aerosol inhaler 2 puff INHALATION Q4H PRN #18 g 06/04/20 omeprazole 40 mg capsule,delayed release 40 mg PO DAILY #90 cap 10/10/20 venlafaxine 75 mg capsule,extended release 24 hr 75 mg PO DAILY 10/25/20 rosuvastatin 40 mg tablet 40 mg PO QHS #90 tab 12/03/20 levothyroxine 137 mcg tablet 137 mcg PO DAILY #90 tab 12/24/20 amantadine HCl 100 mg tablet 200 mg PO DAILY tab 04/10/21 calcium carbonate 600 mg-vitamin D3 12.5 mcg (500 unit) capsule 1 cap PO DAILY 04/10/21 nitroglycerin 0.4 mg sublingual tablet 0.4 mg SUBLINGUAL Q5-15M PRN #25 tab 04/10/21 oxycodone-acetaminophen 5 mg-325 mg tablet 1 tab PO TID PRN tab 04/10/21 Advair HFA 2 inh INHALATION BID 04/24/21 Linzess 145 mcg PO DAILY 04/24/21 doxazosin 4 mg PO DAILY 04/24/21 montelukast 10 mg PO DAILY 04/24/21 ropinirole 2 mg PO QHS 04/24/21 apixaban [Eliquis] 2.5 mg PO BID #30 tab 04/26/21 dexamethasone 6 mg PO DAILY #8 tab 04/26/21 furosemide 20 mg PO DAILY #0 tab 04/26/21 losartan 25 mg PO DAILY #90 tablet 04/26/21 metformin 500 mg PO DAILY #0 tab 04/26/21 pseudoephedrine-guaifenesin [Mucinex D] 1 tab PO BID #14 tab 04/26/21 Hospital Course Summary of Care Provided Hospital Course: The patient is a 81 y/o male with multiple comorbidities who was admitted on 04/24/21 with history of COVID + infection with worsening of symptoms particularly with weakness dyspnea for past 5 days prior to admission He had recent fall and possible syncope and was admitted in [facility]. Inflammatory markers elevated. Procalcitonin 0.27. Lactic acid normal. #1. Acute bilateral COVID-19 pneumonia with mild hypoxia: On IV Decadron and remdesivir. Hypoxia resolved. 92% at rest on ambient air and 89% on exertion on ambient air #2. Acute renal insufficiency on baseline chronic Kidney Disease Stage IIIa: Admission BUN/Cr 29/1.83, baseline renal function primarily 1.3-1.5. Repeat creatinine 1.26 today. Acute renal insufficiency resolved. #3. Chronic asthma with allergic rhinitis: continue patient home fluticasone regimen as well as as needed albuterol. #4. CAD: Status post PCI, patient aspirin, statin, losartan, not on beta-bryn therapy with history of bradycardia. Home medications continued #5. Hypertension: Continue home regimen including losartan. Blood pressure is on lower side #7. Hyperlipidemia: Continue home statin regimen. #8. Anxiety and depression: We will continue patient home venlafaxine regimen #9. GERD: We will continue patient on PPI. #10. Hypothyroidism: Continue home synthroid regimen. #11. IBS: Will temporarily hold patient Linzess as patient has been having significant diarrhea with Covid, resume once appropriate. #12. Severe RLS: We will continue patient home Requip and amantadine regimen. #13. DVT prophylaxis: SCDs, Lovenox 30 subcu twice daily. Discontinue if platelet count drops less than 50,000 or hemoglobin less than 8 g% #14. Hyperglycemia most likely due to Decadron. Glucose in the range of 130s. Advised Accu-Chek before meals and at bedtime and cover with Humalog sliding scale. Advised A1c after completion of dexamethasone with PCP. CODE status: Full code Discharge medication reconciliation done. Discharge follow-up instructions completed. Discharge process discussed with the patient and all questions were answered to patient's satisfaction. Total time spent, exact 35 minutes on discharge meds reconciliation, examination, coordination of care with nurses and ancillary staff, review of imaging and blood test and discussion with the patient on follow-up instructions Physical Exam Narrative Patient uses CPAP at home. 92% At rest And 89% on exertion On ambient air . Does not qualify for oxygen requirement. General: Alert, Oriented x3, Cooperative HEENT: Atraumatic, PERRLA, EOMI, Normocephalic Oral: No Gingival or Mucosal Lesions/ Ulcerations Neck: Supple, No JVD, Negative Carotid Bruits Lungs: Air entry diminished in bilateral lung bases. No crepitation/rhonchi Cardiovascular: Regular rate, Regular Rhythm, Normal S1, Normal S2, No murmurs Abdomen: Bowel Sounds Present, Soft, Non Tender, Non-Distended : No renal angle tenderness. No suprapubic tenderness. Extremities: No edema, Capillary Refill Less than 3 Seconds Skin: No rashes, No breakdown Musculoskeletal: No Tenderness to Palpation of Joints or Extremities Neurological: Cranial nerves II-XII grossly intact, DTR 2+/4 and Symmetrical, Neuro grossly intact Psych/Mental Status: Normal Affect, Appropriate. Weight / BMI Weight Weight: 246 lb 7.629 oz Body Mass Index (BMI) 34.6 ABG / Lab / Microbiology Data Result Diagrams: 04/26/21 05:25 04/26/21 05:25 Laboratory: Laboratory Results - last 24 hr 04/25/21 17:05: POC Glucose 163 H 04/25/21 20:47: POC Glucose 177 H 04/26/21 03:37: POC Glucose 129 H 04/26/21 05:25: WBC 4.6, RBC 4.78, Hgb 13.7, Hct 42.0, MCV 87.9, MCH 28.7, MCHC 32.6, RDW Std Deviation 52.3 H, RDW Coeff of Joshua 16.0 H, Plt Count 152, MPV 10.1, Immature Gran % (Auto) 0.400, Neut % (Auto) 58.1, Lymph % (Auto) 33.6, [place] % (Auto) 7.7, Eos % (Auto) 0.0, Baso % (Auto) 0.2, Absolute Neuts (auto) 2.6, Absolute Lymphs (auto) 1.53, Nucleated RBC % 0 04/26/21 05:25: Sodium 139, Potassium 4.0, Chloride 108 H, Carbon Dioxide 26.0, Anion Gap 5, BUN 30 H, Creatinine 1.25, Estim Creat Clear Calc 51.04, Est GFR (MDRD) Af Amer 72, Est GFR (MDRD) Non-Af 59 L, BUN/Creatinine Ratio 24.0 H, Glucose 138 H, Calcium 8.9, Total Bilirubin 0.50, AST 49 H, ALT 38, Alkaline Phosphatase 46, Total Protein 6.2 L, Albumin 2.5 L, Globulin 3.7, Albumin/Globulin Ratio 0.7 L 04/26/21 11:16: POC Glucose 132 H Microbiology: Microbiology 04/25/21 14:16 Sputum, Expectorated/Coughed Respiratory Culture - Preliminary Possible Fungus 04/24/21 10:50 Blood Culture (Wb) - Right Hand Blood Culture - Preliminary No growth in 48 hours. 04/24/21 10:35 Blood Culture (Wb) - Anticubital Left Blood Culture - Preliminary No growth in 48 hours. 04/25/21 03:27 Urine, Clean Catch Streptococcus pneumoniae Antigen (M - Final 04/25/21 03:27 Urine, Clean Catch Legionella Antigen - Final 04/24/21 10:52 Nasal Secretion SARS-CoV-2 Antigen (Rapid) - Final SARS-CoV-2 (COVID 19) D/C Instructions Discharge Diet: Low fat / Low cholesterol, 1800 Calorie Control Diet and 2000 mg Sodium Diet Call your doctor if you observe: Fever of 101 or Higher, Coldness, Increased Pain, Numbness or Tingling, Change in Color, Inability to urinate, Inability to have a bowel movement, Shortness of breath, Dizziness, Fainting spells, Swelling in the ankles, Chest pain, Prolonged hiccupping, Increased palpitations (irregular heartbeat), Calf discomfort and Uncontrolled pain Meaningful Use Info Meaningful Use Diagnoses (Choose all that apply): None applicable Discharge Plan Admission Admit Date/Time: 04/25/21 13:38 Primary Reason for Your Visit: Attending Provider: Jakob Lewis Primary Care Provider: Manuel Estrada Discharge Orders/Prescriptions Prescriptions: New Eliquis 2.5 mg tablet 2.5 mg PO BID Qty: 30 RF: 0 dexamethasone 6 mg tablet 6 mg PO DAILY Qty: 8 RF: 0 pseudoephedrine-guaifenesin [Mucinex D] 60-600 mg tablet extended release 12 hr 1 tab PO BID Qty: 14 RF: 0 Continued aspirin 81 mg tablet,delayed release (DR/EC) 81 mg PO DAILY RF: 0 Benefiber Healthy Shape 5 gram/7.4 gram powder 5 g PO BID RF: 0 meclizine 25 mg tablet 25 mg PO DAILY PRN (Reason: Dizziness) RF: 0 multivitamin Tablet 1 tab PO DAILY RF: 0 fluticasone propionate 50 mcg/actuation spray,suspension 2 spray INTRANASAL DAILY Qty: 3 RF: 3 venlafaxine [Effexor XR] 75 mg capsule,extended release 24hr 75 mg PO DAILY RF: 0 omeprazole 40 mg capsule,delayed release(DR/EC) 40 mg PO DAILY Qty: 90 RF: 3 amantadine HCl 100 mg tablet 200 mg PO DAILY RF: 0 calcium carbonate-vitamin D3 [Calcium 600 with Vitamin D3] 600 mg(1,500mg) -500 unit capsule 1 cap PO DAILY RF: 0 oxycodone-acetaminophen 5-325 mg tablet 1 tab PO TID PRN (Reason: Pain) RF: 0 nitroglycerin [Nitrostat] 0.4 mg tablet, sublingual 0.4 mg SUBLINGUAL Q5-15M PRN (Reason: chest pain) Qty: 25 RF: 3 ropinirole 2 mg tablet 2 mg PO QHS RF: 0 doxazosin 4 mg tablet 4 mg PO DAILY RF: 0 montelukast 10 mg tablet 10 mg PO DAILY RF: 0 Advair HFA 230-21 mcg/actuation HFA aerosol inhaler 2 inh INHALATION BID RF: 0 Linzess 145 mcg capsule 145 mcg PO DAILY RF: 0 losartan 25 mg tablet 25 mg PO DAILY Qty: 90 RF: 3 albuterol sulfate [ProAir HFA] 90 mcg/actuation HFA aerosol inhaler 2 puff INHALATION Q4H PRN (Reason: shortness of breath or wheezing) Qty: 18 RF: 6 rosuvastatin 40 mg tablet 40 mg PO QHS Qty: 90 RF: 3 levothyroxine 137 mcg tablet 137 mcg PO DAILY Qty: 90 RF: 3 Changed furosemide 40 mg tablet 20 mg PO DAILY Qty: 0 RF: 0 metformin 500 mg tablet 500 mg PO DAILY Qty: 0 RF: 0 Referrals / Follow Up: Manuel Estrada DO [Primary Care Provider] - Within 1 Week Disposition Disposition (needs filled in before D/C Order can be placed): Home, Self Care Charges/Coding Visit Charges Inpatient E&M: 38355 Disch Hosp
== END 2021-04-26 14:29 | disposition home or self-care (01) | DRG 177 ==
LOC: ED 13:20 → MS3 13:36
PROVIDERS: Admitting Provider Family Medicine; Emergency Provider Emergency Medicine; PCP Student in an Organized Health Care Education/Training Program; Visit Provider Internal Medicine
DX: U07.1 COVID-19 (principal); J12.82 Pneumonia due to coronavirus disease 2019; R09.02 Hypoxemia; R62.7 Adult failure to thrive; I25.10 Atherosclerotic heart disease of native coronary artery without angina pectoris; J45.909 Unspecified asthma, uncomplicated; E11.22 Type 2 diabetes mellitus with diabetic chronic kidney disease; N18.31 Chronic kidney disease, stage 3a; K21.9 Gastro-esophageal reflux disease without esophagitis; I12.9 Hypertensive chronic kidney disease with stage 1 through stage 4 chronic kidney disease, or unspecified chronic kidney disease; M19.90 Unspecified osteoarthritis, unspecified site; K58.0 Irritable bowel syndrome with diarrhea; E66.9 Obesity, unspecified; E03.9 Hypothyroidism, unspecified; E78.5 Hyperlipidemia, unspecified; F41.9 Anxiety disorder, unspecified; F32.A Depression, unspecified; G25.81 Restless legs syndrome; E11.65 Type 2 diabetes mellitus with hyperglycemia; T38.0X5A Adverse effect of glucocorticoids and synthetic analogues, initial encounter; Z86.718 Personal history of other venous thrombosis and embolism; Z79.899 Other long term (current) drug therapy; Z79.82 Long term (current) use of aspirin; Z79.51 Long term (current) use of inhaled steroids; Z79.84 Long term (current) use of oral hypoglycemic drugs; Z79.890 Hormone replacement therapy; Z87.891 Personal history of nicotine dependence; Z68.34 Body mass index [BMI] 34.0-34.9, adult
CPT/HCPCS: 36415; 71045; 80053; 82728; 82962; 83605; 83615; 83735; 83880; 84145; 84484; 85025; 85379; 86140; 87040; 87070; 87077; 87106; 87107; 87205; 87426; 87449; 93005; 94640; 97110; 97162; 97166; 97530; 97535; 97802; 99285; J7030; J7050; A4216; J0248; J2405

== ENCOUNTER 2021-04-27 09:38 | Inpatient (IN) | payer MEDICARE, OTHER, SELFPAY ==
[2021-04-27] VITALS (11 sets, daily range): BP systolic 96–131; BP diastolic 48–57; PULSE 39–49; RESP 16–21; TEMP 36.7–37.1; O2SAT 92–96; BMI 34.4; BMI 33.1
--- NOTE | 2021-04-27 09:55 | RAD_ITS ---
STUDY: X-RAY - LEFT SHOULDER REASON FOR EXAM: Male, 81 years old. fall, shoulder pain TECHNIQUE: 4 view(s) of the shoulder. COMPARISON: None. FINDINGS: Normal glenohumeral articulation. Normal acromioclavicular joint. Normal acromion. Normal humeral head and visualized proximal humerus. The soft tissue structures are unremarkable. Normal visualized pulmonary apex. RAD/Shoulder min 2 Views IMPRESSION: Normal x-ray examination of the shoulder. Electronically Signed: Sean Fabian MD at 11:13 EST Tel , Service support ,
--- NOTE | 2021-04-27 09:55 | CT_ITS ---
STUDY: CT BRAIN WITHOUT CONTRAST REASON FOR EXAM: Male, 81 years old. Head injury. RADIATION DOSAGE (If Supplied By Facility): CTDIvol = ( 44.99 ) mGy, DLP = ( 880.47 ) mGycm TECHNIQUE: Transaxial CT imaging of the brain was performed without administration of intravenous contrast material. Individualized dose optimization techniques were used for this CT. COMPARISON: MRI of the brain on 05/13/2019. FINDINGS: Normal soft tissue structures. Remote frontal craniotomy. There is mild cerebral atrophy with widening of the extra-axial spaces and ventricular dilatation. There are areas of decreased attenuation within the white matter tracts of the supratentorial brain, consistent with microvascular disease changes. Bifrontal encephalomalacia seen. 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 Normal brainstem. Normal cerebellum. There is no intracranial hemorrhage. There are no findings of an acute ischemic infarction. Normal visualized paranasal sinuses. CT/Brain/Head without Contrast IMPRESSION: No acute intracranial process. Bifrontal encephalomalacia. Previous frontal craniotomy. Electronically Signed: Chintan Olmos, at 11:11 EST Tel , Service support ,
--- NOTE | 2021-04-27 09:55 | RAD_ITS ---
STUDY: X-RAY CHEST REASON FOR EXAM: Male, 81 years old. weakness TECHNIQUE: Single AP portable view of the chest. COMPARISON: 04/24/2021 FINDINGS: Poor inspiration with some bibasilar atelectasis. There is no demonstrated pleural abnormality. There is moderate cardiac enlargement. Normal mediastinum and amy. Normal visualized pulmonary arteries. Normal visualized aortic arch and descending thoracic aorta. Normal visualized thoracic spine. Normal visualized ribs, clavicles, and shoulders. There is no demonstrated abnormality of the visualized soft tissue structures of the upper abdomen. RAD/Chest 1 View (Portable) IMPRESSION: Poor inspiration with some bibasilar atelectasis. Electronically Signed: Sean Fabian MD at 11:12 EST Tel , Service support ,
--- NOTE | 2021-04-27 09:56 | EKG12_ITS ---
Test Reason : FALL Blood Pressure : / mmHG Vent. Rate : 041 BPM Atrial Rate : 041 BPM P-R Int : 174 ms QRS Dur : 086 ms QT Int : 472 ms P-R-T Axes : 049 -34 070 degrees QTc Int : 389 ms Marked sinus bradycardia Left axis deviation Abnormal ECG Confirmed by DARLENE MATA, CHLOE ([id number]), features editor WOO IQBAL ([id number]) on 05/01/2021 10:01:05 AM Referred By: LEANN Confirmed By:CHLOE COLON MD
--- NOTE | 2021-04-27 09:58 | EX.ED.DYSGE1 ---
HPI History of Present Illness Chief Complaint: Fall Detail of Chief Complaint: Fall with left shoulder injury Informant: patient Narrative Narrative: Patient presents to the emergency department with a fall that occurred this morning. Patient states that he was just discharged from the hospital yesterday after being admitted for COVID-19. Patient had gone to the bathroom and urinated and on his way back was using his walker. apparently states that he did not look right and then he went down and she thought he passed out. Patient states that he thinks he remembers everything. He is not sure if he hit his head. Patient is on Eliquis. He complains of left shoulder pain now which she did not have before the fall. Patient just overall does not feel well. Patient normally has a low heart rate in the 50s. Patient has history of coronary artery disease. Patient's systolic blood pressure normally in the 120s and on the arrival to the emergency department he is in the 90s and 80s systolic range. Prior similar symptoms: No PFSH PFSH Medical History (Updated 04/27/21 @ 12:[address] Tena Richey, ) DEBORAH (acute kidney injury) Allergic rhinitis Asthma Atherosclerotic heart disease of [place] coronary artery without angina pectoris Back pain BiPAP (biphasic positive airway pressure) dependence Carpal tunnel syndrome Chronic pain Chronic renal failure, stage 3 (moderate) Congestive heart failure (CHF) Diabetes Diabetes type 2, controlled Dyspnea Esophageal reflux Essential hypertension Former smoker Gingivitis High cholesterol History of stress test Hypokalemia Hyponatremia Hypothyroidism IBS (irritable bowel syndrome) Insomnia Obesity Obesity Osteoarthritis Parathyroid abnormality Presence of stent in coronary artery (~12/05/10) Prostate cancer Pure hypercholesterolemia Sleep apnea Syncope Vision loss of left eye Vision problem Home Medications aspirin 81 mg tablet,delayed release 81 mg PO DAILY 12/09/17 [History Last Taken 04/24/21] meclizine 25 mg tablet 25 mg PO DAILY PRN 01/24/19 [History Last Taken Unknown] wheat dextrin 5 gram/7.4 gram oral powder 5 g PO BID g 01/24/19 [History Last Taken 04/24/21] fluticasone propionate 50 mcg/actuation nasal spray,suspension 2 spray INTRANASAL DAILY #3 unit 07/19/19 [Rx Last Taken Unknown] multivitamin 1 tab PO DAILY 07/26/19 [History Last Taken 04/24/21] albuterol sulfate 90 mcg/actuation aerosol inhaler 2 puff INHALATION Q4H PRN #18 g 06/04/20 [Rx Last Taken 04/24/21] omeprazole 40 mg capsule,delayed release 40 mg PO DAILY #90 cap 10/10/20 [Rx Last Taken Unknown] venlafaxine 75 mg capsule,extended release 24 hr 75 mg PO DAILY 10/25/20 [History Last Taken 04/23/21] rosuvastatin 40 mg tablet 40 mg PO QHS #90 tab 12/03/20 [Rx Last Taken 04/23/21] levothyroxine 137 mcg tablet 137 mcg PO DAILY #90 tab 12/24/20 [Rx Last Taken 04/24/21] amantadine HCl 100 mg tablet 200 mg PO DAILY tab 04/10/21 [History Last Taken 04/24/21] calcium carbonate 600 mg-vitamin D3 12.5 mcg (500 unit) capsule 1 cap PO DAILY 04/10/21 [History Last Taken 04/24/21] nitroglycerin 0.4 mg sublingual tablet 0.4 mg SUBLINGUAL Q5-15M PRN #25 tab 04/10/21 [Rx Last Taken Unknown] oxycodone-acetaminophen 5 mg-325 mg tablet 1 tab PO TID PRN tab 04/10/21 [History Last Taken Unknown] Advair HFA 2 inh INHALATION BID 04/24/21 [History Last Taken 04/24/21] Linzess 145 mcg PO DAILY 04/24/21 [History Last Taken Unknown] doxazosin 4 mg PO DAILY 04/24/21 [History Last Taken 04/23/21] montelukast 10 mg PO DAILY 04/24/21 [History Last Taken 04/23/21] ropinirole 2 mg PO QHS 04/24/21 [History Last Taken 04/23/21] apixaban [Eliquis] 2.5 mg PO BID #30 tab 04/26/21 [Rx Last Taken Unknown] dexamethasone 6 mg PO DAILY #8 tab 04/26/21 [Rx Last Taken Unknown] furosemide 20 mg PO DAILY #0 tab 04/26/21 [Rx Last Taken 04/23/21] losartan 25 mg PO DAILY #90 tablet 04/26/21 [Rx Last Taken Unknown] metformin 500 mg PO DAILY #0 tab 04/26/21 [Rx Last Taken 04/23/21] pseudoephedrine-guaifenesin [Mucinex D] 1 tab PO BID #14 tab 04/26/21 [Rx Last Taken Unknown] Allergy/AdvReac Type Severity Reaction Status Date / Time lorazepam [From Ativan] Allergy Severe Unknown Verified 04/27/21 09:39 lisinopril Allergy Unknown Verified 04/27/21 09:39 modafinil [From Provigil] Allergy Other Verified 04/27/21 09:39 moxifloxacin HCl Allergy Upset Verified 04/27/21 09:39 [From Avelox] Stomach Family History Father , from aneurysm CAD (coronary artery disease) Mother Multiple sclerosis Brother CAD (coronary artery disease) Cancer Prostate cancer Daughter Diabetes Surgical History H/O angioplasty H/O cardiac catheterization H/O total knee replacement History of appendectomy History of coronary artery stent placement History of rotator cuff surgery History of thumb surgery S/P total knee arthroplasty Social History (Updated 04/24/21 @ 15:41 by Deon Coffey) adopted: No household members: spouse housing: house number of children: 3 current occupational status: retired pets and animals: Yes (dog) leisure activities: hunting history of recent travel: No sexually active: No Smoking Status: Former smoker how long ago did patient quit smoking: Quit 1972, smoked 1 ppd since teen until quiting. alcohol intake: current details: social substance use type: does not use caffeine: Yes Type: coffee Number of servings: 2 what type of physical activity do you participate in: walking seatbelt use: always do you feel safe at home: Yes ROS ROS ED Constitutional Constitutional ED: Reports systems reviewed and no addt'l complaints, except as documented; Denies body ache(s), change in weight or chills Eyes Eyes: Denies acute decrease in peripheral vision, change in vision, double vision or loss of vision ENT ENT ED: Reports none; Denies ear pain, lip swelling, loss taste/smell, neck pain, otalgia or sore throat Cardiovascular Cardiovascular: Reports none; Denies abdominal pain, chest pain with activity, leg edema, lightheadedness, palpitations, rapid heart rate or syncope Respiratory/Chest Respiratory/Chest: Reports none and cough; Denies change in mental status, dry cough, dyspnea, hemoptysis, shortness of breath at rest or shortness of breath with exertion Gastrointestinal Gastrointestinal: Reports none; Denies abdominal pain, change in stool character, diarrhea, hematemesis, hematochezia, melena, rectal bleeding or vomiting Genitourinary Genitourinary ED: Reports none; Denies abdominal discomfort, anuria, dysuria, genital pain or polyuria Musculoskeletal Musculoskeletal: Reports none and other Details: Left shoulder injury ; Denies arthralgias, back pain, difficulty walking, extremity pain, muscle weakness or myalgias Integumentary Reports none; Denies abscess or rash Neurologic Neurologic: Reports none and weakness; Denies abnormal gait, confusion, focal weakness, frequent falls, headache(s), loss of vision, numbness, paresthesias, radicular pain or vertigo Psychiatric Psychiatric: Reports systems reviewed and no addt'l complaints, except as documented and none; Denies behavioral changes, confusion, difficulty concentrating, hallucinations, suicidal ideation, tactile hallucinations or visual hallucinations Endocrine Endocrinology: Denies none, cold intolerance, excessive sweating, fatigue or heat intolerance Hematologic/Lymphatic Hematologic/Lymphatic: Reports none; Denies anemia, easy bleeding or easy bruising Allergic/Immunologic Allergic/Immunologic ED: Denies as per HPI, none, lip swelling, mouth swelling, throat swelling, tongue swelling or hives EXAM Physical Exam Const Vital Signs: 04/27/21 09:40 04/27/21 09:45 04/27/21 10:50 Temperature 98.1 F Temperature Source Oral Pulse Rate 43 L 39 L Respiratory Rate 18 21 H Respiratory Effort Normal Non-Labored Blood Pressure 96/48 L 110/56 L Blood Pressure Mean 64 74 Pulse Ox 92 94 Oxygen Delivery Method Room Air Nasal Cannula Nasal Cannula Oxygen Flow Rate (L/min) 93 2 Positive well nourished and well developed General Appearance ED: well developed and NAD HEENT Reports TM's clear and moist mucous membranes normocephalic and atraumatic; Negative for trauma or tenderness Tympanic Membrane ED: Yes TM's clear Eyes PERRL and EOMs intact bilaterally General Eye ED: Negative for pale conjunctiva or scleral icterus Neck no lymphadenopathy, supple and no JVD General: Negative for tenderness Chest Wall inspection of chest normal and palpation of chest normal Chest: Negative for tenderness Resp normal respiratory effort and clear to auscultation bilaterally Effort and Inspection: Negative for respiratory distress or pain with movement Auscultation: Negative for rhonchi, wheezes or diminished lung sounds Cardio regular rate, regular rhythm, S1 normal heart sound and S2 normal heart sound Rate: bradycardia and other Other Details: 2 out of 6 systolic ejection murmur Peripheral Pulses: pulses 2+ throughout GI normal to inspection, nondistended, normoactive bowel sounds, soft to palpation, non-tender, non-distended and no masses Back/Spine no CVA tenderness and no thoracic nor lumbar tenderness Extremity normal to inspection Extremity Narrative: Tenderness palpation over the posterior left shoulder. There is no obvious deformity. He is a good range of motion at the glenohumeral joint. He is neurovascular intact distally. General Extremety ED: Negative for edema General Extremity: Negative for edema Neuro oriented x3, CN's II-XII intact bilaterally, no sensory deficits noted and gait normal Sensorium / Orientation: awake, alert, oriented to person, oriented to place and oriented to time Motor Exam: strength 5/5 throughout and strength abnormal Psych mental status grossly normal Skin no rashes or lesions noted and no wounds MDM MDM MDM Narrative Medical decision making narrative: IV line established on arrival. Patient was given 500 cc fluid bolus and his hypotension resolved. Patient continues to be bradycardic. Patient generally feels weak. Case was discussed with hospitalist will evaluate patient for admission. Lab Data Attestation: I reviewed the patient's lab results. Labs: Laboratory Results - last 24 hr 04/27/21 04/27/21 10:05 10:05 WBC 5.8 RBC 4.87 Hgb 13.9 Hct 42.6 MCV 87.5 MCH 28.5 MCHC 32.6 RDW Std Deviation 51.2 H RDW Coeff of Joshua 15.9 H Plt Count 177 MPV 10.1 Immature Gran % (Auto) 0.300 Neut % (Auto) 63.8 Lymph % (Auto) 28.1 [place] % (Auto) 7.6 Eos % (Auto) 0.0 Baso % (Auto) 0.2 Absolute Neuts (auto) 3.7 Absolute Lymphs (auto) 1.63 Nucleated RBC % 0 Sodium 142 Potassium 3.9 Chloride 111 H Carbon Dioxide 25.0 Anion Gap 6 BUN 34 H Creatinine 1.34 H Estim Creat Clear Calc 47.61 Est GFR (MDRD) Af Amer 66 Est GFR (MDRD) Non-Af 55 L BUN/Creatinine Ratio 25.4 H Glucose 110 H Calcium 9.3 Troponin I High Sens 10 Radiography Chest X-Ray - ED: 1 View Diagnostic Testing: Clinical Impression(s) from Imaging Studies Brain CT 04/27/21 09:55 IMPRESSION: No acute intracranial process. Bifrontal encephalomalacia. Previous frontal craniotomy. Electronically Signed: Chintan Olmos, at 11:11 EST Tel , Service support , Chest X-Ray 04/27/21 09:55 IMPRESSION: Poor inspiration with some bibasilar atelectasis. Electronically Signed: Sean Fabian MD at 11:12 EST Tel , Service support , Shoulder X-Ray 04/27/21 09:55 IMPRESSION: Normal x-ray examination of the shoulder. Electronically Signed: Sean Fabian MD at 11:13 EST Tel , Service support , 1 view chest x-ray obtained interpreted by myself as bibasilar increased markings suspicious for Covid pneumonitis. Radiology felt patient had bibasilar atelectasis and poor inspiration. EKG Initial EKG: Attestation: I personally reviewed and interpreted this EKG as follows: Comments: Sinus bradycardia with a ventricular rate of of 41 bpm with no acute ST segment changes Discharge Plan Triage Chief Complaint: Fall ED Provider: Tena Richey Dx/Rx/DC Orders Clinical Impression: Weakness, Syncope, Bradycardia, Acute hypotension Prescriptions: No Action aspirin 81 mg tablet,delayed release (DR/EC) 81 mg PO DAILY RF: 0 Benefiber Healthy Shape 5 gram/7.4 gram powder 5 g PO BID RF: 0 meclizine 25 mg tablet 25 mg PO DAILY PRN (Reason: Dizziness) RF: 0 multivitamin Tablet 1 tab PO DAILY RF: 0 fluticasone propionate 50 mcg/actuation spray,suspension 2 spray INTRANASAL DAILY Qty: 3 RF: 3 venlafaxine [Effexor XR] 75 mg capsule,extended release 24hr 75 mg PO DAILY RF: 0 omeprazole 40 mg capsule,delayed release(DR/EC) 40 mg PO DAILY Qty: 90 RF: 3 amantadine HCl 100 mg tablet 200 mg PO DAILY RF: 0 calcium carbonate-vitamin D3 [Calcium 600 with Vitamin D3] 600 mg(1,500mg) -500 unit capsule 1 cap PO DAILY RF: 0 oxycodone-acetaminophen 5-325 mg tablet 1 tab PO TID PRN (Reason: Pain) RF: 0 nitroglycerin [Nitrostat] 0.4 mg tablet, sublingual 0.4 mg SUBLINGUAL Q5-15M PRN (Reason: chest pain) Qty: 25 RF: 3 ropinirole 2 mg tablet 2 mg PO QHS RF: 0 doxazosin 4 mg tablet 4 mg PO DAILY RF: 0 montelukast 10 mg tablet 10 mg PO DAILY RF: 0 Advair HFA 230-21 mcg/actuation HFA aerosol inhaler 2 inh INHALATION BID RF: 0 Linzess 145 mcg capsule 145 mcg PO DAILY RF: 0 Eliquis 2.5 mg tablet 2.5 mg PO BID Qty: 30 RF: 0 dexamethasone 6 mg tablet 6 mg PO DAILY Qty: 8 RF: 0 pseudoephedrine-guaifenesin [Mucinex D] 60-600 mg tablet extended release 12 hr 1 tab PO BID Qty: 14 RF: 0 furosemide 40 mg tablet 20 mg PO DAILY Qty: 0 RF: 0 metformin 500 mg tablet 500 mg PO DAILY Qty: 0 RF: 0 losartan 25 mg tablet 25 mg PO DAILY Qty: 90 RF: 3 albuterol sulfate [ProAir HFA] 90 mcg/actuation HFA aerosol inhaler 2 puff INHALATION Q4H PRN (Reason: shortness of breath or wheezing) Qty: 18 RF: 6 rosuvastatin 40 mg tablet 40 mg PO QHS Qty: 90 RF: 3 levothyroxine 137 mcg tablet 137 mcg PO DAILY Qty: 90 RF: 3 Primary Care Provider: Manuel Estrada Referrals: Manuel Estrada DO [Primary Care Provider] - Disposition Disposition: Acute Care Hospital [facility]
[2021-04-27 10:17] LABS: Absolute Lymphocyte Count 1.63 X10^3/uL (0.83-4.51); Absolute Neutrophil Count 3.7 X10^3/uL (2.0-7.7); Basophil# 0.01 X10^3/uL; Basophil% 0.2 % (0-1); Hematocrit 42.6 % (40-54); Hemoglobin 13.9 g/dL (13.0-16.5); Lymphocyte # 1.63 X10^3/ul (0.83-4.51); Lymphocyte % 28.1 % (19-41); Mean Corp Hgb Conc 32.6 g/dL (32-36); Mean Corpuscular Hgb 28.5 pg (27.0-32.0); Mean Corpuscular Volume 87.5 fL (80-94); Mean Platelet Vol. 10.1 fl (6.2-12.0); Monocyte# 0.44 X10^3/uL; Monocyte% 7.6 % (0-10); NRBC Flagged by Analyzer 0 % (0-5); Neutrophil % 63.8 % (47-70); Platelet Count 177 K/mm3 (150-450); RBC Distribution Width CV 15.9 % (11.6-14.6); RBC Distribution Width SD 51.2 fl (35.1-43.9); Red Blood Count 4.87 M/mm3 (4.6-6.2); White Blood Count 5.8 K/mm3 (4.4-11.0)
[2021-04-27] MEDS: 0.9% Normal Saline 1,000 ML 150 ML IV ×2 (10:51→14:39)
[2021-04-27 11:01] LABS: Anion Gap 6 (5-15); BUN 34 mg/dL (7-18); BUN/Creat Ratio 25.4 RATIO (10-20); Calcium,Total 9.3 mg/dL (8.5-10.1); Chloride 111 mmol/L (98-107); Creatinine, Serum 1.34 mg/dL (0.70-1.30); EST Glomerular Filtration Rate 55 mL/min (>60); Est Glom Filt Rate - Afr Amer 66 mL/min (>60); Estimated Creatinine Clearance 47.61 ml/min; Glucose 110 mg/dL (74-106); Potassium 3.9 mmol/L (3.5-5.1); Sodium Level 142 mmol/L (136-145); Troponin-I HS 10 pg/mL (3.0-78.0)
--- NOTE | 2021-04-27 12:41 | HP.PCM.HOS_ITS ---
HPI - General General Date of Admission: 04/27/21 HPI Narrative MARQUEZ SEO, is a 81 M who presents after fall this morning after he was finished using the commode. He felt lightheaded. He was standing up with assistance of his and fell down and hit his head and did remember the event. His also fell down with him. The patient did have bradycardia upon presentation here,which is similar to baseline. Other than this fall with lightheadedness, the patient denies any new recent complaints status post discharge He was recently discharged yesterday with Decadron and 2-week course of Eliquis since he had a recent infection with COVID. Upon presentation here the patient's blood pressure was 96/48 and this improved and has been stable at 120/50's. A EKG showed sinus bradycardia and sinus bradycardia is normal for the patient, although heart rate here was down to 39. There were no significant abnormalities in his laboratory work-up, electrolytes normal. Shoulder was xrayed, negative for fracture. Head CT unremarkable for acute changes. [facility] Medical History (Updated 04/27/21 @ 12:[address] David Hsu MD) DEBORAH (acute kidney injury) Allergic rhinitis Asthma Atherosclerotic heart disease of [place] coronary artery without angina pectoris Back pain BiPAP (biphasic positive airway pressure) dependence Carpal tunnel syndrome Chronic pain Chronic renal failure, stage 3 (moderate) Congestive heart failure (CHF) Diabetes Diabetes type 2, controlled Dyspnea Esophageal reflux Essential hypertension Former smoker Gingivitis High cholesterol History of stress test Hypokalemia Hyponatremia Hypothyroidism IBS (irritable bowel syndrome) Insomnia Obesity Obesity Osteoarthritis Parathyroid abnormality Presence of stent in coronary artery (~12/05/10) Prostate cancer Pure hypercholesterolemia Sleep apnea Syncope Vision loss of left eye Vision problem Home Medications aspirin 81 mg tablet,delayed release 81 mg PO DAILY 12/09/17 [History Last Taken 04/26/21 09:00] meclizine 25 mg tablet 25 mg PO DAILY PRN 01/24/19 [History Last Taken Unknown] wheat dextrin 5 gram/7.4 gram oral powder 5 g PO BID g 01/24/19 [History Last Taken 04/26/21] fluticasone propionate 50 mcg/actuation nasal spray,suspension 2 spray INTRANASAL DAILY #3 unit 07/19/19 [Rx Last Taken 04/26/21 09:00] multivitamin 1 tab PO DAILY 07/26/19 [History Last Taken 04/26/21 09:00] albuterol sulfate 90 mcg/actuation aerosol inhaler 2 puff INHALATION Q4H PRN #18 g 06/04/20 [Rx Last Taken 04/24/21] omeprazole 40 mg capsule,delayed release 40 mg PO DAILY #90 cap 10/10/20 [Rx Last Taken 04/26/21 09:00] venlafaxine 75 mg capsule,extended release 24 hr 75 mg PO DAILY 10/25/20 [History Last Taken 04/26/21 17:00] rosuvastatin 40 mg tablet 40 mg PO QHS #90 tab 12/03/20 [Rx Last Taken 04/26/21 21:00] levothyroxine 137 mcg tablet 137 mcg PO DAILY #90 tab 12/24/20 [Rx Last Taken 04/26/21 08:00] amantadine HCl 100 mg tablet 200 mg PO DAILY tab 04/10/21 [History Last Taken 04/26/21 09:00] nitroglycerin 0.4 mg sublingual tablet 0.4 mg SUBLINGUAL Q5-15M PRN #25 tab 04/10/21 [Rx Last Taken Unknown] oxycodone-acetaminophen 5 mg-325 mg tablet 1 tab PO TID PRN tab 04/10/21 [History Last Taken Unknown] Advair HFA 2 inh INHALATION BID 04/24/21 [History Last Taken 04/26/21 21:00] Linzess 145 mcg PO DAILY 04/24/21 [History Last Taken 04/26/21 09:00] doxazosin 4 mg PO DAILY 04/24/21 [History Last Taken 04/26/21 09:00] montelukast 10 mg PO DAILY 04/24/21 [History Last Taken 04/26/21 09:00] ropinirole 2 mg PO QHS 04/24/21 [History Last Taken 04/26/21 17:00] apixaban [Eliquis] 2.5 mg PO BID #30 tab 04/26/21 [Rx Last Taken 04/26/21 21:00] dexamethasone 6 mg PO DAILY #8 tab 04/26/21 [Rx Last Taken 04/26/21 09:00] furosemide 20 mg PO DAILY #0 tab 04/26/21 [Rx Last Taken 04/26/21 09:00] losartan 25 mg PO DAILY #90 tablet 04/26/21 [Rx Last Taken Unknown] metformin 500 mg PO DAILY #0 tab 04/26/21 [Rx Last Taken 04/26/21 09:00] pseudoephedrine-guaifenesin [Mucinex D] 1 tab PO BID #14 tab 04/26/21 [Rx Last Taken 04/26/21 21:00] Allergy/AdvReac Type Severity Reaction Status Date / Time lorazepam [From Ativan] Allergy Severe Unknown Verified 04/27/21 09:39 lisinopril Allergy Unknown Verified 04/27/21 09:39 modafinil [From Provigil] Allergy Other Verified 04/27/21 09:39 moxifloxacin HCl Allergy Upset Verified 04/27/21 09:39 [From Avelox] Stomach Family History Father , from aneurysm CAD (coronary artery disease) Mother Multiple sclerosis Brother CAD (coronary artery disease) Cancer Prostate cancer Daughter Diabetes Surgical History H/O angioplasty H/O cardiac catheterization H/O total knee replacement History of appendectomy History of coronary artery stent placement History of rotator cuff surgery History of thumb surgery S/P total knee arthroplasty Social History (Updated 04/24/21 @ 15:41 by Deon Coffey) adopted: No household members: spouse housing: house number of children: 3 current occupational status: retired pets and animals: Yes (dog) leisure activities: hunting history of recent travel: No sexually active: No Smoking Status: Former smoker how long ago did patient quit smoking: Quit 1972, smoked 1 ppd since teen until quiting. alcohol intake: current details: social substance use type: does not use caffeine: Yes Type: coffee Number of servings: 2 what type of physical activity do you participate in: walking seatbelt use: always do you feel safe at home: Yes ROS ROS Narrative No fevers, chills, nausea or vomiting. No chest racing sensations or chest pain, no cough/shortness of breath, no abdominal pain or diarrhea No trouble seeing hearing or swallowing. Trouble with skin problems or joint issues or myalgias. No seizures or headaches. + recent syncope, no lower extremity edema Vital Signs Vital Signs Vital Signs: 04/27/21 09:40 04/27/21 09:45 04/27/21 10:50 Temperature 98.1 F Temperature Source Oral Pulse Rate 43 L 39 L Respiratory Rate 18 21 H Respiratory Effort Normal Non-Labored Blood Pressure 96/48 L 110/56 L Blood Pressure Mean 64 74 Pulse Ox 92 94 Oxygen Delivery Method Room Air Nasal Cannula Nasal Cannula Oxygen Flow Rate (L/min) 93 2 Weight Weight: 247 lb 2.211 oz Body Mass Index (BMI) 34.4 Physical Exam Narrative ositive well nourished and well developed General Appearance ED: well developed and NAD HEENT : no hematoma Eyes PERRL and EOMs intact bilaterally General Eye ED: Negative for pale conjunctiva or scleral icterus General: Negative for tenderness Chest Wall inspection of chest normal Chest: Resp normal respiratory effort and clear to auscultation bilaterally Effort and Inspection: Negative for respiratory distress or pain with movement Auscultation: Negative for rhonchi, wheezes or diminished lung sounds Cardio Bradycardic rate, regular rhythm, S1 normal heart sound and S2 normal heart sound GI normal to inspection, nondistended, normoactive bowel sounds, soft to palpation, non-tender, non-distended and no masses Extremity trace LE pitting edema b/l Results Lab / Micro Data Result Diagrams: 04/27/21 10:05 04/27/21 10:05 Labs: Laboratory Results - last 24 hr 04/27/21 10:05: WBC 5.8, RBC 4.87, Hgb 13.9, Hct 42.6, MCV 87.5, MCH 28.5, MCHC 32.6, RDW Std Deviation 51.2 H, RDW Coeff of Joshua 15.9 H, Plt Count 177, MPV 10.1, Immature Gran % (Auto) 0.300, Neut % (Auto) 63.8, Lymph % (Auto) 28.1, [place] % (Auto) 7.6, Eos % (Auto) 0.0, Baso % (Auto) 0.2, Absolute Neuts (auto) 3.7, Absolute Lymphs (auto) 1.63, Nucleated RBC % 0 04/27/21 10:05: Sodium 142, Potassium 3.9, Chloride 111 H, Carbon Dioxide 25.0, Anion Gap 6, BUN 34 H, Creatinine 1.34 H, Estim Creat Clear Calc 47.61, Est GFR (MDRD) Af Amer 66, Est GFR (MDRD) Non-Af 55 L, BUN/Creatinine Ratio 25.4 H, Glucose 110 H, Calcium 9.3, Troponin I High Sens [address] 04/27/21 09:55 IMPRESSION: No acute intracranial process. Bifrontal encephalomalacia. Previous frontal craniotomy. Electronically Signed: Chintan Olmos, at 11:11 EST Tel , Service support , Chest X-Ray 04/27/21 09:55 IMPRESSION: Poor inspiration with some bibasilar atelectasis. Electronically Signed: Sean Fabian MD at 11:12 EST Tel , Service support , Shoulder X-Ray 04/27/21 09:55 IMPRESSION: Normal x-ray examination of the shoulder. Electronically Signed: Sean Fabian MD at 11:13 EST Tel , Service support , Assessment & Plan Assessment/Plan (1) Syncope: QUALIFIERS: Syncope type: vasovagal syncope Qualified Code(s): R55 - Syncope and collapse (2) COPD with bronchial hyperresponsiveness: (3) Asthma: QUALIFIERS: Asthma complication type: uncomplicated Asthma persistence: persistent Asthma severity: moderate Qualified Code(s): J45.40 - Moderate persistent asthma, uncomplicated (4) Sinus bradycardia: (5) Hypoxia: (6) Obesity: QUALIFIERS: Body mass index: BMI 36.0-36.9 Obesity classification: adult class 2 (BMI 35 - 39.9) Obesity type: due to excess calories Serious obesity comorbidity presence: with serious comorbidity Kranthi lified Code(s): E66.01 - Morbid (severe) obesity due to excess calories; Z68.36 - Body mass index [BMI] 36.0-36.9, adult (7) Diabetes: QUALIFIERS: Diabetes mellitus complication status: with hyperglycemia Diabetes mellitus terminal operations 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 insulin use: without terminal operations supervisor use Diabetes mellitus type: type 2 Qualified Code(s): E11.65 - Type 2 diabetes kate litus with hyperglycemia (8) FTT (failure to thrive) in adult: (9) Pneumonia due to 2019 novel coronavirus: PLAN: The patient is a 81 y/o M w/ PMHx: Remote Hx RLE DVT, Anxiety and Depression, Severe RLS, Hx Prostate CA, IBS, Hypothyroidism, HTN, HLD, GERD, Diabetes mellitus type II, CKD stage III unclear subtype, Asthma, Allergic rhinitis, CAD s/p PCI who presents to the [facility] ED on Apr 27 with history of COVID + status diagnosis and recent discharge, now presenting with fall. The patient's family realizes that he will need to be admitted to long-term care versus SNF facility #1. Syncope. The patient is obviously weak and deconditioned from COVID and being in hospital, along with a likely vasovagal component after using the bathroom this morning. Continue monitoring on telemetry with fall precautions, intensive physical therapy and OT with case management to determine a discharge plan for long-term care to SNF or NH. - Would hold on further IV fluids given the history of CHF, recent pneumonia and solid blood pressures - Discontinue Doxazosin due to postural hypotension side effects, use an alternate BP medication if needed #2. Acute Bilateral Pneumonia secondary to Acute Viral Syndrome, COVID-19: mild infection, 92% on RA and no hypoxia here, will continue IV decadron x 7 additional doses for completion of previous 10 day course, and not give further remdesivir. Continue the Eliquis and complete 2-week course status post COVID infection #3. Chronic asthma with allergic rhinitis: We will continue patient home fluticasone regimen as well as as needed albuterol. #4. CAD: Status post PCI, will continue patient aspirin, statin, losartan, not on beta-bryn therapy with history of bradycardia. Bradycardic at baseline & we will monitor on telemetry #5. Hypertension: Continue home regimen including losartan, Lasix #7. Hyperlipidemia: Continue home statin regimen. #8. Anxiety and depression: We will continue patient home venlafaxine regimen #9. GERD: We will continue patient on PPI. #10. Hypothyroidism: Continue home Synthroid regimen. #11. IBS: Will hold patient Linzess #12. Severe RLS: We will continue patient home Requip and amantadine regimen. #13. DVT prophylaxis: SCDs, continue home eliquis. Continue Diet Full code Eliquis BID resumed David Hsu Charges/Coding Visit Charges Inpatient E&M: 32208 Init Hosp L2
--- NOTE | 2021-04-27 13:59 | PCS.PANDOC ---
PANDEMIC DOCUMENTATION INITIATED: Date: 12/10/2020 Time: 190
[2021-04-27] MEDS: dexAMETHasone 2 MG TABLET 6 MG PO (15:38)
[2021-04-27] MEDS: Montelukast 10 MG Tablet PO (15:38)
[2021-04-27] MEDS: Venlafaxine XR 75 MG Capsule PO (15:38)
[2021-04-27] MEDS: Levothyroxine 137 MCG Tablet PO (15:38)
[2021-04-27] MEDS: Albuterol 2.5 MG/3 ML VIAL.NEB. INHALATION ×2 (16:31→20:17)
[2021-04-27 17:05] LABS: Bedside Glucose 123 mg/dL (70-110)
[2021-04-27] MEDS: Budesonide Respules 0.5 MG/2 ML AMPUL.NEB. INHALATION (20:17)
[2021-04-27] MEDS: Atorvastatin Calcium 80 MG Tablet PO (22:17)
[2021-04-27] MEDS: Pramipexole Di-HCl 1 MG Tablet PO (22:17)
[2021-04-27] MEDS: APIXABAN 2.5 MG TABLET PO (22:17)
[2021-04-27] MEDS: Insulin Lispro 100 UNIT/ML INSULN.PEN SC (22:21)
[2021-04-27 22:50] LABS: Bedside Glucose 248 mg/dL (70-110)
[2021-04-28] VITALS (14 sets, daily range): BP systolic 106–137; BP diastolic 42–55; PULSE 32–52; RESP 15–19; TEMP 36.7–37.2; O2SAT 92–96
[2021-04-28] MEDS: Insulin Lispro 100 UNIT/ML INSULN.PEN SC ×4 (06:52→22:09)
[2021-04-28 07:00] LABS: Bedside Glucose 172 mg/dL (70-110)
[2021-04-28 07:15] LABS: Absolute Lymphocyte Count 1.34 X10^3/uL (0.83-4.51); Absolute Neutrophil Count 3.4 X10^3/uL (2.0-7.7); Hemoglobin 13.4 g/dL (13.0-16.5); Lymphocyte # 1.34 X10^3/ul (0.83-4.51); Lymphocyte % 25.7 % (19-41); Mean Corp Hgb Conc 31.2 g/dL (32-36); Mean Platelet Vol. 10.2 fl (6.2-12.0); Monocyte# 0.43 X10^3/uL; Monocyte% 8.3 % (0-10); NRBC Flagged by Analyzer 0 % (0-5); Neutrophil # 3.41 X10^3/uL (2.7-7.7); Neutrophil % 65.4 % (47-70); Platelet Count 167 K/mm3 (150-450); RBC Distribution Width CV 15.9 % (11.6-14.6); RBC Distribution Width SD 53.2 fl (35.1-43.9); Red Blood Count 4.78 M/mm3 (4.6-6.2); White Blood Count 5.2 K/mm3 (4.4-11.0)
[2021-04-28 07:22] LABS: Magnesium 2.6 mg/dL (1.6-2.6)
--- NOTE | 2021-04-28 07:33 | PN.HOSP_ITS ---
Subjective Subjective The patient is readmitted mainly after he stood up, felt dizzy, lightheaded and fell down on knee on knee due to generalized weakness, frail, physically deconditioned otherwise no otherwise new symptoms after discharge on 04/26. He denied any major injury or syncope at this time but was admitted last time for syncope and EEG did not show any major epileptic focus but generalized slowing. Objective Data Objective Data Vital Signs: Vital Signs Temp Pulse Resp BP Pulse Ox 98.1 F 37 L 15 116/51 L 92 04/28/21 06:02 04/28/21 07:00 04/28/21 06:02 04/28/21 06:02 04/28/21 06:02 Oxygen Flow Rate (L/min) 2 Oxygen Delivery Method Nasal Cannula Weight: 237 lb 14.06 oz Body Mass Index (BMI) 33.1 Intake & Output: Intake and Output for Last 24 Hours 04/26/21 04/27/21 04/28/21 23:59 23:59 23:59 Intake Total 1192.5 / 1192.5 150 / 150 Output Total 500 / 500 Balance 1192.5 / 1192.5 -350 / -350 Lab / Micro Data Result Diagrams: 04/28/21 06:30 04/28/21 06:30 Labs: Laboratory Results - last 24 hr 04/27/21 10:05: WBC 5.8, RBC 4.87, Hgb 13.9, Hct 42.6, MCV 87.5, MCH 28.5, MCHC 32.6, RDW Std Deviation 51.2 H, RDW Coeff of Joshua 15.9 H, Plt Count 177, MPV 10.1 , Immature Gran % (Auto) 0.300, Neut % (Auto) 63.8, Lymph % (Auto) 28.1, [place]mer[place] % (Auto) 7.6, Eos % (Auto) 0.0, Baso % (Auto) 0.2, Absolute Neuts (auto) 3.7, Absolute Lymphs (auto) 1.63, Nucleated RBC % 0 04/27/21 10:05: Sodium 142, Potassium 3.9, Chloride 111 H, Carbon Dioxide 25.0, Anion Gap 6, BUN 34 H, Creatinine 1.34 H, Estim Creat Clear Calc 47.61, Est GFR (MDRD) Af Amer 66, Est GFR (MDRD) Non-Af 55 L, BUN/Creatinine Ratio 25.4 H, Glucose 110 H, Calcium 9.3, Troponin I High Sens 10 04/27/21 16:56: POC Glucose 123 H 04/27/21 22:20: POC Glucose 248 H 04/28/21 06:30: WBC 5.2, RBC 4.78, Hgb 13.4, Hct 43.0, MCV 90.0, MCH 28.0, MCHC 31.2 L, RDW Std Deviation 53.2 H, RDW Coeff of Joshua 15.9 H, Plt Count 167, MPV 10.2, Immature Gran % (Auto) 0.600, Neut % (Auto) 65.4, Lymph % (Auto) 25.7, [place]mer[place] % (Auto) 8.3, Eos % (Auto) 0.0, Baso % (Auto) 0.0, Absolute Neuts (auto) 3.4, Absolute Lymphs (auto) 1.34, Nucleated RBC % 0 04/28/21 06:30: Magnesium 2.6 04/28/21 06:50: POC Glucose 172 H Radiography Diagnostic Testing: Radiology Impression Brain CT 04/27/21 09:55 IMPRESSION: No acute intracranial process. Bifrontal encephalomalacia. Previous frontal craniotomy. Electronically Signed: Chintan Olmos, at 11:11 EST Tel , Service support , Chest X-Ray 04/27/21 09:55 IMPRESSION: Poor inspiration with some bibasilar atelectasis. Electronically Signed: Sean Fabian MD at 11:12 EST Tel , Service support , Shoulder X-Ray 04/27/21 09:55 IMPRESSION: Normal x-ray examination of the shoulder. Electronically Signed: Sean Fabian MD at 11:13 EST Tel , Service support , Physical Exam Narrative General: Alert, Oriented x3, Cooperative, does not remember well. HEENT: Atraumatic, PERRLA, EOMI, Normocephalic Oral: No Gingival or Mucosal Lesions/ Ulcerations Neck: Supple, No JVD, Negative Carotid Bruits Lungs: Air entry diminished in bilateral lung bases. No crepitation/rhonchi Cardiovascular: Sinus bradycardia, heart rate 30s to 40s per minute. Normal S1, Normal S2, No murmurs Abdomen: Bowel Sounds Present, Soft, Non Tender, Non-Distended : No renal angle tenderness. No suprapubic tenderness. Extremities: No edema, Capillary Refill Less than 3 Seconds Skin: No rashes, No breakdown Musculoskeletal: No Tenderness to Palpation of Joints or Extremities. Mild weakness at knee and hip joints. Neurological: Cranial nerves II-XII grossly intact, DTR 2+/4 Psych/Mental Status: Mild dementia Assessment & Plan Assessment/Plan (1) Syncope: QUALIFIERS: Syncope type: vasovagal syncope Qualified Code(s): R55 - Syncope and collapse (2) COPD with bronchial hyperresponsiveness: (3) Asthma: QUALIFIERS: Asthma complication type: uncomplicated Asthma persistence: persistent Asthma severity: moderate Qualified Code(s): J45.40 - Moderate persistent asthma, uncomplicated (4) Sinus bradycardia: (5) Hypoxia: (6) Obesity: QUALIFIERS: Body mass index: BMI 36.0-36.9 Obesity cla ssification: adult class 2 (BMI 35 - 39.9) Obesity type: due to excess calories Serious obesity comorbidity presence: with serious comorbidity Qualified Code(s): E66.01 - Morbid (severe) obesity due to excess calories; Z68.36 - Body mass index [BMI] 36.0-36.9, adult (7) Diabetes: QUALIFIERS: Diabetes mellitus complication status: with hyperglyc emia Diabetes mellitus retirement insulin 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 He was recently admitted for COVID-19 pneumonia with syncope and fall, discharged on 04/26/2021 1. Fall and recent syncope. The patient is obviously weak and deconditioned from COVID and being in hospital. He denies syncope this time but does not remember well himself. Patient is also bradycardic and blood pressure was 96/48 in ER yesterday and 106/52 at about 3 AM. Currently blood pressure 120/54. Twelve-lead EKG shows sinus bradycardia. Head CT and shoulder x-rays negative. Isolated troponin negative. Magnesium level normal. Serum phosphorus ordered. I talked to commercial escrow assistant, Dr Christensen and requested consult. Orthostatic vitals ordered. Doxazosin discontinued. Proscar restarted instead from johan orrow a.m. 2D echo as recommended by commercial escrow assistant. 2. Acute bilateral COVID-19 pneumonia with mild hypoxia with history of chronic asthma and allergic rhinitis: On IV Decadron and remdesivir. Hypoxia resolved. 92% at rest on ambient air and 89% on exertion on ambient air 3 chronic Kidney Disease Stage IIIa: Admission BUN/Cr 29/1.83, baseline renal function primarily 1.3-1.5. Repeat creatinine 1.26 today. Acute renal insufficiency resolved. 4. Chronic asthma with allergic rhinitis: continue patient home fluticasone regimen as well as as needed albuterol. 5. CAD: Status post PCI, patient aspirin, statin, losartan, not on beta- bryn therapy with history of bradycardia. Home medications continued 6. Hypertension: Continue home regimen including losartan. Blood pressure is on lower side 6. Hyperlipidemia: Continue home statin regimen. 7. Anxiety and depression: We will continue patient home venlafaxine regimen 8. GERD: We will continue patient on PPI. 9. Hypothyroidism: Continue home synthroid regimen. 10. IBS: Will temporarily hold patient Linzess as patient has been having significant diarrhea with Covid, resume once appropriate. 11. Severe RLS: We will continue patient home Requip and amantadine regimen. 12. DVT prophylaxis: SCDs, continue home eliquis 2.5 mg p.o. Charges/Coding Visit Charges Inpatient E&M: 51899 Subs Hosp L2
[2021-04-28 08:17] LABS: Anion Gap 8 (5-15); BUN 31 mg/dL (7-18); Calcium,Total 8.8 mg/dL (8.5-10.1); Chloride 113 mmol/L (98-107); Creatinine, Serum 1.35 mg/dL (0.70-1.30); EST Glomerular Filtration Rate 54 mL/min (>60); Est Glom Filt Rate - Afr Amer 66 mL/min (>60); Estimated Creatinine Clearance 47.26 ml/min; Glucose 198 mg/dL (74-106); Potassium 3.8 mmol/L (3.5-5.1); Sodium Level 143 mmol/L (136-145)
[2021-04-28] MEDS: APIXABAN 2.5 MG TABLET PO ×2 (09:24→22:08)
[2021-04-28] MEDS: Aspirin E.C. 81 MG Tablet PO (09:24)
[2021-04-28] MEDS: dexAMETHasone 2 MG TABLET 6 MG PO (09:25)
[2021-04-28] MEDS: Venlafaxine XR 75 MG Capsule PO (09:25)
[2021-04-28] MEDS: Levothyroxine 137 MCG Tablet PO (09:25)
[2021-04-28] MEDS: Amantadine 100 MG Capsule 200 MG PO (09:25)
[2021-04-28] MEDS: Montelukast 10 MG Tablet PO (09:25)
[2021-04-28] MEDS: Pantoprazole Sodium 40 MG Tablet PO (09:25)
[2021-04-28] MEDS: Furosemide 20 MG Tablet PO (09:25)
[2021-04-28 11:50] LABS: Bedside Glucose 198 mg/dL (70-110)
[2021-04-28] MEDS: Albuterol 2.5 MG/3 ML VIAL.NEB. INHALATION ×2 (12:43→23:50)
[2021-04-28 15:01] LABS: Phosphorus 2.6 mg/dL (2.5-4.9)
--- NOTE | 2021-04-28 16:10 | PCM.CONS.C ---
HPI Consult Data Date of Consult: 04/28/21 HPI Narrative HPI Narrative: MARQUEZ SEO, is a 81 M who presents per ER notes Narrative: Patient presents to the emergency department with a fall that occurred this morning. Patient states that he was just discharged from the hospital yesterday after being admitted for COVID-19. Patient had gone to the bathroom and urinated and on his way back was using his walker. apparently states that he did not look right and then he went down and she thought he passed out. Patient states that he thinks he remembers everything. He is not sure if he hit his head. Patient is on Eliquis. He complains of left shoulder pain now which she did not have before the fall. Patient just overall does not feel well. Patient normally has a low heart rate in the 50s. Patient has history of coronary artery disease. Patient's systolic blood pressure normally in the 120s and on the arrival to the emergency department he is in the 90s and 80s systolic range. Prior records reviewed, patient interviewed and examined, outpatient cardiology notes were reviewed. This patient has been feeling weak for at least 3 months. He is a very difficult historian. Initially he said he did not even know why he was here. Subsequently he said he had passed out. Admission history and physical suggest that patient had a questionable syncopal episode after he had gotten up from the commode having had a bowel movement. He has a history of coronary artery disease multiple cardiac risk factors sinus bradycardia in the 50s, occasionally 60s based on outpatient office notes, he has been off AV ry blocking agents or sinus node inhibitors because of his sinus bradycardia. He is orthostatic here, with a 20 mm drop in systolic blood pressure lying to standing. Telemetry shows profound sinus bradycardia high 30s and low 40s. Twelve-lead EKG shows normal intervals and no diagnostic ST-T abnormalities or pathological Q waves This is patient's third hospital admission in a matter of 4 weeks. Patient was diagnosed with Covid pneumonia. He continues to complain of feeling weak, denies chest pressure tightness heaviness undue shortness of breath orthopnea PND or lower extremity edema. He also does not complain of palpitations or lightheadedness. Cardiac history is notable for echocardiogram in April 2013 showing LV ejection fraction of 65%, stress Myoview in October 2018-Lexiscan showing no ischemia and LVEF of 72%, cardiac catheterization in 2013 followed by stenting of the proximal and mid LAD and mid RCA, PCI and stenting of mid LAD in November 2010, Holter showing sinus rhythm sinus bradycardia average heart rate 59 minimum heart rate 41 supraventricular premature beats and longest R to R interval of about 1.6 seconds. Laboratory data show that his creatinine was 1.2 and GFR greater than 60 in February 2021, GFR had dropped to 35 on 1229, improved to 47.2 subsequently and now it is 54. Patient is currently on high risk medication Eliquis 2.5 mg p.o. twice daily, this was possibly started at recent admission. Has obstructive sleep apnea and COPD Patient denies any headache nausea vomiting has a cough that is minimally productive abdominal pain or diarrhea no focal weakness no headache Physical examination-I had requested orthostatics and patient is orthostatic He appears well, nontoxic no carotid bruit or jugular venous distention lungs show distant breath sounds no crepitations or rhonchi breath sounds diminished at the lower posterior lung boone Heart sounds are regular distant I did not appreciate any murmur rub or gallop abdomen is nontender extremities show no edema neurologically he is grossly nonfocal, gait was not tested. Assessment: 1. Predominant symptom is weakness. This is multifactorial and clearly related to Covid infection and treatment of the same. 2. Orthostatic hypotension 3. If he had a syncope, it is most likely multifactorial, combination of orthostatic hypotension and vasodepressive spell particularly after a bowel movement. The fact that he has an appropriate heart rate response is also contributory. 4. Profound sinus bradycardia with normal intervals, worse than usual heart rates of low 50s. Blood pressure is however normal when he is sitting. 5. This patient has multiple reasons for syncope. 6. BPH 7. Obstructive sleep apnea 8. Atherosclerotic [place] vessel coronary artery disease with multivessel stenting, last perfusion study was in October 2018 and was reported to be normal with preserved LV systolic function. 9. Probable intravascular volume depletion Recommendations: 1. Gentle hydration 2. I agree with discontinuation of doxazosin. This should improve the orthostatic hypotension and in turn may improve the vasodepressor component of his syncope. 3. Could try Proscar for BPH. 4. I do not know at this time if patient will need a permanent pacemaker. Prefer to hold off if at all possible given the Covid positive state. 5. Please check free T4 and TSH if not already done 6. Ambulate within the room with assistance, and assess heart rate response to exercise. 7. Unfortunately basal depressor spells are likely to recur. Off of the doxazosin he may not have these spells. 8. For symptomatic bradycardia try low-dose dopamine or transcutaneous pacing, dopamine is preferred because transcutaneous pacing is uncomfortable Will follow closely. [facility] Medical History (Updated 04/27/21 @ 12:[address] David Hsu MD) DEBORAH (acute kidney injury) Allergic rhinitis Asthma Atherosclerotic heart disease of [place] coronary artery without angina pectoris Back pain BiPAP (biphasic positive airway pressure) dependence Carpal tunnel syndrome Chronic pain Chronic renal failure, stage 3 (moderate) Congestive heart failure (CHF) Diabetes Diabetes type 2, controlled Dyspnea Esophageal reflux Essential hypertension Former smoker Gingivitis High cholesterol History of stress test Hypokalemia Hyponatremia Hypothyroidism IBS (irritable bowel syndrome) Insomnia Obesity Obesity Osteoarthritis Parathyroid abnormality Presence of stent in coronary artery (~12/05/10) Prostate cancer Pure hypercholesterolemia Sleep apnea Syncope Vision loss of left eye Vision problem Home Medications aspirin 81 mg tablet,delayed release 81 mg PO DAILY 12/09/17 [History Last Taken 04/26/21 09:00] meclizine 25 mg tablet 25 mg PO DAILY PRN 01/24/19 [History Last Taken Unknown] wheat dextrin 5 gram/7.4 gram oral powder 5 g PO BID g 01/24/19 [History Last Taken 04/26/21] fluticasone propionate 50 mcg/actuation nasal spray,suspension 2 spray INTRANASAL DAILY #3 unit 07/19/19 [Rx Last Taken 04/26/21 09:00] multivitamin 1 tab PO DAILY 07/26/19 [History Last Taken 04/26/21 09:00] albuterol sulfate 90 mcg/actuation aerosol inhaler 2 puff INHALATION Q4H PRN #18 g 06/04/20 [Rx Last Taken 04/24/21] omeprazole 40 mg capsule,delayed release 40 mg PO DAILY #90 cap 10/10/20 [Rx Last Taken 04/26/21 09:00] venlafaxine 75 mg capsule,extended release 24 hr 75 mg PO DAILY 10/25/20 [History Last Taken 04/26/21 17:00] rosuvastatin 40 mg tablet 40 mg PO QHS #90 tab 08/09/21 [Rx Last Taken 04/26/21 21:00] levothyroxine 137 mcg tablet 137 mcg PO DAILY #90 tab 12/24/20 [Rx Last Taken 04/26/21 08:00] amantadine HCl 100 mg tablet 200 mg PO DAILY tab 04/10/21 [History Last Taken 04/26/21 09:00] nitroglycerin 0.4 mg sublingual tablet 0.4 mg SUBLINGUAL Q5-15M PRN #25 tab 04/10/21 [Rx Last Taken Unknown] oxycodone-acetaminophen 5 mg-325 mg tablet 1 tab PO TID PRN tab 04/10/21 [History Last Taken Unknown] Advair HFA 2 inh INHALATION BID 04/24/21 [History Last Taken 04/26/21 21:00] Linzess 145 mcg PO DAILY 04/24/21 [History Last Taken 04/26/21 09:00] doxazosin 4 mg PO DAILY 04/24/21 [History Last Taken 04/26/21 09:00] montelukast 10 mg PO DAILY 04/24/21 [History Last Taken 04/26/21 09:00] ropinirole 2 mg PO QHS 04/24/21 [History Last Taken 04/26/21 17:00] apixaban [Eliquis] 2.5 mg PO BID #30 tab 04/26/21 [Rx Last Taken 04/26/21 21:00] dexamethasone 6 mg PO DAILY #8 tab 04/26/21 [Rx Last Taken 04/26/21 09:00] furosemide 20 mg PO DAILY #0 tab 04/26/21 [Rx Last Taken 04/26/21 09:00] losartan 25 mg PO DAILY #90 tablet 04/26/21 [Rx Last Taken Unknown] metformin 500 mg PO DAILY #0 tab 04/26/21 [Rx Last Taken 04/26/21 09:00] pseudoephedrine-guaifenesin [Mucinex D] 1 tab PO BID #14 tab 04/26/21 [Rx Last Taken 04/26/21 21:00] Allergy/AdvReac Type Severity Reaction Status Date / Time lorazepam [From Ativan] Allergy Severe Unknown Verified 04/27/21 09:39 lisinopril Allergy Unknown Verified 04/27/21 09:39 modafinil [From Provigil] Allergy Other Verified 04/27/21 09:39 moxifloxacin HCl Allergy Upset Verified 04/27/21 09:39 [From Avelox] Stomach Family History Father , from aneurysm CAD (coronary artery disease) Mother Multiple sclerosis Brother CAD (coronary artery disease) Cancer Prostate cancer Daughter Diabetes Surgical History H/O angioplasty H/O cardiac catheterization H/O total knee replacement History of appendectomy History of coronary artery stent placement History of rotator cuff surgery History of thumb surgery S/P total knee arthroplasty Social History (Updated 04/24/21 @ 15:41 by Deon Coffey) adopted: No household members: spouse housing: house number of children: 3 current occupational status: retired pets and animals: Yes (dog) leisure activities: hunting history of recent travel: No sexually active: No Smoking Status: Former smoker how long ago did patient quit smoking: Quit 1972, smoked 1 ppd since teen until quiting. alcohol intake: current details: social substance use type: does not use caffeine: Yes Type: coffee Number of servings: 2 what type of physical activity do you participate in: walking seatbelt use: always do you feel safe at home: Yes Risk Stratification Risk Stratification Applicable: No Objective Data Vital Signs: Vital Signs Temp Pulse Resp BP Pulse Ox 98.3 F 36 L 18 126/46 H 95 04/28/21 12:00 04/28/21 15:00 04/28/21 12:45 04/28/21 14:15 04/28/21 12:45 Oxygen Flow Rate (L/min) 2 Oxygen Delivery Method Nasal Cannula Weight: 237 lb 14.06 oz Body Mass Index (BMI) 33.1 Intake & Output: Intake and Output for Last 24 Hours 04/26/21 04/27/21 04/28/21 23:59 23:59 23:59 Intake Total 1192.5 / 1192.5 270 / 270 Output Total 1100 / 1100 Balance 1192.5 / 1192.5 -830 / -830 Lab / Micro Data Result Diagrams: 04/28/21 06:30 04/28/21 06:30 Labs: Laboratory Results - last 24 hr 04/27/21 16:56: POC Glucose 123 H 04/27/21 22:20: POC Glucose 248 H 04/28/21 06:30: WBC 5.2, RBC 4.78, Hgb 13.4, Hct 43.0, MCV 90.0, MCH 28.0, MCHC 31.2 L, RDW Std Deviation 53.2 H, RDW Coeff of Joshua 15.9 H, Plt Count 167, MPV 10.2, Immature Gran % (Auto) 0.600, Neut % (Auto) 65.4, Lymph % (Auto) 25.7, Dewitt % (Auto) 8.3, Eos % (Auto) 0.0, Baso % (Auto) 0.0, Absolute Neuts (auto) 3.4, Absolute Lymphs (auto) 1.34, Nucleated RBC % 0 04/28/21 06:30: Magnesium 2.6 04/28/21 06:30: Sodium 143, Potassium 3.8, Chloride 113 H, Carbon Dioxide 22.0, Anion Gap 8, BUN 31 H, Creatinine 1.35 H, Estim Creat Clear Calc 47.26, Est GFR (MDRD) Af Amer 66, Est GFR (MDRD) Non-Af 54 L, BUN/Creatinine Ratio 23.0 H, Glucose 198 H, Calcium 8.8 04/28/21 06:30: Phosphorus 2.6 04/28/21 06:50: POC Glucose 172 H 04/28/21 11:31: POC Glucose 198 H Cardiology Labs/Tests 04/28/21 06:30: WBC 5.2, RBC 4.78, Hgb 13.4, Hct 43.0, MCV 90.0, MCH 28.0, MCHC 31.2 L, Plt Count 167, MPV 10.2, Immature Gran % (Auto) 0.600, Neut % (Auto) 65.4, Lymph % (Auto) 25.7, Dewitt % (Auto) 8.3, Eos % (Auto) 0.0, Baso % (Auto) 0.0, Absolute Neuts (auto) 3.4, Nucleated RBC % 0 04/28/21 06:30: Magnesium 2.6 04/28/21 06:30: Sodium 143, Potassium 3.8, Chloride 113 H, Carbon Dioxide 22.0, Anion Gap 8, BUN 31 H, Creatinine 1.35 H, Est GFR (MDRD) Af Amer 66, Est GFR (MDRD) Non-Af 54 L, BUN/Creatinine Ratio 23.0 H, Glucose 198 H, Calcium 8.8 04/28/21 06:30: Phosphorus 2.6 Rhythm: EKG: ECHO: Stress Test: Cardiac Cath: PCI: CT Surgery: Holter monitor: EPS: PPM: CXR: Chest CT Scan:
[2021-04-28 17:10] LABS: Bedside Glucose 250 mg/dL (70-110)
--- NOTE | 2021-04-28 21:26 | NURSING ---
This RN is taking over care of pt at this time.
[2021-04-28] MEDS: oxyCODONE 5 MG Tablet PO (22:08)
[2021-04-28] MEDS: Pramipexole Di-HCl 1 MG Tablet PO (22:08)
[2021-04-28] MEDS: guaiFENesin/D-Methorphan TAB.SR.12H 1 TABLET PO (22:09)
[2021-04-28] MEDS: Atorvastatin Calcium 80 MG Tablet PO (22:09)
[2021-04-28 22:15] LABS: Bedside Glucose 190 mg/dL (70-110)
[2021-04-28] MEDS: Budesonide Respules 0.5 MG/2 ML AMPUL.NEB. INHALATION (23:50)
[2021-04-29] VITALS (19 sets, daily range): BP systolic 106–167; BP diastolic 58–75; PULSE 40–71; RESP 17–18; TEMP 36.3–36.7; O2SAT 90–98
[2021-04-29] MEDS: Insulin Lispro 100 UNIT/ML INSULN.PEN SC ×4 (06:25→22:41)
[2021-04-29 06:36] LABS: Bedside Glucose 171 mg/dL (70-110)
--- NOTE | 2021-04-29 07:29 | ECHOCS_ITS ---
Reason For Study: SYNCOPE/NEAR SYNCOPE Procedure This was a 2D Doppler, Color Flow transthoracic echocardiogram. The study was technically difficult. Due to body habitus and probable pectus excavatum. Contrast injection was performed. Exam performed portable in patient room. The exam was abbreviated due to the COVID 19 protocol. Left Ventricle Normal LV size. Left ventricular systolic function is normal. The estimated ejection fraction is 55 %. No regional wall motion abnormalities noted. Right Ventricle Normal RV size. Normal systolic function. Pulmonic Valve The pulmonic valve is not well visualized. Great Vessels Normal aortic root. Pericardium/Pleural No pericardial effusion. Medication Diluted definity 6.0ml given slow IV push to enhance endocardial definition. MMode/2D Measurements & Calculations LVIDd: 4.9 cm IVSd: 1.1 cm Ao root diam: 3.4 cm LVIDs: 2.9 cm LVPWd: 1.2 cm RVDd: 3.8 cm FS: 41.4 % LA dimension(2D): 3.6 cm Doppler Measurements & Calculations PA V2 max: 93.5 cm/sec ECHO/Echo Complete W/ Contrast Interpretation Summary Normal LV size. Left ventricular systolic function is normal. The estimated ejection fraction is 55 %. Contrast injection was performed. Ordering Physician: Jakob Lewis Referring Physician: Manuel Estrada Performed By: Yamilex Rodriguez, ALEXI, RVT
[2021-04-29] MEDS: Albuterol 2.5 MG/3 ML VIAL.NEB. INHALATION ×3 (07:42→18:12)
[2021-04-29] MEDS: Budesonide Respules 0.5 MG/2 ML AMPUL.NEB. INHALATION ×2 (07:42→18:12)
--- NOTE | 2021-04-29 09:03 | PN.CARD_ITS ---
Subjective Subjective The patient is awake and alert. He denies any ongoing chest discomfort. He continues with a cough. He has had no recurrent symptoms of near syncope or syncope. Objective Data Vital Signs: Vital Signs Temp Pulse Resp BP Pulse Ox 98.1 F 40 L 18 121/63 H 98 04/29/21 04:05 04/29/21 07:43 04/29/21 07:43 04/29/21 04:05 04/29/21 07:43 Oxygen Flow Rate (L/min) 2 Oxygen Delivery Method Nasal Cannula Weight: 237 lb 14.06 oz Body Mass Index (BMI) 33.1 Intake & Output: Intake and Output for Last 24 Hours 04/27/21 04/28/21 04/29/21 23:59 23:59 23:59 Intake Total 1192.5 / 1192.5 370 / 370 Output Total 1300 / 1300 Balance 1192.5 / 1192.5 -930 / -930 Lab / Micro Data Result Diagrams: 04/28/21 06:30 04/28/21 06:30 Labs: Laboratory Results - last 24 hr 04/28/21 06:30: Phosphorus 2.6 04/28/21 11:31: POC Glucose 198 H 04/28/21 16:56: POC Glucose 250 H 04/28/21 22:07: POC Glucose 190 H 04/29/21 06:25: POC Glucose 171 H Cardiology Labs/Tests 04/28/21 06:30: Phosphorus 2.6 Rhythm: Normal sinus rhythm/sinus bradycardia Physical Exam Const alert and oriented x3 Orientation / Consciousness: awake HEENT normocephalic, head/scalp atraumatic and hearing grossly normal bilaterally Eyes PERRL, EOMs intact bilaterally and conjunctivae normal Neck full ROM, supple and no JVD Resp Auscultation: rhonchi throughout Cardio regular rate, regular rhythm, S1 normal heart sound and S2 normal heart sound GI normal to inspection, nondistended, normoactive bowel sounds Extremity no pedal edema Psych mental status grossly normal Assessment & Plan Assessment/Plan (1) Bradycardia: PLAN: The patient has a history of sinus bradycardia. He has been without rate limiting medications. At the present time he has had episodes of normal sinus rhythm and sinus bradycardia. He will continue to be monitored and avoid rate limiting medications. There are no immediate plans at this time for proceeding with permanent pacemaker placement. If over time the patient does demonstrate the need for such device then hopefully this can be postponed until he has recuperated from his COVID-19 positive status. (2) Syncope: PLAN: The patient had a near syncopal/syncopal event. Based upon review of his history this may have been multifactorial relating to his multiple medical problems and a vasovagal mediated type event. At the present time he is without recurrent symptoms. He will continue to be monitored. (3) Atherosclerotic heart disease of [place] coronary artery without angina pectoris: QUALIFIERS: [place] vs. transplanted heart: [place] heart Qualified Code(s): I25.10 - Atherosclerotic heart disease of [place] coronary artery without angina pectoris PLAN: The patient has a history of underlying CAD. He appears to be without any obvious symptoms of acute coronary syndrome. He should continue risk factor evaluation care/medical therapy as deemed appropriate. (4) Presence of stent in coronary artery: PLAN: The patient has a history of PCI. Again he appears without any acute symptoms at this time. He will continue medical therapy. (5) Pure hypercholesterolemia: PLAN: The patient should continue medical management unless otherwise contraindicated. (6) Essential hypertension: PLAN: The patient's blood pressure can be followed. His medications can be adjusted accordingly to avoid episodes of hypo or hypertension. (7) COVID: PLAN: The patient remains in COVID-19 precautions. He will continue evaluation care of his underlying pulmonary disease process per internal medicine and other subspecialties as needed. Again, there are no immediate plans for placement of a permanent pacemaker during the patient's COVID-19 status barring unforeseen urgent/emergent events. Addt'l Comments This note was generated using a voice recognition system and there may be incorrect words, spelling or punctuation that were not noted when reviewing the office note prior to saving. Procedure Criteria Type of Procedure Procedure Type: Elective Elective Risks - COVID COVID Risk Discussion: The surgeon/proceduralist and patient have discussed in detail the risk of exposure to and/or potential harm posed by the COVID-19 virus with having a surgery/procedure at this time versus the risk of delaying the surgery/procedure. It is not possible to know either the risk of delaying the surgery or procedure or chance of getting an infection with perfect accuracy, but a joint decision was made between the patient and the surgeon/proceduralist to proceed at this time with the scheduled surgery/procedure as indicated on the consent form.
[2021-04-29] MEDS: Finasteride 5 MG Tablet PO (10:38)
[2021-04-29] MEDS: Montelukast 10 MG Tablet PO (10:39)
[2021-04-29] MEDS: Amantadine 100 MG Capsule 200 MG PO (10:39)
[2021-04-29] MEDS: Levothyroxine 137 MCG Tablet PO (10:39)
[2021-04-29] MEDS: Aspirin E.C. 81 MG Tablet PO (10:39)
[2021-04-29] MEDS: Pantoprazole Sodium 40 MG Tablet PO (10:39)
[2021-04-29] MEDS: APIXABAN 2.5 MG TABLET PO ×2 (10:39→22:41)
[2021-04-29] MEDS: Venlafaxine XR 75 MG Capsule PO (10:40)
[2021-04-29] MEDS: dexAMETHasone 2 MG TABLET 6 MG PO (10:40)
[2021-04-29 12:20] LABS: Bedside Glucose 243 mg/dL (70-110)
--- NOTE | 2021-04-29 14:31 | CASEMGMT ---
Social Work Consult: [facility] placement Referral source: RN GIN Met with patient in room. Introduced self and elementary school social worker role. Patient agreeable to speaking with this elementary school social worker. This elementary school social worker broached topic of retirement placement, patient is not sure about this and request for this elementary school social worker to talk with patient daughterElmira in regards to discharge plan ideally I want to go home, but I want to be safe. Physical therapy also has not evaluated patient today and patient would like to see what physical therapy recommends today. Telephone call to patient daughterElmira. Elmira confirms to be main contact and will update patient spouse on all information. Elmira agreeable to retirement placement and has concerns on patient returning to home. Elmira aware of positive COVID-19 being a barrier to patient discharge and choices in nursing homes. Elmira agreeable to referral being sent to [facility]. Dr. Lewis to consult with cardiology on status of patient being medically cleared for today. Will continue to follow. Johnny SHIELDS, SHANTE
--- NOTE | 2021-04-29 14:42 | CASEMGMT ---
Social Work Spoke with patient in room in regards to conversation with patient daughter. Patient is not agreeable to [facility] at this time. PT also getting ready to work with patient. This social media marketing specialist to continue to follow. Johnny SHIELDS, SHANTE
--- NOTE | 2021-04-29 15:41 | CASEMGMT ---
Addendum entered by Juliet Preciado 04/29/21 16:15: Clinical information faxed. Original Note: Social Work Physical therapy saw patient today and continue to recommend alf home placement for patient. Met with patient in room. Patient aware of above information and reports to have spoken with spouse. [facility] Voicemail left. Will continue to follow. Johnny SHIELDS, OLGA-S
[2021-04-29 16:25] LABS: Bedside Glucose 311 mg/dL (70-110)
--- NOTE | 2021-04-29 17:19 | PN.HOSP_ITS ---
Subjective Subjective Patient was given IV fluidPatient heart rate 40/min to 56/min. Last 171 bpm. Orthostatic blood pressure drop from systolic 126-106 on standing about 20 mm drop. Objective Data Objective Data Vital Signs: Vital Signs Temp Pulse Resp BP Pulse Ox 97.4 F L 71 18 106/61 93 04/29/21 10:00 04/29/21 15:00 04/29/21 10:00 04/29/21 10:00 04/29/21 15:37 Oxygen Flow Rate (L/min) 4 Oxygen Delivery Method Nasal Cannula Weight: 237 lb 14.06 oz Body Mass Index (BMI) 33.1 Intake & Output: Intake and Output for Last 24 Hours 04/27/21 04/28/21 04/29/21 23:59 23:59 23:59 Intake Total 1192.5 / 1192.5 370 / 370 360 / 360 Output Total 1300 / 1300 475 / 475 Balance 1192.5 / 1192.5 -930 / -930 -115 / -115 Lab / Micro Data Result Diagrams: 04/28/21 06:30 04/28/21 06:30 Labs: Laboratory Results - last 24 hr 04/28/21 22:07: POC Glucose 190 H 04/29/21 06:25: POC Glucose 171 H 04/29/21 12:07: POC Glucose 243 H 04/29/21 16:17: POC Glucose 311 H Radiography Diagnostic Testing: Radiology Impression Echocardiogram 04/29/21 07:29 Interpretation Summary Normal LV size. Left ventricular systolic function is normal. The estimated ejection fraction is 55 %. Contrast injection was performed. Ordering Physician: Jakob Lewis Referring Physician: Manuel Estrada Performed By: Yamilex Rodriguez, CALICS, RVT Physical Exam Narrative General: Alert, Oriented x3, Cooperative, does not remember well. HEENT: Atraumatic, PERRLA, EOMI, Normocephalic Oral: No Gingival or Mucosal Lesions/ Ulcerations Neck: Supple, No JVD, Negative Carotid Bruits Lungs: Air entry diminished in bilateral lung bases. No crepitation/rhonchi Cardiovascular: Sinus bradycardia, Normal S1, Normal S2, No murmurs Abdomen: Bowel Sounds Present, Soft, Non Tender, Non-Distended : No renal angle tenderness. No suprapubic tenderness. Extremities: No edema, Capillary Refill Less than 3 Seconds Skin: No rashes, No breakdown Musculoskeletal: No Tenderness to Palpation of Joints or Extremities. Mild weakness at knee and hip joints. Neurological: Cranial nerves II-XII grossly intact, DTR 2+/4 Psych/Mental Status: Mild dementia Assessment & Plan Assessment/Plan (1) Syncope: QUALIFIERS: Syncope type: vasovagal syncope Qualified Code(s): R55 - Syncope and collapse (2) COPD with bronchial hyperresponsiveness: (3) Asthma: QUALIFIERS: Asthma severity: moderate Asthma persistence: persistent Asthma complication type: uncomplicated Qualified Code(s): J45.40 - Moderate persistent asthma, uncomplicated (4) Sinus bradycardia: (5) Hypoxia: (6) Obesity: QUALIFIERS: Obesity type: due to excess calories Obesity classification: adult class 2 (BMI 35 - 39.9) Serious obesity comorbidity presence: with serious comorbidity Body mass index: BMI 36.0-36.9 Qualified Code(s): E66.01 - Morbid (severe) obesity due to excess calories; Z68.36 - Body mass index [BMI] 36.0-36.9, adult (7) Diabetes: QUALIFIERS: Diabetes mellitus type: type 2 Diabetes mellitus snf insulin use: without long term care phlebotomist use Diabetes mellitus complication status: with hyperglycemia Qualified Code(s): E11.65 - Type 2 diabetes mellitus with hyperglycemia (8) FTT (failure to thrive) in adult: (9) Pneumonia due to 2019 novel coronavirus: PLAN: The patient is a 81 y/o M is being readmitted after he felt very weak after recent discharge and could not ambulate but knees gave out and he needed down but not had major fall, injury or syncope at this time. He was recently admitted for COVID-19 pneumonia with syncope and fall, discharged on 04/26/2021 1. Fall and recent syncope. The patient is obviously weak and deconditioned from COVID and being in hospital. He denies syncope this time but does not remember well himself. Patient is also bradycardic and blood pressure was 96/48 in ER yesterday and 106/52 at about 3 AM. Currently blood pressure 120/54. Twelve-lead EKG shows sinus bradycardia. Head CT and shoulder x-rays negative. Isolated troponin negative. I talked to erp developer, Dr Christensen and requested consult. Doxazosin discontinued. Proscar started 04/29: Syncope from multiple etiologies possible orthostatic, bradycardia or v asovagal: Patient had 20 mg drop in orthostatic. Repeat orthostatic ordered. IV fluid Ringer lactate 75 mill per hour. 2D echo done and reported EF 55%, normal LV size systolic function. No plan for pacemaker but needs further monitoring as patient might have bradycardia for several reasons including COVID-19 infection. Patient not on rate limiting medication. Magnesium and phosphorus level normal. 2. Acute bilateral COVID-19 pneumonia with mild hypoxia with history of chronic asthma and allergic rhinitis: On IV Decadron. Patient had remdesivir on previous admission. At that time hypoxia has resolved but currently pulse ox 90% 98% on 2 to 3 L of oxygen 3 chronic Kidney Disease Stage IIIa: Admission BUN/Cr 29/1.83, baseline renal function primarily 1.3-1.5. Repeat creatinine 1.26 today. Acute renal insufficiency resolved. 4. Chronic asthma with allergic rhinitis: continue patient home fluticasone regimen as well as as needed albuterol. 5. CAD: Status post PCI, patient aspirin, statin, losartan, not on beta- bryn therapy with history of bradycardia. Home medications continued 6. Hypertension: Continue home regimen including losartan. Blood pressure is on lower side 6. Hyperlipidemia: Continue home statin regimen. 7. Anxiety and depression: continue patient home venlafaxine regimen 8. GERD: We will continue patient on PPI. 9. Hypothyroidism: Continue home synthroid regimen. 10. IBS: Will temporarily hold patient Linzess as patient has been having significant diarrhea with Covid, resume once appropriate. 11. Severe RLS: We will continue patient home Requip and amantadine regimen. 12. DVT prophylaxis: SCDs, continue home eliquis 2.5 mg p.o. twice daily Discharge plan: Patient will: Patient wants to go home but in view of recurrent fall and admission syncope recommended discharge to SNF. Charges/Coding Visit Charges Inpatient E&M: 82009 Subs Hosp L2
[2021-04-29] MEDS: Lactated Ringers 1,000 ML 75 ML IV (17:48)
[2021-04-29 18:26] LABS: Bedside Glucose 271 mg/dL (70-110)
[2021-04-29] MEDS: Pramipexole Di-HCl 1 MG Tablet PO (22:41)
[2021-04-29] MEDS: Atorvastatin Calcium 80 MG Tablet PO (22:41)
[2021-04-29 23:10] LABS: Bedside Glucose 230 mg/dL (70-110)
--- NOTE | 2021-04-29 23:30 | CPS ---
Oxygen bled into pt's home BiPAP
[2021-04-30] VITALS (12 sets, daily range): BP systolic 132–157; BP diastolic 53–74; PULSE 41–66; RESP 18–20; TEMP 36.6–36.7; O2SAT 93–99
[2021-04-30 07:10] LABS: Bedside Glucose 145 mg/dL (70-110)
[2021-04-30] MEDS: Albuterol 2.5 MG/3 ML VIAL.NEB. INHALATION ×3 (07:16→19:26)
[2021-04-30] MEDS: Budesonide Respules 0.5 MG/2 ML AMPUL.NEB. INHALATION ×2 (07:16→19:26)
[2021-04-30 07:53] LABS: Absolute Lymphocyte Count 2.04 X10^3/uL (0.83-4.51); Absolute Neutrophil Count 7.4 X10^3/uL (2.0-7.7); Basophil# 0.01 X10^3/uL; Basophil% 0.1 % (0-1); Hematocrit 41.6 % (40-54); Hemoglobin 13.8 g/dL (13.0-16.5); Lymphocyte # 2.04 X10^3/ul (0.83-4.51); Mean Corp Hgb Conc 33.2 g/dL (32-36); Mean Corpuscular Hgb 28.9 pg (27.0-32.0); Mean Platelet Vol. 10.4 fl (6.2-12.0); Monocyte# 0.65 X10^3/uL; Monocyte% 6.4 % (0-10); NRBC Flagged by Analyzer 0 % (0-5); Neutrophil # 7.41 X10^3/uL (2.7-7.7); Neutrophil % 72.5 % (47-70); Platelet Count 181 K/mm3 (150-450); RBC Distribution Width SD 51.6 fl (35.1-43.9); Red Blood Count 4.78 M/mm3 (4.6-6.2); White Blood Count 10.2 K/mm3 (4.4-11.0)
[2021-04-30 08:19] LABS: Magnesium 2.6 mg/dL (1.6-2.6)
--- NOTE | 2021-04-30 08:30 | PCM.PN.CARD ---
Subjective Subjective The patient is without any new acute cardiac complaints. Objective Data Vital Signs: Vital Signs Temp Pulse Resp BP Pulse Ox 98.1 F 43 L 18 157/53 H 94 04/30/21 03:12 04/30/21 07:48 04/30/21 07:16 04/30/21 03:12 04/30/21 07:16 Oxygen Flow Rate (L/min) 5 Oxygen Delivery Method Nasal Cannula Weight: 237 lb 14.06 oz Body Mass Index (BMI) 33.1 Intake & Output: Intake and Output for Last 24 Hours 04/28/21 04/29/21 04/30/21 23:59 23:59 23:59 Intake Total 370 / 370 600.5 / 600.5 Output Total 1300 / 1300 625 / 825 450 / 450 Balance -930 / -930 -24.5 / -224.5 -450 / -450 Lab / Micro Data Result Diagrams: 04/30/21 07:26 04/28/21 06:30 Labs: Laboratory Results - last 24 hr 04/29/21 12:07: POC Glucose 243 H 04/29/21 16:17: POC Glucose 311 H 04/29/21 17:41: POC Glucose 271 H 04/29/21 22:40: POC Glucose 230 H 04/30/21 06:56: POC Glucose 145 H 04/30/21 07:26: WBC 10.2, RBC 4.78, Hgb 13.8, Hct 41.6, MCV 87.0, MCH 28.9, MCHC 33.2 D, RDW Std Deviation 51.6 H, RDW Coeff of Joshua 16.0 H, Plt Count 181, MPV 10.4, Immature Gran % (Auto) 1.000 H, Neut % (Auto) 72.5 H, Lymph % (Auto) 20.0, [place] % (Auto) 6.4, Eos % (Auto) 0.0, Baso % (Auto) 0.1, Absolute Neuts (auto) 7.4, Absolute Lymphs (auto) 2.04, Nucleated RBC % 0 04/30/21 07:26: Magnesium 2.6 Cardiology Labs/Tests 04/30/21 07:26: WBC 10.2, RBC 4.78, Hgb 13.8, Hct 41.6, MCV 87.0, MCH 28.9, MCHC 33.2 D, Plt Count 181, MPV 10.4, Immature Gran % (Auto) 1.000 H, Neut % (Auto) 72.5 H, Lymph % (Auto) 20.0, [place] % (Auto) 6.4, Eos % (Auto) 0.0, Baso % (Auto) 0.1, Absolute Neuts (auto) 7.4, Nucleated RBC % 0 04/30/21 07:26: Magnesium 2.6 Rhythm: Sinus bradycardia; normal sinus rhythm (ventricular rates 70s-80s) ECHO: See below Radiography Diagnostic Testing: Radiology Impression Echocardiogram 04/29/21 07:29 Interpretation Summary Normal LV size. Left ventricular systolic function is normal. The estimated ejection fraction is 55 %. Contrast injection was performed. Ordering Physician: Jakob Lewis Referring Physician: Manuel Estrada Performed By: Yamilex Rodriguez RDCS, RVT Physical Exam Const alert and oriented x3 Orientation / Consciousness: awake HEENT normocephalic, head/scalp atraumatic and hearing grossly normal bilaterally Eyes PERRL, EOMs intact bilaterally and conjunctivae normal Neck full ROM, supple and no JVD Resp Auscultation: rhonchi throughout Cardio regular rate, regular rhythm, S1 normal heart sound and S2 normal heart sound GI normal to inspection, nondistended, normoactive bowel sounds Extremity no pedal edema Psych mental status grossly normal Assessment & Plan Assessment/Plan (1) Bradycardia: PLAN: The patient has a history of sinus bradycardia. He has been without rate limiting medications. At the present time he has had episodes of normal sinus rhythm with ventricular rates in the 70s-80s and sinus bradycardia with ventricular rates of 40s-50s. He does not appear to be hypotensive with his sinus bradycardia. He will continue to be monitored and avoid rate limiting medications. There are no immediate plans at this time for proceeding with permanent pacemaker placement. If over time the patient does demonstrate the need for such device then hopefully this can be postponed until he has recuperated from his COVID-19 positive status. (2) Syncope: PLAN: The patient had a near syncopal/syncopal event. Based upon review of his history this may have been multifactorial relating to his multiple medical problems and a vasovagal mediated type event. At the present time he is without recurrent symptoms. He will continue to be monitored. (3) Atherosclerotic heart disease of [place] coronary artery without angina pectoris: QUALIFIERS: [place] vs. transplanted heart: [place] heart Qualified Code(s): I25.10 - Atherosclerotic heart disease of [place] coronary artery without angina pectoris PLAN: The patient has a history of underlying CAD. He appears to be without any obvious symptoms of acute coronary syndrome. He should continue risk factor evaluation care/medical therapy as deemed appropriate. (4) Presence of stent in coronary artery: PLAN: The patient has a history of PCI. Again he appears without any acute symptoms at this time. He will continue medical therapy. (5) Pure hypercholesterolemia: PLAN: The patient should continue medical management unless otherwise contraindicated. (6) Essential hypertension: PLAN: He does not appear to be hypotensive in association with his sinus bradycardia. His blood pressures actually appear to be somewhat elevated. His nonrate limiting medications can be adjusted as needed for his blood pressure. (7) COVID: PLAN: The patient remains in COVID-19 precautions. He will continue evaluation care of his underlying pulmonary disease process per internal medicine and other subspecialties as needed. Again, there are no immediate plans for placement of a permanent pacemaker during the patient's COVID-19 status barring unforeseen urgent/emergent events. Addt'l Comments The patient's case has been previously discussed with Dr. Lewis. This note was generated using a voice recognition system and there may be incorrect words, spelling or punctuation that were not noted when reviewing the office note prior to saving.
--- NOTE | 2021-04-30 08:35 | CASEMGMT ---
SW received a voice mail from patient's daughter inquiring on status of referral. Christine ESPINOZA
[2021-04-30 08:42] LABS: Anion Gap 9 (5-15); BUN 28 mg/dL (7-18); BUN/Creat Ratio 26.4 RATIO (10-20); Calcium,Total 9.1 mg/dL (8.5-10.1); Chloride 113 mmol/L (98-107); Creatinine, Serum 1.06 mg/dL (0.70-1.30); EST Glomerular Filtration Rate 72 mL/min (>60); Est Glom Filt Rate - Afr Amer 87 mL/min (>60); Estimated Creatinine Clearance 60.18 ml/min; Glucose 136 mg/dL (74-106); Potassium 3.6 mmol/L (3.5-5.1); Sodium Level 144 mmol/L (136-145)
[2021-04-30] MEDS: Aspirin E.C. 81 MG Tablet PO (09:41)
[2021-04-30] MEDS: Finasteride 5 MG Tablet PO (09:41)
[2021-04-30] MEDS: Levothyroxine 137 MCG Tablet PO (09:41)
[2021-04-30] MEDS: Amantadine 100 MG Capsule 200 MG PO (09:41)
[2021-04-30] MEDS: Venlafaxine XR 75 MG Capsule PO (09:41)
[2021-04-30] MEDS: Montelukast 10 MG Tablet PO (09:41)
[2021-04-30] MEDS: Pantoprazole Sodium 40 MG Tablet PO (09:41)
[2021-04-30] MEDS: APIXABAN 2.5 MG TABLET PO ×2 (09:41→22:30)
[2021-04-30] MEDS: dexAMETHasone 2 MG TABLET 6 MG PO (09:41)
[2021-04-30] MEDS: Losartan Potassium 25 MG Tablet PO (09:42)
--- NOTE | 2021-04-30 10:18 | CASEMGMT ---
RADHA called patient's daughter Elmira back and left her a message letting her know RADHA is waiting on [facility] to get back to RADHA. Christine Perez VERTICAL LATHE OPERATOR OLGA
--- NOTE | 2021-04-30 10:58 | CASEMGMT ---
SW received confirmation that [facility] can accept patient. However, they cannot accept patient until tomorrow. RADHA will notify physician and patient's daughter. Christine ESPINOZA
--- NOTE | 2021-04-30 11:04 | CASEMGMT ---
RADHA called patient's daughter Elmira and let her know [facility] can accept patient, but the earliest they can take him is tomorrow. She thanked RADHA for the update. Plan: [facility]. Christine ESPINOZA
[2021-04-30] MEDS: Insulin Lispro 100 UNIT/ML INSULN.PEN SC ×3 (11:38→22:28)
[2021-04-30 13:26] LABS: Bedside Glucose 151 mg/dL (70-110)
--- NOTE | 2021-04-30 15:35 | CASEMGMT ---
Readmission chart review: 04/25-04/26/21 COVID pna, hypoxia, FTT 04/27/21-current Syncope/Fall Pt tested COVID + at [facility] on 04/23/21 and was admitted overnight then discharged home. Pt then presented to [facility] ED on 04/24/21 for 'going downhill' per family and unable to ambulate well and not eating. Pt was admitted then discharged home the next day but did not qualify for home oxygen and therapy only recommended OP therapy at discharge, which pt could not be set up for until out of COVID quarantine. Pt then returned to [facility] ED on 04/27/21 for increased weakness at home with fall and family now requesting SNF placement. SW following for same. CM to follow for any further discharge planning/needs. Jagdish ROSENBERG CM
[2021-04-30 16:05] LABS: Bedside Glucose 278 mg/dL (70-110)
--- NOTE | 2021-04-30 16:22 | PCM.PN.HOSP ---
Subjective Subjective Patient heart rate remains in low 50s and drops to 40s night. Asymptomatic. Denies dizziness or lightheadedness. Orthostatic hypotension was noted yesterday. From sitting to standing position his blood pressure dropped to 34 mmHg. Heart rate did not show measured change. Objective Data Objective Data Vital Signs: Vital Signs Temp Pulse Resp BP Pulse Ox 98.1 F 54 L 18 139/74 H 99 04/30/21 09:35 04/30/21 13:57 04/30/21 13:45 04/30/21 09:35 04/30/21 09:35 Oxygen Flow Rate (L/min) 8 Oxygen Delivery Method Nasal Cannula Weight: 237 lb 14.06 oz Body Mass Index (BMI) 33.1 Intake & Output: Intake and Output for Last 24 Hours 04/28/21 04/29/21 04/30/21 23:59 23:59 23:59 Intake Total 370 / 370 600.5 / 600.5 1000 / 1000 Output Total 1300 / 1300 625 / 825 450 / 450 Balance -930 / -930 -24.5 / -224.5 550 / 550 Lab / Micro Data Result Diagrams: 04/30/21 07:26 04/30/21 07:26 Labs: Laboratory Results - last 24 hr 04/29/21 16:17: POC Glucose 311 H 04/29/21 17:41: POC Glucose 271 H 04/29/21 22:40: POC Glucose 230 H 04/30/21 06:56: POC Glucose 145 H 04/30/21 07:26: WBC 10.2, RBC 4.78, Hgb 13.8, Hct 41.6, MCV 87.0, MCH 28.9, MCHC 33.2 D, RDW Std Deviation 51.6 H, RDW Coeff of Joshua 16.0 H, Plt Count 181, MPV 10.4, Immature Gran % (Auto) 1.000 H, Neut % (Auto) 72.5 H, Lymph % (Auto) 20.0, [place] % (Auto) 6.4, Eos % (Auto) 0.0, Baso % (Auto) 0.1, Absolute Neuts (auto) 7.4, Absolute Lymphs (auto) 2.04, Nucleated RBC % 0 04/30/21 07:26: Magnesium 2.6 04/30/21 07:26: Sodium 144, Potassium 3.6, Chloride 113 H, Carbon Dioxide 22.0, Anion Gap 9, BUN 28 H, Creatinine 1.06, Estim Creat Clear Calc 60.18, Est GFR (MDRD) Af Amer 87, Est GFR (MDRD) Non-Af 72, BUN/Creatinine Ratio 26.4 H, Glucose 136 H, Calcium 9.1 04/30/21 11:37: POC Glucose 151 H 04/30/21 16:02: POC Glucose 278 H Physical Exam Narrative General: Alert, Oriented x3, Cooperative, forgetful/amnesia HEENT: Atraumatic, PERRLA, EOMI, Normocephalic Oral: No Gingival or Mucosal Lesions/ Ulcerations Neck: Supple, No JVD, Negative Carotid Bruits Lungs: Air entry diminished in bilateral lung bases. No crepitation/rhonchi Cardiovascular: Sinus bradycardia, Normal S1, Normal S2, No murmurs Abdomen: Bowel Sounds Present, Soft, Non Tender, Non-Distended : No renal angle tenderness. No suprapubic tenderness. Extremities: No edema, Capillary Refill Less than 3 Seconds Skin: No rashes, No breakdown Musculoskeletal: No Tenderness to Palpation of Joints or Extremities. Mild weakness at knee and hip joints, 4/5. Neurological: Cranial nerves II-XII grossly intact, DTR 2+/4 Psych/Mental Status: Mild dementia Assessment & Plan Assessment/Plan (1) Syncope: QUALIFIERS: Syncope type: vasovagal syncope Qualified Code(s): R55 - Syncope and collapse (2) COPD with bronchial hyperresponsiveness: (3) Asthma: QUALIFIERS: Asthma severity: moderate Asthma persistence: persistent Asthma complication type: uncomplicated Qualified Code(s): J45.40 - Moderate persistent asthma, uncomplicated (4) Sinus bradycardia: (5) Hypoxia: (6) Obesity: QUALIFIERS: Obesity type: due to excess calories Obesity classification: adult class 2 (BMI 35 - 39.9) Serious obesity comorbidity presence: with serious comorbidity Body mass index: BMI 36.0-36.9 Qualified Code(s): E66.01 - Morbid (severe) obesity due to excess calories; Z68.36 - Body mass index [BMI] 36.0-36.9, adult (7) Diabetes: QUALIFIERS: Diabetes mellitus type: type 2 Diabetes mellitus [facility] insulin use: without termite control service representative use Diabetes mellitus complication status: with hyperglycemia Qualified Code(s): E11.65 - Type 2 diabetes mellitus with hyperglycemia (8) FTT (failure to thrive) in adult: (9) Pneumonia due to 2019 novel coronavirus: PLAN: The patient is a 81 y/o M is being readmitted after he felt very weak after recent discharge and could not ambulate but knees gave out and he needed down but not had major fall, injury or syncope at this time. He was recently admitted for COVID-19 pneumonia with syncope and fall, discharged on 04/26/2021 1. Fall and recent syncope. The patient is obviously weak and deconditioned from COVID and being in hospital. He denies syncope this time but does not remember well himself. Patient is also bradycardic and blood pressure was 96/48 in ER yesterday and 106/52 at about 3 AM. Currently blood pressure 120/54. Twelve-lead EKG shows sinus bradycardia. Head CT and shoulder x-rays negative. Isolated troponin negative. I talked to department head, Dr Christensen and requested consult. Doxazosin discontinued. Proscar started 04/29: Syncope from multiple etiologies possible orthostatic, bradycardia or vasovagal: Patient had 20 mg drop in orthostatic. Repeat orthostatic ordered. IV fluid Ringer lactate 75 mill per hour. 2D echo done and reported EF 55%, normal LV size systolic function. No plan for pacemaker but needs further monitoring as patient might have bradycardia for several reasons including COVID-19 infection. Patient not on rate limiting medication. Magnesium and phosphorus level normal. 04/30: Heart rate is stable. Patient was given IV fluid for orthostatic hypotension. Currently 139/74. Needs precertification to go correction on heart rate monitoring. Further evaluation for pacemaker once out of isolation. 2. Acute bilateral COVID-19 pneumonia with mild hypoxia with history of chronic asthma and allergic rhinitis: On IV Decadron. Patient had remdesivir on previous admission. At that time hypoxia has resolved but currently pulse ox 90% 98% on 2 to 3 L of oxygen 04/30: Oxygen requirement went up from 3 to 8 L of oxygen. Continue incentive spirometry, Mucinex and Pep 3 chronic Kidney Disease Stage IIIa: Admission BUN/Cr 29/1.83, baseline renal function primarily 1.3-1.5. Repeat creatinine 1.26 today. Acute renal insufficiency resolved. 04/30 creatinine 1.06 4. Chronic asthma with allergic rhinitis: continue patient home fluticasone regimen as well as as needed albuterol. 5. CAD: Status post PCI, patient aspirin, statin, losartan, not on beta-bryn therapy with history of bradycardia. Home medications continued 6. Hypertension: Continue home regimen including losartan. Blood pressure is on lower side 6. Hyperlipidemia: Continue home statin regimen. 7. Anxiety and depression: continue patient home venlafaxine regimen 8. GERD: We will continue patient on PPI. 9. Hypothyroidism: Continue home synthroid regimen. 10. IBS: Will temporarily hold patient Linzess as patient has been having significant diarrhea with Covid, resume once appropriate. 11. Severe RLS: We will continue patient home Requip and amantadine regimen. 12. DVT prophylaxis: SCDs, continue home eliquis 2.5 mg p.o. twice daily Discharge plan: Patient will: Patient wants to go home but in view of recurrent fall and admission syncope recommended discharge to SNF. Patient is a high risk of fall in view of orthostatic hypotension, bradycardia therefore correction discharge is appropriate. Charges/Coding Visit Charges Inpatient E&M: 42266 Subs Hosp L2
[2021-04-30] MEDS: 0.9% Saline Lock 10 ML Syringe IV (22:30)
[2021-04-30] MEDS: Pramipexole Di-HCl 1 MG Tablet PO (22:30)
[2021-04-30] MEDS: Atorvastatin Calcium 80 MG Tablet PO (22:30)
[2021-04-30 23:16] LABS: Bedside Glucose 280 mg/dL (70-110)
[2021-05-01] VITALS (10 sets, daily range): BP systolic 111–152; BP diastolic 54–67; PULSE 41–66; RESP 18–21; TEMP 36.6–36.8; O2SAT 92–98
[2021-05-01 05:25] LABS: Absolute Neutrophil Count 6.8 X10^3/uL (2.0-7.7); Basophil# 0.01 X10^3/uL; Basophil% 0.1 % (0-1); Hematocrit 42.5 % (40-54); Mean Corp Hgb Conc 32.9 g/dL (32-36); Mean Corpuscular Hgb 28.9 pg (27.0-32.0); Mean Corpuscular Volume 87.8 fL (80-94); Mean Platelet Vol. 9.9 fl (6.2-12.0); Monocyte# 0.63 X10^3/uL; Monocyte% 6.6 % (0-10); NRBC Flagged by Analyzer 0 % (0-5); Neutrophil # 6.76 X10^3/uL (2.7-7.7); Platelet Count 192 K/mm3 (150-450); RBC Distribution Width SD 52.1 fl (35.1-43.9); Red Blood Count 4.84 M/mm3 (4.6-6.2); White Blood Count 9.5 K/mm3 (4.4-11.0)
[2021-05-01] MEDS: Insulin Lispro 100 UNIT/ML INSULN.PEN SC ×2 (06:40→11:14)
[2021-05-01 07:10] LABS: Bedside Glucose 166 mg/dL (70-110)
[2021-05-01] MEDS: Budesonide Respules 0.5 MG/2 ML AMPUL.NEB. INHALATION (07:31)
[2021-05-01] MEDS: Albuterol 2.5 MG/3 ML VIAL.NEB. INHALATION ×2 (07:31→13:50)
--- NOTE | 2021-05-01 10:24 | CASEMGMT ---
SW received a voice mail from patient's daughter inquiring how the process works on day of discharge. SW called patient's daughter back and explained to her that per physician patient will go today. RADHA explained that once the physician does the discharge orders SW will set up transportation to [place] via ambulance. SW will let her know when SW sets up transport. She thanked RADHA for the information. Christine Perez SPECIAL LIBRARIAN OLGA
[2021-05-01] MEDS: dexAMETHasone 2 MG TABLET 6 MG PO (10:30)
[2021-05-01] MEDS: Levothyroxine 137 MCG Tablet PO (10:30)
[2021-05-01] MEDS: Montelukast 10 MG Tablet PO (10:30)
[2021-05-01] MEDS: Venlafaxine XR 75 MG Capsule PO (10:30)
[2021-05-01] MEDS: Losartan Potassium 25 MG Tablet PO (10:30)
[2021-05-01] MEDS: APIXABAN 2.5 MG TABLET PO (10:30)
[2021-05-01] MEDS: Pantoprazole Sodium 40 MG Tablet PO (10:30)
[2021-05-01] MEDS: Finasteride 5 MG Tablet PO (10:30)
[2021-05-01] MEDS: Amantadine 100 MG Capsule 200 MG PO (10:30)
[2021-05-01] MEDS: Aspirin E.C. 81 MG Tablet PO (10:36)
[2021-05-01 11:20] LABS: Bedside Glucose 164 mg/dL (70-110)
--- NOTE | 2021-05-01 14:51 | DS.PCM_ITS ---
Providers Date of Admission: 04/27/21 Primary Care Physician: Dr. Manuel Estrada DO Consultations 04/28/21 13:29 Consult: Cardiology Routine Consulting Provider: Adarsh Tijerina Reason for Consult: fall, bradycardia EMERGENT Consult: No MD Notified: Yes Date Notified: 04/28/21 Time Notified: 14:04 Method of Notification: Text Reason For Visit: SYNCOPE Diagnosis Discharge Diagnosis (1) Syncope: Status: Acute Code(s): R55 - Syncope and collapse Qualifiers: Syncope type: vasovagal syncope Qualified Code(s): R55 - Syncope and collapse (2) COPD with bronchial hyperresponsiveness: Status: Chronic Code(s): J44.1 - Chronic obstructive pulmonary disease with (acute) exacerbation (3) Asthma: Status: Chronic Code(s): J45.909 - Unspecified asthma, uncomplicated Qualifiers: Asthma complication type: uncomplicated Asthma persistence: persistent Asthma severity: moderate Qualified Code(s): J45.40 - Moderate persistent asthma, uncomplicated (4) Sinus bradycardia: Status: Acute Code(s): R00.1 - Bradycardia, unspecified (5) Hypoxia: Status: Acute Code(s): R09.02 - Hypoxemia (6) Obesity: Status: Acute Code(s): E66.9 - Obesity, unspecified Qualifiers: Body mass index: BMI 36.0-36.9 Obesity classification: adult class 2 (BMI 35 - 39.9) Obesity type: due to excess calories Serious obesity comorbidity presence: with serious comorbidity Qualified Code(s): E66.01 - Morbid (severe) obesity due to excess calories; Z68.36 - Body mass index [BMI] 36.0-36.9, adult (7) Diabetes: Status: Acute Code(s): E11.9 - Type 2 diabetes mellitus without complications Qualifiers: Diabetes mellitus complication status: with hyperglycemia Diabetes mellitus penitentiary insulin use: without continuous churn buttermaker use Diabetes mellitus type: type 2 Qualified Code(s): E11.65 - Type 2 diabetes mellitus with hyperglycemia (8) FTT (failure to thrive) in adult: Status: Acute Code(s): R62.7 - Adult failure to thrive (9) Pneumonia due to 2019 novel coronavirus: Status: Acute Code(s): U07.1 - COVID-19; J12.82 - Pneumonia due to coronavirus disease 2019 Medications at Discharge Home Medications aspirin 81 mg tablet,delayed release 81 mg PO DAILY 12/09/17 meclizine 25 mg tablet 25 mg PO DAILY PRN 01/24/19 wheat dextrin 5 gram/7.4 gram oral powder 5 g PO BID g 01/24/19 fluticasone propionate 50 mcg/actuation nasal spray,suspension 2 spray INTRANASAL DAILY #3 unit 07/19/19 multivitamin 1 tab PO DAILY 07/26/19 albuterol sulfate 90 mcg/actuation aerosol inhaler 2 puff INHALATION Q4H PRN #18 g 06/04/20 omeprazole 40 mg capsule,delayed release 40 mg PO DAILY #90 cap 10/10/20 venlafaxine 75 mg capsule,extended release 24 hr 75 mg PO DAILY 10/25/20 rosuvastatin 40 mg tablet 40 mg PO QHS #90 tab 12/03/20 levothyroxine 137 mcg tablet 137 mcg PO DAILY #90 tab 12/24/20 amantadine HCl 100 mg tablet 200 mg PO DAILY tab 04/10/21 nitroglycerin 0.4 mg sublingual tablet 0.4 mg SUBLINGUAL Q5-15M PRN #25 tab 04/10/21 oxycodone-acetaminophen 5 mg-325 mg tablet 1 tab PO TID PRN tab 04/10/21 Advair HFA 2 inh INHALATION BID 04/24/21 Linzess 145 mcg PO DAILY 04/24/21 montelukast 10 mg PO DAILY 04/24/21 ropinirole 2 mg PO QHS 04/24/21 Eliquis 2.5 mg PO BID #30 tab 04/26/21 furosemide 20 mg PO DAILY #0 tab 04/26/21 losartan 25 mg PO DAILY #90 tablet 04/26/21 metformin 500 mg PO DAILY #0 tab 04/26/21 pseudoephedrine-guaifenesin [Mucinex D] 1 tab PO BID #14 tab 04/26/21 acetaminophen [Tylenol] 650 mg PO Q6H PRN PRN #0 tab 05/01/21 albuterol sulfate 2.5 mg INHALATION Q6HWA.RT #0 ml 05/01/21 budesonide 0.5 mg INHALATION Q12H.RT #0 ml 05/01/21 dexamethasone 6 mg PO DAILY #0 tab 05/01/21 finasteride 5 mg PO DAILY #0 tab 05/01/21 insulin lispro [Humalog KwikPen Insulin] See Protocol SUBCUT ACHS #0 ml 05/01/21 Hospital Course Summary of Care Provided Minutes Spent on Discharge: 42 Hospital Course: Mr. Garcia is a 81-year-old white male who presented to the emergency department at [facility] on 04/27/2021 with a chief complaint of a fall on the morning of admission after he had finished using the bathroom. The patient reported he felt lightheaded and was standing up with the assistance of his and fell down and hit his head. He had bradycardia upon presentation which appeared to be similar to his baseline. Other than his fall with light headedness he denied any other new symptoms. He had a recent admission and was discharged on 04/26/2021 with Decadron and a 2-week course of Eliquis as he had been diagnosed with COVID-19. Unfortunately, on presentation he was hypotensive with a blood pressure of 96/48 and his EKG showed sinus bradycardia but he had heart rates down to the upper 30s which was not normal for him and request for admission was therefore made. The event upon presentation was not syncopal in nature although he has had syncopal episodes in the past and had an EEG recently which showed no major epileptic foci. He was found to be orthostatic positive and it was felt that this contributed to his falling. Cardiology was consulted given his bradycardia and recommended the discontinuation of his doxazosin. We did supplement Proscar for his BPH instead of alpha-bryn. He was followed closely by cardiology and there were no plans for pacemaker placement at this time. His overall heart rates were in the low to mid 40s while he is sleeping but did improve into the 60s when he is not at rest. His thyroid function was within normal limits. An echocardiogram was performed and showed a normal LV with normal LV size and EF of 55%. He unfortunately did require oxygenation during his hospitalization although his supplemental oxygen was at 3 L and stable on the day of discharge with sats at 92 to 96%. With regards to his COVID-19 infection we will continue his Decadron for another 4 days for completion of 10 days. I recommend he continue with incentive spirometer and Acapella for lung expansion and prevention of atelectasis. He was discharged to skilled facility as he needed continued therapy prior to discharge home to prevent further falls. He was discharged to [facility] facility on 05/01/2021 in stable condition. Discharge diagnoses: Acute hypoxic respiratory failure COVID-19 pneumonia Bradycardia Orthostatic hypotension-resolved Debility Fall Asthma Allergic rhinitis CKD stage IIIa CAD Hypertension Hyperlipidemia Anxiety Depression GERD Hypothyroidism IBS Severe restless leg syndrome Physical Exam Const alert, oriented x3 and no apparent distress Constitutional Narrative: Obese older white male sitting up in a chair at the bedside, appears comfortable, nontoxic, watching television General Appearance: cooperative, comfortable, well kempt and well developed Orientation / Consciousness: awake Nutritional Appearance: obese HEENT normocephalic, head/scalp atraumatic, moist oral mucous membranes and oropharynx normal; Negative for hearing grossly normal bilaterally HEENT Narrative: Dentition is fair, Mallampati is 2-3, no thrush, mildly hard of hearing Eyes PERRL, EOMs intact bilaterally and conjunctivae normal Eyes Narrative: No scleral icterus Neck no lymphadenopathy, supple and no JVD Neck Narrative: Trachea midline, no thyroid enlargement Resp normal respiratory effort, no retractions and no use of accessory muscles Resp Narrative: Diminished but clear diffusely Auscultation: Negative for crackles, rales, rhonchi or wheezes Cardio regular rate, regular rhythm, S1 normal heart sound, S2 normal heart sound, no murmurs, no rub, no gallops, no clicks and no JVD GI normal to inspection, nondistended, normoactive bowel sounds, soft to palpation, non-tender and non-distended Extremity no clubbing, cyanosis or edema Skin no rashes or lesions noted, no wounds, skin turgor normal and no jaundice Neuro oriented x3, CN's II-XII intact bilaterally, moves all extremities and no focal motor deficits Neuro Narrative: Generalized weakness noted but no focal deficits Sensorium / Orientation: awake and alert Speech: speech normal Psych affect normal Psych Narrative: Very pleasant and appropriately interactive Weight / BMI Weight Weight: 107.9 kg Body Mass Index (BMI) 33.1 ABG / Lab / Microbiology Data Result Diagrams: 05/01/21 05:13 04/30/21 07:26 Laboratory: Laboratory Results - last 24 hr 04/30/21 16:02: POC Glucose 278 H 04/30/21 22:19: POC Glucose 280 H 05/01/21 05:13: WBC 9.5, RBC 4.84, Hgb 14.0, Hct 42.5, MCV 87.8, MCH 28.9, MCHC 32.9, RDW Std Deviation 52.1 H, RDW Coeff of Joshua 16.0 H, Plt Count 192, MPV 9.9, Immature Gran % (Auto) 1.300 H, Neut % (Auto) 71.0 H, Lymph % (Auto) 21.0, [place] % (Auto) 6.6, Eos % (Auto) 0.0, Baso % (Auto) 0.1, Absolute Neuts (auto) 6.8, Absolute Lymphs (auto) 2.00, Nucleated RBC % 0 05/01/21 06:39: POC Glucose 166 H 05/01/21 11:13: POC Glucose 164 H Meaningful Use Info Meaningful Use Diagnoses (Choose all that apply): None applicable Discharge Plan Admission Admit Date/Time: 04/27/21 12:31 Primary Reason for Your Visit: Fall Attending Provider: Hannah Bradshaw Primary Care Provider: Manuel Estrada Consulting Providers: Adarsh Tijerina Discharge Orders/Prescriptions Prescriptions: New dexamethasone 2 mg Tablet 6 mg PO DAILY Qty: 0 RF: 0 budesonide 0.5 mg/2 mL Suspension For Nebulization 0.5 mg inhalation Q12H.RT Qty: 0 RF: 0 insulin lispro [Humalog KwikPen Insulin] 100 unit/mL Insulin Pen See Protocol unit subcut ACHS Qty: 0 RF: 0 acetaminophen [Tylenol] 325 mg Tablet 650 mg PO Q6H PRN PRN (Reason: Pain Score 1-10/Temp > 100.7 F) Qty: 0 RF: 0 albuterol sulfate 2.5 mg /3 mL (0.083 %) Solution For Nebulization 2.5 mg inhalation Q6HWA.RT Qty: 0 RF: 0 finasteride 5 mg Tablet 5 mg PO DAILY Qty: 0 RF: 0 Continued aspirin 81 mg tablet,delayed release (DR/EC) 81 mg PO DAILY RF: 0 meclizine 25 mg tablet 25 mg PO DAILY PRN (Reason: Dizziness) RF: 0 fluticasone propionate 50 mcg/actuation spray,suspension 2 spray INTRANASAL DAILY Qty: 3 RF: 3 venlafaxine [Effexor XR] 75 mg capsule,extended release 24hr 75 mg PO DAILY RF: 0 omeprazole 40 mg capsule,delayed release(DR/EC) 40 mg PO DAILY Qty: 90 RF: 3 amantadine HCl 100 mg tablet 200 mg PO DAILY RF: 0 oxycodone-acetaminophen 5-325 mg tablet 1 tab PO TID PRN (Reason: Pain) RF: 0 nitroglycerin [Nitrostat] 0.4 mg tablet, sublingual 0.4 mg SUBLINGUAL Q5-15M PRN (Reason: chest pain) Qty: 25 RF: 3 ropinirole 2 mg tablet 2 mg PO QHS RF: 0 montelukast 10 mg tablet 10 mg PO DAILY RF: 0 Advair HFA 230-21 mcg/actuation HFA aerosol inhaler 2 inh INHALATION BID RF: 0 Linzess 145 mcg capsule 145 mcg PO DAILY RF: 0 Eliquis 2.5 mg tablet 2.5 mg PO BID Qty: 30 RF: 0 pseudoephedrine-guaifenesin [Mucinex D] 60-600 mg tablet extended release 12 hr 1 tab PO BID Qty: 14 RF: 0 furosemide 40 mg tablet 20 mg PO DAILY Qty: 0 RF: 0 losartan 25 mg tablet 25 mg PO DAILY Qty: 90 RF: 3 albuterol sulfate [ProAir HFA] 90 mcg/actuation HFA aerosol inhaler 2 puff INHALATION Q4H PRN (Reason: shortness of breath or wheezing) Qty: 18 RF: 6 rosuvastatin 40 mg tablet 40 mg PO QHS Qty: 90 RF: 3 levothyroxine 137 mcg tablet 137 mcg PO DAILY Qty: 90 RF: 3 Held Benefiber Healthy Shape 5 gram/7.4 gram powder 5 g PO BID RF: 0 Hold Instructions: Until discharge from skilled facility multivitamin Tablet 1 tab PO DAILY RF: 0 Hold Instructions: Until discharged from skilled facility metformin 500 mg tablet 500 mg PO DAILY Qty: 0 RF: 0 Hold Instructions: Until discharge from skilled facility Discontinued doxazosin 4 mg tablet 4 mg PO DAILY RF: 0 dexamethasone 6 mg tablet 6 mg PO DAILY Qty: 8 RF: 0 Referrals / Follow Up: Sherman Gil MD [STAFF PHYSICIAN] - Within 3 Months (Follow-up for [id number]) Manuel Estrada DO [Primary Care Provider] - Within 1 Month Disposition Disposition (needs filled in before D/C Order can be placed): [facility] Facility Charges/Coding Visit Charges Inpatient E&M: 87564 SNF Disch >30 Min
--- NOTE | 2021-05-01 15:09 | NURSING ---
Addendum entered by Tessy Polanco 05/01/21 15:57: Report given to WERNER Contreras at [facility] at 1555. Original Note: Attempted to call report two times to [facility] to give report on pt. Left message for admissions personJaci at 1502.
--- NOTE | 2021-05-01 15:21 | TREXTCAR_ITS ---
Diet 04/27/21 12:32 Diet: Consistent Carb - Calorie Controlled Food consistency:: Regular Liquid Consistency:: Regular/Thin How many daily calories?: 2200 calorie Routine Orders/Code Status O2 Liters per Minute: 2-3 O2 Frequency: Continuous Keep PO Greater than or Equal to (%): 92 Routine Lab Work: CBC and BMP Code Status: Full Code Therapies Weight Bearing: Full weight bearing Physical Therapy: Eval and Treat Occupational Therapy: Eval and Treat Problem/Diagnosis (1) Syncope: Status: Acute (2) COPD with bronchial hyperresponsiveness: Status: Chronic (3) Asthma: Status: Chronic (4) Sinus bradycardia: Status: Acute (5) Hypoxia: Status: Acute (6) Obesity: Status: Acute (7) Diabetes: Status: Acute (8) FTT (failure to thrive) in adult: Status: Acute (9) Pneumonia due to 2019 novel coronavirus: Status: Acute Allergies/Procedures Done in Hospital Allergies lorazepam [From Ativan] Allergy (Severe, Verified 04/27/21 09:39) Unknown lisinopril Allergy (Verified 04/27/21 09:39) Unknown modafinil [From Provigil] Allergy (Verified 04/27/21 09:39) Other moxifloxacin HCl [From Avelox] Allergy (Verified 04/27/21 09:39) Upset Stomach Procedures: 2-D Echocardiogram Type of Care/Length of Stay Estimated LOS: Convalescent Care Less Than 30 days Type of Care Needed: Skilled Rehab Potential: Good Prognosis: Good Additional Orders/Day of Discharge Day of Discharge: 05/01/21 Dietary and Speech Recommendations Dietitian Recommendations/Changes: continue consistent carb, 2200 calorie controlled diet as tolerated; ONS w/ meals if PO intake fails Discharge Plan Admission Admit Date/Time: 04/27/21 12:31 Primary Reason for Your Visit: Fall Attending Provider: Hannah Bradshaw Primary Care Provider: Manuel Estrada Consulting Providers: Adarsh Tijerina Discharge Orders/Prescriptions Prescriptions: New dexamethasone 2 mg Tablet 6 mg PO DAILY Qty: 0 RF: 0 budesonide 0.5 mg/2 mL Suspension For Nebulization 0.5 mg inhalation Q12H.RT Qty: 0 RF: 0 insulin lispro [Humalog KwikPen Insulin] 100 unit/mL Insulin Pen See Protocol unit subcut ACHS Qty: 0 RF: 0 acetaminophen [Tylenol] 325 mg Tablet 650 mg PO Q6H PRN PRN (Reason: Pain Score 1-10/Temp > 100.7 F) Qty: 0 RF: 0 albuterol sulfate 2.5 mg /3 mL (0.083 %) Solution For Nebulization 2.5 mg inhalation Q6HWA.RT Qty: 0 RF: 0 finasteride 5 mg Tablet 5 mg PO DAILY Qty: 0 RF: 0 Continued aspirin 81 mg tablet,delayed release (DR/EC) 81 mg PO DAILY RF: 0 meclizine 25 mg tablet 25 mg PO DAILY PRN (Reason: Dizziness) RF: 0 fluticasone propionate 50 mcg/actuation spray,suspension 2 spray INTRANASAL DAILY Qty: 3 RF: 3 venlafaxine [Effexor XR] 75 mg capsule,extended release 24hr 75 mg PO DAILY RF: 0 omeprazole 40 mg capsule,delayed release(DR/EC) 40 mg PO DAILY Qty: 90 RF: 3 amantadine HCl 100 mg tablet 200 mg PO DAILY RF: 0 oxycodone-acetaminophen 5-325 mg tablet 1 tab PO TID PRN (Reason: Pain) RF: 0 nitroglycerin [Nitrostat] 0.4 mg tablet, sublingual 0.4 mg SUBLINGUAL Q5-15M PRN (Reason: chest pain) Qty: 25 RF: 3 ropinirole 2 mg tablet 2 mg PO QHS RF: 0 montelukast 10 mg tablet 10 mg PO DAILY RF: 0 Advair HFA 230-21 mcg/actuation HFA aerosol inhaler 2 inh INHALATION BID RF: 0 Linzess 145 mcg capsule 145 mcg PO DAILY RF: 0 Eliquis 2.5 mg tablet 2.5 mg PO BID Qty: 30 RF: 0 pseudoephedrine-guaifenesin [Mucinex D] 60-600 mg tablet extended release 12 hr 1 tab PO BID Qty: 14 RF: 0 furosemide 40 mg tablet 20 mg PO DAILY Qty: 0 RF: 0 losartan 25 mg tablet 25 mg PO DAILY Qty: 90 RF: 3 albuterol sulfate [ProAir HFA] 90 mcg/actuation HFA aerosol inhaler 2 puff INHALATION Q4H PRN (Reason: shortness of breath or wheezing) Qty: 18 RF: 6 rosuvastatin 40 mg tablet 40 mg PO QHS Qty: 90 RF: 3 levothyroxine 137 mcg tablet 137 mcg PO DAILY Qty: 90 RF: 3 Held Benefiber Healthy Shape 5 gram/7.4 gram powder 5 g PO BID RF: 0 Hold Instructions: Until discharge from skilled facility multivitamin Tablet 1 tab PO DAILY RF: 0 Hold Instructions: Until discharged from skilled facility metformin 500 mg tablet 500 mg PO DAILY Qty: 0 RF: 0 Hold Instructions: Until discharge from skilled facility Discontinued doxazosin 4 mg tablet 4 mg PO DAILY RF: 0 dexamethasone 6 mg tablet 6 mg PO DAILY Qty: 8 RF: 0 Referrals / Follow Up: Sherman Gil MD [STAFF PHYSICIAN] - Within 3 Months (Follow-up for [id number]) Manuel Estrada DO [Primary Care Provider] - Within 1 Month Disposition Disposition (needs filled in before D/C Order can be placed): [facility]
--- NOTE | 2021-05-01 15:35 | CASEMGMT ---
Received orders. RADHA arranged for patient to get picked up at 1600 via [employer] van through [facility]. SW faxed orders and scrap picker time to [facility]. SW notified RN and legal administrative secretary. RADHA also called patient's daughter and notified her of scrap picker time. SW also notified Jaci of scrap picker time via email. SW completed a convalescent on [facility]. Plan: d/c to [facility] under skilled level of care on a convalescent stay. [facility] transported via [facility] van. Christine ESPINOZA
== END 2021-05-01 15:46 | DRG 308 ==
LOC: ED 12:15 → PCU 13:05
PROVIDERS: Internal Medicine; Admitting Provider Hospitalist; Emergency Provider Emergency Medicine; PCP Student in an Organized Health Care Education/Training Program; Visit Provider Internal Medicine
DX: R00.1 Bradycardia, unspecified (principal); U07.1 COVID-19; J12.82 Pneumonia due to coronavirus disease 2019; I13.0 Hypertensive heart and chronic kidney disease with heart failure and stage 1 through stage 4 chronic kidney disease, or unspecified chronic kidney disease; J44.0 Chronic obstructive pulmonary disease with (acute) lower respiratory infection; I95.1 Orthostatic hypotension; E11.22 Type 2 diabetes mellitus with diabetic chronic kidney disease; N18.31 Chronic kidney disease, stage 3a; R09.02 Hypoxemia; I50.9 Heart failure, unspecified; E86.9 Volume depletion, unspecified; E11.65 Type 2 diabetes mellitus with hyperglycemia; I25.10 Atherosclerotic heart disease of native coronary artery without angina pectoris; E03.9 Hypothyroidism, unspecified; E78.5 Hyperlipidemia, unspecified; J45.40 Moderate persistent asthma, uncomplicated; R62.7 Adult failure to thrive; M25.512 Pain in left shoulder; K21.9 Gastro-esophageal reflux disease without esophagitis; K58.0 Irritable bowel syndrome with diarrhea; G25.81 Restless legs syndrome; G47.33 Obstructive sleep apnea (adult) (pediatric); M19.90 Unspecified osteoarthritis, unspecified site; N40.0 Benign prostatic hyperplasia without lower urinary tract symptoms; H54.62 Unqualified visual loss, left eye, normal vision right eye; F32.A Depression, unspecified; F41.9 Anxiety disorder, unspecified; E66.01 Morbid (severe) obesity due to excess calories; Z68.36 Body mass index [BMI] 36.0-36.9, adult; Z79.01 Long term (current) use of anticoagulants; Z79.82 Long term (current) use of aspirin; Z79.4 Long term (current) use of insulin; Z79.890 Hormone replacement therapy; Z79.899 Other long term (current) drug therapy; Z85.46 Personal history of malignant neoplasm of prostate; Z86.718 Personal history of other venous thrombosis and embolism; Z87.891 Personal history of nicotine dependence; Z95.5 Presence of coronary angioplasty implant and graft
CPT/HCPCS: 36415; 70450; 71045; 73030; 80048; 82962; 83735; 84100; 84484; 85025; 93005; 93306; 94640; 97110; 97162; 97165; 97530; 99251; 99285; J7030; J7040; J7120; Q9957; A4216; C8929; G0463

== ENCOUNTER 2021-06-10 11:51 | Outpatient (CLI) | payer MEDICARE, OTHER, SELFPAY ==
[2021-06-10 15:33] LABS: Vitamin D,25 Hydroxy 47.4 ng/mL
[2021-06-10 16:00] LABS: ALB/GLOB Ratio 0.8 RATIO (0.9-2.4); AST(SGOT) 12 U/L (15-37); Alanine Aminotransfer ALT/SGPT 22 U/L (16-61); Albumin, Serum 3.1 g/dL (3.2-5.0); Alkaline Phosphatase 77 U/L (45-117); Anion Gap 6 (5-15); BUN 19 mg/dL (7-18); BUN/Creat Ratio 14.6 RATIO (10-20); Calcium,Total 9.6 mg/dL (8.5-10.1); Chloride 107 mmol/L (98-107); EST Glomerular Filtration Rate 57 mL/min (>60); Est Glom Filt Rate - Afr Amer 68 mL/min (>60); Globulin 3.7 g/dL (2.2-4.2); Glucose 147 mg/dL (74-106); Potassium 4.1 mmol/L (3.5-5.1); Protein, Total 6.8 g/dL (6.4-8.2); Sodium Level 141 mmol/L (136-145); T4 Free Direct 1.27 ng/dL (0.76-1.46); Thyroid Stim Hormone (TSH) 4.32 uIU/mL (0.358-3.74)
== END 2021-06-10 23:59 | disposition home or self-care (01) ==
LOC: BIMLAB 11:53
PROVIDERS: PCP Student in an Organized Health Care Education/Training Program; Referring Provider Nurse Practitioner Family; Visit Provider Nurse Practitioner Family
DX: E11.22 Type 2 diabetes mellitus with diabetic chronic kidney disease (principal); N18.30 Chronic kidney disease, stage 3 unspecified; E03.9 Hypothyroidism, unspecified; E55.9 Vitamin D deficiency, unspecified
CPT/HCPCS: 36415; 80053; 82306; 84439; 84443

== ENCOUNTER 2021-07-24 09:19 | Outpatient (CLI) | payer MEDICARE, OTHER, SELFPAY | END 2021-07-24 23:59 | disposition home or self-care (01) | PROVIDERS: PCP Student in an Organized Health Care Education/Training Program; Referring Provider Internal Medicine Cardiovascular Disease; Visit Provider Internal Medicine Cardiovascular Disease | DX: Z01.810 Encounter for preprocedural cardiovascular examination (principal); R42 Dizziness and giddiness; R55 Syncope and collapse | CPT/HCPCS: 93225; 93226 ==

== ENCOUNTER 2021-07-30 14:53 | Outpatient (CLI) | payer MEDICARE, OTHER, SELFPAY ==
[2021-07-30 17:08] LABS: T4 Free Direct 1.42 ng/dL (0.76-1.46); Thyroid Stim Hormone (TSH) 0.15 uIU/mL (0.358-3.74)
== END 2021-07-30 23:59 | disposition home or self-care (01) ==
LOC: BIMLAB 14:59
PROVIDERS: PCP Student in an Organized Health Care Education/Training Program; Referring Provider Internal Medicine Endocrinology, Diabetes & Metabolism; Visit Provider Internal Medicine Endocrinology, Diabetes & Metabolism
DX: E03.9 Hypothyroidism, unspecified (principal)
CPT/HCPCS: 36415; 84439; 84443

== ENCOUNTER 2021-08-01 06:31 | Outpatient (CLI) | payer MEDICARE, OTHER, SELFPAY ==
--- NOTE | 2021-08-01 09:37 | STRESSREP ---
Stress Test Report Date: 08-01-2021 Procedure: Pharmacologic stress nuclear imaging study Indications: CAD; s/p PCI; preoperative cardiovascular evaluation Consent: Per the patient Procedure: The patient underwent pharmacologic (Regadenoson 0.4mg ) evaluation with a peak heart rate of 91 beats per minute (64%predicted maximal heart rate) and a peak blood pressure of 142/78 mmHg. The baseline ECG demonstrated not exclude limb lead misplacement; probable sinus rhythm; poor R wave progression. The peak pharmacologic ECG demonstrated no obvious ECG changes. There were no cardiac dysrhythmias pretest, during pharmacologic infusion, or recovery. There was no complaint of chest discomfort during pharmacologic infusion or recovery. The examination was discontinued secondary to completion of protocol. Impression: 1. Pharmacologic (Regadenoson) evaluation 2. Peak pharmacologic ECG with no obvious ECG changes. 3. There were no cardiac dysrhythmias pretest, during pharmacologic infusion, or recovery. 4. Nuclear images pending Myocardial perfusion imaging study: Technique: The patient was injected with 15.0 millicuries of technetium 99m Cardiolite and subsequently rest SPECT Cardiolite nuclear imaging was obtained in the horizontal long, vertical long, and short axis views. The patient underwent pharmacologic (Regadenoson) evaluation with a peak heart rate of 91 beats per minute (64% percent predicted maximal heart rate) and a peak blood pressure of 142/70 mmHg. The patient was injected with 45.0 millicuries of technetium 99m Cardiolite and subsequently stress SPECT Cardiolite nuclear imaging was obtained in the horizontal long, vertical long, and short axis views. A gated Cardiolite study at peak stress was obtained. Interpretation: Rest and stress SPECT Cardiolite nuclear imaging status post realignment, normalization, and attenuation correction demonstrate an element of body motion during image acquisition and otherwise the appearance of relative uniform tracer uptake and myocardial perfusion appearing within normal limits. There is end systolic thickening and brightening. The gated Cardiolite study demonstrates myocardial thickening and inward wall motion. The reported LVEF is 55%. Impression: 1. Rest and stress SPECT Cardiolite nuclear imaging demonstrate an element of body motion during image acquisition and otherwise the appearance of relative uniform tracer uptake and myocardial perfusion appearing within normal limits. 2. The gated Cardiolite study reports an LVEF of 55%. This note was generated with Portable Internet software. It may contain incorrect words, spelling, and punctuation that were not noted in checking the note before signing.
== END 2021-08-01 23:59 | disposition home or self-care (01) ==
LOC: CVS 06:32
PROVIDERS: PCP Student in an Organized Health Care Education/Training Program; Referring Provider Internal Medicine Cardiovascular Disease; Visit Provider Internal Medicine Cardiovascular Disease
DX: Z01.810 Encounter for preprocedural cardiovascular examination (principal); I25.10 Atherosclerotic heart disease of native coronary artery without angina pectoris; R55 Syncope and collapse; Z95.5 Presence of coronary angioplasty implant and graft
CPT/HCPCS: 78452; 93017; A9500; A4216; J2785

== ENCOUNTER 2021-08-02 09:16 | Outpatient (CLI) | payer MEDICARE, OTHER, SELFPAY ==
--- NOTE | 2021-08-02 13:26 | PFT ---
INTRODUCTION: The patient is a 81-year-old male that presents for pulmonary function studies secondary to a diagnosis of COPD. Respiratory therapy reported good patient effort. Bronchodilators were used during testing. INTERPRETATION: Forced expiration spirometry demonstrates the presence of a mild large airways obstructive ventilatory defect. There was no significant response to aerosolized bronchodilators. Spirograms are of good quality and plateau gradually indicating slow emptying of the lungs. Body plethysmography was performed and revealed a decreased TLC to 4.36 L, 68% of predicted, indicative of a moderate restrictive ventilatory impairment. Diffusing capacity by single breath CO is reduced at 51% of predicted. IMPRESSION: Irreversible mild mixed ventilatory defect with disproportionate reduction in diffusing capacity.
== END 2021-08-02 23:59 | disposition home or self-care (01) ==
LOC: PSN 09:18
PROVIDERS: PCP Student in an Organized Health Care Education/Training Program; Referring Provider Nurse Practitioner Acute Care; Visit Provider Nurse Practitioner Acute Care
DX: G47.33 Obstructive sleep apnea (adult) (pediatric) (principal); J44.9 Chronic obstructive pulmonary disease, unspecified
CPT/HCPCS: 94060; 94726; 94729

== ENCOUNTER 2021-08-08 08:07 | Outpatient (CLI) | payer MEDICARE, OTHER, SELFPAY ==
[2021-08-08 08:15] VITALS: PULSE 76; PULSE 82; PULSE 86; PULSE 88; PULSE 91; PULSE 92; PULSE 95; O2SAT 94; O2SAT 95; O2SAT 97
--- NOTE | 2021-08-08 13:25 | PCM.PSN.6M ---
PSN 6 Minute Walk Test 6 Minute Walk Test 6 Minute Walk Test: 6 Minute Walk Test PSN:6-Minute Walk Test Start: 08/08/21 08:37 Freq: Status: Active Protocol: [id number].6MINW Document 08/08/21 08:15 [facility] (Rec: 08/08/21 08:42 [facility] [id number]) 6 Minute Walk Test Date Performed 08/08/21 Time Performed 08:15 Height 5 ft 11 in Weight: 105.687 kg Weight in Pounds 233.[address]: JANET Patel Assistive device used: Walker Pre-test Oxygen Delivery Method Room Air Pulse Ox (%) 97 Pulse Rate (60-100 beats/min) 76 Dyspnea Shanna Scale (0-10) 0 Exertion Shanna Scale (6-20) 6 1st minute Oxygen Delivery Method Room Air Pulse Ox (%) 94 Pulse Rate (60-100 beats/min) 82 2nd minute Oxygen Delivery Method Room Air Pulse Ox (%) 94 Pulse Rate (60-100 beats/min) 86 3rd minute Oxygen Delivery Method Room Air Pulse Ox (%) 94 Pulse Rate (60-100 beats/min) 88 4th minute Oxygen Delivery Method Room Air Pulse Ox (%) 94 Pulse Rate (60-100 beats/min) 92 5th minute Oxygen Delivery Method Room Air Pulse Ox (%) 95 Pulse Rate (60-100 beats/min) 95 6th minute Oxygen Delivery Method Room Air Pulse Ox (%) 94 Pulse Rate (60-100 beats/min) 95 Dyspnea Shanna Scale (0-10) 0 Exertion Shanna Scale (6-20) 11 Post-test Oxygen Delivery Method Room Air Pulse Ox (%) 95 Pulse Rate (60-100 beats/min) 91 Full Laps Walked 8 Partial Lap, Number of Tiles Walked 7 Total Distance Walked (ft) 479 Interpretation Interpretation: The patient was able to ambulate only 479 feet over the course of 6 minutes on room air with the assistance of a walker and no breaks. No significant desaturation or tachycardia was noted. These findings are consistent with a musculoskeletal limitation to exercise tolerance. Recommendations Recommendations: No supplemental oxygen is indicated at this time.
== END 2021-08-08 23:59 | disposition home or self-care (01) ==
LOC: PSN 08:08
PROVIDERS: PCP Student in an Organized Health Care Education/Training Program; Referring Provider Nurse Practitioner Acute Care; Visit Provider Nurse Practitioner Acute Care
DX: G47.33 Obstructive sleep apnea (adult) (pediatric) (principal); J44.9 Chronic obstructive pulmonary disease, unspecified
CPT/HCPCS: 94618

== ENCOUNTER → 2021-12-05 | Outpatient (CLI) | payer MEDICARE, OTHER, SELFPAY ==
[2021-12-05 12:05] LABS: Hematocrit 42.2 % (40-54); Hemoglobin 13.1 g/dL (13.0-16.5); Mean Platelet Vol. 10.3 fl (6.2-12.0); Platelet Count 199 K/mm3 (150-450); RBC Distribution Width CV 18.9 % (11.6-14.6); RBC Distribution Width SD 60.3 fl (35.1-43.9); Red Blood Count 4.85 M/mm3 (4.6-6.2)
[2021-12-05 12:48] LABS: Hemoglobin A1c 6.5 % (3.8-5.6)
[2021-12-05 12:56] LABS: AST(SGOT) 17 U/L (15-37); Alanine Aminotransfer ALT/SGPT 24 U/L (16-61); Albumin, Serum 3.5 g/dL (3.2-5.0); Alkaline Phosphatase 58 U/L (45-117); Anion Gap 5 (5-15); BUN 21 mg/dL (7-18); BUN/Creat Ratio 12.4 RATIO (10-20); Calcium,Total 9.5 mg/dL (8.5-10.1); Chloride 107 mmol/L (98-107); Cholesterol 107 mg/dL (200); EST Glomerular Filtration Rate 42 mL/min (>60); Est Glom Filt Rate - Afr Amer 50 mL/min (>60); Globulin 3.5 g/dL (2.2-4.2); Glucose 111 mg/dL (74-106); High Density Lipoprotein 43 mg/dL; Potassium 4.1 mmol/L (3.5-5.1); Sodium Level 140 mmol/L (136-145); Triglycerides 91 mg/dL; Very Low Density Lipoprotein 18 mg/dL (5-40)
== END | disposition home or self-care (01) ==
LOC: LAB 10:19
PROVIDERS: PCP Student in an Organized Health Care Education/Training Program; Referring Provider Student in an Organized Health Care Education/Training Program; Visit Provider Student in an Organized Health Care Education/Training Program
DX: E11.9 Type 2 diabetes mellitus without complications (principal)
CPT/HCPCS: 36415; 80053; 80061; 82043; 82570; 83036; 85027

== ENCOUNTER → 2021-12-06 | Outpatient (CLI) | payer MEDICARE, OTHER, SELFPAY ==
[2021-12-06 12:45] LABS: Microalbumin,Random Urine 14.2 mg/L (NO RANGE EST.); Microalbumin:Creatinine Ratio 9.3 mg/g CRE (<30 mg/g CRE)
== END | disposition home or self-care (01) ==
LOC: LABSPEC 11:45
PROVIDERS: PCP Student in an Organized Health Care Education/Training Program; Referring Provider Student in an Organized Health Care Education/Training Program; Visit Provider Student in an Organized Health Care Education/Training Program
DX: E11.9 Type 2 diabetes mellitus without complications (principal)
CPT/HCPCS: 82043; 82570

== ENCOUNTER → 2022-01-24 | Outpatient (CLI) | payer MEDICARE, OTHER, SELFPAY ==
--- NOTE | 2022-01-24 13:59 | CT_ITS ---
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 CTDIvol = ( 15.35 ) mGy, DLP = ( 496.98 ) mGycm This CT exam was performed using one or more of the following dose reduction techniques: automated exposure control, adjustment of the mA and/or kV according to patient size, and/or use of iterative reconstruction technique. This report was created using [employer] on [employer] report [employer] technology. COMPARISON: None. FINDINGS: Acute mildly displaced fracture of the superolateral aspect of the patella. No other acute fracture or malalignment. Total knee arthroplasty identified with satisfactory alignment and no complications. No other unusual lytic or sclerotic lesions of bone. Subcutaneous edema anteriorly. No masses or fluid collections. Peripheral vascular calcifications. Muscles are unremarkable. CT/Extremity Lower without Contra IMPRESSION: Acute mildly displaced fracture of the superolateral aspect of the patella. No other acute fracture or malalignment. Electronically Signed: Gilberto Jones MD at 1:43 EDT ,
== END | disposition home or self-care (01) ==
LOC: CT 13:58
PROVIDERS: PCP Student in an Organized Health Care Education/Training Program; Referring Provider Specialist; Visit Provider Specialist
DX: S82.034D Nondisplaced transverse fracture of right patella, subsequent encounter for closed fracture with routine healing (principal); M25.561 Pain in right knee; Z96.651 Presence of right artificial knee joint
CPT/HCPCS: 73700

== ENCOUNTER 2022-05-06 03:47 | Emergency (ER) | payer MEDICARE, OTHER, SELFPAY ==
[2022-05-06 03:49] VITALS: BP 116/58; PULSE 63; RESP 13; TEMP 36.2; O2SAT 97; BMI 34.2
--- NOTE | 2022-05-06 03:57 | EKG12_ITS ---
Test Reason : DYSRHYTHMIA Blood Pressure : / mmHG Vent. Rate : 054 BPM Atrial Rate : 054 BPM P-R Int : 188 ms QRS Dur : 092 ms QT Int : 404 ms P-R-T Axes : 083 -45 066 degrees QTc Int : 383 ms Sinus bradycardia Left anterior fascicular block Poor R wave progression Abnormal ECG Confirmed by DARLENE MATA, CHLOE ([id number]), commercial production editor TALIA SPRINGER ([id number]) on 05/07/2022 10:47:03 AM Referred By: KATHYA Confirmed By:CHLOE COLON MD
--- NOTE | 2022-05-06 03:57 | RAD_ITS ---
INDICATION: trauma EXAMINATION/TECHNIQUE: X-RAY - RIGHT XR Hand Min 3 Views : 4 VIEWS COMPARISON: Sep 18 2020 FINDINGS: SOFT TISSUES: No subcutaneous emphysema.. No radiopaque foreign body. BONES/JOINTS: No acute fracture.. No dislocation. First carpometacarpal joint and diffuse distal interphalangeal joint osteoarthritis.. No aggressive osseous lesion. RAD/Hand Min 3 Views IMPRESSION: No evidence of acute osseous injury. Scattered degenerative changes Electronically Signed: Kamar Paiz MD at 4:38 EST ,
--- NOTE | 2022-05-06 04:01 | EDS_ITS ---
HPI History of Present Illness Chief Complaint: Syncope Informant: patient and EMS Onset/Context/Timing Onset: Today (JPTA) Narrative Narrative: Patient brought in at 4 AM after a syncopal episode resulted in a collapse/fall. Patient states he woke up and got out of bed and went to the bathroom to use the toilet, he felt like he needed to have a bowel movement. He felt fine when he went to bed and fine when he got out of bed, no recent illness. His right knee has been sore, he had total knee arthroplasty maybe 3 weeks ago and has undergone rehab since then trying to regain range of motion of his knee. When he got into the bathroom this morning, started feeling really poorly all of a sudden, and a little lightheaded. He then woke up on the floor, apparently having had passed out and collapsed. His right hand hurts, but he denies pain elsewhere. He has obvious abrasions/injury to his face, he does not have a headache, diplopia or other vision change or eye pain or pain elsewhere and he feels better now. He denies any other prodromal symptoms such as chest pain, shortness of breath, he has had no recent right lower extremity issues except for postoperative soreness in the knee that is improving day by day. [facility] Medical History DEBORAH (acute kidney injury) Allergic rhinitis Asthma Asthma Atherosclerotic heart disease of [place] coronary artery without angina pectoris Back pain BiPAP (biphasic positive airway pressure) dependence Bradycardia Carpal tunnel syndrome Chronic pain Chronic renal failure, stage 3 (moderate) Congestive heart failure (CHF) COPD with bronchial hyperresponsiveness COVID Diabetes Diabetes type 2, controlled Dyspnea Esophageal reflux Essential hypertension Former smoker FTT (failure to thrive) in adult Gingivitis High cholesterol History of stress test Hypokalemia Hyponatremia Hypothyroidism IBS (irritable bowel syndrome) Inability to ambulate due to multiple joints Insomnia Obesity Obesity Osteoarthritis Parathyroid abnormality Pneumonia due to 2019 novel coronavirus Presence of stent in coronary artery (~12/05/10) Prostate cancer Pure hypercholesterolemia Sleep apnea Syncope Syncope Vision loss of left eye Vision problem Vitamin D insufficiency Vitamin D insufficiency Home Medications aspirin 81 mg tablet,delayed release 81 mg PO DAILY health maintenance 12/09/17 [History Last Taken 04/26/21 09:00] meclizine 25 mg tablet 25 mg PO DAILY PRN Dizziness 01/24/19 [History Last Taken Unknown] fluticasone propionate 50 mcg/actuation nasal spray,suspension 2 spray intranasal DAILY #3 units 07/19/19 [Rx Last Taken 04/26/21 09:00] multivitamin 1 tab PO DAILY health maintenance 07/26/19 [History Last Taken 04/26/21 09:00] albuterol sulfate 90 mcg/actuation aerosol inhaler (ProAir HFA) 2 puff inhalation Q4H PRN shortness of breath or wheezing #18 grams 06/04/20 [Rx Last Taken 04/24/21] rosuvastatin 40 mg tablet 40 mg PO QHS #90 tabs 12/03/20 [Rx Last Taken 04/26/21 21:00] amantadine HCl 100 mg tablet 200 mg PO DAILY antiviral 04/10/21 [History Last Taken 04/26/21 09:00] nitroglycerin 0.4 mg sublingual tablet (Nitrostat) 0.4 mg sublingual Q5-15M PRN chest pain #25 tabs 04/10/21 [Rx Last Taken Unknown] linaclotide 145 mcg capsule (Linzess) 145 mcg PO DAILY IBS 04/24/21 [History Last Taken 04/26/21 09:00] acetaminophen 325 mg tablet (Tylenol) 650 mg PO Q6H PRN PRN Pain Score 1-10/Temp > 100.7 F #0 tabs 05/01/21 [Rx Last Taken Unknown] albuterol sulfate 2.5 mg/3 mL (0.083 %) solution for nebulization 2.5 mg (3 mL) inhalation Q6HWA.RT #0 mL 05/01/21 [Rx Last Taken Unknown] budesonide 0.5 mg/2 mL suspension for nebulization 0.5 mg (2 mL) inhalation Q12H.RT #0 mL 05/01/21 [Rx Last Taken Unknown] FreeStyle Lite Strips (blood sugar diagnostic) #90 ea 06/10/21 [Rx Last Taken Unknown] blood-glucose meter (FreeStyle [place] Lite kit) #1 ea 06/10/21 [Rx Last Taken Unknown] calcium carb,cit ER 600 mg-vit D3 12.5 mcg (500 unit) tablet,ext.rel tab PO 06/10/21 [History Last Taken Unknown] lancets 28 gauge (FreeStyle Lancets) #90 ea 06/10/21 [Rx Last Taken Unknown] doxazosin 4 mg tablet 4 mg PO DAILY 10/07/21 [History Last Taken Unknown] metformin 500 mg tablet 500 mg PO DAILY #90 tabs 10/24/21 [Rx Last Taken Unknown] fluticasone propionate 230 mcg-salmeterol 21 mcg/actuation HFA inhaler (Advair HFA) 2 inh inhalation BID COPD #3 ea 01/13/22 [Rx Last Taken Unknown] montelukast 10 mg tablet 10 mg PO DAILY BREATHING #90 tabs 01/13/22 [Rx Last Taken Unknown] furosemide 40 mg tablet 20 mg PO DAILY FLUID #45 tabs 01/20/22 [Rx Last Taken Unknown] levothyroxine 137 mcg tablet 137 mcg PO DAILY #90 tabs 01/20/22 [Rx Last Taken Unknown] losartan 25 mg tablet 25 mg PO DAILY #90 tabs 01/20/22 [Rx Last Taken Unknown] tamsulosin 0.4 mg capsule 0.4 mg PO DAILY 03/24/22 [History Last Taken Unknown] Allergy/AdvReac Type Severity Reaction Status Date / Time lorazepam [From Ativan] Allergy Severe Unknown Verified 05/06/22 03:57 lisinopril Allergy Unknown Verified 05/06/22 03:57 modafinil [From Provigil] Allergy Other Verified 05/06/22 03:57 moxifloxacin HCl Allergy Upset Verified 05/06/22 03:57 [From Avelox] Stomach Family History Father , from aneurysm CAD (coronary artery disease) Mother Multiple sclerosis Brother CAD (coronary artery disease) Cancer Prostate cancer Daughter Diabetes Other Presence of stent in coronary artery Surgical History H/O angioplasty H/O cardiac catheterization H/O total knee replacement History of appendectomy History of coronary artery stent placement History of rotator cuff surgery History of thumb surgery S/P total knee arthroplasty Social History adopted: No household members: spouse housing: house number of children: 3 current occupational status: retired pets and animals: Yes (dog) leisure activities: hunting history of recent travel: No sexually active: No Smoking Status: Former smoker how long ago did patient quit smoking: Quit 1972, smoked 1 ppd since teen until quiting. alcohol intake: current details: social substance use type: does not use caffeine: Yes Type: coffee Number of servings: 2 what type of physical activity do you participate in: walking seatbelt use: always do you feel safe at home: Yes ROS ROS ED Constitutional Constitutional ED: Denies chills or fever(s) Eyes Eyes: Denies change in vision or diplopia ENT ENT ED: Denies rhinorrhea or sore throat Cardiovascular Cardiovascular: Reports as per HPI and syncope; Denies chest pain or palpitations Respiratory/Chest Respiratory/Chest: Denies cough or dyspnea Gastrointestinal Gastrointestinal: Denies abdominal pain, diarrhea, nausea or vomiting Genitourinary Genitourinary ED: Denies dysuria or hematuria Musculoskeletal Musculoskeletal: Reports as per HPI and extremity pain; Denies back pain or neck pain Integumentary Reports as per HPI and Abrasions; Denies abscess or rash Neurologic Neurologic: Denies headache(s), paresthesias or weakness Psychiatric Psychiatric: Denies anxiety or suicidal thoughts EXAM Physical Exam Const Vital Signs: 05/06/22 03:49 05/06/22 04:19 Temperature 97.1 F L Temperature Source Temporal Pulse Rate 63 Respiratory Rate 13 Respiratory Effort Normal Non-Labored Respiratory Pattern Bradypnea Blood Pressure 116/58 L Blood Pressure Mean 77 Pulse Ox 97 Oxygen Delivery Method Room Air Positive well nourished and well developed General Appearance ED: well developed and NAD HEENT Reports TM's clear and moist mucous membranes HEENT Narrative: Nontender contusion/small hematoma left high parietal scalp without crepitance or depression. Linear abrasion left frontal scalp, 0.5 cm partial-thickness curvilinear laceration right frontal scalp, abrasion to the nasal bridge without bony tenderness or crepitance. No mid facial tenderness/instability or other signs of trauma. normocephalic Face and Sinus: Negative for facial tenderness Tympanic Membrane ED: Yes TM's clear Eyes PERRL and EOMs intact bilaterally Visual Acuity: other Other Details: no entrapment or pain with extraocular movements Neck full ROM and supple General: Negative for tenderness Chest Wall inspection of chest normal and palpation of chest normal Chest: symmetrical chest wall rise; Negative for crepitus or tenderness Resp normal respiratory effort and clear to auscultation bilaterally Percussion: other equal BS bilat Cardio regular rate, regular rhythm and no murmurs Rate: regular rate Rhythm: regular rhythm GI non-tender and non-distended Auscultation: normoactive bowel sounds Palpation: soft Back/Spine no CVA tenderness General Back: other FROM Cervical Spine: Negative for cervical spine tenderness Thoracic Spine / Upper Back: Negative for thoracic spinal tenderness Lumbar Spine / Lower Back: Negative for lumbar spinal tenderness Extremity Extremity Narrative: Right hand: Diffuse ecchymosis with skin tear involving 2 different portions of the dorsum of the hand, progressing to a couple of the MCPJ's but otherwise the fingers are unaffected. No lacerations involving the dermis. Mild diffuse tenderness dorsum of the hand only. Full range of motion including extensors, FDP, FDS all fingers/digits. Full range of motion of the wrist without tenderness there. Right knee: Postoperative surgical incision healing without signs of infection or dehiscence or drainage or abscess. Nontender. Limited range of motion which is painful, but he is able to fully extend and hold his leg up. All other joints/extremities atraumatic with painless full range of motion. General Extremety ED: Yes tenderness; Negative for edema or pulses abnormal General Extremity: Negative for edema or pulses abnormal Neuro oriented x3, CN's II-XII intact bilaterally and no sensory deficits noted Velvet Coma Scale: document GCS findings Spontaneous Obeys Commands Oriented 15 Sensorium / Orientation: awake and alert Motor Exam: strength 5/5 throughout Psych mental status grossly normal and thought process normal Skin no rashes or lesions noted and no wounds Lesions: no lesions Rashes: no rashes MDM MDM MDM Narrative Medical decision making narrative: Given the history and symptoms and the fact that his heart rate is 61 upon arrival here, and in context of the patient having discomfort like he needed to have a bowel movement, my suspicion is that he had a vasovagal syncopal episode triggered by his need to have a bowel movement. Since I am not able to test him to prove this, he must undergo testing to rule out dangerous mimics. In this patient, this could be anemia, metabolic disturbance, acute cardiac event, pulmonary embolus given his recent orthopedic surgery, dysrhythmia. Therefore, work-up directed toward these possibilities. His D-dimer is elevated, however he just fell and has bruising in several different areas, which could be responsible for that, this is nonspecific. We sent him for CT angiography of the chest in addition to CT of the head given his trauma/injury. Insert CT interpretation. These were negative for anything acute, both traumatic and pulmonary embolus. Right hand x-rays 4 views of my interpretation negative for any fractures which I made a low suspicion of, radiology in agreement. His EKG is normal does show sinus bradycardia at 54. He has a pre-existing left anterior fascicular block. I reviewed his most recent old EKG from outpatient cardiology clinic on 03/24/2022 to confirm this. The rest of his blood tests are unremarkable, I reviewed them. The skin tear on his hand does not require repair, it was cleansed and dressed by nursing, I did Dermabond the small laceration on his right forehead but the abrasions otherwise do not require anything other than cleansing and dressing which was done. Lab Data Attestation: I reviewed the patient's lab results. Labs: Laboratory Results - last 24 hr 05/06/22 05/06/22 05/06/22 03:55 03:55 03:55 WBC 6.5 RBC 4.42 L Hgb 12.3 L Hct 39.7 L MCV 89.8 MCH 27.8 MCHC 31.0 L RDW Std Deviation 57.5 H RDW Coeff of Joshua 17.3 H Plt Count 227 MPV 9.1 Immature Gran % (Auto) 0.300 Neut % (Auto) 44.1 L Lymph % (Auto) 41.8 H [place] % (Auto) 8.2 Eos % (Auto) 4.8 Baso % (Auto) 0.8 Absolute Neuts (auto) 2.9 Absolute Lymphs (auto) 2.72 Nucleated RBC % 0 D-Dimer Quant (PE/DVT) 1.78 H* Sodium 143 Potassium 4.0 Chloride 109 H Carbon Dioxide 27.0 Anion Gap 7 BUN 23 H Creatinine 1.67 H Estim Creat Clear Calc 37.57 Est GFR (MDRD) Af Amer 51 L Est GFR (MDRD) Non-Af 42 L BUN/Creatinine Ratio 13.8 Glucose 119 H Calcium 9.2 Troponin I High Sens 8 Radiography Diagnostic Testing: Clinical Impression(s) from Imaging Studies Hand X-Ray 05/06/22 03:57 IMPRESSION: No evidence of acute osseous injury. Scattered degenerative changes Electronically Signed: Kamar Paiz MD at 4:38 EST , Brain CT 05/06/22 04:26 IMPRESSION: No CT evidence of acute intracranial hemorrhage or injury. Sequela of prior anterior frontal craniectomy with underlying encephalomalacia. Senescent changes and atherosclerosis Electronically Signed: Kamar Paiz MD at 5:17 EST , Chest CTA 05/06/22 04:26 IMPRESSION: No pulmonary embolism or evidence of acute airspace disease. Bilateral scattered subsegmental atelectasis. Electronically Signed: Kamar Paiz MD at 5:28 EST Reading Location ID and State: [facility] / [place] Tel , Service support , Rhythm Strip Rhythm Strip: Sinus Rhythm Rate: 60 Ectopy: None EKG Initial EKG: Attestation: I personally reviewed and interpreted this EKG as follows: Interpretation: Sinus Rhythm, No Acute Injury Pattern and LAFB Prior EKG tracings: available for review Prior: Unchanged Procedures Lacerations R frontal scalp / forehead: Length: 0.5 cm Depth: Skin Shape: Linear (curvilinear) Prep: Sterile Conditions and Chlorhexadine (scrubbed, dried w/ sterile gauze) Laceration repair: Dermabond Discharge Plan Triage Chief Complaint: Syncope ED Provider: Fermin Carr Dx/Rx/DC Orders Clinical Impression: Vasovagal syncope, Closed head injury without concussion, Scalp laceration, Abrasion of face, Contusion of hand, right, Skin tear of right hand without complication Instructions: Causes of Syncope, ED Skin Avulsion, ED Laceration: Skin Adhesive Prescriptions: No Action aspirin 81 mg tablet,delayed release (DR/EC) 81 mg PO DAILY meclizine 25 mg tablet 25 mg PO DAILY PRN (Reason: Dizziness) multivitamin Tablet 1 tab PO DAILY Hold Instructions: Until discharged from skilled facility fluticasone propionate 50 mcg/actuation spray,suspension 2 spray INTRANASAL DAILY Qty: 3 3RF amantadine HCl 100 mg tablet 200 mg PO DAILY nitroglycerin [Nitrostat] 0.4 mg tablet, sublingual 0.4 mg SUBLINGUAL Q5-15M PRN (Reason: chest pain) Qty: 25 3RF calcium carb and citrate-vitD3 600 mg-12.5 mcg (500 unit) tablet extended release PO (DME) blood-glucose meter [WinguStyle [place] Lite] Kit See Rx Instructions .ROUTE .MEDSUPPLY Qty: 1 0RF Rx Instructions: As directed (DME) FreeStyle Lite Strips Strip See Rx Instructions .ROUTE .MEDSUPPLY Qty: 90 3RF Rx Instructions: As directed (DME) lancets [FreeStyle Lancets] 28 gauge misc See Rx Instructions .ROUTE .MEDSUPPLY Qty: 90 3RF Rx Instructions: As directed doxazosin 4 mg tablet 4 mg PO DAILY montelukast 10 mg tablet 10 mg PO DAILY Qty: 90 3RF Advair HFA 230-21 mcg/actuation HFA aerosol inhaler 2 inh INHALATION BID Qty: 3 3RF tamsulosin 0.4 mg capsule 0.4 mg PO DAILY Linzess 145 mcg capsule 145 mcg PO DAILY budesonide 0.5 mg/2 mL Suspension For Nebulization 0.5 mg inhalation Q12H.RT Qty: 0 0RF acetaminophen [Tylenol] 325 mg Tablet 650 mg PO Q6H PRN PRN (Reason: Pain Score 1-10/Temp > 100.7 F) Qty: 0 0RF albuterol sulfate 2.5 mg /3 mL (0.083 %) Solution For Nebulization 2.5 mg inhalation Q6HWA.RT Qty: 0 0RF albuterol sulfate [ProAir HFA] 90 mcg/actuation HFA aerosol inhaler 2 puff INHALATION Q4H PRN (Reason: shortness of breath or wheezing) Qty: 18 6RF rosuvastatin 40 mg tablet 40 mg PO QHS Qty: 90 3RF metformin 500 mg tablet 500 mg PO DAILY Qty: 90 1RF Hold Instructions: Until discharge from skilled facility levothyroxine 137 mcg tablet 137 mcg PO DAILY Qty: 90 1RF furosemide 40 mg tablet 20 mg PO DAILY Qty: 45 3RF losartan 25 mg tablet 25 mg PO DAILY Qty: 90 3RF Primary Care Provider: Manuel Estrada Referrals: Manuel Estrada DO [Primary Care Provider] - 3-5 Days if not improving Disposition Disposition: Home, Self Care
[2022-05-06 04:10] LABS: Absolute Lymphocyte Count 2.72 X10^3/uL (0.83-4.51); Absolute Neutrophil Count 2.9 X10^3/uL (2.0-7.7); Basophil# 0.05 X10^3/uL; Basophil% 0.8 % (0-1); Eosinophil# 0.31 X10^3/uL; Eosinophils% 4.8 % (0-5); Hematocrit 39.7 % (40-54); Hemoglobin 12.3 g/dL (13.0-16.5); Lymphocyte # 2.72 X10^3/ul (0.83-4.51); Lymphocyte % 41.8 % (19-41); Mean Corpuscular Hgb 27.8 pg (27.0-32.0); Mean Corpuscular Volume 89.8 fL (80-94); Mean Platelet Vol. 9.1 fl (6.2-12.0); Monocyte# 0.53 X10^3/uL; Monocyte% 8.2 % (0-10); NRBC Flagged by Analyzer 0 % (0-5); Neutrophil # 2.87 X10^3/uL (2.7-7.7); Neutrophil % 44.1 % (47-70); Platelet Count 227 K/mm3 (150-450); RBC Distribution Width CV 17.3 % (11.6-14.6); RBC Distribution Width SD 57.5 fl (35.1-43.9); Red Blood Count 4.42 M/mm3 (4.6-6.2); White Blood Count 6.5 K/mm3 (4.4-11.0)
[2022-05-06 04:26] LABS: D-Dimer Quantitative (DVT/PE) 1.78 FEU/ug/m (0.27-0.49)
--- NOTE | 2022-05-06 04:26 | CT_ITS ---
INDICATION: syncope. trauma. EXAMINATION: CT BRAIN - CT Head or Brain W/O Contrast Injection TECHNIQUE: Multiple axial images were obtained of the head without intravenous contrast. A radiation dose optimization technique was used for this scan. IV Contrast dosage and agent: None. COMPARISON: April 27, 2021 FINDINGS: BRAIN PARENCHYMA: Prior right frontal craniectomy with plate reconstruction and underlying bilateral anterior medial frontal encephalomalacia.No intra- or extra-axial hemorrhage. No evidence of acute infarct. No intracranial mass or mass effect. Mild periventricular and subcortical white matter hypodense chronic small vessel white matter ischemic change. There is preservation of the sher/white matter interface. Posterior fossa structures are unremarkable. Carotid and vertebral atherosclerosis. CSF SPACES: Moderate global cerebral volume loss. No hydrocephalus. Basal cisterns are patent. CALVARIUM, SKULL BASE, PARANASAL SINUSES AND MASTOID AIR CELLS: No acute osseous finding. Minimal right ethmoid paransal sinus mucoperisteal thickening. Mastoid air cells are clear. ORBITS: Both globes, extraocular muscles, optic nerves and retrobulbar fat appear unremarkable. ASPECTS Score for Acute Strokes: 10 CT/Brain/Head without Contrast IMPRESSION: No CT evidence of acute intracranial hemorrhage or injury. Sequela of prior anterior frontal craniectomy with underlying encephalomalacia. Senescent changes and atherosclerosis Electronically Signed: Kamar Paiz MD at 5:17 EST ,
--- NOTE | 2022-05-06 04:26 | CT_ITS ---
STUDY: CTA CHEST REASON FOR EXAM: Male, 82 years old. syncope, elevated d-dimer, recent ortho surgery RADIATION DOSAGE (If Supplied By Facility): CTDIvol = ( 21.71 ) mGy, DLP = ( 600.34 ) mGycm TECHNIQUE: The examination was performed with the intravenous administration of IV 100mL Isovue-370. Post-processing of the angiographic images was performed, with multiplanar reformation and 3D reconstruction. Individualized dose optimization techniques were used for this CT. COMPARISON: Chest radiograph April 27, 2021. FINDINGS: Normal enhancement of the bilateral pulmonary arteries. There is no demonstrated pulmonary embolism. Aortic atherosclerosis without ectasia. Normal heart and pericardium. Severe coronary atherosclerosis. No mediastinal or hilar adenopathy. No endobronchial lesion. Scattered bilateral subsegmental atelectasis. No consolidation effusion or pneumothorax.. Bilateral gynecomastia. Normal osseous structures. Scattered hepatic cysts. Prominent colonic stool. CT/CTA Chest W/WO Contrast IMPRESSION: No pulmonary embolism or evidence of acute airspace disease. Bilateral scattered subsegmental atelectasis. Electronically Signed: Kamar Paiz MD at 5:28 EST ,
[2022-05-06 04:31] LABS: Anion Gap 7 (5-15); BUN 23 mg/dL (7-18); BUN/Creat Ratio 13.8 RATIO (10-20); Calcium,Total 9.2 mg/dL (8.5-10.1); Chloride 109 mmol/L (98-107); Creatinine, Serum 1.67 mg/dL (0.70-1.30); EST Glomerular Filtration Rate 42 mL/min (>60); Est Glom Filt Rate - Afr Amer 51 mL/min (>60); Estimated Creatinine Clearance 37.57 ml/min; Glucose 119 mg/dL (74-106); Sodium Level 143 mmol/L (136-145); Troponin-I HS 8 pg/mL (3.0-78.0)
[2022-05-06 05:48] VITALS: BP 131/67; PULSE 74; RESP 18; O2SAT 97
== END 2022-05-06 05:53 | disposition home or self-care (01) ==
PROVIDERS: Emergency Provider Emergency Medicine; PCP Student in an Organized Health Care Education/Training Program; Visit Provider Emergency Medicine
DX: S01.01XA Laceration without foreign body of scalp, initial encounter (principal); J44.9 Chronic obstructive pulmonary disease, unspecified; I50.9 Heart failure, unspecified; I13.0 Hypertensive heart and chronic kidney disease with heart failure and stage 1 through stage 4 chronic kidney disease, or unspecified chronic kidney disease; E11.22 Type 2 diabetes mellitus with diabetic chronic kidney disease; N18.30 Chronic kidney disease, stage 3 unspecified; S09.90XA Unspecified injury of head, initial encounter; S61.411A Laceration without foreign body of right hand, initial encounter; R55 Syncope and collapse; E78.00 Pure hypercholesterolemia, unspecified; I25.10 Atherosclerotic heart disease of native coronary artery without angina pectoris; R00.1 Bradycardia, unspecified; Z87.891 Personal history of nicotine dependence; W19.XXXA Unspecified fall, initial encounter
CPT/HCPCS: 12001; 70450; 71275; 73130; 80048; 84484; 85025; 85379; 93005; 96360; 99285; J7040; Q9967; A4216

== ENCOUNTER → 2022-06-18 | Outpatient (CLI) | payer MEDICARE, OTHER, SELFPAY ==
[2022-06-18 14:44] LABS: ALB/GLOB Ratio 1.2 RATIO (0.9-2.4); AST(SGOT) 12 U/L (15-37); Alanine Aminotransfer ALT/SGPT 20 U/L (16-61); Albumin, Serum 3.7 g/dL (3.2-5.0); Alkaline Phosphatase 59 U/L (45-117); Anion Gap 8 (5-15); BUN 21 mg/dL (7-18); Calcium,Total 10.1 mg/dL (8.5-10.1); Chloride 108 mmol/L (98-107); Creatinine, Serum 2.11 mg/dL (0.70-1.30); EST Glomerular Filtration Rate 32 mL/min (>60); Est Glom Filt Rate - Afr Amer 39 mL/min (>60); Globulin 3.2 g/dL (2.2-4.2); Glucose 139 mg/dL (74-106); Potassium 4.3 mmol/L (3.5-5.1); Protein, Total 6.9 g/dL (6.4-8.2); Sodium Level 141 mmol/L (136-145); T4 Free Direct 1.15 ng/dL (0.76-1.46); Thyroid Stim Hormone (TSH) 4.03 uIU/mL (0.358-3.74)
== END | disposition home or self-care (01) ==
LOC: LAB 13:15
PROVIDERS: PCP Student in an Organized Health Care Education/Training Program; Visit Provider Nurse Practitioner Family
DX: E11.9 Type 2 diabetes mellitus without complications (principal); E03.9 Hypothyroidism, unspecified
CPT/HCPCS: 36415; 80053; 84439; 84443

== ENCOUNTER → 2022-07-29 | Outpatient (CLI) | payer MEDICARE, OTHER, SELFPAY ==
--- NOTE | 2022-07-29 14:26 | RAD_ITS ---
STUDY: X-RAY - LUMBAR SPINE REASON FOR EXAM: Male, 82 years old. Pain. TECHNIQUE: 4 view(s) of the lumbar spine were obtained. COMPARISON: Lumbar spine MRI dated March 12, 2021. FINDINGS: Osteopenia. Normal lumbar lordosis. There is no substantial scoliosis. There is a normal alignment of the vertebrae. Diffuse lower thoracic and lumbosacral facet sclerosis. Posterior fusion from L4 to S1 with laminectomies and graft material. No complicating features. Diffuse intervertebral disc space narrowing with osteophytes. Vascular calcification and gold seeds projected over the prostate. RAD/L/S Spine Min 4 Views IMPRESSION: Osteopenia with postsurgical changes and lower thoracic and lumbosacral spondylosis. No acute finding. Electronically Signed: Teddy Pascual, at 11:22 EDT ,
--- NOTE | 2022-07-29 14:27 | RAD_ITS ---
INDICATION: PAIN EXAMINATION/TECHNIQUE: X-RAY - LEFT XR Knee 3 Views 3 VIEWS COMPARISON: August 13, 2020. FINDINGS: SOFT TISSUES: No soft tissue swelling or gas. No radiopaque foreign body. Mild peripheral atherosclerosis. BONES/JOINTS: No acute fracture or subluxation.. Normal alignment. Preservation of the joint space.. Minimal tricompartment osteophyte formation. No sclerotic or destructive changes observed. RAD/Knee 3 Views IMPRESSION: No acute osseous finding. Minimal degenerative change for age.. Electronically Signed: Kamar Paiz MD at 5:03 EDT ,
== END | disposition home or self-care (01) ==
LOC: RAD 14:22
PROVIDERS: PCP Student in an Organized Health Care Education/Training Program; Referring Provider Student in an Organized Health Care Education/Training Program; Visit Provider Student in an Organized Health Care Education/Training Program
DX: M51.26 Other intervertebral disc displacement, lumbar region (principal); M25.562 Pain in left knee
CPT/HCPCS: 72110; 73562

== ENCOUNTER → 2022-10-07 | Outpatient (CLI) | payer MEDICARE, OTHER, SELFPAY ==
[2022-10-07 15:01] LABS: PSA,Total- Diagnostic < 0.01 ng/mL (0.0-4.0)
== END | disposition home or self-care (01) ==
LOC: LAB 13:39
PROVIDERS: PCP Student in an Organized Health Care Education/Training Program; Referring Provider Urology; Visit Provider Urology
DX: C61 Malignant neoplasm of prostate (principal)
CPT/HCPCS: 36415; 84153

== ENCOUNTER → 2023-01-01 | Outpatient (CLI) | payer MEDICARE, OTHER, SELFPAY ==
[2023-01-01 13:46] LABS: Hematocrit 47.9 % (40-54); Hemoglobin 14.8 g/dL (13.0-16.5); Mean Corp Hgb Conc 30.9 g/dL (32-36); Mean Corpuscular Hgb 28.2 pg (27.0-32.0); Mean Corpuscular Volume 91.4 fL (80-94); Mean Platelet Vol. 9.9 fl (6.2-12.0); Platelet Count 199 K/mm3 (150-450); RBC Distribution Width CV 16.7 % (11.6-14.6); RBC Distribution Width SD 55.9 fl (35.1-43.9); Red Blood Count 5.24 M/mm3 (4.6-6.2); White Blood Count 6.7 K/mm3 (4.4-11.0)
[2023-01-01 14:06] LABS: Microalbumin,Random Urine 42.5 mg/L (NO RANGE EST.); Microalbumin:Creatinine Ratio 49.4 mg/g CRE (<30 mg/g CRE)
[2023-01-01 14:19] LABS: Hemoglobin A1c 6.7 % (3.8-5.6)
[2023-01-01 14:21] LABS: ALB/GLOB Ratio 1.1 RATIO (0.9-2.4); AST(SGOT) 12 U/L (15-37); Alanine Aminotransfer ALT/SGPT 19 U/L (16-61); Albumin, Serum 3.4 g/dL (3.2-5.0); Alkaline Phosphatase 53 U/L (45-117); Anion Gap 6 (5-15); BUN 19 mg/dL (7-18); BUN/Creat Ratio 13.5 RATIO (10-20); Calcium,Total 9.4 mg/dL (8.5-10.1); Chloride 113 mmol/L (98-107); Creatinine, Serum 1.41 mg/dL (0.70-1.30); EST Glomerular Filtration Rate 51 mL/min (>60); Est Glom Filt Rate - Afr Amer 62 mL/min (>60); Globulin 3.1 g/dL (2.2-4.2); Glucose 128 mg/dL (74-106); Protein, Total 6.5 g/dL (6.4-8.2); Sodium Level 142 mmol/L (136-145); T4 Free Direct 1.05 ng/dL (0.76-1.46); Thyroid Stim Hormone (TSH) 4.72 uIU/mL (0.358-3.74)
[2023-01-01 15:02] LABS: Hepatitis C Antibody Non-Reactive (Nonreactive)
== END | disposition home or self-care (01) ==
PROVIDERS: PCP Student in an Organized Health Care Education/Training Program; Referring Provider Student in an Organized Health Care Education/Training Program; Visit Provider Student in an Organized Health Care Education/Training Program
DX: E11.69 Type 2 diabetes mellitus with other specified complication (principal); E03.9 Hypothyroidism, unspecified; Z11.59 Encounter for screening for other viral diseases
CPT/HCPCS: 36415; 80053; 82043; 82570; 83036; 84439; 84443; 85027; 86803

== ENCOUNTER → 2023-04-15 | Outpatient (CLI) | payer MEDICARE, OTHER, SELFPAY ==
[2023-04-15 09:37] LABS: AST(SGOT) 13 U/L (15-37); Alanine Aminotransfer ALT/SGPT 15 U/L (16-61); Albumin, Serum 3.2 g/dL (3.2-5.0); Alkaline Phosphatase 58 U/L (45-117); Anion Gap 5 (5-15); BUN 20 mg/dL (7-18); BUN/Creat Ratio 12.6 RATIO (10-20); Chloride 111 mmol/L (98-107); Cholesterol 113 mg/dL (200); Creatinine, Serum 1.59 mg/dL (0.70-1.30); EST Glomerular Filtration Rate 45 mL/min (>60); Est Glom Filt Rate - Afr Amer 54 mL/min (>60); Globulin 3.2 g/dL (2.2-4.2); Glucose 110 mg/dL (74-106); High Density Lipoprotein 52 mg/dL; Potassium 3.9 mmol/L (3.5-5.1); Protein, Total 6.4 g/dL (6.4-8.2); Sodium Level 141 mmol/L (136-145); Triglycerides 91 mg/dL; Very Low Density Lipoprotein 18 mg/dL (5-40)
[2023-04-15 11:40] LABS: Microalbumin,Random Urine 40.2 mg/L (NO RANGE EST.); Microalbumin:Creatinine Ratio 44.8 mg/g CRE (<30 mg/g CRE)
== END | disposition home or self-care (01) ==
LOC: LAB 08:29
PROVIDERS: PCP Student in an Organized Health Care Education/Training Program; Visit Provider Nurse Practitioner Family
DX: I25.10 Atherosclerotic heart disease of native coronary artery without angina pectoris (principal); E11.9 Type 2 diabetes mellitus without complications
CPT/HCPCS: 36415; 80053; 80061; 82043; 82570

== ENCOUNTER → 2023-10-08 | Outpatient (CLI) | payer MEDICARE, OTHER, SELFPAY ==
[2023-10-08 14:36] LABS: Absolute Lymphocyte Count 2.51 X10^3/uL (0.83-4.51); Absolute Neutrophil Count 5.6 X10^3/uL (2.0-7.7); Basophil# 0.06 X10^3/uL; Basophil% 0.7 % (0-1); Eosinophil# 0.15 X10^3/uL; Eosinophils% 1.7 % (0-5); Hematocrit 51.9 % (40-54); Hemoglobin 16.1 g/dL (13.0-16.5); Lymphocyte # 2.51 X10^3/ul (0.83-4.51); Lymphocyte % 27.9 % (19-41); Mean Corpuscular Hgb 28.6 pg (27.0-32.0); Mean Corpuscular Volume 92.2 fL (80-94); Mean Platelet Vol. 10.1 fl (6.2-12.0); Monocyte# 0.63 X10^3/uL; NRBC Flagged by Analyzer 0 % (0-5); Neutrophil # 5.62 X10^3/uL (2.7-7.7); Neutrophil % 62.3 % (47-70); Platelet Count 200 K/mm3 (150-450); RBC Distribution Width CV 17.2 % (11.6-14.6); Red Blood Count 5.63 M/mm3 (4.6-6.2)
[2023-10-08 15:26] LABS: Hemoglobin A1c 7.1 % (3.8-5.6)
[2023-10-08 16:19] LABS: ALB/GLOB Ratio 1.2 RATIO (0.9-2.4); AST(SGOT) 13 U/L (15-37); Alanine Aminotransfer ALT/SGPT 21 U/L (16-61); Albumin, Serum 3.5 g/dL (3.2-5.0); Alkaline Phosphatase 58 U/L (45-117); Anion Gap 7 (5-15); BUN 22 mg/dL (7-18); BUN/Creat Ratio 15.7 RATIO (10-20); Calcium,Total 9.9 mg/dL (8.5-10.1); Chloride 114 mmol/L (98-107); EST Glomerular Filtration Rate 52 mL/min (>60); Est Glom Filt Rate - Afr Amer 63 mL/min (>60); Ferritin 13 ng/mL (26-388); Glucose 81 mg/dL (74-106); Potassium 3.7 mmol/L (3.5-5.1); Protein, Total 6.5 g/dL (6.4-8.2); Sodium Level 142 mmol/L (136-145); T4 Free Direct 1.18 ng/dL (0.76-1.46); Thyroid Stim Hormone (TSH) 1.69 uIU/mL (0.358-3.74)
[2023-10-08 16:23] LABS: Vitamin B12 299 pg/mL (211-911); Vitamin D,25 Hydroxy 54.1 ng/mL
== END | disposition home or self-care (01) ==
PROVIDERS: PCP Student in an Organized Health Care Education/Training Program; Referring Provider Nurse Practitioner Family; Visit Provider Nurse Practitioner Family
DX: R53.83 Other fatigue (principal); E11.22 Type 2 diabetes mellitus with diabetic chronic kidney disease; N18.30 Chronic kidney disease, stage 3 unspecified
CPT/HCPCS: 36415; 80053; 82306; 82607; 82728; 83036; 84439; 84443; 85025

== ENCOUNTER → 2023-10-20 | Outpatient (CLI) | payer MEDICARE, OTHER, SELFPAY ==
[2023-10-20 18:44] LABS: PSA,Total- Diagnostic < 0.01 ng/mL (0.0-4.0)
== END | disposition home or self-care (01) ==
LOC: LAB 15:59
PROVIDERS: PCP Student in an Organized Health Care Education/Training Program; Referring Provider Nurse Practitioner; Visit Provider Nurse Practitioner
DX: C61 Malignant neoplasm of prostate (principal)
CPT/HCPCS: 36415; 84153

== ENCOUNTER → 2023-11-25 | Outpatient (CLI) | payer MEDICARE, OTHER, SELFPAY ==
--- NOTE | 2023-11-25 11:55 | RAD_ITS ---
STUDY: X-RAY - LUMBAR SPINE REASON FOR EXAM: Male, 83 years old. LUMBAR DEGENERATIVE DISC DISEASE TECHNIQUE: 2 view(s) of the lumbar spine were obtained. COMPARISON: 07/29/2022 FINDINGS: Normal lumbar lordosis. Mild dextroscoliosis centered at L1/L2. 8 mm retrolisthesis of L3 on L4. Status post transpedicular fixation from L4 through S1 with 8 mm retrolisthesis of L4 on L5 which is unchanged. There is multi-level degenerative disc disease with multi-level disc space narrowing. There is multilevel facet hypertrophy. The soft tissue structures are unremarkable. RAD/Lumbar Spine 2 or 3 Views IMPRESSION: Status post transpedicular fixation from L4 through S1 with 8 mm retrolisthesis of L4 on L5. Degenerative disc disease with 8 mm retrolisthesis of L3 on L4. Electronically Signed: Sean Fabian MD at 8:58 EDT ,
== END | disposition home or self-care (01) ==
LOC: RAD 11:46
PROVIDERS: PCP Student in an Organized Health Care Education/Training Program; Referring Provider Clinical Nurse Specialist Adult Health; Visit Provider Clinical Nurse Specialist Adult Health
DX: M51.36 Other intervertebral disc degeneration, lumbar region (principal)
CPT/HCPCS: 72100

== ENCOUNTER → 2024-04-13 | Outpatient (CLI) | payer MEDICARE, OTHER, SELFPAY ==
[2024-04-13 11:17] LABS: Hematocrit 49.4 % (40-54); Hemoglobin 15.4 g/dL (13.0-16.5); Mean Corp Hgb Conc 31.2 g/dL (32-36); Mean Corpuscular Hgb 28.2 pg (27.0-32.0); Mean Corpuscular Volume 90.3 fL (80-94); Mean Platelet Vol. 9.9 fl (6.2-12.0); Platelet Count 155 K/mm3 (150-450); RBC Distribution Width CV 16.5 % (11.6-14.6); Red Blood Count 5.47 M/mm3 (4.6-6.2); White Blood Count 6.3 K/mm3 (4.4-11.0)
[2024-04-13 11:53] LABS: ALB/GLOB Ratio 1.2 RATIO (0.9-2.4); AST(SGOT) 8 U/L (15-37); Alanine Aminotransfer ALT/SGPT 18 U/L (16-61); Albumin, Serum 3.5 g/dL (3.2-5.0); Alkaline Phosphatase 56 U/L (45-117); Anion Gap 4 (5-15); BUN 23 mg/dL (7-18); BUN/Creat Ratio 15.1 RATIO (10-20); Calcium,Total 9.8 mg/dL (8.5-10.1); Chloride 108 mmol/L (98-107); Cholesterol 128 mg/dL (200); Creatinine, Serum 1.52 mg/dL (0.70-1.30); EST Glomerular Filtration Rate 47 mL/min (>60); Est Glom Filt Rate - Afr Amer 57 mL/min (>60); Ferritin 13 ng/mL (26-388); Glucose 118 mg/dL (74-106); High Density Lipoprotein 45 mg/dL; Potassium 4.2 mmol/L (3.5-5.1); Protein, Total 6.5 g/dL (6.4-8.2); Sodium Level 140 mmol/L (136-145); T4 Free Direct 1.11 ng/dL (0.76-1.46); Triglycerides 143 mg/dL; Very Low Density Lipoprotein 29 mg/dL (5-40)
[2024-04-13 12:10] LABS: Hemoglobin A1c 6.8 % (3.8-5.6)
[2024-04-13 15:35] LABS: Microalbumin,Random Urine 26.5 mg/L (NO RANGE EST.); Microalbumin:Creatinine Ratio 25.2 mg/g CRE (<30 mg/g CRE)
[2024-04-14 07:49] LABS: PTHIN 96.3 pg/mL (18.4-80.1)
[2024-04-14 08:36] LABS: Vitamin B12 496 pg/mL (211-911); Vitamin D,25 Hydroxy 62.1 ng/mL
== END | disposition home or self-care (01) ==
LOC: LAB 10:42
PROVIDERS: PCP Student in an Organized Health Care Education/Training Program; Referring Provider Student in an Organized Health Care Education/Training Program; Visit Provider Student in an Organized Health Care Education/Training Program
DX: E11.21 Type 2 diabetes mellitus with diabetic nephropathy (principal); E11.22 Type 2 diabetes mellitus with diabetic chronic kidney disease; N18.32 Chronic kidney disease, stage 3b; E53.8 Deficiency of other specified B group vitamins; D50.9 Iron deficiency anemia, unspecified; E03.9 Hypothyroidism, unspecified
CPT/HCPCS: 36415; 80053; 80061; 82043; 82306; 82570; 82607; 82728; 83036; 83970; 84439; 84443; 85027

== ENCOUNTER → 2024-09-22 | Outpatient (CLI) | payer MEDICARE, OTHER, SELFPAY ==
[2024-09-22 11:13] LABS: Hematocrit 48.6 % (40-54); Hemoglobin 15.7 g/dL (13.0-16.5); Mean Corp Hgb Conc 32.3 g/dL (32-36); Mean Corpuscular Hgb 29.3 pg (27.0-32.0); Mean Corpuscular Volume 90.7 fL (80-94); Mean Platelet Vol. 10.2 fl (6.2-12.0); Platelet Count 189 K/mm3 (150-450); RBC Distribution Width CV 16.3 % (11.6-14.6); Red Blood Count 5.36 M/mm3 (4.6-6.2); White Blood Count 5.9 K/mm3 (4.4-11.0)
[2024-09-22 11:37] LABS: Microalbumin,Random Urine 24.2 mg/L (NO RANGE EST.); Microalbumin:Creatinine Ratio 239.6 mg/g CRE
[2024-09-22 12:14] LABS: ALB/GLOB Ratio 1.7 RATIO (0.9-2.4); AST(SGOT) 15 U/L (<=37); Alanine Aminotransfer ALT/SGPT 14 U/L (<=46); Albumin, Serum 4.1 g/dL (3.4-4.8); Alkaline Phosphatase 55 U/L (40-129); Anion Gap 10 (5-15); BUN 22 mg/dL (4-19); BUN/Creat Ratio 16.1 RATIO (10-20); Calcium,Total 10.1 mg/dL (7.6-11.0); Carbon Dioxide 23.7 mmol/L (21.0-32.0); Chloride 107 mmol/L (98-108); Cholesterol 132 mg/dL (<=200); Creatinine, Serum 1.37 mg/dL (0.70-1.20); EST Glomerular Filtration Rate 52 (>60); Globulin 2.3 g/dL (2.2-4.2); Glucose 119 mg/dL (70-99); High Density Lipoprotein 42 mg/dL; Low Density Lipoprotein Calc. 64 mg/dL; Potassium 4.7 mmol/L (3.3-5.1); Pro- Brain NATRIURETIC PEPTIDE 199 pg/mL (<=1800); Protein, Total 6.4 g/dL (5.9-8.4); Sodium Level 140 mmol/L (133-145); Total Bilirubin 0.39 mg/dL (0.00-1.30); Triglycerides 128 mg/dL; Very Low Density Lipoprotein 26 mg/dL (5-40); cholesterol:hdl ratio screen 3.12
[2024-09-22 12:58] LABS: Ferritin 23 ng/mL (37-417); PSA,Total - Annual Screen < 0.02 ng/mL (0.02-4.00); Vitamin B12 498 pg/mL (180-914); Vitamin D,25 Hydroxy 71.4 ng/mL (30-100)
== END | disposition home or self-care (01) ==
LOC: LAB 10:42
PROVIDERS: PCP Student in an Organized Health Care Education/Training Program; Referring Provider Student in an Organized Health Care Education/Training Program; Visit Provider Student in an Organized Health Care Education/Training Program
DX: Z13.6 Encounter for screening for cardiovascular disorders (principal); Z12.5 Encounter for screening for malignant neoplasm of prostate; R53.83 Other fatigue; I13.10 Hypertensive heart and chronic kidney disease without heart failure, with stage 1 through stage 4 chronic kidney disease, or unspecified chronic kidney disease; E55.9 Vitamin D deficiency, unspecified
CPT/HCPCS: 36415; 80053; 80061; 82043; 82306; 82570; 82607; 82728; 82746; 83036; 83880; 84153; 84439; 84443; 85027; G0103

== ENCOUNTER → 2025-02-06 | Outpatient (CLI) | payer MEDICARE, OTHER, SELFPAY | END | disposition home or self-care (01) | LOC: LAB 14:34 | PROVIDERS: PCP Student in an Organized Health Care Education/Training Program; Referring Provider Nurse Practitioner Family; Visit Provider Nurse Practitioner Family | DX: E03.9 Hypothyroidism, unspecified (principal) | CPT/HCPCS: 36415; 84439; 84443 ==